=== PATIENT | male | born 1955 | race Caucasian/White ===

== ENCOUNTER 2019-07-15 08:14 | Emergency (ER) | payer BC ==
[~2019-07-15] VITALS: Ht 180.3 cm; Wt 106.6 kg
--- OUTSIDE RECORDS SUMMARY | ~2019-07-15 | XMS | Encounter Summary ---
Demographics + + + | Address | [address] | | | [place] [address] | + + + | Home Phone | | + + + | Preferred Language | Unknown | + + + | Marital Status | Unknown | + + + | Jain Affiliation | [id number] | + + + | Race | Unknown | + + + | Ethnic Group | Unknown | + + + Author + + + | Author | [facility] | | | [facility] [place] | + + + | Organization | [facility] | | | [facility] [place] | + + + | Address | Unknown | + + + | Phone | Unavailable | + + + Support + + +---------+ + | Name | Relationship | Address | Phone | + + +---------+ + | Selene Gao | ECON | Unknown | | + + +---------+ + Care Team Providers + +------+ + | Care Nursing Executive Name | Role | Phone | + +------+ + | Blue Lopez MD | PCP | | + +------+ + Encounter Details +--------+ + + + + | Date | Type | Department | Care Team | Description | +--------+ + + + + | 05/14/ | Orders Only | [facility] | Conversion | | | 2015 | | CONVERSION DEP [address] | Transaction, | | | | | [address] | Provider Unknown | | | | | [place] | [phone] | | | | | [phone] | (Fax) | | | | | [phone] | | | +--------+ + + + + Social History + +-------+ +--------+------+ | Tobacco Use | Types | Packs/Day | Years | Date | | | | | Used | | + +-------+ +--------+------+ | Never Assessed | | | | | + +-------+ +--------+------+ + + + | Sex Assigned at | Date Recorded | | | | + + + | Not on file | | + + + + + + + | Job Start Date | Occupation | Industry | + + + + | Not on file | Not on file | Not on file | + + + + + + + + | Travel History | Travel Start | Travel End | + + + + + + | No recent travel history available. | + + documented as of this encounter Plan of Treatment Not on filedocumented as of this encounter Visit Diagnoses Not on filedocumented in this encounter"
--- OUTSIDE RECORDS SUMMARY | ~2019-07-15 | XMS | Encounter Summary ---
Demographics + + + | Address | [address] | | | [place] [address] | + + + | Home Phone | | + + + | Preferred Language | Unknown | + + + | Marital Status | Unknown | + + + | [employer]aritan Affiliation | 1013 | + + + | Race | Unknown | + + + | Ethnic Group | Unknown | + + + Author + + + | Author | [facility] | | | and [place] | + + + | Organization | [facility] | | | and [place] | + + + | Address | Unknown | + + + | Phone | Unavailable | + + + Support + + +---------+ + | Name | Relationship | Address | Phone | + + +---------+ + | Selene Lorenzo | ECON | Unknown | | + + +---------+ + Care Team Providers + +------+ + | Care Brusher Operator Name | Role | Phone | + +------+ + PCP | Unavailable | + +------+ + Encounter Details +--------+ + + + + | Date | Type | Department | Care Team | Description | +--------+ + + + + | 04/09/ | Hospital | [facility] | Conversion | Acute chest pain; | | 2014 - | Encounter | [facility] | Transaction, | Unstable angina | | | | CARE FLOOR [address] | Provider Unknown | ([facility]); Cerebral | | 04/11/ | | [address] | [phone] | infarction due to | | 2014 | | [place] | | embolism of right | | | | [phone] | Prince Avina | middle cerebral | | | | [phone] | MD [address] | artery ([facility]); Type 2 | | | | | [address] | diabetes mellitus | | | | | [place] [address] | without complication | | | | | [phone] | (HCC) | | | | | | | +--------+ + + + [...] + + documented as of this encounter Discharge Summaries Prince Avina MD - 04/11/2015 7:41 AM PDTFormatting of this note might be differ ent from the original. Discharge Summaries by Prince Avina DO at 04/11/15740 Author: Prince Avina DO Service: Cardiology Author Type: Physician Filed: 02/27/16 1326 Date of Service: 04/11/15740 Status: Signed State Tested Nursing Assistant: Prince Avina DO (Physician) [facility] Service: Cardiology Discharge Summary Date of Admission: 04/09/2015 Date of Discharge: 04/11/2015 Discharge Physician: PRINCE T AVINA, DO Discharge Diagnoses: 1. 3-V CAD. 2. Hypertension 3. Hyperlipidmeia 4. DM2 Procedures During Hospitalization: Cardiac Cath Findings: 1. 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 Severe three-vessel coronary artery disease including RCA, LAD and left circumflex Recommend coronary artery bypass surgery BRIEF HISTORY OF PRESENTATION: Dusty Lorenzo is a 59 y.o. male, with relatively new onset chest pain, worsening over the last few weeks. It is aggravated with exertion, relieved with rest. He's had no symp toms at rest. It began initially with discomfort in the low mid back area, but then has a tendency to radiate down both arms, he gets a sensation that he describes as "heartburn", sh ortness of breath, nausea, and diaphoresis. He is normally quite active, but the last few weeks he symptoms have been decreasing his activity. There is no prior history of coronary artery disease, myocardial infarction, congestive heart failure, rheumatic heart disease, p alpitations or syncope. He has a long history of diabetes (10+ years), hypertension, hyper lipidemia, and extremely strong family history of heart disease (father had coronary disease and bypass surgery prior to age 50, 2 of his older brothers have already had the coronary d isease, stents and/or bypass surgery, his younger brothers oriented to stroke. He quit [employer] 20 years ago. Past Medical History Diagnosis Date RBBB (right bundle branch block) Hypertension Hyperlipidemia Diabetes mellitus, type 2 (HCC) Past Surgical History Procedure Laterality Date Tonsillectomy Abdominal surgery Lypoma removal from groin area-benign Colonoscopy Allergies Allergen Reactions Sulfa Antibiotics Hives and Rash HOSPITAL COURSE: Patient admitted because of unstable angina, undergoing coronary angiography. Found to hav e severe three-vessel coronary disease, bypass surgery was recommended. Seen by Dr. Martinez , see Dr. Martinez's consultation. As a complication of procedure, patient suffered a small CVA. Seen by neurology, see Dr. Cheng's consultation (CT scan is negative for hemorrhage. M RI consistent with CVA). Treated medically, the remainder of his hospital stay, patient was stable. Because surgery was delayed, patient will be discharged followed in outpatient set ting, and return in later date for elective surgery. Vital Signs: BP 131/78 mmHg | Pulse 78 | Temp(Src) 97.8 F (36.6 C) (Oral) | Resp 16 | Ht 1.803 m (5' 11") | Wt 107.5 kg (236 lb 15.9 oz) | BMI 33.07 kg/m2 | SpO2 98% GENERAL APPEARANCE: Alert, oriented, cooperative, no distress, appears stated age. HEENT: No xanthelasmas. Extraocular movements were intact. No jaundice. Pupiles round and reactive. NECK: No JVD, lymphadenopathy. Trachea is at midline. Thyroid is not palpable. Carotid ups trokes normal. No carotid bruit heard. CARDIAC: Regular rhythm and rate. There is normal S1 and S2. No galop. No murmur. Pedal pu lses intact. CHEST: Normal bilateral symmetrical chest excursion. Good bilateral air entry with no crack les or wheezing. No evidence of dullness. ABDOMEN: Soft and lax. No tenderness or guarding. No palpable organs. Active bowel sounds . No pulsatile mass felt. EXTREMITIES: No lower extremities edema. No varicose veins seen. NEURO: Alert and oriented times three with no focal deficit. Cranial nerves are grossly no rmal. SKIN: Warm and dry. No rash. Psych: Normal affect and mood. Medication List aspirin EC 81 MG EC tablet Take 81 mg by mouth daily with breakfast. glipiZIDE (GLUCOTROL) 5 MG tablet Take 5 mg by mouth 2 (two) times daily before ayana ls. lisinopril (ZESTRIL) 10 MG tablet Take 5 mg by mouth daily. lovastatin (MEVACOR) 40 MG tablet Take 40 mg by mouth nightly. metFORMIN (GLUCOPHAGE) 1000 MG tablet Take 1,000 mg by mouth 2 (two) times daily wi th meals. metoprolol (TOPROL-XL) 25 MG 24 hr tablet Take 25 mg by mouth daily. Disposition: Home Condition: Stable. Code Status: Full code Follow up: No follow-up provider specified. Discharge took 60 minutes, to include final examination, discussion of admission, and prepa ration of prescriptions, instructions for on-going care, follow-up and documentation of disc harge summary. *This report has been prepared using a voice recognition system. The report was reviewed fo r accuracy, however, sound-alike word errors, addition and/or deletions may occur. If there is any question about this report please contact me. PRINCE AVINA DO 04/11/2015 7:41 AM documente d in this encounter Medications at Time of Discharge + + + +---------+ + + | Medication | Sig | Dispensed | Refills | Start | End Date | | | | | | Date | | + + + +---------+ + + | metFORMIN | Take 1,000 mg by | | 0 | 04/09/20 | | | (GLUCOPHAGE) 1000 MG | mouth 2 (two) times | | | 15 | | | tablet | daily with meals. | | | | | + + + +---------+ + + documented as of this encounter Progress Notes Conversion Transaction, Provider Unknown - 04/11/2015 12:41 PM PDTFormatting of this note m ight be different from the original. Case Management by BE Bai at 04/11/15 1241 Author: BE Bai Service: (none) Author Type: Duster Tender Filed: 04/11/15 3426 Date of Service: 04/11/151240 Status: Signed State Tested Nursing Assistant: BE Bai (Duster Tender) 04/11/15 1200 Anticipated Disposition Facility Type Home Discharge Appointment Time 1241 Medicare Important Message (FLORES) Not applicable Per nursing rounds this morning, patient had no d/c needs. BE Bai onver fiordaliza Transaction, Provider Unknown - 04/11/2015 10:47 AM PDT Nurse Progress Note by Ashlyn Bonner RN at 04/11/151046 Author: Ashlyn Bonner RN Service: (none) Author Type: Registered Nurse Filed: 04/11/151046 Date of Service: 04/11/151046 Status: Signed State Tested Nursing Assistant: Ashlyn Bonner RN (Registered Nurse) All d/c instructions and prescriptions given. Pt to f/u with alicia Ramirez, and pcp and schedule for open heart surgery. Denies cp or SOB at d/c. Prince Hanna MD - 04/10/2015 2:23 PM PDTFormatting of this note might be different fro m the original. Progress Notes by Prince Avina DO at 04/10/15 1423 Author: Prince Avina DO Service: Cardiology Author Type: Physician Filed: 04/10/15 1429 Date of Service: 04/10/151422 Status: Signed State Tested Nursing Assistant: Prince Avina DO (Physician) [facility] Service: Cardiology Progress Note Hospital Day: LOS: 1 day Post-Op Day: 1, post cath SUBJECTIVE Patient Summary: 59-year-old white male, status post coronary angiography for crescen do angina. 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 After the procedure, zahira ent noticed left arm weakness, left facial numbness. This has persisted, he now has left arm weakness, left leg weakness and the left facial numbness. CT scan is negative for hemorrhag e. MRI consistent with CVA. Case is discussed with Dr. Martinez, surgery has been postponed. Events Overnight: Patient feeling better today, left hand and left leg back to normal , still has some numbness in the left cheek area. Scheduled Medications aspirin EC 325 mg Oral Daily with breakfast atorvastatin 80 mg Oral Nightly glipiZIDE 5 mg Oral BID AC lisinopril 5 mg Oral Daily metoprolol 25 mg Oral Daily pneumococcal 23-valent vaccine 0.5 mL Intramuscular Once Immunization Continuous Infusions PRN Medications acetaminophen OR acetaminophen, fentaNYL OR fentaNYL, heparin (porcine) 5000 unit/0 .5mL, heparin (porcine) 5000 unit/0.5mL, nitroGLYCERIN, ondansetron OR ondansetron, poly ethylene glycol, zolpidem OBJECTIVE Vital Signs: BP 165/84 mmHg | Pulse 72 | Temp(Src) 98.6 F (37 C) (Oral) | Resp 16 | Ht 1.803 m (5' 1 1") | Wt 110.36 kg (243 lb 4.8 oz) | BMI 33.95 kg/m2 | SpO2 99% Temp: [97.7 F (36.5 C)-98.8 F (37.1 C)] 98.6 F (37 C) (04/10 1216) BP: (117-167)/(71-101) 165/84 mmHg (04/10 1216) Heart Rate: [50-90] 72 (04/10 1216) Resp: [16-22] 16 (04/10 1216) SpO2: [95 %-100 %] 99 % (04/10 1216) Weight: [110.36 kg (243 lb 4.8 oz)] 110.36 kg (243 lb 4.8 oz) (04/10 0428) Intake/Output Summary (Last 24 hours) at 04/10/15 1423 Last data filed at 04/10/15 1351 Gross per 24 hour Intake 3186.28 ml Output 0 ml Net 3186.28 ml 110.36 kg (243 lb 4.8 oz) Exam Cardivascular: No JVD. Carotid upstrokes brisk and without bruits. No abdominal bruits. No femoral bruits. Peripheral pulses normal. PMI localized. Auscultated in the sitting and supine position reveals regular rate and rhythm, S1 and S2 normal, no murmur, rub or horne p Lungs: Clear to auscultation bilaterally, respirations unlabored Extremities: Extremities normal, atraumatic, no cyanosis or edema. Right radial area sta ble, unremarkable. DATA CBC: Lab Results Component Value Date WBC 4.59 04/09/2015 RBC 4.29 04/09/2015 HGB 12.7* 04/09/2015 HCT 36.3* 04/09/2015 MCV 84.6 04/09/2015 MCH 29.5 04/09/2015 MCHC 34.9 04/09/2015 RDW 40.3 04/09/2015 PLT 126* 04/09/2015 MPV 8.8 04/09/2015 DIFFTYPE AUTOMATED 04/09/2015 CMP: Lab Results Component Value Date NA 138 04/09/2015 K 4.5 04/09/2015 CL 102 04/09/2015 CO2 28 04/09/2015 ANIONGAP 12 04/09/2015 GLUF 180* 04/09/2015 BUN 18 04/09/2015 CREATININE 1.1 04/09/2015 BCR 16 04/09/2015 CA 8.6 04/09/2015 EGFR >60 04/09/2015 CPK: No results found for: CKTOTAL Troponin I: No results found for: TROPONINI TSH: No results found for: TSH, TSHNEO, TSHREFLEX No results found for: BNP Assessment ASSESSMENT & PLAN 1. Three-vessel CAD, including anomalous takeoff of the left main, LVEF NML. CABG recommend ed. 2. CVA, associated with diagnostic coronary angiography, symptoms improving, Neurology Cons ultation pending. 3. Hx HTN, HLD, DM2. Code Status: Full Code PRINCE AVINA DO 04/10/2015 Raymundo Hanna MD - 04/09/2015 9:19 PM PDTFormatting of this note might be different from celine izquierdo original. Progress Notes by Prince Avina DO at 04/09/152118 Author: Prince Avina DO Service: Cardiology Author Type: Physician Filed: 04/09/152125 Date of Service: 04/09/152118 Status: Signed State Tested Nursing Assistant: Prince Avina DO (Physician) 04/09/2015 59-year-old white male, status post coronary angiography for crescendo angina. 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 After the procedure, patient noticed left arm weakness, left facial numbness. This has persisted, he now has left arm weakness, left leg weakness and the left facial numbness. CT scan is negative for hemorrhage. MRI consistent with CVA. Case is discussed with Dr. Martinez, surgery has been postponed. Case discussed w kayli Cheng, she'll be seeing the patient tomorrow. At this point, we DC'd the IV heparin , patient is on aspirin and high-dose atorvastatin. His coronary disease we treated medical ly at this point, metoprolol. Carotid US 1. Findings suggest a 50-69% stenosis in the proximal left internal carotid artery, and dis maya right common carotid artery. -head 1. No acute intracranial pathology. /MRA-head 1. 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 This critical finding was relayed to t patient's nurse, Key on the date and time of dictation. 2. 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 Results discussed with patient and . [facility] onversio n Transaction, Provider Unknown - 04/09/2015 9:00 PM PDTFormatting of this note might be di fferent from the original. Nurse Progress Note by Chris Christensen RN at 04/09/152099 Author: Chris Christensen RN Service: (none) Author Type: Registered Nurse Filed: 04/10/15 0357 Date of Service: 04/09/152099 Status: Signed State Tested Nursing Assistant: Chris Christensen RN (Registered Nurse) Pt exhibiting signs of left sided weakness and left sided facial drooping. Left side fine m otor involvement in LUE. Dr. Avina at bedside. CT/MRI ordered. Ct negative, MRI positive for CVA. Juan Suazo notified. CABG on hold. Neuro consult with Dr Jack 04/10. Will cont inue to monitor PT closely and continue Neuro checks. Chris Christensen RN onver fiordaliza Transaction, Provider Unknown - 04/09/2015 7:01 PM PDT Nurse Progress Note by Cherrie Rojo RN at 04/09/151900 Author: Cherrie Rojo RN Service: (none) Author Type: Registered Nurse Filed: 04/09/151901 Date of Service: 04/09/151900 Status: Signed State Tested Nursing Assistant: Cherrie Rojo RN (Registered Nurse) 3cc air removed from TR band. ele Banerjee Jr., MD - 04/09/2015 6:50 PM PDTFormatting of this note might be different from t he original. Progress Notes by Lele Martinez MD at 04/09/151849 Author: Lele Martinez MD Service: (none) Author Type: Physician Filed: 04/09/151850 Date of Service: 04/09/151849 Status: Signed State Tested Nursing Assistant: Lele Martinez MD (Physician) Left sided neuro symptoms now present per nursing evaluation CT scan of the head has been ordered CABG on hold for now onversion Trans action, Provider Unknown - 04/09/2015 6:45 PM PDT Nurse Progress Note by Cherrie Rojo RN at 04/09/151844 Author: Cherrie Rojo RN Service: (none) Author Type: Registered Nurse Filed: 04/09/151845 Date of Service: 04/09/151844 Status: Signed State Tested Nursing Assistant: Cherrie Rojo RN (Registered Nurse) Dr Martinez notified of pt's continued L facial droop. numbness to L hand and CT head withou t contrast via telephone at this time. onver fiordaliza Transaction, Provider Unknown - 04/09/2015 5:54 PM PDT Nurse Progress Note by Cherrie Rojo RN at 04/09/151753 Author: Cherrie Rojo RN Service: (none) Author Type: Registered Nurse Filed: 04/09/151755 Date of Service: 04/09/151753 Status: Signed State Tested Nursing Assistant: Cherrie Rojo RN (Registered Nurse) L sided weakness present on pt's arrival from [employer], per RN report this was evaluated by Dr Malik at bedside in [employer]. This weakness has persisted. Dr Avina notified that pt con tinues to have numbness, lack of dexterity, and mild L facial droop. CT head without contras t ordered. onver fiordaliza Transaction, Provider Unknown - 04/09/2015 3:34 PM PDT Progress Notes by Kenia Santacruz RPH at 04/09/151533 Author: Kenia Santacruz RPH Service: (none) Author Type: Pharmacist Filed: 04/09/151533 Date of Service: 04/09/151533 Status: Signed State Tested Nursing Assistant: Kenia Santacruz RPH (Pharmacist) Clinical Pharmacy Note: Renal Monitoring Dusty Lorenzo 59 y.o. male Ht Readings from Last 1 Encounters: 04/09/15 1.803 m (5' 11") Wt Readings from Last 1 Encounters: 04/09/15 112.492 kg (248 lb) CREATININE: 1.1 (04/09/15 1110) Estimated creatinine clearance - 90 mL/min Pharmacy dosing for renal function per Dr. Malik. Currently, there are no medications needing to be adjusted. Pharmacy will continue to monit or for changes in medication orders and in renal function and adjust accordingly. Kenia Santacruz RPh 04/09/2015 3:34 PM onver fiordaliza Transaction, Provider Unknown - 04/09/2015 2:54 PM PDT Nurse Progress Note by Cornelio Silva RN at 04/09/15 2918 Author: Cornelio Silva RN Service: (none) Author Type: Registered Nurse Filed: 04/09/15 8671 Date of Service: 04/09/151453 Status: Signed State Tested Nursing Assistant: Cornelio Silva RN (Registered Nurse) After pt was sat up from the table after procedure, pt c/o feeling off and a little disorie nted and his mouth feels like he just came back from the dentist. Pt then started foaming/fr othing from left side of the mouth and sounded slightly heavy tongued. Dr. Malik was notifi ed and he performed a neuro exam. After the exam pt stated that his left arm was tingling an d numb, however that was getting better. Also that he felt that his mouth and speech was myra e what better. Pt did have some notable left sided facial droop. This was reported to niles lew RN, 4RP via phone. docume nted in this encounter Plan of Treatment Not on filedocumented as of this encounter Procedures + +--------+ + + + | Procedure Name | Priori | Date/Time | Associated Diagnosis | Comments | | | ty | | | | + +--------+ + + + | CT CHEST W CONTRAST | Routin | 04/11/2015 | | Results for this | | | e | 8:41 AM | | procedure are in the | | | | PDT | | results section. | + +--------+ + + + | PTT | Routin | 04/09/2015 | | Results for this | | | e | 9:07 PM | | procedure are in the | | | | PDT | | results section. | + +--------+ + + + | MRI BRAIN WO | Routin | 04/09/2015 | | Results for this | | CONTRAST ANGIOGRAM | e | 8:36 PM | | procedure are in the | | HEAD WO CONTRAST | | PDT | | results section. | + +--------+ + + + | VAS LOWER EXTREMITY | Routin | 04/09/2015 | | Results for this | | VEIN MAPPING | e | 6:55 PM | | procedure are in the | | BILATERAL | | PDT | | results section. | + +--------+ + + + | MRSA NAAT | STAT | 04/09/2015 | | Results for this | | | | 6:50 PM | | procedure are in the | | | | PDT | | results section. | + +--------+ + + + | VAS CAROTID DUPLEX | Routin | 04/09/2015 | | Results for this | | BILATERAL | e | 6:40 PM | | procedure are in the | | | | PDT | | results section. | + +--------+ + + + | CT HEAD WO CONTRAST | Routin | 04/09/2015 | | Results for this | | | e | 6:33 PM | | procedure are in the | | | | PDT | | results section. | + +--------+ + + + | ECG 12 LEAD | Routin | 04/09/2015 | | Results for this | | | e | 3:52 PM | | procedure are in the | | | | PDT | | results section. | + +--------+ + + + | XR CHEST 1 VIEW | Routin | 04/09/2015 | | Results for this | | | e | 3:52 PM | | procedure are in the | | | | PDT | | results section. | + +--------+ + + + | PTT | Routin | 04/09/2015 | | Results for this | | | e | 3:31 PM | | procedure are in the | | | | PDT | | results section. | + +--------+ + + + | PROTIME INR | Routin | 04/09/2015 | | Results for this | | | e | 3:31 PM | | procedure are in the | | | | PDT | | results section. | + +--------+ + + + | CBC NO DIFFERENTIAL | Routin | 04/09/2015 | | Results for this | | | e | 3:31 PM | | procedure are in the | | | | PDT | | results section. | + +--------+ + + + | ECHO COMPLETE | Routin | 04/09/2015 | | Results for this | | | e | 12:15 PM | | procedure are in the | | | | PDT | | results section. | + +--------+ + + + | EXTERNAL LAB: CBC | Routin | 04/09/2015 | | Results for this | | | e | 11:10 AM | | procedure are in the | | | | PDT | | results section. | + +--------+ + + + | BASIC METABOLIC | Routin | 04/09/2015 | | Results for this | | PANEL | e | 11:10 AM | | procedure are in the | | | | PDT | | results section. | + +--------+ + + + documented in this encounter Results CT Chest w Contrast (04/11/2015 8:41 AM PDT) + + | Specimen | + + | | + + + + + | Impressions | Performed At | + + + | 1. Maximum A-P diameter of the ascending thoracic aorta is 3.9 cm. | | | There is probable pulsation artifact over the ascending aorta without | | | definite dissection identified. No mediastinal hematoma. 2. Mild | | | coronary artery calcifications. 3. Incidental gallstone and cysts | | | noted in the liver. | | + + + + + + | Narrative | Performed At | + + + | [facility] CT CHEST W CONTRAST 04/11/2015 8:41 AM HISTORY: | | | Acute chest pain. Evaluate ascending thoracic aorta. TECHNIQUE: 5 | | | mm axial sections were obtained through the chest with IV contrast. | | | FINDINGS: No prior comparison. There is probable pulsation | | | artifact overlying the ascending thoracic aorta. The maximum A-P | | | diameter of the ascending thoracic aorta is 3.9 cm. No mediastinal | | | hematomas are present. Incidental note is made of a gallstone. | | | There is a small low-density lesion in the liver near the dome of the | | | diaphragm showing fluid density, consistent with a cyst. No focal | | | airspace infiltrates or evidence of edema. No evidence of a | | | pneumothorax or pleural effusion. Coronary artery calcifications are | | | noted. No enlarged lymph nodes are identified in the mediastinum. | | + + + + + | Procedure Note | + + | Ravi, Rad Conversion - 03/10/2019 10:17 AM [facility] | | CONTRAST04/11/2015 8:41 AM HISTORY:Acute chest pain. Evaluate ascending thoracic aorta. | | TECHNIQUE:5 mm axial sections were obtained through the chest with IV contrast. | | FINDINGS:No prior comparison. There is probable pulsation artifact overlying the | | ascending thoracic aorta. The maximum A-P diameter of the ascending thoracic aorta is | | 3.9 cm. No mediastinal hematomas are present. Incidental note is made of a gallstone. | | There is a small low-density lesion in the liver near the dome of the diaphragm showing | | fluid density, consistent with a cyst. No focal airspace infiltrates or evidence of | | edema. No evidence of a pneumothorax or pleural effusion. Coronary artery calcifications | | are noted. No enlarged lymph nodes are identified in the mediastinum. IMPRESSION: 1. | | Maximum A-P diameter of the ascending thoracic aorta is 3.9 cm. There is probable | | pulsation artifact over the ascending aorta without definite dissection identified. No | | mediastinal hematoma.2. Mild coronary artery calcifications.3. Incidental gallstone | | and cysts noted in the liver. Electronically signed by Alvino Isabel MD on | | 04/11/2015 8:59 AM | |Incidental note is made of a gallstone. There is a small low-density lesion in the liver ne ar the dome of the diaphragm showing fluid density, consistent with a cyst. | | | |No focal airspace infiltrates or evidence of edema. No evidence of a pneumothorax or pleura l effusion. Coronary artery calcifications are noted. No enlarged lymph nodes are identified in the mediastinum. | | | |IMPRESSION: | |1. Maximum A-P diameter of the ascending thoracic aorta is 3.9 cm. There is probable pulsa tion artifact over the ascending aorta without definite dissection identified. No mediastina l hematoma. | |2. Mild coronary artery calcifications. | |3. Incidental gallstone and cysts noted in the liver. | | | | | + + PTT (04/09/2015 9:07 PM PDT) + + + + + + | Component | Value | Ref Range | Performed | Pathologist | | | | | At | Signature | + + + + + + | aPTT, | 33 (H)Comment: Testing | 23 - 32 seconds | EXTERNAL | | | Patient | performed at [facility] | | LAB | | | | Marito Carcamo;[place], [place] | | | | | | [address] | | | | + + + + + + + + | Specimen | + + | Blood specimen | | (specimen) | + + + +---------+ + + | Performing | Address | City/State/Zipcode | Phone Number | | Organization | | | | + +---------+ + + | EXTERNAL LAB | | | | + +---------+ + + MRI Brain Wo MRA Head Wo (04/09/2015 8:36 PM PDT) + + | Specimen | + + | | + + + + + | Impressions | Performed At | + + + | 1. 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 This critical | | | finding was relayed to the patient's nurse, Key on the date and | | | time of dictation. 2. 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 | | + + + + + + | Narrative | Performed At | + + + | [facility] HEAD 04/09/2015 8:36 PM | | | HISTORY: 59 years. Male. Left facial droop. Numbness in the left | | | hand. TECHNIQUE: Using a 1.5 Iv[employer] MRI unit, standard multiplanar | | | noncontrast sequences through the brain were obtained. Additionally, | | | 3-D, flight MRA imaging through the intracranial arterial circulation | | | was performed with maximum intensity projection images rendered. | | | COMPARISON: Head CT 04/09/2015. FINDINGS: A small cortical | | | infarct involves the right posterior frontal lobe, with restricted | | | diffusion, best seen on images 33 through 37, series 2. No | | | intracranial hemorrhage, mass, or hydrocephalus is found. No | | | significant white matter disease is noted. The corpus callosum, | | | midbrain, carloz, medulla, and cerebellum are normal. No significant | | | orbital abnormalities are found. The significant paranasal sinus | | | disease or mastoid fluid is found. No worrisome bone lesions are | | | identified. A small amount of abnormal high T1 signal is present | | | within the distal right vertebral artery. MRA imaging demonstrates | | | dominance of a patent left vertebral artery. The right vertebral | | | artery is diminished in size, demonstrating no flow within its distal | | | segment, with absence of flow in this region measuring 1.4 cm, best | | | seen on image 12, series 101. The basilar artery and basilar | | | arterial branches including the bilateral posterior cerebral arteries | | | appear widely patent. A patent right posterior communicating artery is | | | found without aneurysm. 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 The bilateral internal carotid, middle | | | cerebral, and anterior cerebral arteries appear widely patent. No | | | anterior commuting artery aneurysm is found. | | + + + + + | Procedure Note | + + | Ravi, Rad Conversion - 03/10/2019 10:17 AM PDT [facility] | | HEAD04/09/2015 8:36 PM HISTORY:59 years. Male. Left facial droop. Numbness in the left | | hand. TECHNIQUE:Using a 1.5 [employer] MRI unit, standard multiplanar noncontrast sequences | | through the brain were obtained. Additionally, 3-D, flight MRA imaging through the | | intracranial arterial circulation was performed with maximum intensity projection images | | rendered. COMPARISON:Head CT 04/09/2015. FINDINGS:A small cortical infarct involves the | | right posterior frontal lobe, with restricted diffusion, best seen on images 33 through | | 37, series 2. No intracranial hemorrhage, mass, or hydrocephalus is found. No | | significant white matter disease is noted. The corpus callosum, midbrain, carloz, medulla, | | and cerebellum are normal. No significant orbital abnormalities are found. The | | significant paranasal sinus disease or mastoid fluid is found. No worrisome bone lesions | | are identified. A small amount of abnormal high T1 signal is present within the distal | | right vertebral artery. MRA imaging demonstrates dominance of a patent left vertebral | | artery. The right vertebral artery is diminished in size, demonstrating no flow within | | its distal segment, with absence of flow in this region measuring 1.4 cm, best seen on | | image 12, series 101. The basilar artery and basilar arterial branches including the | | bilateral posterior cerebral arteries appear widely patent. A patent right posterior | | communicating artery is found without aneurysm. The left posterior communicating artery | | is likely congenitally absent. The bilateral internal carotid, middle cerebral, and | | anterior cerebral arteries appear widely patent. No anterior commuting artery aneurysm | | is found. IMPRESSION: 1. 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 This | | critical finding was relayed to the patient's nurse, Key on the date and time of | | dictation. 2. 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 | | | |IMPRESSION: | |1. 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 This critical finding was relayed to the patient's nurse, Key on the date and time of dictation. | | | |2. 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 | | | | | + + VAS Lower Extremity Vein Mapping Bilat (04/09/2015 6:55 PM PDT) + + | Specimen | + + | | + + + + + | Impressions | Performed At | + + + | 1. Bilateral greater saphenous vein mapping as described above. | | | | | + + + + + + | Narrative | Performed At | + + + | DUSTY LORENZO GREATER SAPHENOUS VEIN MAPPING BILATERAL | | | 04/09/2015 6:55 PM HISTORY: 59 years. Male. Bilateral lower | | | extremity venous examination for saphenous vein harvest evaluation | | | prior to CABG. TECHNIQUE: Imaging was performed using a linear | | | array transducer. Myles scale, color flow, and power Doppler techniques | | | utilized. COMPARISON: None. FINDINGS: All vein segments are | | | completely compressible. RIGHT GREATER SAPHENOUS VEIN | | | Sapheno-femoral junction: Diameter (mm): 6.7 Depth (mm): 21 | | | Proximal thigh: Diameter (mm): 2.7 Depth (mm): 4.6 Mid thigh: | | | Diameter (mm): 3.4 Depth (mm): 2.8 Distal thigh: Diameter | | | (mm): 3.0 Depth (mm): 3.9 Knee: Diameter (mm): 2.7 | | | Depth (mm): 3.4 Proximal calf: Diameter (mm): 2.4 Depth | | | (mm): 2.2 Mid calf: Diameter (mm): 2.9 Depth (mm): 2.5 | | | Distal calf: Diameter (mm): 3.2 Depth (mm): 3.0 LEFT | | | GREATER SAPHENOUS VEIN Sapheno-femoral junction: Diameter (mm): | | | 6.0 Depth (mm): 31 Proximal thigh: Diameter (mm): 2.4 | | | Depth (mm): 3.3 Mid thigh: Diameter (mm): 2.8 Depth (mm): | | | 6.9 Distal thigh: Diameter (mm): 3.0 Depth (mm): 7.4 | | | Knee: Diameter (mm): 2.7 Depth (mm): 6.7 Proximal calf: | | | Diameter (mm): 3.5 Depth (mm): 5.3 Mid calf: Diameter (mm): | | | 1.5 Depth (mm): 2.5 Distal calf: Diameter (mm): 3.0 | | | Depth (mm): 2.8 | | + + + + + | Procedure Note | + + | Isaac Rodrigues - 03/10/2019 10:17 AM PDT [facility] ALBERT GREATER SAPHENOUS VEIN | | MAPPING BILATERAL04/09/2015 6:55 PM HISTORY:59 years. Male. Bilateral lower extremity | | venous examination for saphenous vein harvest evaluation prior to CABG. | | TECHNIQUE:Imaging was performed using a linear array transducer. Myles scale, color flow, | | and power Doppler techniques utilized. COMPARISON:None. FINDINGS:All vein segments are | | completely compressible. RIGHT GREATER SAPHENOUS VEIN Sapheno-femoral junction: | | Diameter (mm): 6.7 Depth (mm): 21Proximal thigh: Diameter (mm): 2.7 Depth (mm): | | 4.6Mid thigh: Diameter (mm): 3.4 Depth (mm): 2.8Distal thigh: Diameter (mm): 3.0 | | Depth (mm): 3.9Knee: Diameter (mm): 2.7 Depth (mm): 3.4Proximal calf: Diameter | | (mm): 2.4 Depth (mm): 2.2Mid calf: Diameter (mm): 2.9 Depth (mm): 2.5Distal | | calf: Diameter (mm): 3.2 Depth (mm): 3.0 LEFT GREATER SAPHENOUS VEIN | | Sapheno-femoral junction: Diameter (mm): 6.0 Depth (mm): 31Proximal thigh: | | Diameter (mm): 2.4 Depth (mm): 3.3Mid thigh: Diameter (mm): 2.8 Depth (mm): | | 6.9Distal thigh: Diameter (mm): 3.0 Depth (mm): 7.4Knee: Diameter (mm): 2.7 | | Depth (mm): 6.7Proximal calf: Diameter (mm): 3.5 Depth (mm): 5.3Mid calf: Diameter | | (mm): 1.5 Depth (mm): 2.5Distal calf: Diameter (mm): 3.0 Depth (mm): 2.8 | | IMPRESSION: 1. Bilateral greater saphenous vein mapping as described above. | | | |Sapheno-femoral junction: Diameter (mm): 6.7 Depth (mm): 21 | |Proximal thigh: Diameter (mm): 2.7 Depth (mm): 4.6 | |Mid thigh: Diameter (mm): 3.4 Depth (mm): 2.8 | |Distal thigh: Diameter (mm): 3.0 Depth (mm): 3.9 | |Knee: Diameter (mm): 2.7 Depth (mm): 3.4 | |Proximal calf: Diameter (mm): 2.4 Depth (mm): 2.2 | |Mid calf: Diameter (mm): 2.9 Depth (mm): 2.5 | |Distal calf: Diameter (mm): 3.2 Depth (mm): 3.0 | | | |LEFT GREATER SAPHENOUS VEIN | | | |Sapheno-femoral junction: Diameter (mm): 6.0 Depth (mm): 31 | |Proximal thigh: Diameter (mm): 2.4 Depth (mm): 3.3 | |Mid thigh: Diameter (mm): 2.8 Depth (mm): 6.9 | |Distal thigh: Diameter (mm): 3.0 Depth (mm): 7.4 | |Knee: Diameter (mm): 2.7 Depth (mm): 6.7 | |Proximal calf: Diameter (mm): 3.5 Depth (mm): 5.3 | |Mid calf: Diameter (mm): 1.5 Depth (mm): 2.5 | |Distal calf: Diameter (mm): 3.0 Depth (mm): 2.8 | | | |IMPRESSION: | |1. Bilateral greater saphenous vein mapping as described above. | | | | | + + MRSA NAAT (04/09/2015 6:50 PM PDT) + + | Specimen | + + | | + + + + + | Narrative | Performed At | + + + | [facility](NOSE) | EXTERNAL LAB | | Testing performed at [facility];[address] [place] [address];[place] [address] MRSA PCR | | | NEGATIVE Testing performed at | | | [facility];[address] [place] [address];[place] [address] | | + + + + +---------+ + + | Performing | Address | City/State/Zipcode | Phone Number | | Organization | | | | + +---------+ + + | EXTERNAL LAB | | | | + +---------+ + + VAS Carotid Duplex Bilateral (04/09/2015 6:40 PM PDT) + + | Specimen | + + | | + + + + + | Impressions | Performed At | + + + | 1. Findings suggest a 50-69% stenosis in the proximal left | | | internal carotid artery, and distal right common carotid artery. | | | | | + + + + + + | Narrative | Performed At | + + + | [facility] LORENZO US CAROTID DOPPLER, BILATERAL 04/09/2015 6:40 PM | | | HISTORY: Preoperative evaluation of the coronary arteries.. | | | Chest pain. Coronary artery disease. TECHNIQUE: Imaging was | | | performed with a linear array transducer. Grayscale, color flow and | | | pulsed wave spectral Doppler techniques were utilized. COMPARISON: | | | None. FINDINGS: Right side: Mild to moderate atherosclerotic | | | disease is present within the distal common carotid artery, extending | | | into the carotid arterial bulb and proximal external carotid artery. | | | CCA-PROX PSV: 78 (cm/s) EDV: 19 (cm/s) Grade: 1 CCA-DIST | | | PSV: 150 (cm/s) EDV: 12 (cm/s) Grade: 3 ICA-PROX PSV: | | | 97 (cm/s) EDV: 30 (cm/s) Grade: 2 ICA-DIST PSV: 75 (cm/s) | | | EDV: 22 (cm/s) Grade: 1 ECA-PROX PSV: 162 (cm/s) EDV: 16 | | | (cm/s) Grade: 1 VERTEBRAL PSV: 14 (cm/s) EDV: 6 (cm/s) | | | Grade: 1 VERTEBRAL FLOW: Antegrade RATIO ICA/CCA: PSV: 0.6 EDV: | | | 2.5 Left side: Moderate atherosclerotic plaque is found within | | | the proximal internal carotid artery, probably calcified with | | | shadowing noted. CCA-PROX PSV: 93 (cm/s) EDV: 21 (cm/s) | | | Grade: 1 CCA-DIST PSV: 102 (cm/s) EDV: 24 (cm/s) Grade: 1 | | | ICA-PROX PSV: 174 (cm/s) EDV: 38 (cm/s) Grade: 3 ICA-MID | | | PSV: 131 (cm/s) EDV: 30 (cm/s) Grade: 3 ICA-DIST PSV: | | | 62 (cm/s) EDV: 20 (cm/s) Grade: 1 ECA-PROX PSV: 137 (cm/s) | | | EDV: 9 (cm/s) Grade: 3 VERTEBRAL PSV: 56 (cm/s) EDV: 14 | | | (cm/s) Grade: 1 VERTEBRAL FLOW: Antegrade RATIO ICA/CCA: PSV: 1.7 | | | EDV: 1. Grades: 1 = 01-50% PSV <125 cm/s EDV | | | (cm/s)<40 cm/s (mild plaque) 2 = 01-50% PSV <125 cm/s EDV | | | (cm/s)<40 cm/s (moderate plaque) 3 = 50-69% PSV >125 cm/s | | | EDV (cm/s)>40 cm/s 4 = 70-95% PSV >230 cm/s EDV (cm/s)>100 | | | cm/s 5 = 90-95% 6 = Occluded | | + + + + + | Procedure Note | + + | Ravi, Rad Conversion - 03/10/2019 10:17 AM KELLIE ALBERT CAROTID DOPPLER, | | BILATERAL04/09/2015 6:40 PM HISTORY:Preoperative evaluation of the coronary arteries.. | | Chest pain. Coronary artery disease. TECHNIQUE:Imaging was performed with a linear | | array transducer. Grayscale, color flow and pulsed wave spectral Doppler techniques | | were utilized. COMPARISON:None. FINDINGS:Right side:Mild to moderate atherosclerotic | | disease is present within the distal common carotid artery, extending into the carotid | | arterial bulb and proximal external carotid artery. CCA-PROX PSV: 78 (cm/s) EDV: 19 | | (cm/s) Grade: 1CCA-DIST PSV: 150 (cm/s) EDV: 12 (cm/s) Grade: 3ICA-PROX PSV: | | 97 (cm/s) EDV: 30 (cm/s) Grade: 2ICA-DIST PSV: 75 (cm/s) EDV: 22 (cm/s) Grade: | | 1ECA-PROX PSV: 162 (cm/s) EDV: 16 (cm/s) Grade: 1VERTEBRAL PSV: 14 (cm/s) EDV: | | 6 (cm/s) Grade: 1VERTEBRAL FLOW: AntegradeRATIO ICA/CCA: PSV: 0.6 EDV: 2.5 Left | | side:Moderate atherosclerotic plaque is found within the proximal internal carotid | | artery, probably calcified with shadowing noted. CCA-PROX PSV: 93 (cm/s) EDV: 21 | | (cm/s) Grade: 1CCA-DIST PSV: 102 (cm/s) EDV: 24 (cm/s) Grade: 1ICA-PROX PSV: | | 174 (cm/s) EDV: 38 (cm/s) Grade: 3ICA-MID PSV: 131 (cm/s) EDV: 30 (cm/s) | | Grade: 3ICA-DIST PSV: 62 (cm/s) EDV: 20 (cm/s) Grade: 1ECA-PROX PSV: 137 | | (cm/s) EDV: 9 (cm/s) Grade: 3VERTEBRAL PSV: 56 (cm/s) EDV: 14 (cm/s) Grade: | | 1VERTEBRAL FLOW: AntegradeRATIO ICA/CCA: PSV: 1.7 EDV: 1. Grades:1 = 01-50% PSV <125 | | cm/s EDV (cm/s)<40 cm/s (mild plaque)2 = 01-50% PSV <125 cm/s EDV (cm/s)<40 | | cm/s (moderate plaque)3 = 50-69% PSV >125 cm/s EDV (cm/s)>40 cm/s4 = 70-95% PSV | | >230 cm/s EDV (cm/s)>100 cm/s5 = 90-95%6 = Occluded IMPRESSION: 1. Findings suggest | | a 50-69% stenosis in the proximal left internal carotid artery, and distal right common | | carotid artery. | |VERTEBRAL PSV: 14 (cm/s) EDV: 6 (cm/s) Grade: 1 | |VERTEBRAL FLOW: Antegrade | |RATIO ICA/CCA: PSV: 0.6 EDV: 2.5 | | | |Left side: | |Moderate atherosclerotic plaque is found within the proximal internal carotid artery, proba brennen calcified with shadowing noted. | | | |CCA-PROX PSV: 93 (cm/s) EDV: 21 (cm/s) Grade: 1 | |CCA-DIST PSV: 102 (cm/s) EDV: 24 (cm/s) Grade: 1 | |ICA-PROX PSV: 174 (cm/s) EDV: 38 (cm/s) Grade: 3 | |ICA-MID PSV: 131 (cm/s) EDV: 30 (cm/s) Grade: 3 | |ICA-DIST PSV: 62 (cm/s) EDV: 20 (cm/s) Grade: 1 | |ECA-PROX PSV: 137 (cm/s) EDV: 9 (cm/s) Grade: 3 | |VERTEBRAL PSV: 56 (cm/s) EDV: 14 (cm/s) Grade: 1 | |VERTEBRAL FLOW: Antegrade | |RATIO ICA/CCA: PSV: 1.7 EDV: 1. | | | |Grades: | |1 = 01-50% PSV <125 cm/s EDV (cm/s)<40 cm/s (mild plaque) | |2 = 01-50% PSV <125 cm/s EDV (cm/s)<40 cm/s (moderate plaque) | |3 = 50-69% PSV >125 cm/s EDV (cm/s)>40 cm/s | |4 = 70-95% PSV >230 cm/s EDV (cm/s)>100 cm/s | |5 = 90-95% | |6 = Occluded | | | |IMPRESSION: | |1. Findings suggest a 50-69% stenosis in the proximal left internal carotid artery, and di stal right common carotid artery. | | | | | + + CT Head wo Contrast (04/09/2015 6:33 PM PDT) + + | Specimen | + + | | + + + + + | Impressions | Performed At | + + + | 1. No acute intracranial pathology. | | + + + + + + | Narrative | Performed At | + + + | DUSTY Tia LORENZO [address] HEAD WO CONTRAST | | | 04/09/2015 6:33 PM INDICATION: Left-sided numbness. COMPARISON: | | | None TECHNIQUE: CT scan of the head without contrast. 5-mm | | | axial noncontrast images were acquired from the foramen magnum through | | | the cranial vertex. FINDINGS: No intracranial infarct, | | | hemorrhage, mass, or hydrocephalus is found. The orbital structures | | | appear normal. No significant paranasal sinus disease or mastoid fluid | | | is found. No worrisome bone lesions are identified. | | + + + + + | Procedure Note | + + | Ravi, Rad Conversion - 03/10/2019 10:17 AM PDT DUSTY [id number] years MaleCT | | HEAD WO CONTRAST04/09/2015 6:33 PM INDICATION: Left-sided numbness. COMPARISON: None | | TECHNIQUE: CT scan of the head without contrast. 5-mm axial noncontrast images were | | acquired from the foramen magnum through the cranial vertex. FINDINGS: No intracranial | | infarct, hemorrhage, mass, or hydrocephalus is found. The orbital structures appear | | normal. No significant paranasal sinus disease or mastoid fluid is found. No worrisome | | bone lesions are identified. IMPRESSION: 1. No acute intracranial pathology. | | | |COMPARISON: None | | | |TECHNIQUE: CT scan of the head without contrast. 5-mm axial noncontrast images were acquir ed from the foramen magnum through the cranial vertex. | | | |FINDINGS: No intracranial infarct, hemorrhage, mass, or hydrocephalus is found. The orbital structures appear normal. No significant paranasal sinus disease or mastoid fluid is found. No worrisome bone lesions are identified. | | | |IMPRESSION: | |1. No acute intracranial pathology. | | | | | + + ECG 12 lead (04/09/2015 3:52 PM PDT) + + + + + + | Component | Value | Ref Range | Performed | Pathologist | | | | | At | Signature | + + + + + + | DIAGNOSIS: | Normal sinus rhythmRight | | EXTERNAL | | | | bundle branch | | LAB | | | | blockAbnormal ECGNo | | | | | | previous ECGs | | | | | | availableConfirmed by | | | | | | Sarah Cullen ([id number]) | | | | | | on 04/09/2015 9:06:37 PM | | | | + + + + + + + + | Specimen | + + | | + + + + + | Narrative | Performed At | + + + | Historically converted procedure from [facility] | EXTERNAL LAB | + + + + +---------+ + + | Performing | Address | City/State/Zipcode | Phone Number | | Organization | | | | + +---------+ + + | EXTERNAL LAB | | | | + +---------+ + + XR Chest 1 Vw (04/09/2015 3:52 PM PDT) + + | Specimen | + + | | + + + + + | Impressions | Performed At | + + + | No acute cardiopulmonary abnormality | | + + + + + + | Narrative | Performed At | + + + | DUSTY LORENZO 1955 59 years XR CHEST 1 VIEW 04/09/2015 3:52 | | | PM INDICATION: Chest pain COMPARISON: None TECHNIQUE: | | | Chest 1 view, AP view of the chest FINDINGS: Lungs are clear. | | | No pleural effusion, no pneumothorax. Heart size is normal. | | | Mediastinal contours are normal. No acute osseous abnormality. | | + + + + + | Procedure Note | + + | Ravi, Rad Conversion - 03/10/2019 10:17 AM PDT DUSTY Tia LORENZO | | 1955 | | 59 years | | XR CHEST 1 VIEW | | 04/09/2015 3:52 PM | | | | INDICATION: Chest pain | | | | COMPARISON: None | | | | TECHNIQUE: Chest 1 view, AP view of the chest | | | | FINDINGS: | | Lungs are clear. | | | | No pleural effusion, no pneumothorax. | | | | Heart size is normal. Mediastinal contours are normal. | | | | No acute osseous abnormality. | | | | IMPRESSION: | | | | No acute cardiopulmonary abnormality | | | | | + + CBC no Differential (04/09/2015 3:31 PM PDT) + + + + + + | Component | Value | Ref Range | Performed | Pathologist | | | | | At | Signature | + + + + + + | WBC | 4.59Comment: Testing | 3.80 - 11.00 | EXTERNAL | | | | performed at [facility];[address] | K/uL | LAB | | | | [address];[place] | | | | | | [id number] | | | | + + + + + + | RED CELL | 4.29Comment: Testing | 4.20 - 5.70 | EXTERNAL | | | COUNT | performed at [facility];[address] | M/uL | LAB | | | | [address];[place] | | | | | | [address] | | | | + + + + + + | Hgb | 12.7 (L)Comment: Testing | 13.2 - 17.0 | EXTERNAL | | | | performed at [facility];[address] | g/dL | LAB | | | | [address];[place] | | | | | | [address] | | | | + + + + + + | Hematocrit, | 36.3 (L)Comment: Testing | 39.0 - 50.0 % | EXTERNAL | | | POC | performed at [facility];[address] | | LAB | | | | [address];[place] | | | | | | [address] | | | | + + + + + + | MCV | 84.6Comment: Testing | 80.0 - 100.0 fl | EXTERNAL | | | | performed at [facility];[address] | | LAB | | | | [address];[place] | | | | | | [address] | | | | + + + + + + | MCH | 29.5Comment: Testing | 27.0 - 34.0 pg | EXTERNAL | | | | performed at [facility];[address] | | LAB | | | | [address];[place] | | | | | | [address] | | | | + + + + + + | MCHC | 34.9Comment: Testing | 32.0 - 35.5 | EXTERNAL | | | | performed at [facility];[address] | g/dL | LAB | | | | [address];[place] | | | | | | [address] | | | | + + + + + + | RDW-CV | 40.3Comment: Testing | 37 - 53 fl | EXTERNAL | | | | performed at [facility];[address] | | LAB | | | | [address];[place] | | | | | | [address] | | | | + + + + + + | Platelet | 126 (L)Comment: Testing | 150 - 400 K/uL | EXTERNAL | | | Count | performed at [facility];[address] | | LAB | | | Plasma | [address];[place] | | | | | | [address] | | | | + + + + + + | MPV | 8.8Comment: Testing | fl | EXTERNAL | | | | performed at [facility];[address] | | LAB | | | | [address];[place] | | | | | | [address] | | | | + + + + + + + + | Specimen | + + | | + + + +---------+ + + | Performing | Address | City/State/Zipcode | Phone Number | | Organization | | | | + +---------+ + + | EXTERNAL LAB | | | | + +---------+ + + PTT (04/09/2015 3:31 PM PDT) + + + + + + | Component | Value | Ref Range | Performed | Pathologist | | | | | At | Signature | + + + + + + | aPTT, | 34 (H)Comment: Testing | 23 - 32 seconds | EXTERNAL | | | Patient | performed at [facility];[address] | | LAB | | | | [address];[place] | | | | | | [address] | | | | + + + + + + + + | Specimen | + + | Blood specimen | | (specimen) | + + + +---------+ + + | Performing | Address | City/State/Zipcode | Phone Number | | Organization | | | | + +---------+ + + | EXTERNAL LAB | | | | + +---------+ + + Protime INR (04/09/2015 3:31 PM PDT) + + + + + + | Component | Value | Ref Range | Performed | Pathologist | | | | | At | Signature | + + + + + + | INR | 1.1Comment: REFERENCE | | EXTERNAL | | | | RANGE:0.9 - 1.2 | | LAB | | | | NON-ANTICOAGULATED2.0 | | | | | | - 3.0 ALL OTHER | | | | | | THERAPEUTIC | | | | | | INDICATIONS2.5 - 3.5 | | | | | | MECHANICAL HEART VALVES, | | | | | | RECURRENT OR SYSTEMIC | | | | | | EMBOLISMTesting | | | | | | performed at [facility] | | | | | | [facility];[place], [place] | | | | | | [address] | | | | + + + + + + + + | Specimen | + + | Blood specimen | | (specimen) | + + + +---------+ + + | Performing | Address | City/State/Zipcode | Phone Number | | Organization | | | | + +---------+ + + | EXTERNAL LAB | | | | + +---------+ + + ECHO Complete (04/09/2015 12:15 PM PDT) + + | Specimen | + + | | + + + + + | Impressions | Performed At | + + + | 1. Borderline concentric LVH, systolic function NML, Grade 1 | | | diastolic abnormality, no segmental WMA, [place] visually estimates | | | LVEF 60-65%. Mild LAE. RA/RV grossly NML. 2. Aortic valve mildly | | | sclerotic, no /AI. Mitral and Tricuspid valves grossly NML, | | | Pulmonic valve not seen well. Trace MR, trace TR. 3. No Pericardial | | | effusion. 4. 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 | | + + + + + + | Narrative | Performed At | + + + | Patient Name: DUSTY LORENZO Date of : 1955 | | | Performing Physician: Prince Avina MD | | | | | | INDICATIONS acute chest pain CONCLUSIONS | | | 1. Borderline concentric LVH, systolic function NML, | | | Grade 1 diastolic abnormality, no segmental WMA, [place] visually | | | estimates LVEF 60-65%. Mild LAE. RA/RV grossly NML. 2. Aortic | | | valve mildly sclerotic, no /AI. Mitral and Tricuspid valves | | | grossly NML, Pulmonic valve not seen well. Trace MR, trace TR. 3. | | | No Pericardial effusion. 4. IVC appears NML, est systolic PAP | | | 20-25mmHg. FINDINGS -------- ECG rhythm: Sinus rhythm. Study: A | | | 2-dimensional transthoracic echocardiogram with m-mode, spectral and | | | color flow Doppler was perfomed. Study: This was a technically | | | adequate study. Left Ventricle: Overall left ventricular systolic | | | function is normal with, an EF between 60 - 65 %. Left Ventricle: | | | There is mild concentric left ventricular hypertrophy. Left | | | Ventricle: The diastolic filling pattern indicates impaired relaxation | | | consistent with mild dysfunction (Grade I). Right Ventricle: The | | | right ventricle is normal in size. Right Ventricle: The right | | | ventricular systolic function is normal. Right Ventricle: Moderator | | | band is visualized in the right ventricular apex. Left Atrium: The | | | left atrium is mildly dilated Left Atrium: , and the LA measures | | | 4.4cm. Right Atrium: The right atrial size is normal Right Atrium: , | | | and the RA measures 4.5cm. Aortic Valve: The aortic valve is | | | trileaflet and appears structurally normal. Aortic Valve: There is | | | mild aortic valve sclerosis without stenosis. Aortic Valve: There is | | | no evidence of aortic regurgitation. Mitral Valve: The mitral valve | | | is normal. Mitral Valve: There is trace mitral regurgitation. | | | Tricuspid Valve: The tricuspid valve appears structurally normal. | | | Tricuspid Valve: Trace tricuspid regurgitation present. Tricuspid | | | Valve: Right ventricular systolic pressure (pulmonary artery systolic | | | pressure) is normal at < 35 mmHg. Pulmonic Valve: The pulmonic valve | | | was not well visualized. Pericardium: There is no pericardial | | | effusion. IVC/Hepatic Veins: The IVC is small (<1.5cm) and collapses | | | with sniff, consistent with central venous pressures of 0-5mmHg. | | | Aorta: The aortic root, ascending aorta and aortic arch are normal. | | | Mass: No mass visualized Thrombus: No clot visualized Septum: No ASD | | | observed. MEASUREMENTS Ao asc: 3.65 cm IVC: | | | 1.82 cm LA Major: 5.35 cm EDV(Teich): 92.44 ml IVSd: | | | 1.44 cm LVIDd: 4.49 cm LVPWd: 1.48 cm LVOT Diam: 2.36 cm | | | %FS: 25.47 % EF(Teich): 50.35 % ESV(Teich): 45.89 ml IVSs: | | | 1.72 cm LVIDs: 3.35 cm LVPWs: 1.81 cm SV(Teich): 46.54 | | | ml RA Major: 4.48 cm RVIDd: 3.32 cm LVEF MOD A2C: 54.57 % | | | SV MOD A2C: 45.95 ml LVEF MOD A4C: 56.43 % SV MOD A4C: | | | 44.09 ml EF Biplane: 51.60 % LVEDV MOD BP: 85.62 ml LVESV MOD | | | BP: 41.43 ml LVEDV MOD A2C: 84.20 ml LVLd A2C: 8.73 cm | | | LVEDV MOD A4C: 78.13 ml LVLd A4C: 8.66 cm LVESV MOD A2C: | | | 38.24 ml LVLs A2C: 7.49 cm LVESV MOD A4C: 34.03 ml LVLs A4C: | | | 8.05 cm LAESV(A-L): 36.74 ml LAESV Index (A-L): 15.90 ml/m2 | | | LAAs A2C: 15.92 cm2 LAESV A-L A2C: 37.46 ml LALs A2C: | | | 5.74 cm LAAs A4C: 14.88 cm2 LAESV A-L A4C: 34.33 ml LALs A4C: | | | 5.47 cm %FS: 42.30 % EDV(Teich): 140.42 ml EF(Teich): | | | 72.85 % ESV(Teich): 38.12 ml IVSd: 1.07 cm IVSs: 1.69 cm | | | LVIDd: 5.38 cm LVIDs: 3.10 cm LVPWd: 1.17 cm LVPWs: | | | 1.72 cm SV(Teich): 102.30 ml Ao Diam: 3.94 cm Ao/LA: 0.89 | | | AV Cusp: 2.28 cm LA Diam: 4.38 cm LA/Ao: 1.11 MV D-E | | | [place]: 20.15 cm/s EPSS: 0.81 cm HR: 70.20 BPM AV maxPG: | | | 4.26 mmHg AV meanP.09 mmHg AV Vmax: 1.03 m/s AV Vmean: | | | 0.68 m/s AV VTI: 18.34 cm PATSY Vmax: 3.84 cm2 PATSY (VTI): | | | 3.52 cm2 LVCI Dopp: 2.17 l/minm2 LVCO Dopp: 5.02 l/min HR: | | | 77.75 BPM LVOT maxP.26 mmHg LVOT meanP.46 mmHg | | | LVSI Dopp: 27.97 ml/m2 LVSV Dopp: 64.61 ml LVOT Vmax: 0.90 | | | m/s LVOT Vmean: 0.56 m/s LVOT VTI: 14.70 cm MV A [place]: 0.82 | | | m/s MV DecT: 204.56 ms MV E [place]: 0.60 m/s MV E/A Ratio: | | | 0.74 MV A Dur: 103.80 ms RAP: 5 mmHg RVSP: 24.72 mmHg TR | | | maxP.72 mmHg TR Vmax: 2.21 m/s Pipe Washer: AB | | | Authenticated by: Prince Avina MD Report Date/Time: 04-10-2015 | | | 10:13:19 | | + + + + + | Procedure Note | + + | Ravi, Rad Conversion - 03/10/2019 10:17 AM PDT Patient Name: Kevin LORENZO of | | : 1955 Performing Physician: Prince Avina | | MD INDICATIONS a | | cute chest pain CONCLUSIONS 1. Borderline concentric LVH, systolic function | | NML, Grade 1 diastolic abnormality, no segmental WMA, [place] visually estimates LVEF | | 60-65%. Mild LAE. RA/RV grossly NML. 2. Aortic valve mildly sclerotic, no /AI. | | Mitral and Tricuspid valves grossly NML, Pulmonic valve not seen well. Trace MR, trace | | TR. 3. No Pericardial effusion. 4. 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 | | FINDINGS--------ECG rhythm: Sinus rhythm.Study: A 2-dimensional transthoracic | | echocardiogram with m-mode, spectral and color flow Doppler was perfomed.Study: This was | | a technically adequate study.Left Ventricle: Overall left ventricular systolic function | | is normal with, an EF between 60 - 65 %.Left Ventricle: There is mild concentric left | | ventricular hypertrophy.Left Ventricle: The diastolic filling pattern indicates impaired | | relaxation consistent with mild dysfunction (Grade I).Right Ventricle: The right | | ventricle is normal in size.Right Ventricle: The right ventricular systolic function is | | normal.Right Ventricle: Moderator band is visualized in the right ventricular apex.Left | | Atrium: The left atrium is mildly dilatedLeft Atrium: , and the LA measures 4.4cm.Right | | Atrium: The right atrial size is normalRight Atrium: , and the RA measures 4.5cm.Aortic | | Valve: The aortic valve is trileaflet and appears structurally normal.Aortic Valve: | | There is mild aortic valve sclerosis without stenosis.Aortic Valve: There is no evidence | | of aortic regurgitation.Mitral Valve: The mitral valve is normal.Mitral Valve: There is | | trace mitral regurgitation.Tricuspid Valve: The tricuspid valve appears structurally | | normal.Tricuspid Valve: Trace tricuspid regurgitation present.Tricuspid Valve: Right | | ventricular systolic pressure (pulmonary artery systolic pressure) is normal at < 35 | | mmHg.Pulmonic Valve: The pulmonic valve was not well visualized.Pericardium: There is no | | pericardial effusion.IVC/Hepatic Veins: The IVC is small (<1.5cm) and collapses with | | sniff, consistent with central venous pressures of 0-5mmHg.Aorta: The aortic root, | | ascending aorta and aortic arch are normal.Mass: No mass visualizedThrombus: No clot | | visualizedSeptum: No ASD observed. MEASUREMENTS Ao asc: 3.65 cmIVC: 1.82 | | cmLA Major: 5.35 cmEDV(Teich): 92.44 mlIVSd: 1.44 cmLVIDd: 4.49 cmLVPWd: 1.48 | | cmLVOT Diam: 2.36 cm%FS: 25.47 %EF(Teich): 50.35 %ESV(Teich): 45.89 mlIVSs: | | 1.72 cmLVIDs: 3.35 cmLVPWs: 1.81 cmSV(Teich): 46.54 mlRA Major: 4.48 cmRVIDd: | | 3.32 cmLVEF MOD A2C: 54.57 %SV MOD A2C: 45.95 mlLVEF MOD A4C: 56.43 %SV MOD A4C: | | 44.09 mlEF Biplane: 51.60 %LVEDV MOD BP: 85.62 mlLVESV MOD BP: 41.43 mlLVEDV MOD | | A2C: 84.20 mlLVLd A2C: 8.73 cmLVEDV MOD A4C: 78.13 mlLVLd A4C: 8.66 cmLVESV MOD | | A2C: 38.24 mlLVLs A2C: 7.49 cmLVESV MOD A4C: 34.03 mlLVLs A4C: 8.05 | | cmLAESV(A-L): 36.74 mlLAESV Index (A-L): 15.90 ml/m2LAAs A2C: 15.92 [id number] A-L | | A2C: 37.46 mlLALs A2C: 5.74 cmLAAs A4C: 14.88 [id number] A-L A4C: 34.33 mlLALs | | A4C: 5.47 cm%FS: 42.30 %EDV(Teich): 140.42 mlEF(Teich): 72.85 %ESV(Teich): | | 38.12 mlIVSd: 1.07 cmIVSs: 1.69 cmLVIDd: 5.38 cmLVIDs: 3.10 cmLVPWd: 1.17 | | cmLVPWs: 1.72 cmSV(Teich): 102.30 mlAo Diam: 3.94 cmAo/LA: 0.89AV Cusp: 2.28 | | cmLA Diam: 4.38 cmLA/Ao: 1.11MV D-E [place]: 20.15 cm/sEPSS: 0.81 cmHR: 70.20 | | BPMAV maxP.26 mmHgAV meanP.09 mmHgAV Vmax: 1.03 m/Cyn Vmean: 0.68 m/Cyn | | VTI: 18.34 cmAVA Vmax: 3.84 cm2AVA (VTI): 3.52 [id number] Dopp: 2.17 l/[id number] | | Dopp: 5.02 l/minHR: 77.75 BPMLVOT maxP.26 mmHgLVOT meanP.46 mmHgLVSI | | Dopp: 27.97 ml/m2LVSV Dopp: 64.61 mlLVOT Vmax: 0.90 m/sLVOT Vmean: 0.56 m/sLVOT | | VTI: 14.70 cmMV A [place]: 0.82 m/sMV DecT: 204.56 msMV E [place]: 0.60 m/sMV E/A Ratio: | | 0.74MV A Dur: 103.80 msRAP: 5 mmHgRVSP: 24.72 mmHgTR maxP.72 mmHgTR | | Vmax: 2.21 m/s Pipe Washer: ABAuthenticated by: Prince Day Date/Time: | | 04-10-2015 10:13:19 IMPRESSION: 1. Borderline concentric LVH, systolic function NML, | | Grade 1 diastolic abnormality, no segmental WMA, [place] visually estimates LVEF 60-65%. | | Mild LAE. RA/RV grossly NML. 2. Aortic valve mildly sclerotic, no /AI. Mitral and | | Tricuspid valves grossly NML, Pulmonic valve not seen well. Trace MR, trace TR. 3. No | | Pericardial effusion. 4. 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 | |EDV(Teich): 92.44 ml | |IVSd: 1.44 cm | |LVIDd: 4.49 cm | |LVPWd: 1.48 cm | |LVOT Diam: 2.36 cm | |%FS: 25.47 % | |EF(Teich): 50.35 % | |ESV(Teich): 45.89 ml | |IVSs: 1.72 cm | |LVIDs: 3.35 cm | |LVPWs: 1.81 cm | |SV(Teich): 46.54 ml | |RA Major: 4.48 cm | |RVIDd: 3.32 cm | |LVEF MOD A2C: 54.57 % | |SV MOD A2C: 45.95 ml | |LVEF MOD A4C: 56.43 % | |SV MOD A4C: 44.09 ml | |EF Biplane: 51.60 % | |LVEDV MOD BP: 85.62 ml | |LVESV MOD BP: 41.43 ml | |LVEDV MOD A2C: 84.20 ml | |LVLd A2C: 8.73 cm | |LVEDV MOD A4C: 78.13 ml | |LVLd A4C: 8.66 cm | |LVESV MOD A2C: 38.24 ml | |LVLs A2C: 7.49 cm | |LVESV MOD A4C: 34.03 ml | |LVLs A4C: 8.05 cm | |LAESV(A-L): 36.74 ml | |LAESV Index (A-L): 15.90 ml/m2 | |LAAs A2C: 15.92 cm2 | |LAESV A-L A2C: 37.46 ml | |LALs A2C: 5.74 cm | |LAAs A4C: 14.88 cm2 | |LAESV A-L A4C: 34.33 ml | |LALs A4C: 5.47 cm | |%FS: 42.30 % | |EDV(Teich): 140.42 ml | |EF(Teich): 72.85 % | |ESV(Teich): 38.12 ml | |IVSd: 1.07 cm | |IVSs: 1.69 cm | |LVIDd: 5.38 cm | |LVIDs: 3.10 cm | |LVPWd: 1.17 cm | |LVPWs: 1.72 cm | |SV(Teich): 102.30 ml | |Ao Diam: 3.94 cm | |Ao/LA: 0.89 | |AV Cusp: 2.28 cm | |LA Diam: 4.38 cm | |LA/Ao: 1.11 | |MV D-E [place]: 20.15 cm/s | |EPSS: 0.81 cm | |HR: 70.20 BPM | |AV maxP.26 mmHg | |AV meanP.09 mmHg | |AV Vmax: 1.03 m/s | |AV Vmean: 0.68 m/s | |AV VTI: 18.34 cm | |PATSY Vmax: 3.84 cm2 | |PATSY (VTI): 3.52 cm2 | |LVCI Dopp: 2.17 l/minm2 | |LVCO Dopp: 5.02 l/min | |HR: 77.75 BPM | |LVOT maxP.26 mmHg | |LVOT meanP.46 mmHg | |LVSI Dopp: 27.97 ml/m2 | |LVSV Dopp: 64.61 ml | |LVOT Vmax: 0.90 m/s | |LVOT Vmean: 0.56 m/s | |LVOT VTI: 14.70 cm | |MV A [place]: 0.82 m/s | |MV DecT: 204.56 ms | |MV E [place]: 0.60 m/s | |MV E/A Ratio: 0.74 | |MV A Dur: 103.80 ms | |RAP: 5 mmHg | |RVSP: 24.72 mmHg | |TR maxP.72 mmHg | |TR Vmax: 2.21 m/s | | | |Pipe Washer: AB | |Authenticated by: Prince Avina MD | |Report Date/Time: 04-10-2015 10:13:19 | | | |IMPRESSION: | |1. Borderline concentric LVH, systolic function NML, Grade 1 diastolic abnormality, no segm ental WMA, [place] visually estimates LVEF 60-65%. Mild LAE. RA/RV grossly NML. 2. Aortic v alve mildly sclerotic, no /AI. | |Mitral and Tricuspid valves grossly | |NML, Pulmonic valve not seen well. Trace MR, trace TR. 3. No Pericardial effusion. 4. 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 | + + External Lab: CBC (04/09/2015 11:10 AM PDT) + + + + + + | Component | Value | Ref Range | Performed | Pathologist | | | | | At | Signature | + + + + + + | WBC | 4.54Comment: Testing | 3.80 - 11.00 | EXTERNAL | | | | performed at [facility] | K/uL | LAB | | | | [address];[place] | | | | | | [address] | | | | + + + + + + | RED CELL | 4.71Comment: Testing | 4.20 - 5.70 | EXTERNAL | | | COUNT | performed at [facility] | M/uL | LAB | | | | [address];[place] | | | | | | [address] | | | | + + + + + + | Hgb | 13.6Comment: Testing | 13.2 - 17.0 | EXTERNAL | | | | performed at [facility] | g/dL | LAB | | | | [address];[place] | | | | | | [address] | | | | + + + + + + | Hematocrit, | 39.9Comment: Testing | 39.0 - 50.0 % | EXTERNAL | | | POC | performed at [facility];[address] | | LAB | | | | [address];[place] | | | | | | [address] | | | | + + + + + + | MCV | 84.8Comment: Testing | 80.0 - 100.0 fl | EXTERNAL | | | | performed at [facility];[address] | | LAB | | | | [address];[place] | | | | | | [address] | | | | + + + + + + | MCH | 28.9Comment: Testing | 27.0 - 34.0 pg | EXTERNAL | | | | performed at [facility];[address] | | LAB | | | | [address];[place] | | | | | | [address] | | | | + + + + + + | MCHC | 34.1Comment: Testing | 32.0 - 35.5 | EXTERNAL | | | | performed at [facility] | g/dL | LAB | | | | [address];[place] | | | | | | [address] | | | | + + + + + + | RDW-CV | 42.0Comment: Testing | 37 - 53 fl | EXTERNAL | | | | performed at [facility];[address] | | LAB | | | | [address];[place] | | | | | | [address] | | | | + + + + + + | Platelet | 129 (L)Comment: Testing | 150 - 400 K/uL | EXTERNAL | | | Count | performed at [facility];[address] | | LAB | | | Plasma | [address];[place] | | | | | | [address] | | | | + + + + + + | MPV | 9.2Comment: Testing | fl | EXTERNAL | | | | performed at [facility] | | LAB | | | | [address];[place] | | | | | | [address] | | | | + + + + + + | Differentia | AUTOMATEDComment: | | EXTERNAL | | | l Type | Testing performed at | | LAB | | | | [facility];[address];[place] [address] | | | | + + + + + + | % Segmented | 58.53Comment: Testing | % | EXTERNAL | | | | performed at [facility];[address] | | LAB | | | Neutrophils | [address];[place] | | | | | | [address] | | | | + + + + + + | % | 30.97Comment: Testing | % | EXTERNAL | | | Lymphocytes | performed at [facility];[address] | | LAB | | | | [address];[place] | | | | | | [address] | | | | + + + + + + | % Monocytes | 8.00Comment: Testing | % | EXTERNAL | | | | performed at [facility];[address] | | LAB | | | | [address];[place] | | | | | | [address] | | | | + + + + + + | % | 1.61Comment: Testing | % | EXTERNAL | | | Eosinophils | performed at [facility];[address] | | LAB | | | | [address];[place] | | | | | | [address] | | | | + + + + + + | % Basophils | 0.89Comment: Testing | % | EXTERNAL | | | | performed at [facility];[address] | | LAB | | | | [address];[place] | | | | | | [address] | | | | + + + + + + | Absolute | 2.66Comment: Testing | 1.90 - 7.40 | EXTERNAL | | | Segmented | performed at [facility];[address] | K/uL | LAB | | | Neutrophils | [address];[place] | | | | | | [address] | | | | + + + + + + | Absolute | 1.41Comment: Testing | 1.00 - 3.90 | EXTERNAL | | | Lymphocytes | performed at [facility];[address] | K/uL | LAB | | | | [address];[place] | | | | | | [address] | | | | + + + + + + | Absolute | 0.36Comment: Testing | 0.00 - 0.80 | EXTERNAL | | | Monocytes | performed at [facility];[address] | K/uL | LAB | | | | [address];[place] | | | | | | [address] | | | | + + + + + + | Absolute | 0.07Comment: Testing | 0.00 - 0.50 | EXTERNAL | | | Eosinophils | performed at [facility];[address] | K/uL | LAB | | | | [address];[place] | | | | | | [address] | | | | + + + + + + | Absolute | 0.04Comment: Testing | 0.00 - 0.10 | EXTERNAL | | | Basophils | performed at [facility];[address] | K/uL | LAB | | | | [address];[place] | | | | | | [address] | | | | + + + + + + + + | Specimen | + + | Blood specimen | | (specimen) | + + + +---------+ + + | Performing | Address | City/State/Zipcode | Phone Number | | Organization | | | | + +---------+ + + | EXTERNAL LAB | | | | + +---------+ + + Basic Metabolic Panel (04/09/2015 11:10 AM PDT) + + + + + + | Component | Value | Ref Range | Performed | Pathologist | | | | | At | Signature | + + + + + + | Na | 138Comment: Testing | 135 - 143 | EXTERNAL | | | | performed at [facility] | mmol/L | LAB | | | | [address];[place] | | | | | | [address] | | | | + + + + + + | K | 4.5Comment: Testing | 3.5 - 4.9 | EXTERNAL | | | | performed at [facility];[place] | mmol/L | LAB | | | | [address];[place] | | | | | | [address] | | | | + + + + + + | Cl | 102Comment: Testing | 99 - 109 mmol/L | EXTERNAL | | | | performed at [facility];[address] | | LAB | | | | [address];[place] | | | | | | [address] | | | | + + + + + + | CO2 | 28Comment: Testing | 23 - 32 mmol/L | EXTERNAL | | | | performed at [facility];[address] | | LAB | | | | [address];[place] | | | | | | [address] | | | | + + + + + + | Anion Gap | 12Comment: Testing | 5 - 20 mmol/L | EXTERNAL | | | | performed at [facility];[address] | | LAB | | | | [address];[place] | | | | | | [address] | | | | + + + + + + | Glucose, | 180 (H)Comment: Testing | 65 - 99 mg/dL | EXTERNAL | | | Fasting | performed at [facility];[address] | | LAB | | | | [address];[place] | | | | | | [address] | | | | + + + + + + | BUN | 18Comment: Testing | 8 - 25 mg/dL | EXTERNAL | | | | performed at [facility];[address] | | LAB | | | | [address];[place] | | | | | | [address] | | | | + + + + + + | Creatinine | 1.1Comment: Testing | 0.70 - 1.30 | EXTERNAL | | | | performed at [facility] | mg/dL | LAB | | | | [address];[place] | | | | | | [address] | | | | + + + + + + | BUN/Creatin | 16Comment: Testing | | EXTERNAL | | | ine Ratio | performed at [facility];[address] | | LAB | | | | [address];[place] | | | | | | [address] | | | | + + + + + + | Calcium | 8.6Comment: Testing | 8.5 - 10.5 | EXTERNAL | | | | performed at [facility] | mg/dL | LAB | | | | [address];[place] | | | | | | [address] | | | | + + + + + + | Estimated | >60Comment: GFR <60: | mL/min/1.73m2 | EXTERNAL | | | GFR | CHRONIC KIDNEY DISEASE, | | LAB | | | | IF FOUND OVER A 3 MONTH | | | | | | PERIOD.GFR <15: KIDNEY | | | | | | FAILURE.FOR | | | | | | AMERICANS, MULTIPLY THE | | | | | | CALCULATED GFR BY | | | | | | 1.210.Testing performed | | | | | | at 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
--- OUTSIDE RECORDS SUMMARY | ~2019-07-15 | XMS | Encounter Summary ---
Demographics + + + | Address | [address] | | | [place] [address] | + + + | Home Phone | | + + + | Preferred Language | Unknown | + + + | Marital Status | Unknown | + + + | Orthodoxy Affiliation | 1013 | + + + | Race | Unknown | + + + | Ethnic Group | Unknown | + + + Author + + + | Author | [facility] | | | and [place] | + + + | Organization | [facility] | | | and [place] [...] Team Providers + +------+ + | Care Supervisor Electronics Assembly Name | Role | Phone | + +------+ + | Blue Lopez MD | PCP | | + +------+ + Encounter Details +--------+ + + + + | Date | Type | Department | Care Team | Description | +--------+ + + + + | 10/10/ | Orders Only | [facility] | Neisha Tomas | | | 2018 | | CARDIOLOGY [place] | [address] | | | | | [address] | [place] | | | | | [address] | [place] [address] | | | | | [place] | [phone] | | | | | [address] | | | | | | [phone] | | | +--------+ + + + + Social History + +-------+ +--------+------+ | Tobacco Use | Types | Packs/Day | Years | Date | | | | | Used | | + +-------+ +--------+------+ | Former Smoker | | 0.5 | | | + +-------+ +--------+------+ + [...]
--- OUTSIDE RECORDS SUMMARY | ~2019-07-15 | XMS | Encounter Summary ---
Demographics + + + | Address | [address] | | | [place] [address] | + + + | Home Phone | | + + + | Preferred Language | Unknown | + + + | Marital Status | Unknown | + + + | Restoration Affiliation | 1013 | + + + | Race | Unknown | + + + | Ethnic Group | Unknown | + + + Author + + + | Author | [facility] | | | and [place] | + + + | Organization | [facility] | | | and [place] | [...] Team Providers + +------+ + | Care Label Printing Machinist Name | Role | Phone | + +------+ + | Blue Lopez MD | PCP | | + +------+ + Encounter Details +--------+ + + + + | Date | Type | Department | Care Team | Description | +--------+ + + + + | 07/30/ | Orders Only | [facility] | [place] | | | 2016 | | CARDIOLOGY [place] | [address] | | | | | [address] | [place] | | | | | [place] | [facility] [place] [address] | | | | | [address] | [phone] | | | | | [phone] | | | +--------+ + + + [...] | + +--------+ + + + | LIPID PANEL | Routin | 07/30/2015 | | Results for this | | | e | 7:28 AM | | procedure are in the | | | | PST | | results section. | + +--------+ + + + | CK TOTAL | Routin | 07/30/2015 | | Results for this | | | e | 7:28 AM | | procedure are in the | | | | PST | | results section. | + +--------+ + + + | BASIC METABOLIC | Routin | 07/30/2015 | | Results for this | | PANEL | e | 7:28 AM | | procedure are in the | | | | PST | | results section. | + +--------+ + + + documented in this encounter Results CK Total (07/30/2015 7:28 AM PST) + +-------+ + + + | Component | Value | Ref Range | Performed | Pathologist | | | | | At | Signature | + +-------+ + + + | CK, Total | 63 | 24 - 195 U/L | EXTERNAL | | | | | | LAB | | + +-------+ + + + + + | Specimen | + + | Blood specimen | | (specimen) | + + + +---------+ + + | Performing | Address | City/State/Zipcode | Phone Number | | Organization | | | | + +---------+ + + | EXTERNAL LAB | | | | + +---------+ + + Lipid Panel (07/30/2015 7:28 AM PST) + + + + + + | Component | Value | Ref Range | Performed | Pathologist | | | | | At | Signature | + + + + + + | Cholesterol | 197 | 200 mg/dL | EXTERNAL | | | | | | LAB | | + + + + + + | Triglycerid | 230 (A) | 30 - 150 mg/dL | EXTERNAL | | | es | | | LAB | | + + + + + + | HDL | 39.3 (A) | 40 mg/dl | EXTERNAL | | | | | | LAB | | + + + + + + | LDL | 112 (A) | 100 mg/dL | EXTERNAL | | | Cholesterol | | | LAB | | | , | | | | | | Calculated, | | | | | | External | | | | | + + + + + + | LDl/HDL | | | EXTERNAL | | | Ratio | | | LAB | | + + + + + + | Chol/HDL | 5.0 (A) | 4.97 | EXTERNAL | | | Ratio | | | LAB | | + + + + + + | VLDL | 46 (A) | 4 - 40 mg/dL | EXTERNAL | | | | | | LAB | | + + + + + + | Non HDL | 158 (A) | 130 | EXTERNAL | | | Chol. | | | LAB | | | (LDL+VLDL) | | | | | + + [...] + +---------+ + + Basic Metabolic Panel (07/30/2015 7:28 AM PST) + +---------+ + + + | Component | Value | Ref Range | Performed | Pathologist | | | | | At | Signature | + +---------+ + + + | Glucose, | 182 (A) | 70 - 100 mg/dL | EXTERNAL | | | Fasting | | | LAB | | + +---------+ + + + | BUN | 18 | 6 - 23 mg/dL | EXTERNAL | | | | | | LAB | | + +---------+ + + + | Creatinine | 1.02 | 0.70 - 1.25 | EXTERNAL | | | | | mg/dL | LAB | | + +---------+ + + + | BUN/Creatin | 17.6 | 6.0 - 28.6 | EXTERNAL | | | ine Ratio | | | LAB | | + +---------+ + + + | Calcium | 9.7 | 8.4 - 10.2 | EXTERNAL | | | | | mg/dL | LAB | | + +---------+ + + + | Na | 138 | 132 - 143 | EXTERNAL | | | | | mmol/L | LAB | | + +---------+ + + + | K | 4.5 | 3.6 - 5.1 | EXTERNAL | | | | | mmol/L | LAB | | + +---------+ + + + | Cl | 100 | 95 - 112 mmol/L | EXTERNAL | | | | | | LAB | | + +---------+ + + + | CO2 | 26 | 19 - 31 mmol/L | EXTERNAL | | | | | | LAB | | + +---------+ + + + | Anion Gap | 16.5 | 7 - 21 mmol/L | EXTERNAL | | | | | | LAB | | + +---------+ + + + | Estimated | 74 | 60 mg/dL | EXTERNAL | | | GFR | | | LAB | | + +---------+ + + + + + | Specimen | + + | Blood specimen | | (specimen) | + + + +---------+ + + | Performing | Address | City/State/Zipcode | Phone Number | | Organization | | | | + +---------+ + + | EXTERNAL LAB | | | | + +---------+ + + documented in this encounter Visit Diagnoses Not on filedocumented in this encounter"
--- OUTSIDE RECORDS SUMMARY | ~2019-07-15 | XMS | Encounter Summary ---
Demographics + + + | Address | [address] | | | [place] [address] | + + + | Home Phone | | + + + | Preferred Language | Unknown | + + + | Marital Status | Unknown | + + + | Restorationist Affiliation | 1013 | + + + | Race | Unknown | + + + | Ethnic Group | Unknown | + + + Author + + + | Author | [facility] | | | and [place] | + + + | Organization | [facility] | | | and [place] [...] Team Providers + +------+ + | Care Button Tufter Name | Role | Phone | + +------+ + | Blue Lopez MD | PCP | | + +------+ + Encounter Details +--------+ + + + + | Date | Type | Department | Care Team | Description | +--------+ + + + + | 09/25/ | Orders Only | [facility] | Neisha Tomas | | | 2016 | | CARDIOLOGY IRENE | [address] | | | | | [address] | [address] | | | | | [place] | [facility] [address] | | | | | [address] | [phone] | | | | | [phone] | | | +--------+ + + + [...] + documented as of this encounter Progress Neisha Hanson FNP - 09/30/2016 12:22 PM PSTFormatting of this note might be di fferent from the original. Progress Notes by STELLA Guadarrama at 09/30/16 1222 Author: STELLA Guadarrama Service: (none) Author Type: Advanced Registered Nurs e Practitioner Filed: 09/30/16 1222 Encounter Date: 09/30/2016 Status: Signed Investigator Utility Bill Complaints: STELLA Guadarrama (Advanced Registered Nurse Practitioner) Quick Note: Let them know that I reviewed the results and he definitely needs to be on Pravachol if tolerating it and CRP , which measures inflammatory response, was cem. Tell him I will review in person in the office when I see them back . Thanks MBC documente d in this encounter Plan of Treatment Not on filedocumented as of this encounter Procedures + +--------+ + + + | Procedure Name | Priori | Date/Time | Associated Diagnosis | Comments | | | ty | | | | + +--------+ + + + | EXTERNAL LAB: | Routin | 09/25/2016 | | Results for this | | TRIGLYCERIDES | e | 3:00 PM | | procedure are in the | | | | PST | | results section. | + +--------+ + + + | EXTERNAL LAB: | Routin | 09/25/2016 | | Results for this | | CHOLESTEROL, HDL | e | 3:00 PM | | procedure are in the | | | | PST | | results section. | + +--------+ + + + | EXTERNAL LAB: | Routin | 09/25/2016 | | Results for this | | CHOLESTEROL, TOTAL | e | 3:00 PM | | procedure are in the | | | | PST | | results section. | + +--------+ + + + | EXTERNAL LAB: | Routin | 09/25/2016 | | Results for this | | CHOLESTEROL, LDL | e | 3:00 PM | | procedure are in the | | | | PST | | results section. | + +--------+ + + + | LIPID PANEL | Routin | 09/25/2016 | | Results for this | | | e | 7:04 AM | | procedure are in the | | | | PST | | results section. | + +--------+ + + + | LIPID PANEL | Routin | 09/25/2016 | | Results for this | | | e | 7:04 AM | | procedure are in the | | | | PST | | results section. | + +--------+ + + + | LIPID PANEL | Routin | 09/25/2016 | | Results for this | | | e | 7:04 AM | | procedure are in the | | | | PST | | results section. | + +--------+ + + + | C-REACTIVE PROTEIN | Routin | 09/25/2016 | | Results for this | | | e | 7:04 AM | | procedure are in the | | | | PST | | results section. | + +--------+ + + + | MAGNESIUM | Routin | 09/25/2016 | | Results for this | | | e | 7:04 AM | | procedure are in the | | | | PST | | results section. | + +--------+ + + + | COMPREHENSIVE | Routin | 09/25/2016 | | Results for this | | METABOLIC PANEL | e | 7:04 AM | | procedure are in the | | | | PST | | results section. | + +--------+ + + + documented in this encounter Results External Lab: Triglycerides (09/25/2016 3:00 PM PST) + +-------+ + + + | Component | Value | Ref Range | Performed | Pathologist | | | | | At | Signature | + +-------+ + + + | Triglycerid | 213 | | EXTERNAL | | | es, | | | LAB | | | External | | | | | + +-------+ + + + + + | Specimen | + + | | + + + +---------+ + + | Performing | Address | City/State/Zipcode | Phone Number | | Organization | | | | + +---------+ + + | EXTERNAL LAB | | | | + +---------+ + + External Lab: Cholesterol, LDL (09/25/2016 3:00 PM PST) + +-------+ + + + | Component | Value | Ref Range | Performed | Pathologist | | | | | At | Signature | + +-------+ + + + | LDL | 115 | | EXTERNAL | | | Cholesterol | | | LAB | | | , Direct, | | | | | | External | | | | | + +-------+ + + + + + | Specimen | + + | | + + + +---------+ + + | Performing | Address | City/State/Zipcode | Phone Number | | Organization | | | | + +---------+ + + | EXTERNAL LAB | | | | + +---------+ + + External Lab: Cholesterol, HDL (09/25/2016 3:00 PM PST) + +-------+ + + + | Component | Value | Ref Range | Performed | Pathologist | | | | | At | Signature | + +-------+ + + + | HDL | 31.6 | | EXTERNAL | | | Cholesterol | | | LAB | | | , External | | | | | + +-------+ + + + + + | Specimen | + + | | + + + +---------+ + + | Performing | Address | City/State/Zipcode | Phone Number | | Organization | | | | + +---------+ + + | EXTERNAL LAB | | | | + +---------+ + + External Lab: Cholesterol, Total (09/25/2016 3:00 PM PST) + +-------+ + + + | Component | Value | Ref Range | Performed | Pathologist | | | | | At | Signature | + +-------+ + + + | Cholesterol | 189 | | EXTERNAL | | | , Total, | | | LAB | | | External | | | | | + +-------+ + + + + + | Specimen | + + | | + + + +---------+ + + | Performing | Address | City/State/Zipcode | Phone Number | | Organization | | | | + +---------+ + + | EXTERNAL LAB | | | | + +---------+ + + C-Reactive Protein (09/25/2016 7:04 AM PST) + +-------+ + + + | Component | Value | Ref Range | Performed | Pathologist | | | | | At | Signature | + +-------+ + + + | CRP | 1.92 | 0.0 - 3.0 mg/dL | EXTERNAL | | | | [...] | | | + +---------+ + + Magnesium (09/25/2016 7:04 AM PST) + +---------+ + + + | Component | Value | Ref Range | Performed | Pathologist | | | | | At | Signature | + +---------+ + + + | Magnesium | 1.6 (A) | 1.7 - 2.5 mg/dL | EXTERNAL | | | | [...] | + +---------+ + + Lipid Panel (09/25/2016 7:04 AM PST) + + + + + + | Component | Value | Ref Range | Performed | Pathologist | | | | | At | Signature | + + + + + + | Cholesterol | 189 | 200 mg/dL | EXTERNAL | | | | | | LAB | | + + + + + + | Triglycerid | 213 (A) | 30 - 150 mg/dL | EXTERNAL | | | es | | | LAB | | + + + + + + | HDL | 31.6 (A) | 40 mg/dl | EXTERNAL | | | | | | LAB | | + + + + + + | LDL | 115 (A) | 100 mg/dL | EXTERNAL | [...] + + + + | Chol/HDL | 6.0 (A) | 4.97 | EXTERNAL | | | Ratio | | | LAB | | + + + + + + | VLDL | 43 (A) | 4 - 40 mg/dL | EXTERNAL | | | | | | LAB | | + + + + + + | Non HDL | 157 (A) | 130 | EXTERNAL | | [...] | + +---------+ + + Lipid Panel (09/25/2016 7:04 AM PST) + + + + + + | Component | Value | Ref Range | Performed | Pathologist | | | | | At | Signature | + + + + + + | Cholesterol | 189 | 200 mg/dL | EXTERNAL | | | | | | LAB | | + + + + + + | Triglycerid | 213 (A) | 30 - 150 mg/dL | EXTERNAL | | | es | | | LAB | | + + + + + + | HDL | 31.6 (A) | 40 mg/dl | EXTERNAL | | | | | | LAB | | + + + + + + | LDL | 115 (A) | 100 mg/dL | EXTERNAL | [...] + + + + | Chol/HDL | 6.0 (A) | 4.97 | EXTERNAL | | | Ratio | | | LAB | | + + + + + + | VLDL | 43 (A) | 4 - 40 mg/dL | EXTERNAL | | | | | | LAB | | + + + + + + | Non HDL | 157 (A) | 130 | EXTERNAL | | [...] | + +---------+ + + Lipid Panel (09/25/2016 7:04 AM PST) + + + + + + | Component | Value | Ref Range | Performed | Pathologist | | | | | At | Signature | + + + + + + | Cholesterol | 189 | 200 mg/dL | EXTERNAL | | | | | | LAB | | + + + + + + | Triglycerid | 213 (A) | 30 - 150 mg/dL | EXTERNAL | | | es | | | LAB | | + + + + + + | HDL | 31.6 (A) | 40 mg/dl | EXTERNAL | | | | | | LAB | | + + + + + + | LDL | 115 (A) | 100 mg/dL | EXTERNAL | [...] + + + + | Chol/HDL | 6.0 (A) | 4.97 | EXTERNAL | | | Ratio | | | LAB | | + + + + + + | VLDL | 43 (A) | 4 - 40 mg/dL | EXTERNAL | | | | | | LAB | | + + + + + + | Non HDL | 157 (A) | 130 | EXTERNAL | | [...] | | | + +---------+ + + Comprehensive Metabolic Panel (09/25/2016 7:04 AM PST) + +---------+ + + + | Component | Value | Ref Range | Performed | Pathologist | | | | | At | Signature | + +---------+ + + + | Glucose, | 208 (A) | 70 - 100 mg/dL | EXTERNAL | | | Fasting | | | LAB | | + +---------+ + + + | BUN | 20 | 6 - 23 mg/dL | EXTERNAL | | | | | | LAB | | + +---------+ + + + | Creatinine | 1.12 | 0.70 - 1.25 | EXTERNAL | | | | | mg/dL | LAB | | + +---------+ + + + | BUN/Creatin | 17.9 | 6.0 - 28.6 | EXTERNAL | | | ine Ratio | | | LAB | | + +---------+ + + + | Calcium | 9.8 | 8.4 - 10.2 | EXTERNAL | | | | | mg/dL | LAB | | + +---------+ + + + | Protein, | 6.4 | 6.0 - 8.0 g/dL | EXTERNAL | | | Total | | | LAB | | + +---------+ + + + | Albumin | 4.0 | 3.5 - 5.0 | EXTERNAL | | | | | | LAB | | + +---------+ + + + | Globulin | 2.4 | 1.8 - 3.5 | EXTERNAL | | | | | | LAB | | + +---------+ + + + | A/G Ratio | 1.7 | 1.1 - 2.4 | EXTERNAL | | | | | | LAB | | + +---------+ + + + | Bilirubin | 0.7 | 0.0 - 1.2 mg/dL | EXTERNAL | | | Total | | | LAB | | + +---------+ + + + | ALP, | 48 | 31 - 120 | EXTERNAL | | | External | | | LAB | | + +---------+ + + + | ALT | 21 | 7 - 52 U/L | EXTERNAL | | | | | | LAB | | + +---------+ + + + | AST | 16 | 13 - 39 U/L | EXTERNAL | | | | | | LAB | | + +---------+ + + + | Na | 137 | 132 - 143 | EXTERNAL | | | | | mmol/L | LAB | | + +---------+ + + + | K | 4.7 | 3.6 - 5.1 | EXTERNAL | | | | | mmol/L | LAB | | + +---------+ + + + | Cl | 101 | 95 - 112 mmol/L | EXTERNAL | | | | | | LAB | | + +---------+ + + + | CO2 | 27 | 19 - 31 mmol/L | EXTERNAL | | | | | | LAB | | + +---------+ + + + | Anion Gap | 13.7 | 7 - 21 mmol/L | EXTERNAL | | | | | | LAB | | + +---------+ + + + | Estimated | 66 | 60 mg/dL | EXTERNAL | | [...]
--- OUTSIDE RECORDS SUMMARY | ~2019-07-15 | XMS | Encounter Summary ---
Demographics + + + | Address | [address] | | | [place] [address] | + + + | Home Phone | | + + + | Preferred Language | Unknown | + + + | Marital Status | Unknown | + + + | Protestant Affiliation | 1013 | + + + | Race | Unknown | + + + | Ethnic Group | Unknown | + + + Author + + + | Author | [facility] | | | and [place] | + + + | Organization | [facility] | | | and [place] | [...] Team Providers + +------+ + | Care Global Commodity Manager Name | Role | Phone | + +------+ + | Blue Lopez MD | PCP | | + +------+ + Encounter Details +--------+ + + + + | Date | Type | Department | Care Team | Description | +--------+ + + + + | 07/04/ | Orders Only | [facility] | Neisha Tomas | | | 2018 | | [address] | | | | | [address] | [address] | | | | | [place], [place] | [place] [address] | | | | | [address] | [phone] | | | | | [phone] | | | +--------+ + + + [...] + +--------+ + + + | ECHO INTERPRETATION | Routin | 07/04/2018 | | Results for this | | OF OUTSIDE FILMS | e | 2:48 PM | | procedure are in the | | | | PST | | results section. | + +--------+ + + + documented in this encounter Results ECHO Interpretation of Outside Films (07/04/2018 2:48 PM PST) + + | Specimen | + + | | + + + + + | Impressions | Performed At | + + + | 1. Overall left ventricular systolic function is normal with an EF | | | between 65 - 70%. 2. The right ventricle is normal in size and | | | function. 3. The ascending aorta is mildly dilated, measuring up to | | | 40 mm. 4. No significant valvular abnormalities are noted. 5. In | | | comparison to the previous echocardiographic study, done 06/26/14, | | | there are no significant changes. | | + + + + + + | Narrative | Performed At | + + + | Patient Name: DUSTY LORENZO Date of : 1955 | | | Performing Physician: ELIO ULLOA MD | | | | | | INDICATIONS FOLLOW-UP DILATED ASCENDING AORTA | | | CONCLUSIONS 1. Overall left ventricular systolic | | | function is normal with an EF between 65 - 70%. 2. The right | | | ventricle is normal in size and function. 3. The ascending aorta is | | | mildly dilated, measuring up to 40 mm. 4. No significant valvular | | | abnormalities are noted. 5. In comparison to the previous | | | echocardiographic study, done 06/26/14, there are no significant | | | changes. FINDINGS -------- ECG rhythm: Sinus rhythm. Study: A | | | 2-dimensional transthoracic echocardiogram with m-mode, spectral and | | | color flow Doppler was perfomed. Study: This was a technically | | | adequate study. Left Ventricle: Overall left ventricular systolic | | | function is normal with an EF between 65 - 70%. Left Ventricle: The | | | left ventricle cavity size is normal. Left Ventricle: There is mild | | | concentric left ventricular hypertrophy. Left Ventricle: Assessment | | | of diastolic function is indeterminate. Right Ventricle: The right | | | ventricle is normal in size and function. Left Atrium: The left | | | atrium is normal in size. Right Atrium: The right atrium is normal in | | | size. Aortic Valve: Aortic valve is trileaflet in structure, and | | | mildly thickened. Aortic Valve: There is mild aortic valve sclerosis | | | without stenosis. Aortic Valve: The aortic valve is mildly calcified. | | | Aortic Valve: There is no evidence of aortic regurgitation. Mitral | | | Valve: Mild mitral regurgitation is present. Mitral Valve: No | | | evidence of MVP. Mitral Valve: Mild mitral annular calcification | | | present. Mitral Valve: There is mild calcification of the anterior | | | mitral valve leaflet. Tricuspid Valve: The tricuspid valve appears | | | structurally normal. Tricuspid Valve: Trace tricuspid regurgitation | | | present. Tricuspid Valve: The right ventricular systolic pressure | | | (pulmonary artery systolic pressure), as measured by Doppler, is 27 | | | mmHg +CVP. Pulmonic Valve: Pulmonic valve appears structurally | | | normal. Pulmonic Valve: No pulmonic valve regurgitation observed. | | | Pericardium: There is no pericardial effusion. Aorta: The ascending | | | aorta is mildly dilated, measuring up to 40 mm. It measured 43 mm on | | | the prior study. Mass: No mass visualized Thrombus: No clot | | | visualized Thrombus: No vegetation visualized. Septum: No ASD | | | observed. Septum: No VSD observed. MEASUREMENTS | | | Ao asc: 4.00 cm Ao sinus: 3.[address] junct: 2.98 cm LA | | | Diam: 4.74 cm EDV(Teich): 137.18 ml IVSd: 1.10 cm LVIDd: | | | 5.33 cm LVPWd: 1.05 cm LVOT Area: 3.96 cm2 LVOT Diam: | | | 2.24 cm %FS: 30.38 % EF(Teich): 57.32 % ESV(Teich): 58.53 | | | ml LVIDs: 3.71 cm SV(Teich): 78.64 ml LVEF MOD A2C: 62.83 | | | % SV MOD A2C: 51.62 ml LVEF MOD A4C: 65.48 % SV MOD A4C: | | | 86.88 ml EF Biplane: 64.66 % LVEDV MOD BP: 112.74 ml LVESV | | | MOD BP: 39.84 ml LVEDV MOD A2C: 82.15 ml LVLd A2C: 7.15 cm | | | LVEDV MOD A4C: 132.68 ml LVLd A4C: 8.40 cm LVESV MOD A2C: | | | 30.53 ml LVLs A2C: 6.09 cm LVESV MOD A4C: 45.80 ml LVLs A4C: | | | 7.21 cm LAESV(A-L): 60.58 ml LAESV Index (A-L): 26.80 ml/m2 | | | LAAs A2C: 20.16 cm2 LAESV A-L A2C: 68.48 ml LALs A2C: | | | 5.04 cm LAAs A4C: 16.34 cm2 LAESV A-L A4C: 49.11 ml LALs A4C: | | | 4.61 cm RAAs: 12.48 cm2 RAESV A-L: 34.76 ml RAESV MOD: | | | 31.56 ml RALs: 3.80 cm TAPSE: 1.71 cm AV maxP.02 | | | mmHg AV meanP.29 mmHg AV Vmax: 1.80 m/s AV Vmean: 1.17 | | | m/s AV VTI: 31.93 cm PATSY Vmax: 2.30 cm2 PATSY (VTI): 3.09 | | | cm2 AVAI (Vmax): 0.00 cm2/m2 AVAI (VTI): 0.00 cm2/m2 LVOT | | | maxP.40 mmHg LVOT meanP.11 mmHg LVSI Dopp: 43.79 | | | ml/m2 LVSV Dopp: 98.97 ml LVOT Vmax: 1.04 m/s LVOT Vmean: | | | 0.67 m/s LVOT VTI: 24.95 cm MV A Tyr[place]: 1.11 m/s MV Dec [place]: | | | 5.08 m/s2 MV DecT: 180.08 ms MV E [place]: 0.91 m/s MV E/A | | | Ratio: 0.82 MV PHT: 52.22 ms MVA By PHT: 4.21 cm2 Septal | | | e': 0.05 m/s Septal E/e': 16.91 Lateral e': 0.05 m/s | | | Lateral E/e': 17.25 PV maxP.82 mmHg PV Vmax: 1.20 m/s | | | TR maxP.90 mmHg TR Vmax: 2.64 m/s Rubber Down: DBS | | | Authenticated by: ELIO ULLOA MD Report Date/Time: -- | | | [id number] | | + + + + + | Procedure Note | + + | Isaac Rodrigues Conversion - 03/16/2019 4:34 PM PDT Patient Name: Loreta LORENZO | | : 1955 Performing Physician: ELIO ULLOA, | | MD INDICATIONS F | | OLLOW-UP DILATED ASCENDING AORTA CONCLUSIONS 1. Overall left ventricular | | systolic function is normal with an EF between 65 - 70%.2. The right ventricle is normal | | in size and function.3. The ascending aorta is mildly dilated, measuring up to 40 mm. | | 4. No significant valvular abnormalities are noted. 5. In comparison to the previous | | echocardiographic study, done 06/26/14, there are no significant changes. | | FINDINGS--------ECG rhythm: Sinus rhythm.Study: A 2-dimensional transthoracic | | echocardiogram with m-mode, spectral and color flow Doppler was perfomed.Study: This was | | a technically adequate study.Left Ventricle: Overall left ventricular systolic function | | is normal with an EF between 65 - 70%.Left Ventricle: The left ventricle cavity size is | | normal.Left Ventricle: There is mild concentric left ventricular hypertrophy.Left | | Ventricle: Assessment of diastolic function is indeterminate.Right Ventricle: The right | | ventricle is normal in size and function.Left Atrium: The left atrium is normal in | | size.Right Atrium: The right atrium is normal in size.Aortic Valve: Aortic valve is | | trileaflet in structure, and mildly thickened.Aortic Valve: There is mild aortic valve | | sclerosis without stenosis.Aortic Valve: The aortic valve is mildly calcified.Aortic | | Valve: There is no evidence of aortic regurgitation.Mitral Valve: Mild mitral | | regurgitation is present.Mitral Valve: No evidence of MVP.Mitral Valve: Mild mitral | | annular calcification present.Mitral Valve: There is mild calcification of the anterior | | mitral valve leaflet.Tricuspid Valve: The tricuspid valve appears structurally | | normal.Tricuspid Valve: Trace tricuspid regurgitation present.Tricuspid Valve: The right | | ventricular systolic pressure (pulmonary artery systolic pressure), as measured by | | Doppler, is 27 mmHg +CVP.Pulmonic Valve: Pulmonic valve appears structurally | | normal.Pulmonic Valve: No pulmonic valve regurgitation observed.Pericardium: There is no | | pericardial effusion.Aorta: The ascending aorta is mildly dilated, measuring up to 40 | | mm. It measured 43 mm on the prior study.Mass: No mass visualizedThrombus: No clot | | visualizedThrombus: No vegetation visualized.Septum: No ASD observed.Septum: No VSD | | observed. MEASUREMENTS Ao asc: 4.00 cmAo sinus: 3.[address] junct: | | 2.98 cmLA Diam: 4.74 cmEDV(Teich): 137.18 mlIVSd: 1.10 cmLVIDd: 5.33 cmLVPWd: | | 1.05 cmLVOT Area: 3.96 en3VNAL Diam: 2.24 cm%FS: 30.38 %EF(Teich): 57.32 | | %ESV(Teich): 58.53 mlLVIDs: 3.71 cmSV(Teich): 78.64 mlLVEF MOD A2C: 62.83 %SV | | MOD A2C: 51.62 mlLVEF MOD A4C: 65.48 %SV MOD A4C: 86.88 mlEF Biplane: 64.66 | | %LVEDV MOD BP: 112.74 mlLVESV MOD BP: 39.84 mlLVEDV MOD A2C: 82.15 mlLVLd A2C: | | 7.15 cmLVEDV MOD A4C: 132.68 mlLVLd A4C: 8.40 cmLVESV MOD A2C: 30.53 mlLVLs A2C: | | 6.09 cmLVESV MOD A4C: 45.80 mlLVLs A4C: 7.21 cmLAESV(A-L): 60.58 mlLAESV Index | | (A-L): 26.80 ml/m2LAAs A2C: 20.16 [id number] A-L A2C: 68.48 mlLALs A2C: 5.04 | | cmLAAs A4C: 16.34 [id number] A-L A4C: 49.11 mlLALs A4C: 4.61 cmRAAs: 12.48 | | [id number] A-L: 34.76 mlRAESV MOD: 31.56 mlRALs: 3.80 cmTAPSE: 1.71 cmAV maxPG: | | 13.02 mmHgAV meanP.29 mmHgAV Vmax: 1.80 m/Cyn Vmean: 1.17 m/Cyn VTI: 31.93 | | cmAVA Vmax: 2.30 cm2AVA (VTI): 3.09 [id number] (Vmax): 0.00 cm2/m2AVAI (VTI): 0.00 | | cm2/m2LVOT maxP.40 mmHgLVOT meanP.11 mmHgLVSI Dopp: 43.79 ml/m2LVSV Dopp: | | 98.97 mlLVOT Vmax: 1.04 m/sLVOT Vmean: 0.67 m/sLVOT VTI: 24.95 cmMV A Tyrone: | | 1.11 m/sMV Dec [place]ipt[place]: 5.08 m/s2MV DecT: 180.08 msMV E [place]: 0.91 m/sMV E/A Ratio: | | 0.82MV PHT: 52.22 msMVA By PHT: 4.21 gc9Khjzrd e': 0.05 m/sSeptal E/e': | | 16.91Lateral e': 0.05 m/sLateral E/e': 17.25PV maxP.82 mmHgPV Vmax: 1.20 | | m/sTR maxP.90 mmHgTR Vmax: 2.64 m/s Rubber Down: Brittneyted by: ELIO | | Shay ULLOA Date/Time: [id number] IMPRESSION: 1. Overall left | | ventricular systolic function is normal with an EF between 65 - 70%.2. The right | | ventricle is normal in size and function.3. The ascending aorta is mildly dilated, | | measuring up to 40 mm. 4. No significant valvular abnormalities are noted. 5. In | | comparison to the previous echocardiographic study, done 06/26/14, there are no | | significant changes. | |Ao sinus: 3.35 cm | |Ao st junct: 2.98 cm | |LA Diam: 4.74 cm | |EDV(Teich): 137.18 ml | |IVSd: 1.10 cm | |LVIDd: 5.33 cm | |LVPWd: 1.05 cm | |LVOT Area: 3.96 cm2 | |LVOT Diam: 2.24 cm | |%FS: 30.38 % | |EF(Teich): 57.32 % | |ESV(Teich): 58.53 ml | |LVIDs: 3.71 cm | |SV(Teich): 78.64 ml | |LVEF MOD A2C: 62.83 % | |SV MOD A2C: 51.62 ml | |LVEF MOD A4C: 65.48 % | |SV MOD A4C: 86.88 ml | |EF Biplane: 64.66 % | |LVEDV MOD BP: 112.74 ml | |LVESV MOD BP: 39.84 ml | |LVEDV MOD A2C: 82.15 ml | |LVLd A2C: 7.15 cm | |LVEDV MOD A4C: 132.68 ml | |LVLd A4C: 8.40 cm | |LVESV MOD A2C: 30.53 ml | |LVLs A2C: 6.09 cm | |LVESV MOD A4C: 45.80 ml | |LVLs A4C: 7.21 cm | |LAESV(A-L): 60.58 ml | |LAESV Index (A-L): 26.80 ml/m2 | |LAAs A2C: 20.16 cm2 | |LAESV A-L A2C: 68.48 ml | |LALs A2C: 5.04 cm | |LAAs A4C: 16.34 cm2 | |LAESV A-L A4C: 49.11 ml | |LALs A4C: 4.61 cm | |RAAs: 12.48 cm2 | |RAESV A-L: 34.76 ml | |RAESV MOD: 31.56 ml | |RALs: 3.80 cm | |TAPSE: 1.71 cm | |AV maxP.02 mmHg | |AV meanP.29 mmHg | |AV Vmax: 1.80 m/s | |AV Vmean: 1.17 m/s | |AV VTI: 31.93 cm | |PATSY Vmax: 2.30 cm2 | |PATSY (VTI): 3.09 cm2 | |AVAI (Vmax): 0.00 cm2/m2 | |AVAI (VTI): 0.00 cm2/m2 | |LVOT maxP.40 mmHg | |LVOT meanP.11 mmHg | |LVSI Dopp: 43.79 ml/m2 | |LVSV Dopp: 98.97 ml | |LVOT Vmax: 1.04 m/s | |LVOT Vmean: 0.67 m/s | |LVOT VTI: 24.95 cm | |MV A [place]one: 1.11 m/s | |MV Dec [place]: 5.08 m/s2 | |MV DecT: 180.08 ms | |MV E [place]one: 0.91 m/s | |MV E/A Ratio: 0.82 | |MV PHT: 52.22 ms | |MVA By PHT: 4.21 cm2 | |Septal e': 0.05 m/s | |Septal E/e': 16.91 | |Lateral e': 0.05 m/s | |Lateral E/e': 17.25 | |PV maxP.82 mmHg | |PV Vmax: 1.20 m/s | |TR maxP.90 mmHg | |TR Vmax: 2.64 m/s | | | |Rubber Down: DBS | |Authenticated by: ELIO ULLOA MD | |Report Date/Time: -- [id number] | | | |IMPRESSION: | |1. Overall left ventricular systolic function is normal with an EF between 65 - 70%. | |2. The right ventricle is normal in size and function. | |3. The ascending aorta is mildly dilated, measuring up to 40 mm. 4. No significant valvular abnormalities are noted. 5. In comparison to the previous echocardiographic study, done 06/26/14, there are no significant changes. | + + documented in this encounter Visit Diagnoses Not on filedocumented in this encounter"
--- OUTSIDE RECORDS SUMMARY | ~2019-07-15 | XMS | Encounter Summary ---
Demographics + + + | Address | [address] | | | [place] [address] | + + + | Home Phone | | + + + | Preferred Language | Unknown | + + + | Marital Status | Unknown | + + + | Zoroastrianism Affiliation | 1013 | + + + | Race | Unknown | + + + | Ethnic Group | Unknown | + + + Author + + + | Author | [facility] | | | and [place] | + + + | Organization | [facility] | | | and [place] [...] Team Providers + +------+ + | Care Stone Rubber Name | Role | Phone | + +------+ + PCP | Unavailable | + +------+ + Encounter Details +--------+ + + + + | Date | Type | Department | Care Team | Description | +--------+ + + + + | 03/25/ | Hospital | [facility] | | | | 2006 | Encounter | [facility] | | | | | | [address] | | | | | | [place] | | | | | | [id number] | | | | | | [phone] | | | +--------+ + + + [...]
--- OUTSIDE RECORDS SUMMARY | ~2019-07-15 | XMS | Encounter Summary ---
Demographics + + + | Address | [address] | | | [place] [address] | + + + | Home Phone | | + + + | Preferred Language | Unknown | + + + | Marital Status | Unknown | + + + | Orthodox Affiliation | 1013 | + + + | Race | Unknown | + + + | Ethnic Group | Unknown | + + + Author + + + | Author | [facility] | | | and [place] | + + + | Organization | [facility] | | | and [place] [...] Team Providers + +------+ + | Care Assistant News Director Name | Role | Phone | + +------+ + | Blue Lopez MD | PCP | | + +------+ + Encounter Details +--------+ + + + + | Date | Type | Department | Care Team | Description | +--------+ + + + + | 09/08/ | Orders Only | [facility] | Neisha Tomas | | | 2017 | | [address] | | | | | [address] | [address] | | | | | [place], [place] | [place] [address] | | | | | [address] | [phone] | | | | | [phone] | | | +--------+ + + + [...] + | ECHO INTERPRETATION | Routin | 09/08/2016 | | Results for this | | OF OUTSIDE FILMS | e | 3:36 PM | | procedure are in the | | | | PST | | results section. | + +--------+ + + + documented in this encounter Results ECHO Interpretation of Outside Films (09/08/2016 3:36 PM PST) + + | Specimen | + + | | + + + + + | Impressions | Performed At | + + + | 1. Overall left ventricular systolic function is normal with, an EF | | | between 65 - 70 %. 2. The diastolic filling pattern indicates | | | impaired relaxation consistent with mild dysfunction (Grade I). 3. | | | The right ventricle is normal in size and function. 4. The ascending | | | aorta is mildly dilated, measuring up to 4.3cm. 5. No signficant | | | valvular abnormaliites are noted. | | + + + + + + | Narrative | Performed At | + + + | Patient Name: DUSTY LORENZO Date of : 1955 | | | Performing Physician: ELIO ULLOA MD | | | | | | INDICATIONS CAD, HTN CONCLUSIONS 1. | | | Overall left ventricular systolic function is normal with, an EF | | | between 65 - 70 %. 2. The diastolic filling pattern indicates | | | impaired relaxation consistent with mild dysfunction (Grade I). 3. | | | The right ventricle is normal in size and function. 4. The ascending | | | aorta is mildly dilated, measuring up to 4.3cm. 5. No signficant | | | valvular abnormaliites are noted. FINDINGS -------- ECG rhythm: | | | Sinus rhythm. Study: A 2-dimensional transthoracic echocardiogram | | | with m-mode, spectral and color flow Doppler with strain imaging was | | | perfomed. Study: This was a technically adequate study. Left | | | Ventricle: Overall left ventricular systolic function is normal with, | | | an EF between 65 - 70 %. Left Ventricle: The left ventricle cavity | | | size is normal. Left Ventricle: Left ventricular wall thickness is | | | normal. Left Ventricle: No regional wall motion abnormalities. Left | | | Ventricle: Sigmoid shaped septum with mild focal hypertrophy of the | | | basal septum. The remaining wall thickness is normal. Left Ventricle: | | | The diastolic filling pattern indicates impaired relaxation | | | consistent with mild dysfunction (Grade I). Right Ventricle: The | | | right ventricle is normal in size and function. Left Atrium: The left | | | atrium is normal in size. Right Atrium: The right atrium is normal | | | in size. Aortic Valve: Aortic valve is trileaflet and is mildly | | | thickened and Aortic Valve: calcified. Aortic Valve: There is no | | | evidence of aortic regurgitation. Aortic Valve: There is no evidence | | | of aortic stenosis. Mitral Valve: The mitral valve is normal. Mitral | | | Valve: No mitral regurgitation. Tricuspid Valve: The tricuspid valve | | | appears structurally normal. Tricuspid Valve: Trace tricuspid | | | regurgitation present. Tricuspid Valve: There is no evidence of | | | pulmonary hypertension. Tricuspid Valve: The right ventricular | | | systolic pressure (pulmonary artery systolic pressure), as measured by | | | Doppler, is 25.91mmHg. Pulmonic Valve: The pulmonic valve is normal. | | | Pulmonic Valve: Trace pulmonic regurgitation. Pericardium: There | | | is no pericardial effusion. Aorta: The ascending aorta is mildly | | | dilated, measuring up to 4.3cm. Mass: No mass visualized Thrombus: | | | No clot visualized Thrombus: No vegetation visualized. Septum: No | | | ASD observed. Septum: No VSD observed. MEASUREMENTS | | | Ao asc: 4.30 cm Ao Diam: 3.71 cm IVC: 1.38 | | | cm LA Diam: 3.47 cm LA Major: 5.37 cm EDV(Teich): 119.21 | | | ml IVSd: 1.17 cm LVIDd: 5.01 cm LVPWd: 0.95 cm LVOT Diam: | | | 2.44 cm %FS: 26.24 % EF(Teich): 51.22 % ESV(Teich): | | | 58.15 ml LVIDs: 3.70 cm SV(Teich): 61.06 ml RA Major: 4.34 | | | cm RV Major: 6.41 cm RVIDd: 3.23 cm LVEF MOD A2C: 51.15 % | | | SV MOD A2C: 34.95 ml LVEF MOD A4C: 61.27 % SV MOD A4C: | | | 64.92 ml EF Biplane: 57.62 % LVEDV MOD BP: 87.82 ml LVESV MOD | | | BP: 37.21 ml LVEDV MOD A2C: 68.32 ml LVLd A2C: 7.25 cm | | | LVEDV MOD A4C: 105.96 ml LVLd A4C: 7.79 cm LVESV MOD A2C: | | | 33.37 ml LVLs A2C: 6.23 cm LVESV MOD A4C: 41.03 ml LVLs A4C: | | | 6.37 cm LAESV(A-L): 54.00 ml LAESV Index (A-L): 23.48 ml/m2 | | | LAAs A2C: 18.71 cm2 LAESV A-L A2C: 57.61 ml LALs A2C: | | | 5.15 cm LAAs A4C: 17.53 cm2 LAESV A-L A4C: 48.44 ml LALs A4C: | | | 5.38 cm RAAs: 15.18 cm2 RAESV A-L: 44.77 ml RAESV MOD: | | | 41.69 ml RALs: 4.37 cm Ao Diam: 3.76 cm Ao/LA: 0.73 LA | | | Diam: 5.12 cm LA/Ao: 1.36 TAPSE: 1.56 cm AV maxP.29 | | | mmHg AV meanP.66 mmHg AV Vmax: 1.43 m/s AV Vmean: | | | 1.04 m/s AV VTI: 26.68 cm PATSY Vmax: 2.96 cm2 PATSY (VTI): | | | 3.16 cm2 AVAI Vmax: 0.00 cm2/m2 AVAI (VTI): 0.00 cm2/m2 LVOT | | | maxP.34 mmHg LVOT meanP.60 mmHg LVSI Dopp: 36.72 | | | ml/m2 LVSV Dopp: 84.46 ml LVOT Vmax: 0.91 m/s LVOT Vmean: | | | 0.57 m/s LVOT VTI: 18.05 cm MV A Tyrone: 0.80 m/s MV DecT: | | | 230.47 ms MV E Tyrone: 0.65 m/s MV E/A Ratio: 0.81 Septal e': | | | 0.05 m/s Septal E/e': 12.19 Lateral e': 0.08 m/s Lateral | | | E/e': 8.05 RAP: 5 mmHg RVSP: 25.90 mmHg TR maxP.90 | | | mmHg TR Vmax: 2.28 m/s Infrastructure Design Engineer: JENNIFER Authenticated by: | | | ELIO ULLOA MD Report Date/Time: 09-16-2016 16:32:11 | | + + + + + | Procedure Note | + + | Ravi, Rad Conversion - 03/16/2019 7:15 PM PDT Patient Name: Kevin LORENZO of | | : 1955 Performing Physician: ELIO ULLOA, | | INDICATIONS C | | AD, HTN CONCLUSIONS 1. Overall left ventricular systolic function is normal | | with, an EF between 65 - 70 %.2. The diastolic filling pattern indicates impaired | | relaxation consistent with mild dysfunction (Grade I).3. The right ventricle is normal | | in size and function.4. The ascending aorta is mildly dilated, measuring up to 4.3cm. 5. | | No signficant valvular abnormaliites are noted. FINDINGS--------ECG rhythm: Sinus | | rhythm.Study: A 2-dimensional transthoracic echocardiogram with m-mode, spectral and | | color flow Doppler with strain imaging was perfomed.Study: This was a technically | | adequate study.Left Ventricle: Overall left ventricular systolic function is normal | | with, an EF between 65 - 70 %.Left Ventricle: The left ventricle cavity size is | | normal.Left Ventricle: Left ventricular wall thickness is normal.Left Ventricle: No | | regional wall motion abnormalities.Left Ventricle: Sigmoid shaped septum with mild focal | | hypertrophy of the basal septum. The remaining wall thickness is normal.Left Ventricle: | | The diastolic filling pattern indicates impaired relaxation consistent with mild | | dysfunction (Grade I).Right Ventricle: The right ventricle is normal in size and | | function.Left Atrium: The left atrium is normal in size.Right Atrium: The right atrium | | is normal in size.Aortic Valve: Aortic valve is trileaflet and is mildly thickened | | andAortic Valve: calcified.Aortic Valve: There is no evidence of aortic | | regurgitation.Aortic Valve: There is no evidence of aortic stenosis.Mitral Valve: The | | mitral valve is normal.Mitral Valve: No mitral regurgitation.Tricuspid Valve: The | | tricuspid valve appears structurally normal.Tricuspid Valve: Trace tricuspid | | regurgitation present.Tricuspid Valve: There is no evidence of pulmonary | | hypertension.Tricuspid Valve: The right ventricular systolic pressure (pulmonary artery | | systolic pressure), as measured by Doppler, is 25.91mmHg.Pulmonic Valve: The pulmonic | | valve is normal.Pulmonic Valve: Trace pulmonic regurgitation.Pericardium: There is no | | pericardial effusion.Aorta: The ascending aorta is mildly dilated, measuring up to | | 4.3cm.Mass: No mass visualizedThrombus: No clot visualizedThrombus: No vegetation | | visualized.Septum: No ASD observed.Septum: No VSD observed. MEASUREMENTS Ao | | asc: 4.30 cmAo Diam: 3.71 cmIVC: 1.38 cmLA Diam: 3.47 cmLA Major: 5.37 | | cmEDV(Teich): 119.21 mlIVSd: 1.17 cmLVIDd: 5.01 cmLVPWd: 0.95 cmLVOT Diam: | | 2.44 cm%FS: 26.24 %EF(Teich): 51.22 %ESV(Teich): 58.15 mlLVIDs: 3.70 | | cmSV(Teich): 61.06 mlRA Major: 4.34 cmRV Major: 6.41 cmRVIDd: 3.23 cmLVEF MOD | | A2C: 51.15 %SV MOD A2C: 34.95 mlLVEF MOD A4C: 61.27 %SV MOD A4C: 64.92 mlEF | | Biplane: 57.62 %LVEDV MOD BP: 87.82 mlLVESV MOD BP: 37.21 mlLVEDV MOD A2C: 68.32 | | mlLVLd A2C: 7.25 cmLVEDV MOD A4C: 105.96 mlLVLd A4C: 7.79 cmLVESV MOD A2C: | | 33.37 mlLVLs A2C: 6.23 cmLVESV MOD A4C: 41.03 mlLVLs A4C: 6.37 cmLAESV(A-L): | | 54.00 mlLAESV Index (A-L): 23.48 ml/m2LAAs A2C: 18.71 [id number] A-L A2C: 57.61 | | mlLALs A2C: 5.15 cmLAAs A4C: 17.53 [id number] A-L A4C: 48.44 mlLALs A4C: 5.38 | | cmRAAs: 15.18 [id number] A-L: 44.77 mlRAESV MOD: 41.69 mlRALs: 4.37 cmAo Diam: | | 3.76 cmAo/LA: 0.73LA Diam: 5.12 cmLA/Ao: 1.36TAPSE: 1.56 cmAV maxP.29 | | mmHgAV meanP.66 mmHgAV Vmax: 1.43 m/Cyn Vmean: 1.04 m/Cyn VTI: 26.68 cmAVA | | Vmax: 2.96 cm2AVA (VTI): 3.16 [id number] Vmax: 0.00 cm2/m2AVAI (VTI): 0.00 | | cm2/m2LVOT maxP.34 mmHgLVOT meanP.60 mmHgLVSI Dopp: 36.72 ml/m2LVSV Dopp: | | 84.46 mlLVOT Vmax: 0.91 m/sLVOT Vmean: 0.57 m/sLVOT VTI: 18.05 cmMV A Tyrone: | | 0.80 m/sMV DecT: 230.47 msMV E [place]: 0.65 m/sMV E/A Ratio: 0.81Septal e': 0.05 | | m/sSeptal E/e': 12.19Lateral e': 0.08 m/sLateral E/e': 8.05RAP: 5 mmHgRVSP: | | 25.90 mmHgTR maxP.90 mmHgTR Vmax: 2.28 m/radha Infrastructure Design Engineer: DHAuthenticated by: | | UYEN DELACRUZepjocelyne Date/Time: 09-16-2016 16:32:11 IMPRESSION: 1. Overall left | | ventricular systolic function is normal with, an EF between 65 - 70 %.2. The diastolic | | filling pattern indicates impaired relaxation consistent with mild dysfunction (Grade | | I).3. The right ventricle is normal in size and function.4. The ascending aorta is | | mildly dilated, measuring up to 4.3cm. 5. No signficant valvular abnormaliites are | | noted. | |Ao asc: 4.30 cm | |Ao Diam: 3.71 cm | |IVC: 1.38 cm | |LA Diam: 3.47 cm | |LA Major: 5.37 cm | |EDV(Teich): 119.21 ml | |IVSd: 1.17 cm | |LVIDd: 5.01 cm | |LVPWd: 0.95 cm | |LVOT Diam: 2.44 cm | |%FS: 26.24 % | |EF(Teich): 51.22 % | |ESV(Teich): 58.15 ml | |LVIDs: 3.70 cm | |SV(Teich): 61.06 ml | |RA Major: 4.34 cm | |RV Major: 6.41 cm | |RVIDd: 3.23 cm | |LVEF MOD A2C: 51.15 % | |SV MOD A2C: 34.95 ml | |LVEF MOD A4C: 61.27 % | |SV MOD A4C: 64.92 ml | |EF Biplane: 57.62 % | |LVEDV MOD BP: 87.82 ml | |LVESV MOD BP: 37.21 ml | |LVEDV MOD A2C: 68.32 ml | |LVLd A2C: 7.25 cm | |LVEDV MOD A4C: 105.96 ml | |LVLd A4C: 7.79 cm | |LVESV MOD A2C: 33.37 ml | |LVLs A2C: 6.23 cm | |LVESV MOD A4C: 41.03 ml | |LVLs A4C: 6.37 cm | |LAESV(A-L): 54.00 ml | |LAESV Index (A-L): 23.48 ml/m2 | |LAAs A2C: 18.71 cm2 | |LAESV A-L A2C: 57.61 ml | |LALs A2C: 5.15 cm | |LAAs A4C: 17.53 cm2 | |LAESV A-L A4C: 48.44 ml | |LALs A4C: 5.38 cm | |RAAs: 15.18 cm2 | |RAESV A-L: 44.77 ml | |RAESV MOD: 41.69 ml | |RALs: 4.37 cm | |Ao Diam: 3.76 cm | |Ao/LA: 0.73 | |LA Diam: 5.12 cm | |LA/Ao: 1.36 | |TAPSE: 1.56 cm | |AV maxP.29 mmHg | |AV meanP.66 mmHg | |AV Vmax: 1.43 m/s | |AV Vmean: 1.04 m/s | |AV VTI: 26.68 cm | |PATSY Vmax: 2.96 cm2 | |PATSY (VTI): 3.16 cm2 | |AVAI Vmax: 0.00 cm2/m2 | |AVAI (VTI): 0.00 cm2/m2 | |LVOT maxP.34 mmHg | |LVOT meanP.60 mmHg | |LVSI Dopp: 36.72 ml/m2 | |LVSV Dopp: 84.46 ml | |LVOT Vmax: 0.91 m/s | |LVOT Vmean: 0.57 m/s | |LVOT VTI: 18.05 cm | |MV A Tyrone: 0.80 m/s | |MV DecT: 230.47 ms | |MV E Tyrone: 0.65 m/s | |MV E/A Ratio: 0.81 | |Septal e': 0.05 m/s | |Septal E/e': 12.19 | |Lateral e': 0.08 m/s | |Lateral E/e': 8.05 | |RAP: 5 mmHg | |RVSP: 25.90 mmHg | |TR maxP.90 mmHg | |TR Vmax: 2.28 m/s | | | |Infrastructure Design Engineer: | |Authenticated by: ELIO ULLOA MD | |Report Date/Time: 09-16-2016 16:32:11 | | | |IMPRESSION: | |1. Overall left ventricular systolic function is normal with, an EF between 65 - 70 %. | |2. The diastolic filling pattern indicates impaired relaxation consistent with mild dysfunc tion (Grade I). | |3. The right ventricle is normal in size and function. | |4. The ascending aorta is mildly dilated, measuring up to 4.3cm. 5. No signficant valvular abnormaliites are noted. | + + documented in this encounter Visit Diagnoses Not on filedocumented in this encounter"
--- OUTSIDE RECORDS SUMMARY | ~2019-07-15 | XMS | Encounter Summary ---
Demographics + + + | Address | [address] | | | [place] [address] | + + + | Home Phone | | + + + | Preferred Language | Unknown | + + + | Marital Status | Unknown | + + + | Advent Affiliation | 1013 | + + + | Race | Unknown | + + + | Ethnic Group | Unknown | + + + Author + + + | Author | [facility] | | | and [place] | + + + | Organization | [facility] | | | and [place] [...] Team Providers + +------+ + | Care Mortgage Originator Name | Role | Phone | + +------+ + | Blue Lopez MD | PCP | | + +------+ + Encounter Details +--------+ + + + + | Date | Type | Department | Care Team | Description | +--------+ + + + + | 01/05/ | Orders Only | [facility] | Neisha Tomas | | | 2017 | | CARDIOLOGY [place] | [address] | | | | | [address] | [address] | | | | | [address] | [place] [address] | | | | | [place] | [phone] | | | | | [address] | | | | | | [phone] | | | +--------+ + + + [...]
--- OUTSIDE RECORDS SUMMARY | ~2019-07-15 | XMS | Encounter Summary ---
Demographics + + + | Address | [address] | | | [place] [address] | + + + | Home Phone | | + + + | Preferred Language | Unknown | + + + | Marital Status | Unknown | + + + | Christian Affiliation | 1013 | + + + | Race | Unknown | + + + | Ethnic Group | Unknown | + + + Author + + + | Author | [facility] | | | and [place] | + + + | Organization | [facility] | | | and [place] | [...] Team Providers + +------+ + | Care Bander Hand Name | Role | Phone | + +------+ + | Blue Lopez MD | PCP | | + +------+ + Encounter Details +--------+ + + + + | Date | Type | Department | Care Team | Description | +--------+ + + + + | 10/10/ | Orders Only | [facility] | Neisha Tomas | | | 2018 | | CARDIOLOGY [place] | [address] | | | | | [address] | [address] | | | | | [address] | [place] [address] | | | | | [place] | [phone] | | | | | [address] | | | | | | [phone] | | | +--------+ + + + [...]
--- OUTSIDE RECORDS SUMMARY | ~2019-07-15 | XMS | Encounter Summary ---
Demographics + + + | Address | [address] | | | [place] [address] | + + + | Home Phone | | + + + | Preferred Language | Unknown | + + + | Marital Status | Unknown | + + + | Yazidi Affiliation | 1013 | + + + | Race | Unknown | + + + | Ethnic Group | Unknown | + + + Author + + + | Author | [facility] | | | and [place] | + + + | Organization | [facility] | | | and [place] | [...] Team Providers + +------+ + | Care Business Office Representative Name | Role | Phone | + +------+ + PCP | Unavailable | + +------+ + Encounter Details +--------+ + + + + | Date | Type | Department | Care Team | Description | +--------+ + + + + | 04/16/ | Hospital | [facility] | Conversion | | | 2014 | Encounter | [facility] | Transaction, | | | | | CLINIC [address] | Provider Unknown | | | | | [place] | | | | | | [address] | (Fax) | | | | | [phone] | | | +--------+ + + + [...] + + documented as of this encounter Medications at Time of Discharge + + + +---------+ + + | Medication | Sig | Dispensed | Refills | Start | End Date | | | | | | Date | | + + + +---------+ + + | metFORMIN | Take 1,000 mg by | | 0 | /15/20 | | | (GLUCOPHAGE) 1000 MG | [...] | + +--------+ + + + | TYPE AND SCREEN | Routin | 04/16/2015 | | Results for this | | | e | 1:28 PM | | procedure are in the | | | | PDT | | results section. | + +--------+ + + + | MRSA NAAT | Timed | 04/16/2015 | | Results for this | | | | 1:27 PM | | procedure are in the | | | | PDT | | results section. | + +--------+ + + + documented in this encounter Results Type and Screen (04/16/2015 1:28 PM PDT) + + + + + + | Component | Value | Ref Range | Performed | Pathologist | | | | | At | Signature | + + + + + + | ABO Rh | A POSITIVE | | EXTERNAL | | | | | | LAB | | + + + + + + | ABO Rh | Testing performed at | | EXTERNAL | | | | [facility];[address] [place] [address] | | LAB | | | | Blvd;[place] [address] | | | | + + + + + + | Antibody | NEGATIVE | | EXTERNAL | | | Screen | | | LAB | | + + + + + + | Antibody | Testing performed at | | EXTERNAL | | | Screen | [id number] | | LAB | | | | [address];[place] [address] | | | | + + + + + + + + | Specimen | + + | Blood specimen | | (specimen) | + + + +---------+ + + | Performing | Address | City/State/Zipcode | Phone Number | | Organization | | | | + +---------+ + + | EXTERNAL LAB | | | | + +---------+ + + MRSA NAAT (04/16/2015 1:27 PM PDT) + + | Specimen | + + | | + + + + + | Narrative | Performed At | + + + | [facility] | EXTERNAL LAB | | Testing performed at [address];[place] [address] MRSA PCR | | | NEGATIVE Testing performed at | | | [address];[place] [address] | | + + + + +---------+ + + | Performing | Address | City/State/Zipcode | Phone Number | | Organization | | | | + +---------+ + + | EXTERNAL LAB | | | | + +---------+ + + documented in this encounter Visit Diagnoses Not on filedocumented in this encounter"
--- OUTSIDE RECORDS SUMMARY | ~2019-07-15 | XMS | Clinical Summary ---
Demographics + + + | Address | [address] | | | [place] [address] | + + + | Home Phone | | + + + | Preferred Language | Unknown | + + + | Marital Status | Unknown | + + + | Hindu Affiliation | 1013 | + + + | Race | Unknown | + + + | Ethnic Group | Unknown | + + + Author + + + | Author | [facility] | | | and [place] | + + + | Organization | [facility] | | | and [place] [...] Team Providers + +------+ + | Care Creative Director Name | Role | Phone | + +------+ + | Blue Lopez MD | PCP | | + +------+ + Allergies + + + + + + | Active Allergy | Reactions | Severity | Noted | Comments | | | | | Date | | + + + + + + | Atorvastatin | Other (See Comments) | Medium | 08/31/19 | Muscular aches and | | | | | 17 | pains | + + + + + + | Doxazosin | Nausea Only | Low | 09/04/19 | Nausea, Complaint | | | | | 18 | of nausea and | | | | | | dizziness | + + + + + + | Pravastatin | Other (See Comments) | Medium | 08/31/19 | Muscular aches and | | | | | 17 | pains- tolerates 40 | | | | | | mg dose . | + + + + + + | Sulfa Antibiotics | Hives, Rash | High | 04/09/20 | | | | | | 15 | | + + + + + + Medications + + + +---------+------+------+-------+ | Medication | Sig | Dispensed | Refills | Star | End | Statu | | | | | | t | Date | s | | | | | | Date | | | + + + +---------+------+------+-------+ | metFORMIN | Take 1,000 mg by | | 0 | 09/ | | Activ | | (GLUCOPHAGE) 1000 MG | mouth 2 (two) times | | | 5/20 | | e | | tablet | daily with meals. | | | 15 | | | + + + +---------+------+------+-------+ | acetaminophen | Take 500 mg by mouth | | 0 | 10/2 | | Activ | | (TYLENOL) 500 mg | every 6 (six) hours | | | 0/20 | | e | | tablet | as needed for Pain. | | | 15 | | | + + + +---------+------+------+-------+ | aspirin 81 mg EC | Take 1 tablet by | 30 | 11 | 02/0 | 03/1 | Activ | | tablet | mouth daily with | tablet | | 6/20 | 820 | e | | | breakfast. | | | 17 | 20 | | + + + +---------+------+------+-------+ | rosuvastatin | Take 10 mg by mouth | | 0 | 06/0 | | Activ | | (CRESTOR) 10 mg | nightly. | | | 1/20 | | e | | tablet | | | | 17 | | | + + + +---------+------+------+-------+ | ondansetron | Take 4 mg by mouth | | 0 | 12/0 | | Activ | | (ZOFRAN) 4 mg tablet | as needed for | | | 4/20 | | e | | | Nausea. | | | 17 | | | + + + +---------+------+------+-------+ | glipiZIDE | Take 10 mg by mouth | | 0 | 02/0 | | Activ | | (GLUCOTROL) 10 MG | 2 (two) times daily | | | 8/20 | | e | | tablet | before meals. | | | 18 | | | + + + +---------+------+------+-------+ | lisinopril | Take 1 tablet by | 90 | 3 | 09/23 | | Activ | | (PRINIVIL, ZESTRIL) | mouth daily. | tablet | | 8/20 | | e | | 10 mg tablet | | | | 19 | | | + + + +---------+------+------+-------+ Active Problems + + + | Problem | Noted Date | + + + | History of stroke without residual deficits | 10/10/2018 | + + + | Hyperkalemia | 10/10/2018 | + + + | Mild dilation of ascending aorta | 10/10/2018 | + + + | Thrombocytopenia | 10/10/2018 | + + + | Coronary artery disease involving coronary bypass graft of [place] | 05/14/2015 | | heart with angina pectoris | | + + + | Essential hypertension | 04/09/2015 | + + + | HLD (hyperlipidemia) | 04/09/2015 | + + + | Controlled type 2 diabetes mellitus without complication, without | 04/09/2015 | | long-term current use of insulin | | + + + Immunizations + + + + | Name | Administration Dates | Next Due | + + + + | PNEUMOCOCCAL | 04/11/2015 | | | POLYSACCHARIDE | | | | 23-VALENT (PPSV23) | | | + + + + Family History + + +------+ + | Medical History | Relation | Name | Comments | + + +------+ + | Cancer | Brother | | prostate | + + +------+ + | Heart disease | Brother | | | + + +------+ + | Heart disease | Father | | | + + +------+ + | Kidney disease | Father | | | + + +------+ + | Heart disease | Mother | | | + + +------+ + | High cholesterol | Mother | | | + + +------+ + | Stroke | Mother | | | + + +------+ + + +------+ + + | Relation | Name | Status | Comments | + +------+ + + | Brother | | | | + +------+ + + | Brother | | | | + +------+ + + | Brother | | | | + +------+ + + | Father | | | acute nephritis, on dialysis | | | | (Age | | | | | 58) | | + +------+ + + | Father | | | | + +------+ + + | Mother | | Alive | 91 yrs., CVA's, vascular dementia, | | | | | hyperlipidemia | + +------+ + + | Mother | | | | + +------+ + + Social History + +-------+ +--------+------+ [...] recent travel history available. | + + Last Filed Vital Signs + + + + + | Vital Sign | Reading | Time Taken | Comments | + + + + + | Blood Pressure | 140/76 | 10/10/2018 3:51 PM | | | | | PDT | | + + + + + | Pulse | 65 | 10/10/2018 3:51 PM | | | | | PDT | | + + + + + | Temperature | - | - | | + + + + + | Respiratory Rate | 16 | 10/10/2018 3:51 PM | | | | | PDT | | + + + + + | Oxygen Saturation | - | - | | + + + + + | Inhaled Oxygen | - | - | | | Concentration | | | | + + + + + | Weight | 111.3 kg (245 lb 6.4 | 10/10/2018 3:51 PM | | | | oz) | PDT | | + + + + + | Height | 180.3 cm (5' 11") | 10/10/2018 3:51 PM | | | | | PDT | | + + + + + | Body Mass Index | 34.23 | 10/10/2018 3:51 PM | | | | | PDT | | + + + + + Plan of Treatment + + + + + | Health Maintenance | Due Date | Last Done | Comments | + + + + + | Hepatitis C | | | | | Screening | 3 | | | + + + + + | Vaccine: | | | | | Dtap/Tdap/Td (1 - | 4 | | | | Tdap) | | | | + + + + + | Diabetic Eye Exam | | | | | | 1 | | | + + + + + | Diabetic Foot Exam | | | | | | 1 | | | + + + + + | Colorectal Cancer | | | | | Screening | 3 | | | | (Colonoscopy) | | | | + + + + + | Vaccine: Zoster (1 | | | | | of 2) | 3 | | | + + + + + | Hemoglobin A1c | | 08/13/2015, 04/23/2015 | | | Screening | 6 | | | + + + + + | AAA Screening | | | | | | 8 | | | + + + + + | Vaccine: | | 04/11/2015 | | | Pneumococcal 65+ (1 | 8 | | | | of 2 - PCV13) | | | | + + + + + | Adult Annual | | | | | Wellness Visit | 9 | | | + + + + + | Vaccine: Influenza | | | | | (#1) | 9 | | | + + + + + Implants + +------+--------+ +--------+--------+--------+ | Implanted | Type | Area | Manufacture | Device | Shelf | Model | | | | | r | | Expira | / | | | | | | Identi | tion | Serial | | | | | | fier | Date | / Lot | + +------+--------+ +--------+--------+--------+ | Plate Strnl Acute [id number] | | N/A: | ACUTE | | | [id number] | | [id number]: Qty: 3 on | | Sternu | INNOVATIONS | | | 4 / | | 04/22/2015 by Lele Martinez, | | m | LLC - AINN | | | /[id number] | | MD | | | | | | 04 | + +------+--------+ +--------+--------+--------+ Results Not on filefrom Last 3 Months
--- OUTSIDE RECORDS SUMMARY | ~2019-07-15 | XMS | Encounter Summary ---
Demographics + + + | Address | [address] | | | [place] [address] | + + + | Home Phone | | + + + | Preferred Language | Unknown | + + + | Marital Status | Unknown | + + + | Restorationism Affiliation | 1013 | + + + | Race | Unknown | + + + | Ethnic Group | Unknown | + + + Author + + + | Author | [facility] | | | and [place] | + + + | Organization | [facility] | | | and [place] [...] Team Providers + +------+ + | Care Clerical Support Name | Role | Phone | + +------+ + | Blue Lopez MD | PCP | | + +------+ + Encounter Details +--------+ + + + + | Date | Type | Department | Care Team | Description | +--------+ + + + + | 08/31/ | Orders Only | [facility] | Neisha Tomas | | | 2016 | | CARDIOLOGY [place] | [address] | | | | | [address] | [place] | | | | | [place] [address] | [place] [address] | | | | | [place] | [phone] | | | | | [address] | | | | | | [phone] | | | +--------+ + + + [...]
--- OUTSIDE RECORDS SUMMARY | ~2019-07-15 | XMS | Encounter Summary ---
Demographics + + + | Address | [address] | | | [place] [address] | + + + | Home Phone | | + + + | Preferred Language | Unknown | + + + | Marital Status | Unknown | + + + | Yazidi Affiliation | 1013 | + + + | Race | Unknown | + + + | Ethnic Group | Unknown | + + + Author + + + | Author | [facility] | | | and [place] | + + + | Organization | [facility] | | | and [...] Team Providers + +------+ + | Care Marketing Researcher Name | Role | Phone | + +------+ + PCP | Unavailable | + +------+ + Encounter Details +--------+ + + + + | Date | Type | Department | Care Team | Description | +--------+ + + + + | 04/16/ | Hospital | [facility] | Conversion | | | 2014 | Encounter | [facility] | Transaction, | | | | | CLINIC [address] | Provider Unknown | | | | | [place] | | | | | | [address] | (Fax) | | | | | [phone] | | | +--------+ + + + [...] | | EXTERNAL | | | | [facility];[address] [place] [address] | | LAB | | | | Blvd;[place] [address] | | | | + + + + + + | Antibody | NEGATIVE | | EXTERNAL | | | Screen | | | LAB | | + + + + + + | Antibody | Testing performed at | | EXTERNAL | | | Screen | [facility] | | LAB | | | | Blvd;[place] [address] | | | | + + + [...] EXTERNAL LAB | | Testing performed at [address];[place] [address] MRSA PCR | | | NEGATIVE Testing performed at | | | [address];[place] [address] | | + + + + +---------+ + + | Performing | Address | City/State/Zipcode | Phone Number | | Organization | | | | + +---------+ + + | EXTERNAL LAB | | | | + +---------+ + + documented in this encounter Visit Diagnoses Not on filedocumented in this encounter"
--- OUTSIDE RECORDS SUMMARY | ~2019-07-15 | XMS | Encounter Summary ---
Demographics + + + | Address | [address] | | | [place] [address] | + + + | Home Phone | | + + + | Preferred Language | Unknown | + + + | Marital Status | Unknown | + + + | Advent Affiliation | 1013 | + + + | Race | Unknown | + + + | Ethnic Group | Unknown | + + + Author + + + | Author | [facility] | | | and [place] | + + + | Organization | [facility] | | | and [place] [...] Team Providers + +------+ + | Care Oil Well Services Supervisor Name | Role | Phone | + +------+ + | Blue Lopez MD | PCP | | + +------+ + Encounter Details +--------+ + + + + | Date | Type | Department | Care Team | Description | +--------+ + + + + | 06/28/ | Orders Only | [facility] | Conversion | | | 2017 | | CONVERSION [address]P [address] | Transaction, | | | | | [address] | Provider Unknown | | | | | [place] | [phone] | | | | | [phone] | (Fax) | | | | | [phone] | | | +--------+ + + + [...]
--- OUTSIDE RECORDS SUMMARY | ~2019-07-15 | XMS | Encounter Summary ---
Demographics + + + | Address | [address] | | | [place] [address] | + + + | Home Phone | | + + + | Preferred Language | Unknown | + + + | Marital Status | Unknown | + + + | Latter-Day Affiliation | 1013 | + + + | Race | Unknown | + + + | Ethnic Group | Unknown | + + + Author + + + | Author | [facility] | | | and [place] | + + + | Organization | [facility] | | | and [place] [...] Team Providers + +------+ + | Care Music Composition Teacher Name | Role | Phone | + +------+ + | Blue Lopez MD | PCP | | + +------+ + Encounter Details +--------+ + + + + | Date | Type | Department | Care Team | Description | +--------+ + + + + | 08/31/ | Orders Only | [facility] | Neisha Tomas | | | 2016 | | CARDIOLOGY [place] | [address] | | | | | [address] | [place] | | | | | [place] [address] | [place] [address] | | | | | [place] | [phone] | | | | | [address] | | | | | | [phone] | | | +--------+ + + + [...]
--- OUTSIDE RECORDS SUMMARY | ~2019-07-15 | XMS | Encounter Summary ---
Demographics + + + | Address | [address] | | | [place] [address] | + + + | Home Phone | | + + + | Preferred Language | Unknown | + + + | Marital Status | Unknown | + + + | Congregation Affiliation | 1013 | + + + | Race | Unknown | + + + | Ethnic Group | Unknown | + + + Author + + + | Author | [facility] | | | and [place] | + + + | Organization | [facility] | | | and [...] Team Providers + +------+ + | Care Cementer Machine Applicator Name | Role | Phone | + +------+ + | Blue Lopez MD | PCP | | + +------+ + Encounter Details +--------+ + + + + | Date | Type | Department | Care Team | Description | +--------+ + + + + | 04/09/ | Orders Only | [facility] | Prince Palmer | | | 2014 | | CARDIOLOGY [place] | MD [address] | | | | | [address] | [place] | | | | | [place] | [facility] [place] [address] | | | | | [address] | [phone] | | | | | [phone] | | | +--------+ + + + [...] | + +--------+ + + + | CV CARDIAC PROCEDURE | Routin | 04/09/2015 | | Results for this | | | e | 2:46 PM | | procedure are in the | | | | PDT | | results section. | + +--------+ + + + documented in this encounter Results CV CARDIAC PROCEDURE (04/09/2015 2:46 PM PDT) + + | Specimen | + + | | + + + + + | Narrative | Performed At | + + + | | | | | | | DATE OF SERVICE April 09, 2015 BRIEF HISTORY Mr. Gao is a | | | pleasant 59-year-old gentleman with a history of diabetes | | | mellitus and family history for coronary artery disease, who | | | presented with exertional back pain going down to both arms. He was | | | evaluated by Dr. Prince Palmer in the office today and was referred for | | | coronary angiography based on clinical presentation of relatively | | | unstable angina pectoris. For details regarding his presentation, | | | kindly refer to Dr. Prince Palmer's notes. PROCEDURES 1. Radial | | | artery approach. 2. Left heart catheterization without left | | | ventriculogram. 3. Selective coronary angiography. ESTIMATED | | | BLOOD LOSS Less than 50 mL. TECHNIQUE The patient was brought to | | | the catheterization lab in the fasting state. He was prepped and | | | draped in the usual sterile fashion for right radial artery approach. | | | Radial artery was instrumented using 6-[place] sheath. Under | | | fluoroscopic guidance, a 5-[place] JL3.5 catheter was advanced to the | | | ascending aorta but failed to engage with the left main. With that, | | | the catheter was exchanged to AL1 catheter, which was advanced to the | | | ascending aorta and again initial attempt to engage the left main | | | from the left coronary cusp failed. During that time attempted to | | | engage the right coronary artery. It was obvious that the left main | | | originated from the right coronary cusp. The catheter was then used | | | to engage the right coronary artery, and projection of the right | | | coronary artery was done with the use of contrast injections. | | | Catheter could not engage easily with the anomalous left main and, | | | therefore, it was exchanged over a long exchange wire to AL1 | | | catheter, which was engaged with the left main, and projection of the | | | left coronary system was done with the use of contrast injections. | | | The catheter entered the ventricle and hemodynamics were recorded. | | | The catheter, however, could not be exchanged to pigtail catheter all | | | the way down to the ventricle because of spasm in the arm arteries, | | | and the attempt was aborted. Of note, patient's ejection fraction was | | | deemed to be normal by echocardiogram. FINDINGS HEMODYNAMICS | | | Pressures: Aortic pressure 123/82 with a mean of 100. LV 131/15 with | | | end-diastolic 29. Gradient: There was no gradient between the LV and | | | aorta. CORONARY ANGIOGRAPHY The coronary system was right | | | dominant. However, again left main was anomalous and originated from | | | the right coronary cusp. Left main has what appears to be posterior | | | course behind the aorta. Proximally it has a 30% stenosis. It did | | | bifurcate into LAD and large circumflex. Left anterior descending | | | artery has severe stenosis proximally, estimated to be around 90%. | | | Furthermore, just before the bifurcating diagonal branch, the left | | | anterior descending artery has an 80% stenosis. The LAD was | | | relatively small in diameter and parallel to the diagonal branch. | | | Left circumflex coronary artery has severe stenosis right before the | | | origin of the last large marginal branch. There is a second marginal | | | branch which is free of disease. Right coronary artery has long, | | | complex lesion proximally with the stenosis estimated to be around | | | 95% to 98%. CONCLUSIONS AND RECOMMENDATIONS 1. 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 2. | | | Three-vessel coronary artery disease affecting proximal left anterior | | | descending, mid left circumflex, and proximal right coronary artery. | | | 3. Patient will need evaluation for coronary artery bypass surgery. | | | It might be prudent to obtain CT angiography of the coronary to look | | | at the course of the left main, although I appears to be coursing | | | behind the aorta. Read by VIKY LOVE MD 04/09/2015 04:03 P | | | | | + + + + + | Procedure Note | + + | Ravi, Rad Conversion - 03/17/2019 10:18 AM PDT | | | | DATE OF SERVICE | | April 09, 2015 | | | | BRIEF HISTORY | | Mr. Gao is a pleasant 59-year-old gentleman with a history of | | diabetes mellitus and family history for coronary artery disease, who | | presented with exertional back pain going down to both arms. He was | | evaluated by Dr. Prince Palmer in the office today and was referred for | | coronary angiography based on clinical presentation of relatively unstable | | angina pectoris. For details regarding his presentation, kindly refer to | | Dr. Prince Palmer's notes. | | | | PROCEDURES | | 1. Radial artery approach. | | 2. Left heart catheterization without left ventriculogram. | | 3. Selective coronary angiography. | | | | ESTIMATED BLOOD LOSS | | Less than 50 mL. | | | | TECHNIQUE | | The patient was brought to the catheterization lab in the fasting state. | | He was prepped and draped in the usual sterile fashion for right radial | | artery approach. Radial artery was instrumented using 6-[place] | | sheath. Under fluoroscopic guidance, a 5-[place] JL3.5 catheter was | | advanced to the ascending aorta but failed to engage with the left main. | | With that, the catheter was exchanged to AL1 catheter, which was advanced | | to the ascending aorta and again initial attempt to engage the left main | | from the left coronary cusp failed. During that time attempted to engage | | the right coronary artery. It was obvious that the left main originated | | from the right coronary cusp. The catheter was then used to engage the | | right coronary artery, and projection of the right coronary artery was | | done with the use of contrast injections. Catheter could not engage easily | | with the anomalous left main and, therefore, it was exchanged over a long | | exchange wire to AL1 catheter, which was engaged with the left main, and | | projection of the left coronary system was done with the use of contrast | | injections. The catheter entered the ventricle and hemodynamics were | | recorded. The catheter, however, could not be exchanged to pigtail | | catheter all the way down to the ventricle because of spasm in the arm | | arteries, and the attempt was aborted. Of note, patient's ejection | | fraction was deemed to be normal by echocardiogram. | | | | FINDINGS | | | | HEMODYNAMICS | | Pressures: Aortic pressure 123/82 with a mean of 100. LV 131/15 with | | end-diastolic 29. | | Gradient: There was no gradient between the LV and aorta. | | | | CORONARY ANGIOGRAPHY | | The coronary system was right dominant. However, again left main was | | anomalous and originated from the right coronary cusp. | | Left main has what appears to be posterior course behind the aorta. | | Proximally it has a 30% stenosis. It did bifurcate into LAD and large | | circumflex. | | Left anterior descending artery has severe stenosis proximally, estimated | | to be around 90%. Furthermore, just before the bifurcating diagonal | | branch, the left anterior descending artery has an 80% stenosis. The LAD | | was relatively small in diameter and parallel to the diagonal branch. | | Left circumflex coronary artery has severe stenosis right before the | | origin of the last large marginal branch. There is a second marginal | | branch which is free of disease. | | Right coronary artery has long, complex lesion proximally with the | | stenosis estimated to be around 95% to 98%. | | | | CONCLUSIONS AND RECOMMENDATIONS | | 1. 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 | | 2. Three-vessel coronary artery disease affecting proximal left anterior | | descending, mid left circumflex, and proximal right coronary artery. | | 3. Patient will need evaluation for coronary artery bypass surgery. It | | might be prudent to obtain CT angiography of the coronary to look at | | the course of the left main, although I appears to be coursing behind | | the aorta. | | | | Read by VIKY LOVE MD 04/09/2015 04:03 P | | | | | + + documented in this encounter Visit Diagnoses Not on filedocumented in this encounter"
--- OUTSIDE RECORDS SUMMARY | ~2019-07-15 | XMS | Encounter Summary ---
Demographics + + + | Address | [address] | | | [place] [address] | + + + | Home Phone | | + + + | Preferred Language | Unknown | + + + | Marital Status | Unknown | + + + | Amish Affiliation | 1013 | + + + | Race | Unknown | + + + | Ethnic Group | Unknown | + + + Author + + + | Author | [facility] | | | and [place] | + + + | Organization | [facility] | | | and [place] [...] Team Providers + +------+ + | Care Hospital [facility] Name | Role | Phone | + +------+ + PCP | Unavailable | + +------+ + Encounter Details +--------+ + + + + | Date | Type | Department | Care Team | Description | +--------+ + + + + | 04/09/ | Hospital | [facility] | Conversion | Acute chest pain; | | 2014 - | Encounter | [facility] | Transaction, | Unstable angina | | | | CARE FLOOR 4 888 | Provider Unknown | ([facility]); 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 He quit [employer] 20 years ago. Past Medical History Diagnosis [...] from the original. Case Management by BE Bia at 04/11/15 1241 Author: BE Bai Service: (none) Author Type: Business Support Professional Filed: 04/11/15 7795 Date of Service: 04/11/151240 Status: Signed Assistant Golf Professional: BE Bai (Business Support Professional) 04/11/15 1200 Anticipated Disposition Facility Type Home [...] 04/11/151046 Date of Service: 04/11/151046 Status: Signed Assistant Golf Professional: Ashlyn Bonner RN (Registered Nurse) All d/c [...] 1429 Date of Service: 04/10/151422 Status: Signed Assistant Golf Professional: Prince Avina DO (Physician) [facility] Service: Cardiology Progress Note Hospital Day: LOS: [...] Prince Avina DO at 04/09/152118 Author: Prince Aivna DO Service: Cardiology Author Type: Physician Filed: 04/09/152125 Date of Service: 04/09/152118 Status: Signed Assistant Golf Professional: Prince Avina DO (Physician) 04/09/2015 59-year-old white [...] 0357 Date of Service: 04/09/152099 Status: Signed Assistant Golf Professional: Chris Christensen RN (Registered Nurse) Pt exhibiting [...] 04/09/151901 Date of Service: 04/09/151900 Status: Signed Assistant Golf Professional: Cherrie Rojo RN (Registered Nurse) 3cc air removed from TR band. ele Banerjee Jr., MD - 04/09/2015 6:50 PM PDTFormatting of this note might be different from t he original. Progress Notes by Lele Martinez MD at 04/09/151849 Author: Lele Martinez MD Service: (none) Author Type: Physician Filed: 04/09/151850 Date of Service: 04/09/151849 Status: Signed Assistant Golf Professional: Lele Martinez MD (Physician) Left sided neuro symptoms now present per nursing evaluation CT scan of the head has been ordered CABG on hold for now onversion Trans action, Provider Unknown - 04/09/2015 6:45 PM PDT Nurse Progress Note by Cherrie Rojo RN at 04/09/151844 Author: Cherrie Rojo RN Service: (none) Author Type: Registered Nurse Filed: 04/09/151845 Date of Service: 04/09/151844 Status: Signed Assistant Golf Professional: Cherrie Rojo RN (Registered Nurse) Dr Martinez [...] 04/09/151755 Date of Service: 04/09/151753 Status: Signed Assistant Golf Professional: Cherrie Rojo RN (Registered Nurse) 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 This weakness has persisted. Dr Avina notified that pt con tinues to have numbness, lack of dexterity, and mild L facial droop. CT head without contras t ordered. onver fiordaliza Transaction, Provider Unknown - 04/09/2015 3:34 PM PDT Progress Notes by Kenia Santacruz RPH at 04/09/151533 Author: Kenia Santacruz RPH Service: (none) Author Type: Pharmacist Filed: 04/09/151533 Date of Service: 04/09/151533 Status: Signed Assistant Golf Professional: Kenia Santacruz RPH (Pharmacist) Clinical Pharmacy Note: [...] Note by Cornelio Silva RN at 04/09/15 4958 Author: Cornelio Silva RN Service: (none) Author Type: Registered Nurse Filed: 04/09/15 0340 Date of Service: 04/09/151453 Status: Signed Assistant Golf Professional: Cornelio Silva RN (Registered Nurse) After pt [...] | + + + | DUSTY Weber [facility] CT CHEST W CONTRAST 04/11/2015 8:41 [...] Conversion - 03/10/2019 10:17 AM KELLIE Weber [facility] W | | CONTRAST04/11/2015 8:41 AM [...] | | | Patient | performed at [facility];[address] | | LAB | | | | [address];[place], [place] | | | | | | [address] | | | | + + + [...] At | + + + | [facility] MRA HEAD [...] Conversion - 03/10/2019 10:17 AM PDT [facility] | [...] EXTERNAL LAB | | Testing performed at [facility];[address] [place] [address];[place] [address] MRSA PCR | | | NEGATIVE Testing performed at | | | [facility];[address] [place] [address];[place] [address] | | + + + + +---------+ [...] Conversion - 03/10/2019 10:17 AM PDT DUSTY LORENZO134350 years MaleCT | | HEAD WO CONTRAST04/09/2015 [...] + + | Historically converted procedure from [facility] | EXTERNAL LAB | + + + [...] EXTERNAL | | | | performed at [facility];[address] | K/uL | LAB | | | | [address];[place] | | | | | | [address] | | | | + + + + + + | RED CELL | 4.29Comment: Testing | 4.20 - 5.70 | EXTERNAL | | | COUNT | performed at [facility];[address] | M/uL | LAB | | | | [address];[place] | | | | | | [address] | | | | + + + + + + | Hgb | 12.7 (L)Comment: Testing | 13.2 - 17.0 | EXTERNAL | | | | performed at [facility];888 | g/dL | LAB | | | | [address];[place] | | | | | | [address] | | | | + + + + + + | Hematocrit, | 36.3 (L)Comment: Testing | 39.0 - 50.0 % | EXTERNAL | | | POC | performed at [facility];[address] | | LAB | | | | [address];[place] | | | | | | [address] | | | | + + + + + + | MCV | 84.6Comment: Testing | 80.0 - 100.0 fl | EXTERNAL | | | | performed at [facility];[address] | | LAB | | | | [address];[place] | | | | | | [address] | | | | + + + + + + | MCH | 29.5Comment: Testing | 27.0 - 34.0 pg | EXTERNAL | | | | performed at [facility];[address] | | LAB | | | | [address];[place] | | | | | | [address] | | | | + + + + + + | MCHC | 34.9Comment: Testing | 32.0 - 35.5 | EXTERNAL | | | | performed at [facility];888 | g/dL | LAB | | | | [address];[place] | | | | | | [address] | | | | + + + + + + | RDW-CV | 40.3Comment: Testing | 37 - 53 fl | EXTERNAL | | | | performed at [facility];[address] | | LAB | | | | [address];[place] | | | | | | [address] | | | | + + + + + + | Platelet | 126 (L)Comment: Testing | 150 - 400 K/uL | EXTERNAL | | | Count | performed at [facility];[address] | | LAB | | | Plasma | [address];[place] | | | | | | [address] | | | | + + + + + + | MPV | 8.8Comment: Testing | fl | EXTERNAL | | | | performed at [facility];[address] | | LAB | | | | [address];[place] | | | | | | [address] | | | | + + + [...] | | | Patient | performed at [facility];[address] | | LAB | | | | [address];[place] | | | | | | [address] | | | | + + + [...] | | | | | performed at [facility] | | | | | | [facility];[place], [place] | | | | | | [address] | | | | + + + [...] | | diastolic abnormality, no segmental WMA, [place] visually estimates | | | LVEF 60-65%. [...] Grade 1 diastolic abnormality, no segmental WMA, [place] visually | | | estimates LVEF 60-65%. [...] LA/Ao: 1.11 MV D-E | | | [place]: 20.15 cm/s EPSS: 0.81 cm HR: 70.20 [...] | maxP.72 mmHg TR Vmax: 2.21 m/s Plum Packer: AB | | | Authenticated by: Prince [...] Grade 1 diastolic abnormality, no segmental WMA, [place] visually estimates LVEF | | 60-65%. Mild [...] mlLAESV Index (A-L): 15.90 ml/m2LAAs A2C: 15.92 [id number] A-L | | A2C: 37.46 mlLALs A2C: 5.74 cmLAAs A4C: 14.88 mg8HXIVP A-L A4C: 34.33 mlLALs | | A4C: 5.47 cm%FS: 42.30 %EDV(Teich): 140.42 mlEF(Teich): 72.85 %ESV(Teich): | | 38.12 mlIVSd: 1.07 cmIVSs: 1.69 cmLVIDd: 5.38 cmLVIDs: 3.10 cmLVPWd: 1.17 | | cmLVPWs: 1.72 cmSV(Teich): 102.30 mlAo Diam: 3.94 cmAo/LA: 0.89AV Cusp: 2.28 | | cmLA Diam: 4.38 cmLA/Ao: 1.11MV D-E [place]: 20.15 cm/sEPSS: 0.81 cmHR: 70.20 | | BPMAV maxP.26 mmHgAV meanP.09 mmHgAV Vmax: 1.03 m/Cyn Vmean: 0.68 m/Cyn | | VTI: 18.34 cmAVA Vmax: 3.84 cm2AVA (VTI): 3.52 tz3KVUJ Dopp: 2.17 l/uhwq2EGXM | | Dopp: 5.02 l/minHR: 77.75 BPMLVOT maxP.26 mmHgLVOT meanP.46 mmHgLVSI | | Dopp: 27.97 ml/m2LVSV Dopp: 64.61 mlLVOT Vmax: 0.90 m/sLVOT Vmean: 0.56 m/sLVOT | | VTI: 14.70 cmMV A [place]: 0.82 m/sMV DecT: 204.56 msMV E [place]: 0.60 m/sMV E/A Ratio: | | 0.74MV A Dur: 103.80 msRAP: 5 mmHgRVSP: 24.72 mmHgTR maxP.72 mmHgTR | | Vmax: 2.21 m/s Plum Packer: ABAuthenticated by: Prince Day Date/Time: | | 04-10-2015 10:13:19 IMPRESSION: 1. Borderline concentric LVH, systolic function NML, | | Grade 1 diastolic abnormality, no segmental WMA, [place] visually estimates LVEF 60-65%. | | Mild [...] cm | |LA/Ao: 1.11 | |MV D-E [place]: 20.15 cm/s | |EPSS: 0.81 cm | [...] |TR Vmax: 2.21 m/s | | | |Plum Packer: AB | |Authenticated by: Prince Avina MD | |Report Date/Time: 04-10-2015 10:13:19 | | | |IMPRESSION: | |1. Borderline concentric LVH, systolic function NML, Grade 1 diastolic abnormality, no segm ental WMA, [place] visually estimates LVEF 60-65%. Mild LAE. RA/RV [...] EXTERNAL | | | | performed at [facility];[address] | K/uL | LAB | | | | [address];[place] | | | | | | [address] | | | | + + + + + + | RED CELL | 4.71Comment: Testing | 4.20 - 5.70 | EXTERNAL | | | COUNT | performed at [facility];[address] | M/uL | LAB | | | | [address];[place] | | | | | | [address] | | | | + + + + + + | Hgb | 13.6Comment: Testing | 13.2 - 17.0 | EXTERNAL | | | | performed at [facility];888 | g/dL | LAB | | | | [address];[place] | | | | | | [address] | | | | + + + + + + | Hematocrit, | 39.9Comment: Testing | 39.0 - 50.0 % | EXTERNAL | | | POC | performed at [facility];[address] | | LAB | | | | [address];[place] | | | | | | [address] | | | | + + + + + + | MCV | 84.8Comment: Testing | 80.0 - 100.0 fl | EXTERNAL | | | | performed at [facility];[address] | | LAB | | | | [address];[place] | | | | | | [address] | | | | + + + + + + | MCH | 28.9Comment: Testing | 27.0 - 34.0 pg | EXTERNAL | | | | performed at [facility];[address] | | LAB | | | | [address];[place] | | | | | | [address] | | | | + + + + + + | MCHC | 34.1Comment: Testing | 32.0 - 35.5 | EXTERNAL | | | | performed at [facility];888 | g/dL | LAB | | | | [address];[place] | | | | | | [address] | | | | + + + + + + | RDW-CV | 42.0Comment: Testing | 37 - 53 fl | EXTERNAL | | | | performed at [facility];[address] | | LAB | | | | [address];[place] | | | | | | [address] | | | | + + + + + + | Platelet | 129 (L)Comment: Testing | 150 - 400 K/uL | EXTERNAL | | | Count | performed at [facility];[address] | | LAB | | | Plasma | [address];[place] | | | | | | [address] | | | | + + + + + + | MPV | 9.2Comment: Testing | fl | EXTERNAL | | | | performed at [facility];[address] | | LAB | | | | [address];[place] | | | | | | [address] | | | | + + + + + + | Differentia | AUTOMATEDComment: | | EXTERNAL | | | l Type | Testing performed at | | LAB | | | | [facility];[address];[place] [address] | | | | + + + + + + | % Segmented | 58.53Comment: Testing | % | EXTERNAL | | | | performed at [facility];[address] | | LAB | | | Neutrophils | [address];[place] | | | | | | [address] | | | | + + + + + + | % | 30.97Comment: Testing | % | EXTERNAL | | | Lymphocytes | performed at [facility];[address] | | LAB | | | | [address];[place] | | | | | | [address] | | | | + + + + + + | % Monocytes | 8.00Comment: Testing | % | EXTERNAL | | | | performed at [facility];[address] | | LAB | | | | [address];[place] | | | | | | [address] | | | | + + + + + + | % | 1.61Comment: Testing | % | EXTERNAL | | | Eosinophils | performed at [facility];[address] | | LAB | | | | [address];[place] | | | | | | [address] | | | | + + + + + + | % Basophils | 0.89Comment: Testing | % | EXTERNAL | | | | performed at [facility];[address] | | LAB | | | | [address];[place] | | | | | | [address] | | | | + + + + + + | Absolute | 2.66Comment: Testing | 1.90 - 7.40 | EXTERNAL | | | Segmented | performed at [facility];[address] | K/uL | LAB | | | Neutrophils | [address];[place] | | | | | | [address] | | | | + + + + + + | Absolute | 1.41Comment: Testing | 1.00 - 3.90 | EXTERNAL | | | Lymphocytes | performed at [facility];[address] | K/uL | LAB | | | | [address];[place] | | | | | | [address] | | | | + + + + + + | Absolute | 0.36Comment: Testing | 0.00 - 0.80 | EXTERNAL | | | Monocytes | performed at [facility];[address] | K/uL | LAB | | | | [address];[place] | | | | | | [address] | | | | + + + + + + | Absolute | 0.07Comment: Testing | 0.00 - 0.50 | EXTERNAL | | | Eosinophils | performed at [facility];[address] | K/uL | LAB | | | | [address];[place] | | | | | | [address] | | | | + + + + + + | Absolute | 0.04Comment: Testing | 0.00 - 0.10 | EXTERNAL | | | Basophils | performed at [facility];[address] | K/uL | LAB | | | | [address];[place] | | | | | | [address] | | | | + + + [...] EXTERNAL | | | | performed at [facility];888 | mmol/L | LAB | | | | [address];[place] | | | | | | [address] | | | | + + + + + + | K | 4.5Comment: Testing | 3.5 - 4.9 | EXTERNAL | | | | performed at [facility];888 | mmol/L | LAB | | | | [address];[place] | | | | | | [address] | | | | + + + + + + | Cl | 102Comment: Testing | 99 - 109 mmol/L | EXTERNAL | | | | performed at [facility];[address] | | LAB | | | | [address];[place] | | | | | | [address] | | | | + + + + + + | CO2 | 28Comment: Testing | 23 - 32 mmol/L | EXTERNAL | | | | performed at [facility];[address] | | LAB | | | | [address];[place] | | | | | | [address] | | | | + + + + + + | Anion Gap | 12Comment: Testing | 5 - 20 mmol/L | EXTERNAL | | | | performed at [facility];[address] | | LAB | | | | [address];[place] | | | | | | [address] | | | | + + + + + + | Glucose, | 180 (H)Comment: Testing | 65 - 99 mg/dL | EXTERNAL | | | Fasting | performed at [facility];[address] | | LAB | | | | [address];[place] | | | | | | [address] | | | | + + + + + + | BUN | 18Comment: Testing | 8 - 25 mg/dL | EXTERNAL | | | | performed at [facility];[address] | | LAB | | | | [address];[place] | | | | | | [address] | | | | + + + + + + | Creatinine | 1.1Comment: Testing | 0.70 - 1.30 | EXTERNAL | | | | performed at [facility];888 | mg/dL | LAB | | | | [address];[place] | | | | | | [address] | | | | + + + + + + | BUN/Creatin | 16Comment: Testing | | EXTERNAL | | | ine Ratio | performed at [facility];[address] | | LAB | | | | [address];[place] | | | | | | [address] | | | | + + + + + + | Calcium | 8.6Comment: Testing | 8.5 - 10.5 | EXTERNAL | | | | performed at [facility];888 | mg/dL | LAB | | | | [address];[place] | | | | | | [address] | | | | + + + [...] | | | | | | at [facility];[address] [place] [address] | | | | | | [facility];[place] [address] | | | | + + + [...]
--- OUTSIDE RECORDS SUMMARY | ~2019-07-15 | XMS | Clinical Summary ---
Demographics + + + | Address | [address] | | | [place] [address] | + + + | Home Phone | | + + + | Preferred Language | Unknown | + + + | Marital Status | | + + + | Restorationist Affiliation | 1013 | + + + | Race | Unknown | + + + | Ethnic Group | Unknown | + + + Author + + + | Author | [facility] (Historical as of | | | 03-11-19) | + + + | Organization | [facility] (Historical as of | | | 03-11-19) | + + + | Address | Unknown | + + + | Phone | Unavailable | + + + Support + + +---------+ + | Name | Relationship | Address | Phone | + + +---------+ + | Selene Lorenzo | ECON | Unknown | | + + +---------+ + Care Team Providers + +------+ + | Care Filler In Name | Role | Phone | + +------+ + | Blue Lopez MD | PP | | + +------+ + Allergies + [...] Nausea Only | Low | 09/04/19 | Complaint of | | | | | 18 | nausea and dizziness | + + + + + [...] | + + + + + + Current Medications + + +--------+---------+------+------+-------+ | Prescription | Sig. | Disp. | Refills | Star | End | Statu | | | | | | t | Date | s | | | | | | Date | | | + + +--------+---------+------+------+-------+ | metFORMIN | Take 1,000 mg by | | | | | Activ | | (GLUCOPHAGE) 1000 MG | mouth 2 (two) times | | | | | e | | tablet | daily with meals. | | | | | | + + +--------+---------+------+------+-------+ | acetaminophen | Take 500 mg by mouth | | | | | Activ | | (TYLENOL) 500 MG | every 6 (six) hours | | | | | e | | tablet | as needed for Pain. | | | | | | + + +--------+---------+------+------+-------+ | aspirin EC 81 MG | Take 1 tablet by | 30 | 11 | 02/0 | / | Activ | | EC tablet | mouth daily with | tablet | | 01/12 | 03/14 | e | | | breakfast. | | | 17 | 20 | | + + +--------+---------+------+------+-------+ | rosuvastatin | Take 10 mg by mouth | | | | | Activ | | (CRESTOR) 10 MG | nightly. | | | | | e | | tablet | | | | | | | + + +--------+---------+------+------+-------+ | ondansetron | Take 4 mg by mouth | | | | | Activ | | (ZOFRAN) 4 MG tablet | as needed for | | | | | e | | | Nausea. | | | | | | + + +--------+---------+------+------+-------+ | glipiZIDE | Take 10 mg by mouth | | | | | Activ | | (GLUCOTROL) 10 MG | 2 (two) times daily | | | | | e | | tablet | before meals. | | | | | | + + +--------+---------+------+------+-------+ | metoprolol | Take 1 tablet by | 90 | 3 | 06/ | | Activ | | (TOPROL-XL) 100 MG | mouth daily. | tablet | | 10/12 | | e | | 24 hr tablet | | | | 18 | | | + + +--------+---------+------+------+-------+ | lisinopril | Take 1 tablet by | 90 | 3 | 09/23 | | Activ | | (ZESTRIL) 10 MG | mouth daily. 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 | | 60yo WM, S/P CABG, he has recovered nicely, he has return to | | work. Denying any chest discomfort, shortness of breath, | | palpitations, lightheadedness. However, he came down with | | shingles, including the left eye, and this has been quite | | debilitating for him, he is slowly recovering. He thought that | | the pravastatin was aggravating his symptoms, so we suspended the | | pravastatin, he will resume after he recovers from the shingles. 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 | + + + + + | Essential hypertension | 04/09/2015 | + + + + + | Last Assessment & Plan: Hypertension, controlled, continue | | current meds at current doses (lisinopril, metoprolol). | + + + + + | HLD (hyperlipidemia) | 04/09/2015 | + + + + + | Last Assessment & Plan: Hyperlipidemia, the pravastatin has | | been suspended well he recovers from his shingles. Labs | | reviewed.Lab, 08/13/2015: T Chol: 166, LDL-Chol: 100, HDL-Chol: | | 37, Tri Liver enzymes NML, K: 4.4, | | BUN/Cr: 19/0.9, glu: 187 HgbA1c: 7.0 | + + + + + | Controlled type 2 diabetes mellitus without complication, without | 04/09/2015 | | long-term current use of insulin (HCC) | | + + + + + | Last Assessment & Plan: DM2, managed by PCP. | + + Immunizations + + + + | Name | Dates Previously Given | Next Due | + + + + | Pneumococcal | 04/11/2015 | | | Polysaccharide | | | | 23-valent | | | + + + + [...] | hyperlipidemia | + +------+ + + Social History + + + +--------+ + | Tobacco Use | Types | Packs/Day | Years | Date | | | | | Used | | + + + +--------+ + | Former Smoker | Cigarettes | 0.5 | 28 | Quit: 07/26/2010 | + + + +--------+ + + +---+---+---+ | Smokeless Tobacco: | | | | | Former User | | | | + +---+---+---+ + + +---------+ + | Alcohol Use | Drinks/We | oz/Week | Comments | | | ek | | | + + +---------+ + | No | 0 | 0.0 | | | | Standard | | | | | drinks or | | | | | | | | | | equivalen | | | | | t | | | + + +---------+ + + + + | Sex Assigned at | Date Recorded | | | | + + + | Not on file | | + + + Last Filed Vital Signs + + + + | Vital Sign | Reading | Time Taken | + + + + | Blood Pressure | 140/76 | 10/10/2018 3:40 PM PDT | + + + + | Pulse | 65 | 10/10/2018 3:40 PM PDT | + + + + | Temperature | 36.2 C (97.2 F) | 05/14/2015 10:20 AM PDT | + + + + | Respiratory Rate | 16 | 10/10/2018 3:40 PM PDT | + + + + | Oxygen Saturation | 97% | 10/10/2018 3:40 PM PDT | + + + + | Inhaled Oxygen | - | - | | Concentration | | | + + + + | Weight | 111.3 kg (245 lb 6.4 | 10/10/2018 3:40 PM PDT | | | oz) | | + + + + | Height | 180.3 cm (5' 11") | 10/10/2018 3:40 PM PDT | + + + + | Body Mass Index | 34.23 | 10/10/2018 3:40 PM PDT | + + + + Plan of Treatment + + + + + | Health Maintenance | Due Date | Last Done | Comments | + + + + + | Diabetic Eye Exam | | | | | | 3 | | | + + + + + | Diabetic Foot Exam | | | | | | 3 | | | + + + + + | Microalbumin | | | | | Screening | 3 | | | + + + + + | Vaccine: | | | | | Dtap/Tdap/Td (1 - | 2 | | | | Tdap) | | | | + + + + + | Colon Cancer | | | | | Screening | 3 | | | | (Colonoscopy) | | | | + + + + + | Vaccine: Zoster (1 | | | | | of 2) | 3 | | | + + + + + | Hemoglobin A1c | | 08/13/2015, 04/23/2015 | | | | 6 | | | + + + + + | Vaccine: | | 04/11/2015 | | | Pneumococcal 65+ | 8 | | | | Low/Medium Risk (1 | | | | | of 2 - PCV13) | | | | + + + + + | Vaccine: Influenza | | | | | (#1) | 9 | | | + + + + + Implants + +------+--------+ +--------+--------+--------+ | Implanted | Type | Area | Manufacture | Device | Expira | Model | | | | | r | | tion | / | | | | | | Identi | Date | Serial | | | | | | fier | | / Lot | + +------+--------+ +--------+--------+--------+ | Plate Strnl Acute [id number] | | N/A: | ACUTE | | | [id number] | | [id number]: Qty: 3 on | | Sternu | INNOVATIONS | | | 4 / | | 04/22/2015 by Lele Martinez, | | m | LLC - AINN | | | /[id number] | | MD | | | | | | 04 | + +------+--------+ +--------+--------+--------+ Results Not on filefrom Last 3 Months Insurance +---------+--------+ +------+-------+ + | Payer | Benefi | Subscriber | Type | Phone | Address | | | t Plan | ID | | | | | | / | | | | | | | Group | | | | | +---------+--------+ +------+-------+ + | PREMER[employer] | PREMER | [id number] | | | [address] [address] | | | A BLUE | 7 | | | [place], [place] | | | CARD | | | | [phone] | +---------+--------+ +------+-------+ + + +--------+ +--------+ + + | Guarantor Name | Accoun | Relation to | Date | Phone | Billing Address | | | t Type | Patient | of | | | | | | | | | | + +--------+ +--------+ + + | DUSTY LORENZO | Person | Self [birth year] | Work: | [address] | | | al/Fam | | 3 | [phone] | [place] | | | [place]ylan | | | [phone]: | [address] | | | | | | | | | | | | | [phone] | | | | | | | [phone] | | + +--------+ +--------+ + +
--- OUTSIDE RECORDS SUMMARY | ~2019-07-15 | XMS | Encounter Summary ---
Demographics + + + | Address | [address] | | | [place] [address] | + + + | Home Phone | | + + + | Preferred Language | Unknown | + + + | Marital Status | Unknown | + + + | Yazidi Affiliation | 1013 | + + + | Race | Unknown | + + + | Ethnic Group | Unknown | + + + Author + + + | Author | [facility] | | | and [place] | + + + | Organization | [facility] | | | and [place] [...] Team Providers + +------+ + | Care Hydrochloric Acid Operator Name | Role | Phone | + +------+ + | Blue Lopez MD | PCP | | + +------+ + Encounter Details +--------+ + + + + | Date | Type | Department | Care Team | Description | +--------+ + + + + | 12/24/ | Orders Only | [facility] | Conversion | | | 2017 | | CONVERSION DEP 888 | Transaction, | | | | | NATALIE [address]GUY[address] | Provider Unknown | | | | | [place] | [phone] | | | | | [phone] | (Fax) | | | | | [phone] | | | +--------+ + + + [...]
--- OUTSIDE RECORDS SUMMARY | ~2019-07-15 | XMS | Encounter Summary ---
Demographics + + + | Address | [address] | | | [place] [address] | + + + | Home Phone | | + + + | Preferred Language | Unknown | + + + | Marital Status | Unknown | + + + | Yazidi Affiliation | 1013 | + + + | Race | Unknown | + + + | Ethnic Group | Unknown | + + + Author + + + | Author | [facility] | | | and [place] | + + + | Organization | [facility] | | | and [...] Team Providers + +------+ + | Care Stage Technician Name | Role | Phone | + [...] | Transaction, | | | | | NATALEI NGUYENVD | Provider Unknown | | | | | [place] | [phone] | | | | | [phone] | (Fax) | | | | | [phone] | | | +--------+ + + + [...]
--- OUTSIDE RECORDS SUMMARY | ~2019-07-15 | XMS | Clinical Summary ---
Demographics + + + | Address | [address] | | | [place] [address] | + + + | Home Phone | | + + + | Preferred Language | Unknown | + + + | Marital Status | | + + + | Religion Affiliation | 1013 | + + + | Race | Unknown | + + + | Ethnic Group | Unknown | + + + Author + + + | Author | [facility] (Historical as of | | | 03-11-19) | + + + | Organization | [facility] [employer] [facility] (Historical as of | | | 03-11-19) [...] Team Providers + +------+ + | Care Operator Engineer Name | Role | Phone | + [...] 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 [...] + +------+--------+ +--------+--------+--------+ | Plate Strnl Acute [id number] - | | N/A: | ACUTE | | | [id number] | | [id number]: Qty: 3 on | | Sternu | [...] +------+-------+ + | [employer] | PREMER | [id number] | | | [address] [address] | | | A BLUE | 7 | | | [place], [place] | | | CARD | | | | [phone] | +---------+--------+ +------+-------+ + + +--------+ +--------+ + + | Guarantor Name | Accoun | Relation to | Date | Phone | Billing Address | | | t Type | Patient | of | | | | | | | | | | + +--------+ +--------+ + + | DUSTY LORENZO | Person | Self | [birth year] | Work: | [address] | | | al/Fam | | 3 | [phone] | [place] | | | dylan | | | [phone]: | [address] | | | | | | | | | | | | | [phone] | | | | | | | [phone] | | + +--------+ +--------+ + +
--- OUTSIDE RECORDS SUMMARY | ~2019-07-15 | XMS | Encounter Summary ---
Demographics + + + | Address | [address] | | | [place] [address] | + + + | Home Phone | | + + + | Preferred Language | Unknown | + + + | Marital Status | Unknown | + + + | Shinto Affiliation | 1013 | + + + | Race | Unknown | + + + | Ethnic Group | Unknown | + + + Author + + + | Author | [facility] | | | and [place] | + + + | Organization | [facility] | | | and [place] | [...] Team Providers + +------+ + | Care Sand Analyst Name | Role | Phone | + +------+ + PCP | Unavailable | + +------+ + Encounter Details +--------+ + + + + | Date | Type | Department | Care Team | Description | +--------+ + + + + | 03/25/ | Hospital | [facility] | | | | 2006 | Encounter | [facility] | | | | | | [address] | | | | | | [place] | | | | | | [address] | | | | | | [phone] | | | +--------+ + + + [...]
--- OUTSIDE RECORDS SUMMARY | ~2019-07-15 | XMS | Encounter Summary ---
Demographics + + + | Address | [address] | | | [place] [address] | + + + | Home Phone | | + + + | Preferred Language | Unknown | + + + | Marital Status | Unknown | + + + | Oriental Orthodox Affiliation | 1013 | + + + | Race | Unknown | + + + | Ethnic Group | Unknown | + + + Author + + + | Author | [facility] | | | and [place] | + + + | Organization | [facility] | | | and [place] [...] Team Providers + +------+ + | Care Math Tutor Name | Role | Phone | + +------+ + PCP | Unavailable | + +------+ + Encounter Details +--------+ + + + + | Date | Type | Department | Care Team | Description | +--------+ + + + + | 04/22/ | Hospital | [facility] | Lele Martinez MD | Coronary artery | | 2015 - | Encounter | [facility] | [address] | disease involving | | | | [address] | [place], [place] | marshall coronary | | [address] | | [address] | [address] | artery of marshall | | 2015 | | [place], [place] | | heart with unstable | | | | [id number] | | angina pectoris | | | | [phone] | | (HCC) | +--------+ + + + + Social [...] documented as of this encounter Discharge Summaries Heron Whipple PA - 04/28/2015 8:51 AM PDT Discharge Summaries by Heron Whipple PA-C at 04/28/15850 Author: Heron Whipple PA-C Service: Cardiac, Thoracic, and Vascular Surgery Author Type: Physician Graduating Machine Operator - Certified Filed: 05/17/15 0853 Date of Service: 04/28/15850 Status: Signed Customer Consulting Manager: Heron Whipple PA-C (Physician Graduating Machine Operator - Certified) Cosigner: Lele hall MD at 05/19/15 1824 [facility] Service: Cardiothoracic Surgery Discharge Summary Date of Admission: 04/22/2015 Date of Discharge: 04/28/2015 Discharge Provider: Dario Whipple PA-C Treatment Team: Admitting Provider: Lele Martinez MD Discharge Diagnoses: Active Problems: * No active hospital problems. * Resolved Problems: * No resolved hospital problems. * Procedures: Procedure(s) with comments: CABG - OTILIA - sternotomy, EVH, MAGANA BRIEF HISTORY OF PRESENTATION: Dusty Lorenzo is a 59 y.o. male with a history of hypertension, diabetes mellitus, an d strong family history of coronary artery disease who recently presented with exertional an michele. He was evaluated by mercerizer machine operator Dr. Palmer amd underwent cardiac angiography on er 2014. 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 Post cardiac catheterization the patient develop ed left-sided weakness. MRI showed a small right frontal posterior infarct. The patient was evaluated by neurology. It was decided to postpone surgical revascularization for a few week s on the recommendation of neurology. The patient had a complete resolution of his neurologi elisabeth symptoms and was again re-evaluated in office. He was neurologically intact. Surgical r evascularization was recommneded. Risks and benefits of the procedure including bleeding; in fection; damage to the heart, lungs, and kidneys; stroke; and were discussed with the patient and his family and decision was made to proceed with surgery. HOSPITAL COURSE: The patient was taken to the operating room and underwent a Coronary artery bypass grafting x4: Left internal mammary to left anterior descending; saphenous vein graft to diagonal; sa phenous vein graft to obtuse marginal; saphenous vein graft to right posterior descending ar curtis with endoscopic vein harvest on 04/22/2015. Operation was uneventful (please refer to op erative note for details of the same). The patient tolerated the procedure well and was bird sferred to the ICU intubated and in stable condition. The patient was extubated per ICU prot ocol. Vasoactive infusions were weaned. Patient was neurologically intact. The patient spent 2 nights in the ICU and was transferred to the cardiac unit, hemodynamically stable. The pa katie had 2 episodes of post-operative atrial fibrillation. This was treated with IV infusio n of Amiodarone and electrolyte replacement per protocol. Rhythm remained in normal sinus rh ythm afterward. Chest tubes and pacing wires were removed without complication. The patient continued to make good recovery, ambulating, tolerating cardiac diet and passing bowel movem ents. The patient was fit for discharge to home on 04/28/2015. Past Medical History Diagnosis Date RBBB (right bundle branch block) Hypertension Hyperlipidemia Diabetes mellitus, type 2 (HCC) Stroke (HCC) 03/2015 Past Surgical History Procedure Laterality Date Tonsillectomy Abdominal surgery Lypoma removal from groin area-benign Cardiac catheterization Coronary artery bypass graft N/A 04/22/2015 Procedure: CABG - OTILIA; Surgeon: Lele Martinez MD; Location: [facility]; Service: Car diac; Laterality: N/A; sternotomy, EVH, MAGANA Allergies Allergen Reactions Sulfa Antibiotics Hives and Rash Prescriptions prior to admission Medication Sig Dispense Refill Last Dose aspirin 325 MG tablet Take 325 mg by mouth daily with breakfast. 04/22/2015 at Unknown time atorvastatin (LIPITOR) 80 MG tablet Take 1 tablet by mouth nightly. 30 tablet 5 04/21/20 15 at Unknown time glipiZIDE (GLUCOTROL) 5 MG tablet Take 5 mg by mouth 2 (two) times daily before meals. 04/21/2015 at Unknown time metFORMIN (GLUCOPHAGE) 1000 MG tablet Take 1,000 mg by mouth 2 (two) times daily with m eals. 04/21/2015 at Unknown time DISCHARGE EXAM Vital Signs: BP 133/71 mmHg | Pulse 86 | Temp(Src) 98.7 F (37.1 C) (Oral) | Resp 18 | Ht 1.791 m (5' 10.5") | Wt 107.7 kg (237 lb 7 oz) | BMI 33.58 kg/m2 | SpO2 98% Physical Exam: GENERAL: A&Ox 3, in no acute distress. NEURO: No facial asymmetry, speech normal and non pressured. Normal range of motion in all extremities HEENT: PERRLA, EOMI; Sclerae clear, nonicteric; Oral Mucosa moist and pink with n2o ulcerat ions/lesions. NECK: No JVD noted, HEART: RRR with normal S1 and S2 heart sounds. No murmur, rub, heave, or gallop noted. LUNGS: Lungs are clear to auscultation without wheezes, rhonchi, rales. ABDOMEN: Hypoactive. Soft, nondistended, nontender to palpation with no notable masses. EXTREMITIES: no edema; warm Incision: clean, dry, and intact. No erythema, discharge, or warmth noted around the incisi on site. DATA Platelets: Lab Results Component Value Date PLT 195 04/28/2015 Hemoglobin/Hematocrit: Lab Results Component Value Date HGB 7.7* 04/28/2015 HGB 9.9* 04/25/2015 HCT 22.3* 04/28/2015 HCT 29* 04/25/2015 Potassium: Lab Results Component Value Date K 4.4 04/28/2015 BUN/Creatinine: Lab Results Component Value Date BUN 16 04/28/2015 CREATININE 0.98 04/28/2015 Magnesium: Lab Results Component Value Date MG 2.3 04/25/2015 PT/INR: Lab Results Component Value Date INR 1.3 04/22/2015 PTT: Lab Results Component Value Date APTT 26 04/22/2015 [APTT HgBA1c: Lab Results Component Value Date HGBA1C 7.4* 04/23/2015 LABGLYC 166 04/23/2015 PLAN 1. Patient is discharged to home. 2. Education: CABG: The patient is being discharged with instructions on cardiac diet, sternal precautio ns x 12 weeks and surgical incision are according to the Society of Thoracic Surgeon guideli annamaria. The patient is given instructions to start cardiac rehabilitation in accordance with ca rdiologist recommendations. Pt advised not to drive for 6 weeks post discharge. Disposition: Home Condition: Stable Code Status: Full Code No discharge procedures on file. Follow up: Lele Martinez MD [address] [facility] [address] In 2 weeks Prince Palmer DO [address] [facility] [address] [facility] [address] Schedule an appointment as soon as possible for a visit in 2 weeks Shonda Mcnamara MD [address] [place] [address] Medication List START taking these medications amiodarone 200 MG tablet QTY: 28 tablet Refills: 0 Commonly known as: PACERONE Take 1 tablet by mouth 2 (two) times daily. furosemide 20 MG tablet QTY: 3 tablet Refills: 0 Commonly known as: LASIX Take 1 tablet by mouth daily. metoprolol 50 MG tablet QTY: 60 tablet Refills: 2 Commonly known as: LOPRESSOR Take 1 tablet by mouth 2 (two) times daily. potassium chloride 10 MEQ tablet QTY: 3 tablet Refills: 0 Commonly known as: K-DUR Take 1 tablet by mouth daily. tamsulosin 0.4 MG capsule QTY: 14 capsule Refills: 0 Commonly known as: FLOMAX Take 1 capsule by mouth After dinner. CONTINUE taking these medications aspirin 325 MG tablet Refills: 0 atorvastatin 80 MG tablet QTY: 30 tablet Refills: 5 Commonly known as: LIPITOR Take 1 tablet by mouth nightly. glipiZIDE 5 MG tablet Refills: 0 Commonly known as: GLUCOTROL metFORMIN 1000 MG tablet Refills: 0 Commonly known as: GLUCOPHAGE STOP taking these medications lisinopril 10 MG tablet Commonly known as: ZESTRIL metoprolol 50 MG 24 hr tablet Commonly known as: TOPROL-XL nitroGLYCERIN 0.4 MG SL tablet Commonly known as: NITROSTAT Where to Get Your Medications These are the prescriptions that you need to apple picking supervisor. You may get the following medications from any pharmacy - amiodarone 200 MG tablet - furosemide 20 MG tablet - metoprolol 50 MG tablet - potassium chloride 10 MEQ tablet - tamsulosin 0.4 MG capsule Discharge took 30 minutes, to include final examination, discussion of admission, and prepa ration of prescriptions, instructions for on-going care, follow-up and documentation of disc harge summary. Dario Whipple PA-C 04/28/2015 Shama flowers in this encounter Medications at Time of [...] documented as of this encounter Progress Notes Shawanda Lara PT - 04/28/2015 10:10 AM PDT Therapy Progress Note by Shawanda Carrera PT at 04/28/15 1010 Author: Shawanda Carrera PT Service: (none) Author Type: Physical Therapist Filed: 04/28/15 1107 Date of Service: 04/28/15 1010 Status: Signed Customer Consulting Manager: Shawanda Carrera PT (Physical Therapist) 04/28/15 1010 PT Last Visit PT Received On 04/28/15 Reason for Treatment Cardiac Requires PT Follow Up Refused Follow up PT Only? No Assistance Required 1 person Precautions Cardiac Precautions Sternal Other Comments Comments pt sitting in chair and taking care of a nose bleed. Pts bleed has been happening for over 1.5 hours. Pt not wanting to mobilize at this time until the bleeding has stopped. Pt is up ambulating with family already and has no concerns, he should be discharging home t marj. will check back per census. Recommendation Recommendations Home Assist;Prior Setting PT Ready for Discharge Yes Heron Tejeda PA - 04/28/2015 7:29 AM PDT . Progress Notes by Heron Whipple PA-C at 04/28/15728 Author: Heron Whipple PA-C Service: Cardiac, Thoracic, and Vascular Surgery Author Type: Physician Graduating Machine Operator - Certified Filed: 04/28/15 0844 Date of Service: 04/28/15728 Status: Attested Customer Consulting Manager: Heron Whipple PA-C (Physician Graduating Machine Operator - Certified) Cosigner: Lele hall MD at 04/28/15 1001 Attestation signed by Lele Martinez MD at 04/28/15 1001 Patient was seen, examined, labs, x-rays and treatment plan were reviewed. [facility]: Cardiothoracic Surgery Progress Note ROOM: [address] [place] [address] Hospital Day: LOS: 6 days Post-Op Day: 6 Day Post-Op Surgery/Procedure: Procedure(s) (LRB): CABG - OTILIA (N/A) SUBJECTIVE Events Overnight: No further atrial fibrillation for >24 hours. Feels good, BM yester day. Bloody nose this AM. Scheduled Medications amiodarone 200 mg Oral BID aspirin 325 mg Oral Daily with breakfast atorvastatin 80 mg Oral Nightly docusate sodium 100 mg Oral BID famotidine 20 mg Oral BID influenza vaccine quadrivalent 0.5 mL Intramuscular Once Immunization insulin aspart 0-19 Units Subcutaneous TID AC insulin aspart 0-19 Units Subcutaneous Nightly insulin aspart 10 Units Subcutaneous TID AC insulin detemir 33 Units Subcutaneous Nightly metoprolol 50 mg Oral BID sodium phosphate 1 enema Rectal Once tamsulosin 0.4 mg Oral after dinner Continuous Infusions amiodarone infusion 1 mg/min (04/28/15 0645) OBJECTIVE Vital Signs: BP 121/70 mmHg | Pulse 78 | Temp(Src) 98.7 F (37.1 C) (Oral) | Resp 16 | Ht 1.791 m (5' 10.5") | Wt 107.7 kg (237 lb 7 oz) | BMI 33.58 kg/m2 | SpO2 97% Physical Exam: Physical Exam: GENERAL: A&Ox 3, in no acute distress. NEURO: No facial asymmetry, speech normal and non pressured. Normal range of motion in all extremities HEENT: PERRLA, EOMI; Sclerae clear, nonicteric; Oral Mucosa moist and pink with n2o ulcerat ions/lesions. NECK: No JVD noted, HEART: RRR with normal S1 and S2 heart sounds. No murmur, rub, heave, or gallop noted. LUNGS: Lungs are clear to auscultation without wheezes, rhonchi, rales. ABDOMEN: Hypoactive. Soft, nondistended, nontender to palpation with no notable masses. EXTREMITIES: no edema; warm Incision: clean, dry, and intact. No erythema, discharge, or warmth noted around the incisi on site. Data Recent Labs Lab 04/28/1543704/27/15537 WBC 4.85 4.56 RBC 2.62* 2.71* HGB 7.7* 7.9* HCT 22.3* 23.3* MCV 85.4 86.1 MCH 29.5 29.2 MCHC 34.5 33.9 RDW 38.1 40.7 PLT 195 190 MPV 7.9 8.0 DIFFTYPE AUTOMATED AUTOMATED Recent Labs Lab 04/28/1543704/27/15537 NA 136 136 K 4.4 4.2 CL 103 104 CO2 27 26 ANIONGAP 10 10 GLUF 113* 96 BUN 16 19 CREATININE 0.98 0.94 BCR 16 20 CA 8.7 8.7 EGFR >60 >60 PROBLEM LIST Active Problems: * No active hospital problems. * ASSESSMENT & PLAN Atrial fibrillation:NSR >24 hrs. Infusion off this AM. On PO amiodarone Acute urinary retention: On Flomax, voiding Bowel care prn Stable for DC Home Code Status: Full Code The patient has been seen and the plan discussed with the attending provider, Dr. Juan Whipple PA-C 04/28/2015 onversio n Transaction, Provider Unknown - 04/27/2015 9:36 AM PDTFormatting of this note might be di fferent from the original. Therapy Progress Note by DAILY Bain at 04/27/15935 Author: DAILY Bain Service: (none) Author Type: Occupational Therapist Filed: 04/27/15951 Date of Service: 04/27/15935 Status: Signed Customer Consulting Manager: DAILY Bain (Guest Experience Captain) 04/27/15935 OT Last Visit OT Received On 04/27/15 Reason for Treatment Cardiac Requires OT Follow Up Yes Assistance Required 1 person Crime Scene Evidence Technician Needed No Family/Caregiver Present Yes Precautions Cardiac Precautions Sternal Other Precautions fall risk Other Comments Comments pt seated in recliner chair upon CAR PORTER arrival. per pt report went into A-Fib yester day afternoon and is back on amiodirone drip. Per pt report has no questions or concerns per taining to ADL tasks and spouse aware of tech as she will be present to assist with task prn . Per spouse report has long handled shoe horn and babbitt spinner that family friend provided with for pt to complete tasks. Pt may benefit from follow up visit only Activity Tolerance Activity Tolerance Patient tolerated treatment well Safety Devices Safety Devices in Place Yes Type of Devices Call lite in place Plan Treatment Interventions (per OT POC) Progress Progressing toward goals Requires OT Follow Up Yes Recommendation Recommendation Return to prior living conditions;Home with daytime assist;Home with nightti me assist Equipment Recommended Shower chair with back;Sponge long handled OT Ready for Discharge Yes Education Completed: Education Topic: self care-sternal precautions Completed with: Patient, Spouse Completed by: Verbal Education, Demonstration Response to Education: Stated Understanding, Reinforcement Necessary for Education Under standing Occupational Therapy Plan: Continue OT treatment per POC Heron Tejeda PA - 04/27/2015 8:00 AM PDTFormatting of this note might be different from kathryn ballard original. Progress Notes by Heron Whipple PA-C at 04/27/15799 Author: Heron Whipple PA-C Service: Cardiac, Thoracic, and Vascular Surgery Author Type: Physician Graduating Machine Operator - Certified Filed: 04/27/15800 Date of Service: 04/27/15799 Status: Attested Customer Consulting Manager: Heron Whipple PA-C (Physician Graduating Machine Operator - Certified) Cosigner: Lele hall MD at 04/27/15832 Attestation signed by Lele Martinez MD at 04/27/15832 Patient was seen, examined, labs, x-rays and treatment plan were reviewed. [facility]: Cardiothoracic Surgery Progress Note ROOM: 44[address]/[facility] Hospital Day: LOS: 5 days Post-Op Day: 5 Day Post-Op Surgery/Procedure: Procedure(s) (LRB): CABG - OTILIA (N/A) SUBJECTIVE Events Overnight: Recurrent atrial fibrillation yesterday. Feels good, no BM in last 3 days Scheduled Medications amiodarone bolus 150 mg Intravenous Once amiodarone 200 mg Oral BID aspirin 325 mg Oral Daily with breakfast atorvastatin 80 mg Oral Nightly docusate sodium 100 mg Oral BID famotidine 20 mg Oral BID influenza vaccine quadrivalent 0.5 mL Intramuscular Once Immunization insulin aspart 0-19 Units Subcutaneous TID AC insulin aspart 0-19 Units Subcutaneous Nightly insulin aspart 10 Units Subcutaneous TID AC insulin detemir 33 Units Subcutaneous Nightly metoprolol 50 mg Oral BID sodium phosphate 1 enema Rectal Once tamsulosin 0.4 mg Oral after dinner Continuous Infusions amiodarone infusion OBJECTIVE Vital Signs: BP 117/67 mmHg | Pulse 80 | Temp(Src) 98.2 F (36.8 C) (Oral) | Resp 18 | Ht 1.791 m (5' 10.5") | Wt 112.4 kg (247 lb 12.8 oz) | BMI 35.04 kg/m2 | SpO2 94% Physical Exam: Physical Exam: GENERAL: A&Ox 3, in no acute distress. NEURO: No facial asymmetry, speech normal and non pressured. Normal range of motion in all extremities HEENT: PERRLA, EOMI; Sclerae clear, nonicteric; Oral Mucosa moist and pink with n2o ulcerat ions/lesions. NECK: No JVD noted, HEART: RRR with normal S1 and S2 heart sounds. No murmur, rub, heave, or gallop noted. LUNGS: Lungs are clear to auscultation without wheezes, rhonchi, rales. ABDOMEN: Hypoactive. Soft, nondistended, nontender to palpation with no notable masses. EXTREMITIES: no edema; warm Incision: clean, dry, and intact. No erythema, discharge, or warmth noted around the incisi on site. Data Recent Labs Lab 04/27/15 0538 04/26/15 0508 WBC 4.56 5.95 RBC 2.71* 2.52* HGB 7.9* 7.4* HCT 23.3* 21.6* MCV 86.1 85.7 MCH 29.2 29.6 MCHC 33.9 34.5 RDW 40.7 40.7 PLT 190 161 MPV 8.0 8.4 DIFFTYPE AUTOMATED AUTOMATED Recent Labs Lab 04/27/15 0538 04/26/15 0508 NA 136 134* K 4.2 4.2 CL 104 104 CO2 26 28 ANIONGAP 10 6 GLUF 96 88 BUN 19 24 CREATININE 0.94 0.95 BCR 20 25 CA 8.7 8.4* EGFR >60 >60 PROBLEM LIST Active Problems: * No active hospital problems. * ASSESSMENT & PLAN Atrial fibrillation: Amiodarone protocol Acute urinary retention: On Flomax, voiding Bowel care prn DC planning, home once NSR 24 hours Code Status: Full Code The patient has been seen and the plan discussed with the attending provider, Dr. Juan Whipple PA-C 04/27/2015 onversio n Transaction, Provider Unknown - 04/27/2015 7:55 AM PDTFormatting of this note might be di fferent from the original. Therapy Progress Note by Lui Strong PTA at 04/27/15754 Author: Lui Strong PTA Service: (none) Author Type: Leather Tanner Filed: 04/27/15756 Date of Service: 04/27/15754 Status: Signed Customer Consulting Manager: Lui Strong PTA (Leather Tanner) 04/27/15754 PT Last Visit PT Received On 04/27/15 Reason for Treatment Cardiac Requires PT Follow Up Other (comment) Other Comments Comments pt sitting in chair stated he has ambulated two laps around the floor twice this A M and had just returned from his second trip on[place] fi[place] Transaction, Provider Unknown - 04/26/2015 3:17 PM PDT Case Management by BE Costa at 04/26/15 9673 Author: BE Costa Service: (none) Author Type: Snaker Driving Horses Filed: 04/26/15 1537 Date of Service: 04/26/151516 Status: Signed Customer Consulting Manager: BE Costa (Snaker Driving Horses) 04/26/15 1500 Discharge Planning Evaluation Admitting Diagnosis POD 1 CABG x4 Anticipated Disposition Facility Type Home EXCELSIOR MACHINE FEEDER met with Pt and Pt spouse for discharge planning, will return home when medically ready for discharge. Pt has no discharge needs or concerns at this time. DCP: Home JAY MCINTYRE Opto Mechanical Technician [phone] cell onver fiordaliza Transaction, Provider Unknown - 04/26/2015 11:16 AM PDT Therapy Progress Note by Marlin Hale MS CCC-HAND BULLDOZER at 04/26/15 1116 Author: Marlin Hale MS CCC-HAND BULLDOZER Service: (none) Author Type: Speech and Language Patho logist Filed: 04/26/15 1116 Date of Service: 04/26/15 1116 Status: Signed Customer Consulting Manager: Marlin Hale MS CCC-HAND BULLDOZER (Speech and Language Pathologist) 04/26/15 1100 Swallowing Assessment Eval Swallowing Treatment Yes Thin Presentation Straw Oral Phase Thin WFL Pharyngeal Phase No overt signs or symptoms of aspiration Regular Presentation Self Fed Oral Phase WFL Pharyngeal Phase No overt signs or symptoms of aspiration Recommendations Liquids Consistency Recommendations Thin Diet Consistency Recommendation Regular Compensatory Swallowing Strategies Upright as possible for all oral intake;Remain upright f or 30 minutes after meals Recommended Form of Meds Meds with recommended liquid Summary Pt and state there are no further concerns regarding swallowing. No s/s of asp iration during this therapy session. Pt and were provided with education regarding safe swallow strategies and r/o aspiration Staff Notified RN Plan of Care Treatment Plan No futher therapy recommended AVS Documentation Yes Diet Regular: no restrictions Liquids Thin liquids: regular consistency HAND BULLDOZER Ready for Discharge Yes Dysphagia Goals Senior Care Goals Safe/efficient oral intake Pt will have safe/efficient oral intake Goal met Short Term Goals Follow swallow precautions Pt will follow swallow precautions Goal met onver fiordaliza Transaction, Provider Unknown - 04/26/2015 10:44 AM PDT Therapy Progress Note by Nany Peace PTA at 04/26/15 1044 Author: Nany Peace PTA Service: (none) Author Type: Leather Tanner Filed: 04/26/15 1330 Date of Service: 04/26/15 1044 Status: Signed Customer Consulting Manager: Nany Peace PTA (Leather Tanner) 04/26/15 1044 PT Last Visit PT Received On 04/26/15 Reason for Treatment Cardiac Requires PT Follow Up Yes Follow up PT Only? No Assistance Required 1 person Precautions Cardiac Precautions Sternal Other Precautions fall risk Other Comments Comments Pt sitting in chair upon arrival, with family in room. Pt agreeable to PT. Pt ambu lates in reddy 375 ft HR 88-91 bpm with ambulation. Pt sitting in chair at end of session. Pt reports that is is getting easier to perform transfers and ambulation, but still has a lot of pain to perform deep breathing. Cognition Overall Cognitive Status WFL Orientation Level Oriented Transfers Sit to/from Stand Minimal assist (steadying/contact guard) Mobility Ambulation Assistance Minimal assist;Standby assist Maximal Ambulation Distance (feet) 375 Total Ambulation Distance (feet) 375 Distance limited by? Patient's ability Pattern Alternating;Decreased marielos Assistive Device Walker 4 wheeled Activity Tolerance Activity Tolerance Patient tolerated treatment without report of fatigue Nurse Made Aware yes Plan Treatment/Interventions Continue per Primary PT POC Progress Progressing toward goals Recommendation Recommendations Home Assist onver fiordaliza Transaction, Provider Unknown - 04/26/2015 9:10 AM PDT Therapy Progress Note by DAILY Bain at 04/26/15909 Author: DAILY Bain Service: (none) Author Type: Occupational Therapist Filed: 04/26/15 9744 Date of Service: 04/26/15909 Status: Signed Customer Consulting Manager: DAILY Bain (Guest Experience Captain) 04/26/15909 OT Last Visit OT Received On 04/26/15 Reason for Treatment Cardiac Requires OT Follow Up Yes Assistance Required 1 person Crime Scene Evidence Technician Needed No Family/Caregiver Present Yes Precautions Cardiac Precautions Sternal Other Precautions fall risk Other Comments Comments pt seated in recliner chair upon DYANA arrival. pt agreeable to participate in OT at this time. Spouse present for observation. pt Vitals 144/73 HR 80 spO2 98%. Grooming Grooming Comments pt required 1 for proper tech to complete grooming task of bringing horacio th arms up to shoulder height UE Bathing UE Bathing Comments Educ pt and spouse on completing UE/LE bathing task with use of AE/comp ensatory strategies. pt and spouse state understanding UE Dressing UE Dressing Comments Educ pt and spouse on donning/doffing button up/pullover shirt within precautions. pt and spouse state understanding LE Dressing LE Dressing Yes LE Dressing Adaptive Equipment Mold Stripper;Sock aide Pants Level of Assistance Close supervision Sock Level of Assistance Close supervision LE Dressing Where Assessed Other (Comment) (recliner chair) LE Dressing Comments close supervision for LE dressing task with use of AE for reinforcemen t of precautions. pt and spouse state understanding and have no further questioins at this t karissa. Toileting Toileting Comments Discussed use of AE if needed for personal hygiene. pt state understandi ng Therapeutic Exercise - ROM ROM Yes Other Exercise UE HEP- wrist flex/ext, sup/pron, elbow flex/ext, grasp/release. pt and spou se state understanding. With emphasis on maitnaing UE strengthening for daily tasks. Additional Activities Additional Activities Comments pt provided with ECT handout to inc ease/ind during daily ta sks ( prioritize, body awareness, sit vs. stand, etc) pt and spouse state understanding Activity Tolerance Activity Tolerance Patient tolerated treatment well Safety Devices Safety Devices in Place Yes Type of Devices Call lite in place (spouse present) Plan Treatment Interventions (per OT POC) Progress Progressing toward goals Requires OT Follow Up Yes Recommendation Recommendation Return to prior living conditions;Home with daytime assist;Home with nightti me assist Equipment Recommended Shower chair with back;Mold Stripper;Sock aid;Sponge long handled OT Ready for Discharge Yes (with spouse assist) Education Completed: Education Topic: self care-sternal precautions, AE, transfer, ECT Completed with: Patient, Spouse Completed by: Written Material, Verbal Education, Demonstration Response to Education: Stated Understanding, Returned Demonstration, Reinforcement Yury mayer for Education Understanding Occupational Therapy Plan: Continue OT treatment per POC Heron Tejeda PA - 04/26/2015 7:02 AM PDTFormatting of this note might be different from kathryn ballard original. Progress Notes by Heron Whipple PA-C at 04/26/15701 Author: Heron Whipple PA-C Service: Cardiac, Thoracic, and Vascular Surgery Author Type: Physician Graduating Machine Operator - Certified Filed: 04/26/15703 Date of Service: 04/26/15701 Status: Attested Customer Consulting Manager: Heron Whipple PA-C (Physician Graduating Machine Operator - Certified) Cosigner: Lele hall MD at 04/26/15 1412 Attestation signed by Lele Martinez MD at 04/26/15 1412 Patient was seen, examined, labs, x-rays and treatment plan were reviewed. [facility]: Cardiothoracic Surgery Progress Note ROOM: [address] [place] [address] Hospital Day: LOS: 4 days Post-Op Day: 4 Day Post-Op Surgery/Procedure: Procedure(s) (LRB): CABG - OTILIA (N/A) SUBJECTIVE Events Overnight: Stable overnight. Breif episode of atrial fibrillation yesterday wh ich resolved with Amiodarone infusion. States he is doing better since chest tubes removed. Ambulating. UOP 1100mL overnight Scheduled Medications aspirin 325 mg Oral Daily with breakfast atorvastatin 80 mg Oral Nightly docusate sodium 100 mg Oral BID famotidine 20 mg Oral BID influenza vaccine quadrivalent 0.5 mL Intramuscular Once Immunization insulin aspart 0-19 Units Subcutaneous TID AC insulin aspart 0-19 Units Subcutaneous Nightly insulin aspart 10 Units Subcutaneous TID AC insulin detemir 33 Units Subcutaneous Nightly metoprolol 50 mg Oral BID sodium phosphate 1 enema Rectal Once tamsulosin 0.4 mg Oral after dinner Continuous Infusions amiodarone infusion 0.5 mg/min (04/25/152150) OBJECTIVE Vital Signs: BP 144/70 mmHg | Pulse 80 | Temp(Src) 98.3 F (36.8 C) (Oral) | Resp 18 | Ht 1.791 m (5' 10.5") | Wt 114.4 kg (252 lb 3.3 oz) | BMI 35.66 kg/m2 | SpO2 98% Physical Exam: Physical Exam: GENERAL: A&Ox 3, in no acute distress. NEURO: No facial asymmetry, speech normal and non pressured. Normal range of motion in all extremities HEENT: PERRLA, EOMI; Sclerae clear, nonicteric; Oral Mucosa moist and pink with n2o ulcerat ions/lesions. NECK: No JVD noted, HEART: RRR with normal S1 and S2 heart sounds. No murmur, rub, heave, or gallop noted. LUNGS: Lungs are clear to auscultation without wheezes, rhonchi, rales. ABDOMEN: Hypoactive. Soft, nondistended, nontender to palpation with no notable masses. EXTREMITIES: no edema; warm Incision: clean, dry, and intact. No erythema, discharge, or warmth noted around the incisi on site. Data Recent Labs Lab 04/26/15 0508 04/25/15 1644 04/25/15 0439 WBC 5.95 -- -- 6.21 RBC 2.52* -- -- 2.62* HGB 7.4* 9.9* < > 7.6* HCT 21.6* 29* < > 22.6* MCV 85.7 -- -- 86.4 MCH 29.6 -- -- 28.9 MCHC 34.5 -- -- 33.4 RDW 40.7 -- -- 40.7 PLT 161 -- -- 126* MPV 8.4 -- -- 9.2 DIFFTYPE AUTOMATED -- -- AUTOMATED < > = values in this interval not displayed. Recent Labs Lab 04/26/15 0508 04/25/15 1511 04/25/15 0439 NA 134* -- 136 K 4.2 4.3 4.3 CL 104 -- 106 CO2 28 -- 26 ANIONGAP 6 -- 8 GLUF 88 -- 78 BUN 24 -- 31* CREATININE 0.95 -- 0.99 BCR 25 -- 31 CA 8.4* -- 8.7 EGFR >60 -- >60 PROBLEM LIST Active Problems: * No active hospital problems. * ASSESSMENT & PLAN Atrial fibrillation: Start PO Amiodarone Acute urinary retention: On Flomax, voiding Encourage diet/ambulation DC planning, home 24-48 hours Code Status: Full Code The patient has been seen and the plan discussed with the attending provider, Dr. Juan Whipple PA-C 04/26/2015 onversio n Transaction, Provider Unknown - 04/25/2015 2:51 PM PDTFormatting of this note might be di fferent from the original. Progress Notes by Kavitha Raymundo RD at 04/25/151450 Author: Kavitha Raymundo RD Service: (none) Author Type: Registered Dietitian Filed: 04/25/15 566 Date of Service: 04/25/151450 Status: Signed Customer Consulting Manager: Kavitha Raymundo RD (Registered Dietitian) 04/25/15 1426 Subjective Timepoint Admit Pt c/o In to see pt POD #3- CABG x4. In to provide cardiac diet education, pt asleep at raymundo e of visit, provided diet education to . reports she prepares food for pt at home. Reported by Family Diet Experience Self-selected diet(s) followed Pt typically has great appetite, tends to be a protein eater and eats 3 meals per day. Breakfast: egg, togolese alas, sausage, norwegian muffin sandwich. Lunch eats from cafeteria at work. Dinner: meat, sweet potato, attempts to eat from each fo od group. Fluid / Beverage Intake Oral Fluids Amount Pt drinking fluids ad myrtle. Liquid Meal Replacement or Supplement Has order for Ensure TID, pt drinking them 100% Food Intake Amount of Food Breakfast: 50% of toast with jelly. Lunch: 50% of lunch special. Type of Food / Meals Cardiac - Diabetic Maintenance diet Meal / Snack Pattern states appetite doing better but still not at baseline. Food and Nutrition Knowledge Area(s) and Level of Knowledge Provided oral and written cardiac diet education via NC to . Discussed the need for kcal/protein for proper wound healing, high fiber, heart health y fats, low sodium, well balanced meals, and portion control. expressed understanding. Social Network Social Support at bedside. Nutrition-Focused Physical Findings Overall Appearance Pt appears well nourished Body Language Pt sleeping at time of visit. Anthropometrics Weight change Pt's wt up 7.2 kg since admit, likely r/t fluids. Per I/O's pt fluid positive 6.3 L. BMI of 45.8 indicates class 1 obesity. Ernst continue to monitor wt trend. Biochemical data, medical tests, and procedures reviewed Biochemical data, medical tests, and procedures reviewed BUN (H) 31 Willc ontinue to monito r labs. Estimated Energy Needs Total Energy Estimated Needs 5975-2620 kcal Method for Estimating Needs 25-30 kcal/kg based on ABW of 83 kg Estimated Protein Needs Total Protein Estimated Needs 100-125 g Method for Estimating Needs 1.2-1.5 g/kg based on ABW of 83 kg. Recommendations Recommended energy needs Continue cardiac/diabetic maintenance diet as ordered. Recommend t o liberalize diet to DM diet if po intake fails to improve. Ensure TID. Encourage po intake, higher protein for wound healing. Will continue to monitor po intake adequacy. Nutritional Risk Nutritional risk Moderate Follow up date 04/30/[address] onver fiordaliza Transaction, Provider Unknown - 04/25/2015 2:25 PM PDT Therapy Progress Note by Nany Peace PTA at 04/25/15 6498 Author: Nany Peace PTA Service: (none) Author Type: Leather Tanner Filed: 04/25/15 3620 Date of Service: 04/25/151424 Status: Signed Customer Consulting Manager: Nany Peace PTA (Leather Tanner) 04/25/15 1336 PT Last Visit PT Received On 04/25/15 Reason for Treatment Cardiac Requires PT Follow Up Yes Follow up PT Only? No Assistance Required 1 person Precautions Cardiac Precautions Sternal Other Precautions fall risk Other Comments Comments Pt sitting in chair upon arrival, agreeable to PT. Pt ambulates in reddy with 4WW 3 75 ft with break to stretch out his back due to stiffness and pain. Pt transfered to toilet in room at end of session with RN notified that he is performing toileting. Cognition Overall Cognitive Status WFL Orientation Level Oriented Transfers Sit to/from Stand Minimal assist (steadying/contact guard) Mobility Ambulation Assistance Minimal assist Maximal Ambulation Distance (feet) 375 Total Ambulation Distance (feet) 375 Distance limited by? Patient's ability Pattern Alternating;Decreased marielos Assistive Device Walker 4 wheeled Activity Tolerance Activity Tolerance Other (Comment) (back stiffness and some pain) Nurse Made Aware yes Plan Treatment/Interventions Continue per Primary PT POC Progress Progressing toward goals Recommendation Recommendations Home Assist onver fiordaliza Transaction, Provider Unknown - 04/25/2015 12:28 PM PDT Therapy Progress Note by Pam Fletcher MA CCC-HAND BULLDOZER at 04/25/15 0719 Author: Pam Fletcher MA CCC-HAND BULLDOZER Service: (none) Author Type: Speech and Language Patholo gist Filed: 04/25/15 7548 Date of Service: 04/25/15 1858 Status: Signed Customer Consulting Manager: Pam Fletcher MA CCC-HAND BULLDOZER (Speech and Language Pathologist) 04/25/15 1210 Swallowing Assessment Eval Swallowing Treatment Yes Initial Swallow Assessment Respiratory Status Room air History of Intubation No Behavior/Cognition Alert;Cooperative Dentition Adequate Vision Functional for self-feeding Patient Positioning Upright in bed Baseline Vocal Quality Normal Volitional Cough Strong Consistencies Consistencies Assessed Yes Thin Presentation Cup;Straw;Self Fed Oral Phase Thin WFL Pharyngeal Phase No overt signs or symptoms of aspiration Regular Presentation Self Fed Oral Phase WFL Pharyngeal Phase No overt signs or symptoms of aspiration Recommendations Liquids Consistency Recommendations Thin Diet Consistency Recommendation Regular Recommendations Speech/ Language Eval & Treat Risk for Aspiration Mild Compensatory Swallowing Strategies Upright as possible for all oral intake;Remain upright f or 30 minutes after meals;Slow rate presentation;Small bites/sips;Eat/feed slowly Recommended Form of Meds Meds with recommended liquid Summary Pt tolerated all trials of thi liquids and regular diet textures without any overt s/sx of aspiration. Pt reports he is sleepy today, "but much more with it thinking recinos than yesterday". Pt was oriented x4 and passed informal cog screening. Informal cog screening co mpleted as pt wanted to visit with family in room. Cognitive screen including correctly answ ering yes/no questions, naming, reading words, writing, memory, and problem solving. Pt aske d for ST to come back one more time to ask more "thinking questions" because yesterday he wa s very concerned with his cognitive skills yesterday. ST to check back to more to f/u with f ormal cog screening. Staff Notified RN Plan of Care Treatment Plan ST to follow;Cognitive evaluation/treatment;1 to 2 times a week Follow up treatments Patient/Family education AVS Documentation Yes Diet Regular: no restrictions Liquids Thin liquids: regular consistency HAND BULLDOZER Ready for Discharge Yes Dysphagia Goals Senior Care Goals Safe/efficient oral intake Pt will have safe/efficient oral intake Thin liquids;Regular diet;Goal met Short Term Goals Follow swallow precautions Pt will follow swallow precautions With min supervision;Goal met Kanika Monaco MA, CCC-HAND BULLDOZER - 04/25/2015 10:34 AM PDTFormatting of this note might be differ ent from the original. Therapy Progress Note by Kanika Christopher MA CCC-HAND BULLDOZER at 04/25/15 1034 Author: Kanika Christopher MA CCC-HAND BULLDOZER Service: (none) Author Type: Speech and Language Pathologist Filed: 04/25/15 1034 Date of Service: 04/25/15 103 Status: Signed Customer Consulting Manager: Kanika Christopher MA CCC-HAND BULLDOZER (Speech and Language Pathologist) 04/25/15 1033 HAND BULLDOZER Last Visit HAND BULLDOZER Received On 04/25/15 Requires HAND BULLDOZER Follow Up Unavailable (RN from cardiac service in room. ST to f/u PM if census allows.) onver fiordaliza Transaction, Provider Unknown - 04/25/2015 9:39 AM PDT Therapy Progress Note by Fuad Sanchez, PT at 04/25/15 0939 Author: Fuad Sanchez, PT Service: (none) Author Type: Physical Therapist Filed: 04/25/15 1432 Date of Service: 04/25/1539 Status: Signed Customer Consulting Manager: Fuad Sanchez PT (Physical Therapist) 04/25/1539 PT Last Visit PT Received On 04/25/15 Reason for Treatment Cardiac Requires PT Follow Up Yes Follow up PT Only? No Assistance Required 1 person;2 person Precautions Cardiac Precautions Sternal Other Precautions Fall Risk Other Comments Comments Patient sitting in the recliner upon PT arrival; agreeable to participation. Patie nt reports that he feels significantly better today, and that the confusion that he was havi ng yesterday is now cleared. Patient's overall mobility has greatly improved as well, no not ed postural throughout and demonstrating good upright posture. Minimal instruction on sterna l precautions, but patient quite cooperative. LE coordination now WFL and patient largely CG A for safety during gait now. Chest tubes have been removed, patient reporting reduced disco mfort (worked with patient on pursed lip breathing to reduce dyspnea now that he is on RA as well). patient in bed after activity, spouse pleased to see his progress. Vitals at rest in sitting: HR 87, BP 135/68. Vitals after activity in supine: HR 88, BP 122/56, SpO2 96% RA. Cognition Overall Cognitive Status WFL Orientation Level Oriented Comments Improved cognition this AM Bed Mobility Sit to Sidelying Minimal assist (1 LE into bed);Verbal instruction Transfers Sit to/from Stand Minimal assist (steadying/contact guard) Mobility Ambulation Assistance Minimal assist;Standby assist Maximal Ambulation Distance (feet) 350 Total Ambulation Distance (feet) 350 Distance limited by? Therapist/staff discretion Pattern Decreased marielos Assistive Device Walker 4 wheeled Balance Balance (Upright posture and steady throughout with the 4WW) Modalities Other Therapy Ongoing teachings on sternal precautions and progression of mobility. Activity Tolerance Activity Tolerance Patient tolerated treatment without report of fatigue Nurse Made Aware [employer] Safety Devices Safety Devices in Place (supine in bed w/ family present and RN aware) Restraints Initially in Place No Plan Treatment/Interventions Continue per Primary PT POC Progress Progressing toward goals Recommendation Recommendations Home Assist Equipment Recommended (TBD) Recommendation Comments Deficits noted in previous days regarding unsteadiness and poor continuous improvement coordinator rdination appear to be greatly improved. Patient now mobilizing fairly well for POD3, expect that as he continues to progress he will be appropriate to return home with family assist a s needed. Heron Tejeda PA - 04/25/2015 7:49 AM PDTFormatting of this note might be different from kathryn ballard original. Progress Notes by Heron Whipple PA-C at 04/25/15748 Author: Heron Whipple PA-C Service: Cardiac, Thoracic, and Vascular Surgery Author Type: Physician Graduating Machine Operator - Certified Filed: 04/25/15 0752 Date of Service: 04/25/15748 Status: Attested Customer Consulting Manager: Heron Whipple PA-C (Physician Graduating Machine Operator - Certified) Cosigner: Lele hall MD at 04/25/1554 Attestation signed by Lele Martinez MD at 04/25/1554 Patient was seen, examined, labs, x-rays and treatment plan were reviewed. [facility]: Cardiothoracic Surgery Progress Note ROOM: 44/[facility]-1 Hospital Day: LOS: 3 days Post-Op Day: 3 Day Post-Op Surgery/Procedure: Procedure(s) (LRB): CABG - OTILIA (N/A) SUBJECTIVE Events Overnight: Stable overnight. Some sinus tach with pain this AM. Urinary retent ion overnight, straight cathed x1 for 600mL. States he is doing "OK". Ambulating, poor diet. {assing bowel movements CT: 50mL UOP 600mL Scheduled Medications aspirin 325 mg Oral Daily with breakfast atorvastatin 80 mg Oral Nightly docusate sodium 100 mg Oral BID famotidine 20 mg Oral BID influenza vaccine quadrivalent 0.5 mL Intramuscular Once Immunization insulin aspart 0-19 Units Subcutaneous TID AC insulin aspart 0-19 Units Subcutaneous Nightly insulin aspart 10 Units Subcutaneous TID AC insulin detemir 33 Units Subcutaneous Nightly metoprolol 25 mg Oral BID sodium phosphate 1 enema Rectal Once Continuous Infusions amiodarone infusion OBJECTIVE Vital Signs: BP 134/63 mmHg | Pulse 86 | Temp(Src) 98.1 F (36.7 C) (Oral) | Resp 18 | Ht 1.791 m (5' 10.5") | Wt 114.2 kg (251 lb 12.3 oz) | BMI 35.60 kg/m2 | SpO2 96% Physical Exam: Physical Exam: GENERAL: A&Ox 3, in no acute distress. NEURO: No facial asymmetry, speech normal and non pressured. Normal range of motion in all extremities HEENT: PERRLA, EOMI; Sclerae clear, nonicteric; Oral Mucosa moist and pink with n2o ulcerat ions/lesions. NECK: No JVD noted, HEART: RRR with normal S1 and S2 heart sounds. No murmur, rub, heave, or gallop noted. LUNGS: Lungs are clear to auscultation without wheezes, rhonchi, rales. ABDOMEN: Hypoactive. Soft, nondistended, nontender to palpation with no notable masses. EXTREMITIES: no edema; warm Incision: clean, dry, and intact. No erythema, discharge, or warmth noted around the incisi on site. Data Recent Labs Lab 04/25/1543804/24/15 032 WBC 6.21 6.35 RBC 2.62* 2.52* HGB 7.6* 7.2* HCT 22.6* 21.9* MCV 86.4 86.9 MCH 28.9 28.7 MCHC 33.4 33.0 RDW 40.7 41.6 PLT 126* 100* MPV 9.2 9.4 DIFFTYPE AUTOMATED AUTOMATED Recent Labs Lab 04/25/1543804/24/15 1844 04/24/15 0326 NA 136 -- 143 K 4.3 4.9 5.0* CL 106 -- 112* CO2 26 -- 24 ANIONGAP 8 -- 12 GLUF 78 -- 161* BUN 31* -- 27* CREATININE 0.99 -- 1.4* BCR 31 -- 19 CA 8.7 -- 7.2* EGFR >60 -- 55* PROBLEM LIST Active Problems: * No active hospital problems. * ASSESSMENT & PLAN DC chest tubes and wires Acute urinary retention: Start Flomax, if not voiding repeat bladder scan and insert anna catheter for >600mL Encourage diet DC planning 24-48 hours Code Status: Full Code The patient has been seen and the plan discussed with the attending provider, Dr. Juan Whipple PA-C 04/25/2015 onversio n Transaction, Provider Unknown - 04/24/2015 6:36 PM PDTFormatting of this note might be di fferent from the original. Nurse Progress Note by Surjit Lai RN at 04/24/151835 Author: Surjit Lai RN Service: (none) Author Type: Registered Nurse Filed: 04/24/151836 Date of Service: 04/24/151835 Status: Signed Customer Consulting Manager: Surjit Lai RN (Registered Nurse) Patient's HR went from 85-90 to 120-123, patient has no c/o pain, BP 136/81, Temp 99.3F. Dr Cris Martinez notified, ordered to give tonight's dose of metoprolol as soon as patient is awake . Will continue to monitor. Susana Chamberlain MS CCC-HAND BULLDOZER - 04/24/2015 5:56 PM PDT Therapy Progress Note by Alisha Corcoran MS CCC-HAND BULLDOZER at 04/24/151755 Author: Alisha Corcoran MS CCC-HAND BULLDOZER Service: (none) Author Type: Speech and Language Pathol ogist Filed: 04/24/151755 Date of Service: 04/24/151755 Status: Signed Customer Consulting Manager: Alisha Corcoran MS CCC-HAND BULLDOZER (Speech and Language Pathologist) 04/24/15 1705 Swallowing Assessment Eval Swallowing Evaluation Yes Initial Swallow Assessment Respiratory Status Room air History of Intubation No Behavior/Cognition Alert;Cooperative;Neuro impairment Dentition Adequate Vision Functional for self-feeding Patient Positioning Upright in chair Baseline Vocal Quality Normal Volitional Cough Strong Volitional Swallow WFL Oral Motor Exam Labial ROM WFL Labial Symmetry WFL Labial Strength WFL Lingual ROM WFL Lingual Symmetry WFL Lingual Strength WFL Facial Symmetry WFL Vocal Quality WFL Velum WFL Mandible WFL Consistencies Consistencies Assessed Yes Thin Presentation Cup;Self Fed Oral Phase Thin WFL Pharyngeal Phase No overt signs or symptoms of aspiration Puree Presentation Self Fed Oral Phase WFL Pharyngeal No overt signs or symptoms of aspiration Dysphagia Mechanically Altered Presentation Self Fed Oral Phase WFL Pharyngeal Phase No overt signs or symptoms of aspiration Regular Presentation Self Fed Oral Phase Prolonged mastication Pharyngeal Phase No overt signs or symptoms of aspiration Recommendations Liquids Consistency Recommendations Thin Diet Consistency Recommendation Regular Recommendations Speech/ Language Eval & Treat (cognitive eval and treat if needed) Risk for Aspiration Mild Compensatory Swallowing Strategies Upright as possible for all oral intake;Small bites/sips ;Eat/feed slowly;Swallow 2 times per bite/sip Recommended Form of Meds Meds with recommended liquid Summary Pt able to tolerate all consistencies safely. Family reports pt still "foggy, but b kat then he has been all day". Pt observed to have difficulty answering questions in more then 3 words at a time. Pt's family did most of the talking for pt. HAND BULLDOZER to f/u1x to ensure d iet tolerance and then to complete cognitive/language eval as pt had new R frontal lobe infa rct. Staff Notified RN Plan of Care Treatment Plan ST to follow;Dysphagia treatment;Speech language evaluation/treatment;Cognit ravi evaluation/treatment;Daily 4 to 6 times a week;Follow up x1 to ensure tolerance (dysphagia: f/ux1, language/co-6x/wk if needed after eval) Dysphagia Goals Senior Care Goals Safe/efficient oral intake Pt will have safe/efficient oral intake Thin liquids;Regular diet;With min cues;Goal met Short Term Goals Follow swallow precautions Pt will follow swallow precautions With min supervision;Goal met ALISHA CORCORAN MS CCC-HAND BULLDOZER 04/24/2015 onversion Bird saction, Provider Unknown - 04/24/2015 3:31 PM PDTFormatting of this note might be differen t from the original. Therapy Progress Note by Catalina Martins PT at 04/24/15 1531 Author: Catalina Martins PT Service: (none) Author Type: Physical Therapist Filed: 04/24/15 4437 Date of Service: 04/24/15 1531 Status: Signed Customer Consulting Manager: Catalina Martins PT (Physical Therapist) 04/24/15 1531 PT Last Visit PT Received On 04/24/15 Reason for Treatment Cardiac Requires PT Follow Up Yes Follow up PT Only? No Assistance Required 1 person;2 person (2nd person followed w/ w/c) Precautions Cardiac Precautions Sternal Other Precautions fall risk Other Comments Comments Pt sitting in recliner upon arrival and appears quite lethargic. Attempted sensory testing with pt but he had limited participation due to lethargy and frequently mixed up hi s left from right. Pt requires moderate cues to maintain sternal precautions during transfer s. Pt's alertness did improve some with ambulation. Gait remains unsteady with intermittent trunk sway and LE incoordination, although it does not appear to be predominantly one side. Pt exhibited pathway deviations to the left and require frequent verbal cues to fix gaze upw daniela as he would look down at the floor and nearly ran into a man with the walker. Pt took se ated rest break between 2 bouts of ambulation; SpO2 93% on RA with activity. Pt denies dizzi ness throughout but had onset of 6/10 chest tube pain with activity. Pt left sitting in recl iner at end of session. Post activity: BP 185/89, HR 98 bpm, SpO2 95%. RN notified of HTN. Cognition Overall Cognitive Status TONY Orientation Level Oriented (delayed responses) Transfers Sit to/from Stand Moderate assist (to arise OR lower);Minimal assist (steadying/contact loretta stevens);x 1 person Mobility Ambulation Assistance Moderate assist;Minimal assist;X1 (2nd person following with w/c) Maximal Ambulation Distance (feet) 150x2 Total Ambulation Distance (feet) 300 Distance limited by? Patient's ability Pattern Decreased marielos;Narrow base (occasional partial bilat knee flex; incoordination) Assistive Device Walker 4 wheeled Modalities Other Therapy Ongoing teachings on sternal precautions and progression of mobility. Activity Tolerance Activity Tolerance Patient limited by fatigue Nurse Made Aware YUNI Eddy Safety Devices Safety Devices in Place (call light in reach) Plan Treatment/Interventions Continue per Primary PT POC Progress Progressing toward goals Recommendation Recommendations Defer Equipment Recommended (TBD- currently requiring 4WW) Barriers to Discharge Physical Deficits Impacting Functional Harding;Self-care Deficit s Impacting Functional Harding Recommendation Comments Will see how pt progresses over next 1-2 days. Pt continues to hav e gait deficits making him a risk for falling. Recent dx CVA on 04/09 but there were no defic its noted (per family) until after CABG. May benefit from formal cognitive assessment by OT or ST. If gait deficits do not improve, may be candidate for IRF, TBD. pt has excellent home support from family. onver fiordaliza Pérez, Provider Unknown - 04/24/2015 1:18 PM PDT Therapy Progress Note by JEAN Diamond at 04/24/15 1318 Author: JEAN Diamond Service: (none) Author Type: Occupational Therapist Filed: 04/24/15 8250 Date of Service: 04/24/15 1318 Status: Signed Customer Consulting Manager: JEAN Diamond (Occupational Therapist) 04/24/15 1318 OT Last Visit OT Received On 04/24/15 Reason for Treatment Cardiac Requires OT Follow Up Yes Assistance Required 1 person Crime Scene Evidence Technician Needed No Family/Caregiver Present Yes Precautions Cardiac Precautions Sternal Other Precautions fall risk Feeding Feeding Level of Assistance Independent Feeding Where Assessed (seated in recliner) Feeding Comments pt.'s lunch arrived at end of OT session. Pt. reported limited interest in eating, but was able to complete task independently (few bites while in room). Grooming Grooming Level of Assistance Minimum assistance Grooming Where Assessed Standing sinkside Grooming Comments Pt. was able to complete grooming tasks with steadying assist. Toileting Toileting Level of Assistance Maximum assistance Where Assessed Toilet Toileting Comments Pt. required assist to complete personal hygiene. VCs to reinforce preca utions Functional Standing Tolerance Comments moderate assist sit to stand from recliner; VCs to not use UEs during transfer Toilet Transfers Toilet Transfer Type To and from Toilet Transfer to Standard toilet Toilet Transfer Technique Ambulating Toilet Transfers Moderate assistance Toilet Transfers Comments VCs for technique, and to not use UEs during transfer. Pt. would benefit from further education and practice to reinforce precautions Additional Activities Additional Activities Comments Spouse present during OT session and requesting to review st ernal precautions. Pt. very lethargic, and would also benefit from further education/practic e prior to discharge. Encouraged spouse to bring in loose, fitted clothing to practice. Educ . pt/spouse on lifting restrictions, no pushing/pulling, bringing both hands above head (no higher than shoulder height). Educ. pt/spouse in donning/doffing shirt vs button up, pants/s ocks/shoes, personal hygiene during toileting, bathing and AE needs. Activity Tolerance Activity Tolerance Patient limited by fatigue Safety Devices Safety Devices in Place Yes Type of Devices Call lite in place;RN notified (returned to recliner) Plan Treatment Interventions (Per OT POC) Progress Progressing toward goals Requires OT Follow Up Yes Recommendation Recommendation Home with daytime assist;Home with nighttime assist Equipment Recommended Shower chair with back;Mold Stripper;Sponge long handled Education Completed: Education Topic: reinforce precautions, ADLs, transfers Completed with: Patient, Spouse Completed by: Written Material, Verbal Education, Demonstration Response to Education: Stated Understanding, Returned Demonstration, Reinforcement Yury mayer for Education Understanding Occupational Therapy Plan: Continue OT treatment per POC Further education/practice with ADLs to reinforce precautions (pt. Lethargic) The following recommendations are made for d/c planning at this time: Return to home w/ family support Barriers to d/c at this time include: lethargic Equipment needs shower chair, babbitt spinner, shower brush Physical deficits impacting functional independence Self-care deficits impacting functional independence onver fiordaliza Transaction, Provider Unknown - 04/24/2015 11:30 AM PDT Nurse Progress Note by Surjit Lai RN at 04/24/15 1711 Author: Surjit Lai RN Service: (none) Author Type: Registered Nurse Filed: 04/24/15 1130 Date of Service: 04/24/151129 Status: Signed Customer Consulting Manager: Peter J Ming, RN (Registered Nurse) Called Andressa to get report, she was busy in another room, Andressa will call me back. onver fiordaliza Transaction, Provider Unknown - 04/24/2015 9:39 AM PDT Case Management by BE Jama at 04/24/15938 Author: BE Jama Service: (none) Author Type: Snaker Driving Horses Filed: 04/24/1540 Date of Service: 04/24/15938 Status: Signed Customer Consulting Manager: BE Jama (Snaker Driving Horses) Reviewed PT notes. Pt lethargic. PT is deferring recommendation at this time. is plann ing on pt going home. CM to follow. onver fiordaliza Transaction, Provider Unknown - 04/24/2015 9:17 AM PDT Therapy Progress Note by Catalina Martins PT at 04/24/15916 Author: Catalina Martins PT Service: (none) Author Type: Physical Therapist Filed: 04/24/15 1003 Date of Service: 04/24/15916 Status: Signed Customer Consulting Manager: Catalina Martins PT (Physical Therapist) 04/24/15916 PT Last Visit PT Received On 04/24/15 Reason for Treatment Cardiac Requires PT Follow Up Yes Follow up PT Only? No Assistance Required 1 person;2 person Precautions Cardiac Precautions Sternal Other Precautions falls Other Comments Comments Pt sitting in chair upon arrival. Appears more alert today. Denies pain. Swelling noted in BLEs so pt encouraged to elevated BLEs when sitting in chair. Pt down to 1 L O2 wit h SpO2 94%. Pt's gait speed in increasing but mild/moderate trunk sway noted at times during ambulation. Pt tolerated quite well and was situated in supine at end of session. See below for vitals. Cognition Overall Cognitive Status WFL Orientation Level Oriented (mildly delayed responses) Bed Mobility Sit to Sidelying Max assist (BLEs into bed & trunk to lower);x 2 person Transfers Sit to/from Stand Moderate assist (to arise OR lower);Minimal assist (steadying/contact gua rd);x 1 person Mobility Ambulation Assistance Moderate assist;Minimal assist;X1;X2 Maximal Ambulation Distance (feet) 140 Total Ambulation Distance (feet) 140 Distance limited by? Patient's ability Pattern Decreased marielos (min-moderate trunk sway) Assistive Device Other (Comment) (PROGRAM ATTENDANT on w/c) Modalities Modalities Other therapy Other Therapy Ongoing ed on sternal precautions and safe mobility techniques. Activity Tolerance Activity Tolerance Patient limited by fatigue (BLE fatigue) Nurse Made Aware YUNI Crisostomo Safety Devices Safety Devices in Place (call light in reach; present) Plan Treatment/Interventions Continue per Primary PT POC Progress Progressing toward goals Recommendation Recommendations Defer Equipment Recommended (TBD- may require walker) Barriers to Discharge Physical Deficits Impacting Functional Harding;Self-care Deficit s Impacting Functional Harding Recommendation Comments Pt exhibiting good progress from yesterday. He appears more alert a nd activity tolerance is improving. Pt still exhibiting some gait deficits (notably trunk sw ay) and may require an AD pending progress. Given ongoing progress with therapy, expect that pt may be able to return home with 15/02 assist/spv. Pre/peak/post Position BP Pulse rate O2 sats L/min pre sitting 155/79 92 96 1 post supine 165/71 95 93 1 Heron Tejeda PA - 04/24/2015 7:11 AM PDTFormatting of this note might be different from kathryn thomas. Progress Notes by Heron Whipple PA-C at 04/24/15 0711 Author: Heron Whipple PA-C Service: Cardiac, Thoracic, and Vascular Surgery Author Type: Physician Graduating Machine Operator - Certified Filed: 04/24/15 0713 Date of Service: 04/24/15710 Status: Attested Customer Consulting Manager: Heron Whipple PA-C (Physician Graduating Machine Operator - Certified) Cosigner: Lele hall MD at 04/24/15 1249 Attestation signed by Lele Martinez MD at 04/24/15 124 Patient was seen, examined, labs, x-rays and treatment plan were reviewed. [facility]: Cardiothoracic Surgery Progress Note ROOM: - Hospital Day: LOS: 2 days Post-Op Day: 2 Day Post-Op Surgery/Procedure: Procedure(s) (LRB): CABG - OTILIA (N/A) SUBJECTIVE Events Overnight: HD stable, Off SILVIA. States he is doing "OK", still with left sided chest tube pain. Ambulating, poor diet. Burping, minimal flatus CT: 110mL UOP 470mL Scheduled Medications albuterol 6 puff Ventilator Q4H aspirin 324 mg Per NG tube Nightly Or aspirin 325 mg Oral Nightly Or aspirin 300 mg Rectal Nightly docusate sodium 100 mg Oral BID famotidine 20 mg Oral BID Or famotidine 20 mg Intravenous BID insulin aspart 0-19 Units Subcutaneous TID AC insulin aspart 0-19 Units Subcutaneous Nightly insulin aspart 10 Units Subcutaneous TID AC insulin detemir 33 Units Subcutaneous Nightly magnesium hydroxide 30 mL Oral Daily metoprolol 12.5 mg Oral BID sodium phosphate 1 enema Rectal Once Continuous Infusions amiodarone infusion dexmedetomidine in NS dextrose 5 % and 0.45 % NaCl 62 mL/hr at 04/23/15 0441 nitroGLYCERIN in D5W phenylephrine in NS 320 mcg/mL Stopped (04/23/15 1105) sodium chloride (IV) 30 mL/hr at 04/22/15 2136 OBJECTIVE Vital Signs: BP 126/68 mmHg | Pulse 96 | Temp(Src) 98.8 F (37.1 C) (Oral) | Resp 18 | Ht 1.791 m (5' 10.5") | Wt 116.8 kg (257 lb 8 oz) | BMI 36.41 kg/m2 | SpO2 96% Physical Exam: Physical Exam: GENERAL: A&Ox 3, in no acute distress. NEURO: No facial asymmetry, speech normal and non pressured. Normal range of motion in all extremities HEENT: PERRLA, EOMI; Sclerae clear, nonicteric; Oral Mucosa moist and pink with n2o ulcerat ions/lesions. NECK: No JVD noted, HEART: RRR with normal S1 and S2 heart sounds. No murmur, rub, heave, or gallop noted. LUNGS: Lungs are clear to auscultation without wheezes, rhonchi, rales. ABDOMEN: Hypoactive. Soft, nondistended, nontender to palpation with no notable masses. EXTREMITIES: no edema; warm Incision: clean, dry, and intact. No erythema, discharge, or warmth noted around the incisi on site. Data Recent Labs Lab 04/24/15 0326 04/23/15 0250 WBC 6.35 13.15* RBC 2.52* 3.10* HGB 7.2* 8.9* HCT 21.9* 27.2* MCV 86.9 87.5 MCH 28.7 28.7 MCHC 33.0 32.8 RDW 41.6 41.1 PLT 100* 216 MPV 9.4 9.2 DIFFTYPE AUTOMATED AUTOMATED Recent Labs Lab 04/24/15 0326 04/23/15 0815 04/23/15 0250 NA 143 -- 137 K 5.0* 4.2 4.8 CL 112* -- 111* CO2 24 -- 23 ANIONGAP 12 -- 8 GLUF 161* -- 108* BUN 27* -- 18 CREATININE 1.4* -- 1.12 BCR 19 -- 16 CA 7.2* -- 8.2* EGFR 55* -- >60 PROBLEM LIST Active Problems: * No active hospital problems. * ASSESSMENT & PLAN Increase activity Encourage diet Watch chest tubes Bowel care prn Transfer to cardiac unit Code Status: Full Code The patient has been seen and the plan discussed with the attending provider, Dr. Juan Whipple PA-C 04/24/2015 onversio n Transaction, Provider Unknown - 04/23/2015 2:32 PM PDTFormatting of this note might be di fferent from the original. Therapy Progress Note by Greg Her, PT at 04/23/15 1432 Author: Greg Her PT Service: Physical Medicine and Rehab Author Type: Physical Therapist Filed: 04/23/151910 Date of Service: 04/23/15 143 Status: Signed Customer Consulting Manager: Greg Her PT (Physical Therapist) 04/23/15 1432 PT Last Visit PT Received On 04/23/15 Reason for Treatment Cardiac Requires PT Follow Up Yes Follow up PT Only? No Assistance Required 1 person;2 person Precautions Cardiac Precautions Sternal Other Comments Comments Pt. remains lethargic however seems able to sustain alertness slightly better. BP pre activity:120/64, post activity: 108/59. Pt. reported 5-6/10 pain (back pain). Pt. amb ulated approx. 90 ft. w/ slow gait cycle. He requires frequent cues to maintain eyes open a s well as to avoid forward trunk lean. Pt. was left up in chair after activity. Call light in reach. Cognition Overall Cognitive Status WFL Orientation Level Oriented Bed Mobility Scooting Minimal assist Transfers Sit to/from Stand Moderate assist (to arise OR lower) Bed to/from Chair Moderate assist (to arise OR lower) Mobility Ambulation Assistance Minimal assist;Moderate assist;X1;X2;Safety concerns Maximal Ambulation Distance (feet) 90 Total Ambulation Distance (feet) 90 Distance limited by? Patient's ability;Therapist/staff discretion Pattern Decreased marielos;Right swing foot doesn't pass stance foot;Left swing foot doesn't pass stance foot;Forward flexed Assistive Device (PROGRAM ATTENDANT on w/c) Modalities Modalities (Educated on sternal precautions, transfer technique) Activity Tolerance Activity Tolerance Patient limited by fatigue Nurse Made Aware yes Plan Treatment/Interventions Continue per Primary PT POC Progress Slow progress, decreased activity tolerance Recommendation Recommendations Defer Naye Wong OTR/L - 04/23/2015 1:45 PM PDT Therapy Progress Note by JEAN Bryant at 04/23/15 1816 Author: JEAN Bryant Service: (none) Author Type: Occupational Therapist Filed: 04/23/15 7080 Date of Service: 04/23/151344 Status: Signed Customer Consulting Manager: JEAN Bryant (Occupational Therapist) 04/23/15 1348 Precautions Cardiac Precautions Sternal (pt unable to recall, educated to precautions) Home Environment Home Exterior Layout Rail none Home Interior Layout W/C accessible Bathroom Shower/Tub Tub/shower unit Bathroom Toilet Standard Home Equipment None Additional Comments Pt reported to be okay with returning to home Prior Function Level of Harding Independent with functional mobility;Independent with ADLs;Independe nt with IADLs Lives With Spouse ADL Assistance Independent Home ADL's Independent Employment Employed (plans to return to work when cleared) Comments concerned with return to f ADL Grooming Assistance Maximal assist;Moderate assist (provided wash cloth for face / hand washing w/ precautions) Vision-Basic Assessment Current Vision No visual deficits Tracking Able to track stimulus in all quads without difficulty Acuity Able to read clock/calendar on wall without difficulty Cognition Overall Cognitive Status WFL (noted to be lethargic throughout assessment) Orientation Level Oriented Comments /, eyes open / closed throughout RUE Assessment RUE Assessment WFL LUE Assessment LUE Assessment WFL Hand Function Gross Grasp Functional Functional Gross Grasp Able to grasp objects without difficulty;Maintains hold with dominan t hand;Maintain hold with non-dominant hand;Able to hold objects in dominant hand;Able to ho ld objects in non-dominant hand Coordination Functional Assessment Assessment Decreased ADL status ADL Goals Pt Will Perform Grooming Mod independently (review w/ sternal precautions) Pt Will Perform UE Dressing Mod independently;With min assist (review w / sternal precautions) Pt Will Perform Toileting With max assist;With mod assist;Mod independently (review w/ sternal precautions) Plan Treatment Interventions ADL retraining Progress (initiate OT POC) OT Frequency QD;BID;5x/wk (1 week duration) Requires OT Follow Up Yes Education Completed: Education Topic:OT role in care, POC, goals, sternal precautions Completed with: Patient Completed by: Verbal Education Response to Education: Stated Understanding - please reinforce sternal precautions secon khris to lethargy Occupational Therapy Plan: Initiate OT treatment per POC The following recommendations are made for d/c planning at this time: Return to home w/ family support Barriers to d/c at this time include: Self-care deficits impacting functional independence onversion Bird saction, Provider Unknown - 04/23/2015 12:49 PM PDTFormatting of this note might be differen t from the original. Case Management by BE Jama at 04/23/15 1249 Author: EB Jama Service: (none) Author Type: Snaker Driving Horses Filed: 04/23/15 1531 Date of Service: 04/23/15 1249 Status: Addendum Customer Consulting Manager: BE Jama (Snaker Driving Horses) Related Notes: Original Note by BE Jama (Snaker Driving Horses) filed at 04/23/15 1251 04/23/15 1248 Discharge Planning Evaluation Admitting Diagnosis POD 1 CABG x4 Readmission No Living Arrangements Spouse/significant other Support Systems Spouse/significant other Type of Residence Private residence Independent with ADL's Yes Independent with Mobility Yes Home Care Services No Caregiver after Discharge Yes Caregiver Name Selene Relationship to Patient Mental Status Oriented Prior functional status Independent prior to admit. Drives, etc. Anticipated Discharge Plan Plan communicated to patient/family Yes Resources Financial concerns No Transportation issues No Patient/Family concerns No Prescription Plan Yes Anticipated Disposition Facility Type Home Spoke with pt's Selene ([phone]) by phone and discussed discharge planning, Pt is a 59 y.o., male s/p CABG x4. states that she plans to be caregiver 15/02 the first 2 weeks home. Discussion on phone was brief as was just leaving the hospital. She will return this afternoon and have nurse contact me when sh e arrives. Patient's PCP is: SHONDA MCNAMARA Patient's insurance:[employer] Coverage concerns: Medication coverage/concerns: [employer] Bedside Delivery: Community resources utilized / needed: Assistance in transportation: can transport home Identification of any specific education / training: Barriers to Discharge / Alternative housing needed: Anticipated DCP: Home with to assist ELDON QUIROGASCH Addendum: 3:30 - Met with who informed that she does not work and will plan to be with pt 15/02 at home. 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 Pt's pharmacy is [facility] in [place]. He does not use home O2, no blood thinners and no D ME. onver fiordaliza Transaction, Provider Unknown - 04/23/2015 11:00 AM PDT Therapy Progress Note by Greg Her PT at 04/23/15 1100 Author: Greg Her PT Service: Physical Medicine and Rehab Author Type: Physical Therapist Filed: 04/23/15 1902 Date of Service: 04/23/15 1100 Status: Signed Customer Consulting Manager: Greg Her PT (Physical Therapist) 04/23/15 1100 PT Last Visit PT Received On 04/23/15 Reason for Treatment Cardiac Requires PT Follow Up Yes PT Eval/Reassessment Date 04/23/15 Precautions Cardiac Precautions Sternal Other Comments Comments Pt. is s/p CABGx4. Pt. presently is in chair. Pt. reports 3/10 pain at rest. BP is 123/67 at rest. Pt. is AOx4 however appears very lethargic at this time. Pt. was dirk domínguez in role of PT, sternal precautions, and mobility considerations post op. Pt. appears to understand ed. given. Pt. required modA to arise from chair using momentum technique. Upo n initial standing, pt. appears to wax and wane from an alertness standpoint however denied pre-syncope/dizziness throughout. During initial gait training, pt. appears to become more pale and lethargic, but BP appears to maintain 120's/60s when checked. Due to pt.'s appeara nce and poor alertness, gait distance was limited to approx. 20 ft. total (including marchin g in place in front of chair). Pt. was assisted back into chair. Call light left in reach. LEs reclined up. Pt. c/o increasing t-spine pain (510). YUNI Davies aware. BP 136/71 post activity. Cognition Overall Cognitive Status WFL Orientation Level Oriented Comments lethargic Bed Mobility Supine to Sit (maxAx2 per YUNI Davies) Scooting Minimal assist;Moderate assist Transfers Sit to/from Stand Moderate assist (to arise OR lower) Bed to/from Chair Moderate assist (to arise OR lower) Mobility Ambulation Assistance Moderate assist;X1;X2;Safety concerns Maximal Ambulation Distance (feet) 10 Total Ambulation Distance (feet) 20 Distance limited by? Patient's ability Pattern (PROGRAM ATTENDANT on w/c) Balance Balance (forward trunk lean during gait assessment) Activity Tolerance Activity Tolerance Patient limited by fatigue;Patient limited by pain Nurse Made Aware yes Safety Devices Safety Devices in Place (call light in reach) Plan Treatment/Interventions Cardiac protocol PT Frequency Twice a day;Once per day Care Duration (# of days) 7 # of days Recommendation Recommendations Defer Equipment Recommended (TBD) Barriers to Discharge Physical Deficits Impacting Functional Harding;Self-care Deficit s Impacting Functional Harding Recommendation Comments Anticipate return to previous setting w/ assist/support from spouse /family. 04/23/15 1015 PT Last Visit PT Received On 04/23/15 Reason for Treatment Other (comment) Requires PT Follow Up No PT Eval/Reassessment Date 04/23/15 Assistance Required Independent (supervision) Other Comments Comments Pt. admitted w/ dizziness. Pt. denies falling. She reports her s/s has mostly kelly bsided other than some mild dizziness with certain movements. There was no nystagmus observ ed with occulomotor assessment. Pt. denied pain. Pt. was able to score 26/28 using Tinetti CHRISTY assessment which indicated low fall risk. Pt. was able to perform dynamic turning/dario ding movements without provacation of dizziness. She ambulated >400 ft. w/ mod. indep./supe rvision from PT. Pt. appears safe to d/c to home setting with spouse. VS stable pre and po st activity. Cognition Overall Cognitive Status WFL Orientation Level Oriented Bed Mobility Supine to Sit Modified independent Sit to Supine Modified independent Transfers Bed to/from Chair Modified independent Stand Pivot Transfers Modified independent Mobility Ambulation Assistance Modified independent;Supervision Maximal Ambulation Distance (feet) 450 Total Ambulation Distance (feet) 450 Distance limited by? Patient's ability Pattern Decreased marielos;WFL Assistive Device None Balance Balance ( Tinetti CHRISTY) Safety Devices Safety Devices in Place (call light in reach, family present) Plan Treatment/Interventions Discharge skilled PT services PT Frequency Evaluation only Recommendation Recommendations Prior Setting;Home Assist Equipment Recommended None (advised to have FWW at bedside at night time) PT Ready for Discharge Yes Recommendation Comments Pt. advised to notify PCP if dizziness s/s persist. May benefit at that time from OP PT for further balance/vestibular assessment. Heron Tejeda PA - 04/23/2015 7:42 AM PDTFormatting of this note might be different from kathryn ballard original. Progress Notes by Heron Whipple PA-C at 04/23/15 1072 Author: Heron Whipple PA-C Service: Cardiac, Thoracic, and Vascular Surgery Author Type: Physician Graduating Machine Operator - Certified Filed: 04/23/15 45 Date of Service: 04/23/15741 Status: Attested Customer Consulting Manager: Heron Whipple PA-C (Physician Graduating Machine Operator - Certified) Cosigner: Lele hall MD at 04/23/15 0850 Attestation signed by Lele Martinez MD at 04/23/15 0850 Patient was seen, examined, labs, x-rays and treatment plan were reviewed. [facility]: Cardiothoracic Surgery Progress Note ROOM: Hospital Day: LOS: 1 day Post-Op Day: 1 Day Post-Op Surgery/Procedure: Procedure(s) (LRB): CABG - OTILIA (N/A) SUBJECTIVE Events Overnight: HD stable, on 100 SILVIA. Extubated, up to chair, neuro intact. Compla ining of chest tube pain CT: 250mL UOP 500mL Scheduled Medications albuterol 6 puff Ventilator Q4H aspirin 324 mg Per NG tube Nightly Or aspirin 325 mg Oral Nightly Or aspirin 300 mg Rectal Nightly [START ON 04/24/2015] bisacodyl 20 mg Rectal Once ceFAZolin 2 g Intravenous Q8H docusate sodium 100 mg Oral BID famotidine 20 mg Oral BID Or famotidine 20 mg Intravenous BID magnesium hydroxide 30 mL Oral Daily metoprolol 12.5 mg Oral BID [START ON 04/24/2015] sodium phosphate 1 enema Rectal Once Continuous Infusions amiodarone infusion dexmedetomidine in NS dextrose 5 % and 0.45 % NaCl 62 mL/hr at 04/23/15 0441 insulin regular 1 unit/mL nitroGLYCERIN in D5W phenylephrine in NS 320 mcg/mL 90 mcg/min (04/23/15 0642) sodium chloride (IV) 30 mL/hr at 04/22/15 2136 OBJECTIVE Vital Signs: BP 108/57 mmHg | Pulse 83 | Temp(Src) 99.1 F (37.3 C) (Blood) | Resp 14 | Ht 1.791 m (5 ' 10.5") | Wt 107 kg (235 lb 14.3 oz) | BMI 33.36 kg/m2 | SpO2 93% Physical Exam: Physical Exam: GENERAL: A&Ox 3, in no acute distress. NEURO: No facial asymmetry, speech normal and non pressured. Normal range of motion in all extremities HEENT: PERRLA, EOMI; Sclerae clear, nonicteric; Oral Mucosa moist and pink with n2o ulcerat ions/lesions. NECK: No JVD noted, HEART: RRR with normal S1 and S2 heart sounds. No murmur, rub, heave, or gallop noted. LUNGS: Lungs are clear to auscultation without wheezes, rhonchi, rales. ABDOMEN: Hypoactive. Soft, nondistended, nontender to palpation with no notable masses. EXTREMITIES: no edema; warm Incision: clean, dry, and intact. No erythema, discharge, or warmth noted around the incisi on site. Data Recent Labs Lab 04/23/15 0250 04/22/15 1314 WBC 13.15* 9.76 RBC 3.10* 3.49* HGB 8.9* 10.0* HCT 27.2* 29.3* MCV 87.5 83.9 MCH 28.7 28.5 MCHC 32.8 33.9 RDW 41.1 39.8 PLT 216 163 MPV 9.2 8.2 DIFFTYPE AUTOMATED AUTOMATED Recent Labs Lab 04/23/15 0250 04/23/15 0115 04/22/15 1314 NA 137 -- -- 145* K 4.8 5.0* < > 4.3 CL 111* -- -- 112* CO2 23 -- -- 23 ANIONGAP 8 -- -- 13 GLUF 108* -- -- 140* BUN 18 -- -- 19 CREATININE 1.12 -- -- 1.1 BCR 16 -- -- 17 CA 8.2* -- -- 8.5 EGFR >60 -- -- >60 < > = values in this interval not displayed. PROBLEM LIST Active Problems: * No active hospital problems. * ASSESSMENT & PLAN HD stable, DC SGC, Wean SILVIA as tolerated Increase ambulation Continue ICU care Code Status: Full Code The patient has been seen and the plan discussed with the attending provider, Dr. Juan Whipple PA-C 04/23/2015 onversio n Transaction, Provider Unknown - 04/23/2015 6:43 AM PDTFormatting of this note might be di fferent from the original. Nurse Progress Note by Rima Eugene RN at 04/23/15642 Author: Rima Eugene RN Service: (none) Author Type: Registered Nurse Filed: 04/23/1545 Date of Service: 04/23/15642 Status: Signed Customer Consulting Manager: Rima Jabier, RN (Registered Nurse) Moaning, even when asleep. Required increased narcotics during the evening and night. How ever, now lethargic after 1mg dilaudid. observed, and requests dec. Dilaudid to be given to 0.5mg prn. RIMA EUGENE RN onver fiordaliza Transaction, Provider Unknown - 04/22/2015 1:42 PM PDT Progress Notes by Sean Gould at 04/22/15 1342 Author: Sean Gould Service: (none) Author Type: Rock Drill Operator Filed: 04/22/15 1344 Date of Service: 04/22/151341 Status: Signed Customer Consulting Manager: Sean Gould (Rock Drill Operator) Per [facility] support protocols, I delivered off-pump report to pt's [place] and other famil y, when received from [facility], then oriented family to visitation guidelines. Family is now bailey ented to [employer] support. [facility]plains will henceforth respond per needs/requests. Sean gómez onver fiordaliza Transaction, Provider Unknown - 04/22/2015 1:16 PM PDT Progress Notes by Stephanie Hilton RPH at 04/22/15 1316 Author: Stephanie Hilton RPH Service: Pharmacy Author Type: Pharmacist Filed: 04/22/15 1316 Date of Service: 04/22/15 1316 Status: Signed Customer Consulting Manager: Stephanie Hilton RPH (Pharmacist) Renal Dosing Monitoring: Dusty Lorenzo 59 y.o. male Pharmacy dosing for renal function per [employer] Sarabjit PA-C Scr 1.1 on 04/09/15, awaiting more currrent scr Pharmacy will continue monitoring patient for appropriate dosing per renal function. 04/22/2015 1:14 PM Pharmacist: STEPHANIE HILTON onver fiordaliza Transaction, Provider Unknown - 04/22/2015 7:17 AM PDT Progress Notes by Raymundo Lerma at 04/22/15716 Author: Raymundo Lerma Service: (none) Author Type: Filed: 04/22/15718 Date of Service: 04/22/15716 Status: Signed Customer Consulting Manager: Raymundo Lerma () Per [facility] support program, intro self & services to pt & family ( Selene, sons George, Kali & ____). Flow sheet given. Questions answered. Per OK of pt, pre-op prayer offered for rela xation & peace. [place] fam to ICU WR. oLele brown Jr., MD - 04/22/2015 6:48 AM PDTFormatting of this note might be different from t he original. 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 | + +--------+ + + + | EXTERNAL LAB: CBC | Routin | 04/28/2015 | | Results for this | | | e | 4:38 AM | | procedure are in the | | | | PDT | | results section. | + +--------+ + + + | BASIC METABOLIC | Routin | 04/28/2015 | | Results for this | | PANEL | e | 4:38 AM | | procedure are in the | | | | PDT | | results section. | + +--------+ + + + | POC GLUCOSE | Routin | 04/27/2015 | | Results for this | | | e | 9:05 PM | | procedure are in the | | | | PDT | | results section. | + +--------+ + + + | POC GLUCOSE | Routin | 04/27/2015 | | Results for this | | | e | 4:08 PM | | procedure are in the | | | | PDT | | results section. | + +--------+ + + + | POC GLUCOSE | Routin | 04/27/2015 | | Results for this | | | e | 11:25 AM | | procedure are in the | | | | PDT | | results section. | + +--------+ + + + | POC GLUCOSE | Routin | 04/27/2015 | | Results for this | | | e | 5:42 AM | | procedure are in the | | | | PDT | | results section. | + +--------+ + + + | EXTERNAL LAB: CBC | Routin | 04/27/2015 | | Results for this | | | e | 5:38 AM | | procedure are in the | | | | PDT | | results section. | + +--------+ + + + | BASIC METABOLIC | Routin | 04/27/2015 | | Results for this | | PANEL | e | 5:38 AM | | procedure are in the | | | | PDT | | results section. | + +--------+ + + + | POC GLUCOSE | Routin | 04/26/2015 | | Results for this | | | e | 9:08 PM | | procedure are in the | | | | PDT | | results section. | + +--------+ + + + | POC GLUCOSE | Routin | 04/26/2015 | | Results for this | | | e | 4:10 PM | | procedure are in the | | | | PDT | | results section. | + +--------+ + + + | POC GLUCOSE | Routin | 04/26/2015 | | Results for this | | | e | 11:11 AM | | procedure are in the | | | | PDT | | results section. | + +--------+ + + + | POC GLUCOSE | Routin | 04/26/2015 | | Results for this | | | e | 5:35 AM | | procedure are in the | | | | PDT | | results section. | + +--------+ + + + | EXTERNAL LAB: CBC | Routin | 04/26/2015 | | Results for this | | | e | 5:08 AM | | procedure are in the | | | | PDT | | results section. | + +--------+ + + + | BASIC METABOLIC | Routin | 04/26/2015 | | Results for this | | PANEL | e | 5:08 AM | | procedure are in the | | | | PDT | | results section. | + +--------+ + + + | POC GLUCOSE | Routin | 04/25/2015 | | Results for this | | | e | 9:22 PM | | procedure are in the | | | | PDT | | results section. | + +--------+ + + + | AISHA TERRAZAS, | Routin | 04/25/2015 | | Results for this | | ARTERIAL | e | 4:44 PM | | procedure are in the | | | | PDT | | results section. | + +--------+ + + + | POC AISHA COE, | Routin | 04/25/2015 | | Results for this | | ARTERIAL | e | 4:11 PM | | procedure are in the | | | | PDT | | results section. | + +--------+ + + + | POC GLUCOSE | Routin | 04/25/2015 | | Results for this | | | e | 3:51 PM | | procedure are in the | | | | PDT | | results section. | + +--------+ + + + | DAVID AISHA COE, | Routin | 04/25/2015 | | Results for this | | ARTERIAL | e | 3:40 PM | | procedure are in the | | | | PDT | | results section. | + +--------+ + + + | DAVID VIRGINIANAYAISHA Villasenor, | Routin | 04/25/2015 | | Results for this | | ARTERIAL | e | 3:12 PM | | procedure are in the | | | | PDT | | results section. | + +--------+ + + + | POTASSIUM | Routin | 04/25/2015 | | Results for this | | | e | 3:11 PM | | procedure are in the | | | | PDT | | results section. | + +--------+ + + + | AISHA TERRAZAS, | Routin | 04/25/2015 | | Results for this | | ARTERIAL | e | 2:41 PM | | procedure are in the | | | | PDT | | results section. | + +--------+ + + + | AISHA TERRAZAS, | Routin | 04/25/2015 | | Results for this | | ARTERIAL | e | 2:10 PM | | procedure are in the | | | | PDT | | results section. | + +--------+ + + + | AISHA TERRAZAS, | Routin | 04/25/2015 | | Results for this | | ARTERIAL | e | 1:39 PM | | procedure are in the | | | | PDT | | results section. | + +--------+ + + + | AISHA TERRAZAS, | Routin | 04/25/2015 | | Results for this | | ARTERIAL | e | 1:10 PM | | procedure are in the | | | | PDT | | results section. | + +--------+ + + + | POC GINO COE8, | Routin | 04/25/2015 | | Results for this | | ARTERIAL | e | 12:42 PM | | procedure are in the | | | | PDT | | results section. | + +--------+ + + + | POC GINO COE8, | Routin | 04/25/2015 | | Results for this | | ARTERIAL | e | 12:23 PM | | procedure are in the | | | | PDT | | results section. | + +--------+ + + + | POC GLUCOSE | Routin | 04/25/2015 | | Results for this | | | e | 10:49 AM | | procedure are in the | | | | PDT | | results section. | + +--------+ + + + | POC VIRGINIAMIKA, CG8, | Routin | 04/25/2015 | | Results for this | | ARTERIAL | e | 9:05 AM | | procedure are in the | | | | PDT | | results section. | + +--------+ + + + | XR CHEST 2 VIEWS | Routin | 04/25/2015 | | Results for this | | | e | 7:10 AM | | procedure are in the | | | | PDT | | results section. | + +--------+ + + + | POC GLUCOSE | Routin | 04/25/2015 | | Results for this | | | e | 5:45 AM | | procedure are in the | | | | PDT | | results section. | + +--------+ + + + | EXTERNAL LAB: GEOFF | Routin | 04/25/2015 | | Results for this | | | e | 4:39 AM | | procedure are in the | | | | PDT | | results section. | + +--------+ + + + | MAGNESIUM | Routin | 04/25/2015 | | Results for this | | | e | 4:39 AM | | procedure are in the | | | | PDT | | results section. | + +--------+ + + + | BASIC METABOLIC | Routin | 04/25/2015 | | Results for this | | PANEL | e | 4:39 AM | | procedure are in the | | | | PDT | | results section. | + +--------+ + + + | POC GLUCOSE | Routin | 04/24/2015 | | Results for this | | | e | 9:44 PM | | procedure are in the | | | | PDT | | results section. | + +--------+ + + + | ECG 12 LEAD | Routin | 04/24/2015 | | Results for this | | | e | 6:58 PM | | procedure are in the | | | | PDT | | results section. | + +--------+ + + + | POTASSIUM | Routin | 04/24/2015 | | Results for this | | | e | 6:44 PM | | procedure are in the | | | | PDT | | results section. | + +--------+ + + + | POC GLUCOSE | Routin | 04/24/2015 | | Results for this | | | e | 4:30 PM | | procedure are in the | | | | PDT | | results section. | + +--------+ + + + | POC GLUCOSE | Routin | 04/24/2015 | | Results for this | | | e | 2:07 PM | | procedure are in the | | | | PDT | | results section. | + +--------+ + + + | POC GLUCOSE | Routin | 04/24/2015 | | Results for this | | | e | 1:47 PM | | procedure are in the | | | | PDT | | results section. | + +--------+ + + + | XR CHEST 1 VIEW | Routin | 04/24/2015 | | Results for this | | | e | 6:24 AM | | procedure are in the | | | | PDT | | results section. | + +--------+ + + + | POC GLUCOSE | Routin | 04/24/2015 | | Results for this | | | e | 6:24 AM | | procedure are in the | | | | PDT | | results section. | + +--------+ + + + | EXTERNAL LAB: CBC | Routin | 04/24/2015 | | Results for this | | | e | 3:26 AM | | procedure are in the | | | | PDT | | results section. | + +--------+ + + + | PHOSPHORUS | Routin | 04/24/2015 | | Results for this | | | e | 3:26 AM | | procedure are in the | | | | PDT | | results section. | + +--------+ + + + | MAGNESIUM | Routin | 04/24/2015 | | Results for this | | | e | 3:26 AM | | procedure are in the | | | | PDT | | results section. | + +--------+ + + + | BASIC METABOLIC | Routin | 04/24/2015 | | Results for this | | PANEL | e | 3:26 AM | | procedure are in the | | | | PDT | | results section. | + +--------+ + + + | POC GLUCOSE | Routin | 04/23/2015 | | Results for this | | | e | 9:15 PM | | procedure are in the | | | | PDT | | results section. | + +--------+ + + + | POC GLUCOSE | Routin | 04/23/2015 | | Results for this | | | e | 5:56 PM | | procedure are in the | | | | PDT | | results section. | + +--------+ + + + | POC GLUCOSE | Routin | 04/23/2015 | | Results for this | | | e | 1:59 PM | | procedure are in the | | | | PDT | | results section. | + +--------+ + + + | POC GLUCOSE | Routin | 04/23/2015 | | Results for this | | | e | 10:17 AM | | procedure are in the | | | | PDT | | results section. | + +--------+ + + + | POTASSIUM | Routin | 04/23/2015 | | Results for this | | | e | 8:15 AM | | procedure are in the | | | | PDT | | results section. | + +--------+ + + + | POC GLUCOSE | Routin | 04/23/2015 | | Results for this | | | e | 8:09 AM | | procedure are in the | | | | PDT | | results section. | + +--------+ + + + | POC GLUCOSE | Routin | 04/23/2015 | | Results for this | | | e | 8:06 AM | | procedure are in the | | | | PDT | | results section. | + +--------+ + + + | POC GLUCOSE | Routin | 04/23/2015 | | Results for this | | | e | 6:49 AM | | procedure are in the | | | | PDT | | results section. | + +--------+ + + + | XR CHEST 1 VIEW | Routin | 04/23/2015 | | Results for this | | | e | 6:08 AM | | procedure are in the | | | | PDT | | results section. | + +--------+ + + + | POC GLUCOSE | Routin | 04/23/2015 | | Results for this | | | e | 6:01 AM | | procedure are in the | | | | PDT | | results section. | + +--------+ + + + | POC GLUCOSE | Routin | 04/23/2015 | | Results for this | | | e | 4:36 AM | | procedure are in the | | | | PDT | | results section. | + +--------+ + + + | EXTERNAL LAB: CBC | Routin | 04/23/2015 | | Results for this | | | e | 2:50 AM | | procedure are in the | | | | PDT | | results section. | + +--------+ + + + | MAGNESIUM | Routin | 04/23/2015 | | Results for this | | | e | 2:50 AM | | procedure are in the | | | | PDT | | results section. | + +--------+ + + + | HEMOGLOBIN A1C | Routin | 04/23/2015 | | Results for this | | | e | 2:50 AM | | procedure are in the | | | | PDT | | results section. | + +--------+ + + + | BASIC METABOLIC | Routin | 04/23/2015 | | Results for this | | PANEL | e | 2:50 AM | | procedure are in the | | | | PDT | | results section. | + +--------+ + + + | POC GLUCOSE | Routin | 04/23/2015 | | Results for this | | | e | 2:28 AM | | procedure are in the | | | | PDT | | results section. | + +--------+ + + + | POTASSIUM | Routin | 04/23/2015 | | Results for this | | | e | 1:15 AM | | procedure are in the | | | | PDT | | results section. | + +--------+ + + + | POC GLUCOSE | Routin | 04/23/2015 | | Results for this | | | e | 12:26 AM | | procedure are in the | | | | PDT | | results section. | + +--------+ + + + | POC GLUCOSE | Routin | 04/22/2015 | | Results for this | | | e | 10:20 PM | | procedure are in the | | | | PDT | | results section. | + +--------+ + + + | POTASSIUM | Routin | 04/22/2015 | | Results for this | | | e | 8:29 PM | | procedure are in the | | | | PDT | | results section. | + +--------+ + + + | POC GLUCOSE | Routin | 04/22/2015 | | Results for this | | | e | 8:09 PM | | procedure are in the | | | | PDT | | results section. | + +--------+ + + + | POTASSIUM | Routin | 04/22/2015 | | Results for this | | | e | 5:43 PM | | procedure are in the | | | | PDT | | results section. | + +--------+ + + + | POC GLUCOSE | Routin | 04/22/2015 | | Results for this | | | e | 5:25 PM | | procedure are in the | | | | PDT | | results section. | + +--------+ + + + | POC GLUCOSE | Routin | 04/22/2015 | | Results for this | | | e | 3:56 PM | | procedure are in the | | | | PDT | | results section. | + +--------+ + + + | POC GLUCOSE | Routin | 04/22/2015 | | Results for this | | | e | 2:49 PM | | procedure are in the | | | | PDT | | results section. | + +--------+ + + + | POC GLUCOSE | Routin | 04/22/2015 | | Results for this | | | e | 1:46 PM | | procedure are in the | | | | PDT | | results section. | + +--------+ + + + | XR CHEST 1 VIEW | Routin | 04/22/2015 | | Results for this | | | e | 1:35 PM | | procedure are in the | | | | PDT | | results section. | + +--------+ + + + | POC GLUCOSE | Routin | 04/22/2015 | | Results for this | | | e | 1:15 PM | | procedure are in the | | | | PDT | | results section. | + +--------+ + + + | CALCIUM, IONIZED | Routin | 04/22/2015 | | Results for this | | | e | 1:15 PM | | procedure are in the | | | | PDT | | results section. | + +--------+ + + + | ECG 12 LEAD | Routin | 04/22/2015 | | Results for this | | | e | 1:14 PM | | procedure are in the | | | | PDT | | results section. | + +--------+ + + + | EXTERNAL LAB: CBC | Routin | 04/22/2015 | | Results for this | | | e | 1:14 PM | | procedure are in the | | | | PDT | | results section. | + +--------+ + + + | PTT | Routin | 04/22/2015 | | Results for this | | | e | 1:14 PM | | procedure are in the | | | | PDT | | results section. | + +--------+ + + + | PROTIME INR | Routin | 04/22/2015 | | Results for this | | | e | 1:14 PM | | procedure are in the | | | | PDT | | results section. | + +--------+ + + + | FIBRINOGEN | Routin | 04/22/2015 | | Results for this | | | e | 1:14 PM | | procedure are in the | | | | PDT | | results section. | + +--------+ + + + | MAGNESIUM | Routin | 04/22/2015 | | Results for this | | | e | 1:14 PM | | procedure are in the | | | | PDT | | results section. | + +--------+ + + + | BASIC METABOLIC | Routin | 04/22/2015 | | Results for this | | PANEL | e | 1:14 PM | | procedure are in the | | | | PDT | | results section. | + +--------+ + + + | ECHO | Routin | 04/22/2015 | | Results for this | | TRANSESOPHAGEAL(OTILIA) | e | 11:57 AM | | procedure are in the | | - PERIOPERATIVE | | PDT | | results section. | + +--------+ + + + | AISHA TERRAZAS, | Routin | 04/22/2015 | | Results for this | | ARTERIAL | e | 11:52 AM | | procedure are in the | | | | PDT | | results section. | + +--------+ + + + | AISHA TERRAZAS, | Routin | 04/22/2015 | | Results for this | | ARTERIAL | e | 11:28 AM | | procedure are in the | | | | PDT | | results section. | + +--------+ + + + | AISHA TERRAZAS, | Routin | 04/22/2015 | | Results for this | | ARTERIAL | e | 10:58 AM | | procedure are in the | | | | PDT | | results section. | + +--------+ + + + | AISHA TERRAZAS, | Routin | 04/22/2015 | | Results for this | | ARTERIAL | e | 10:26 AM | | procedure are in the | | | | PDT | | results section. | + +--------+ + + + | DAVID VIRGINIAMIKA AISHA, | Routin | 04/22/2015 | | Results for this | | ARTERIAL | e | 9:58 AM | | procedure are in the | | | | PDT | | results section. | + +--------+ + + + | AISHA TERRAZAS, | Routin | 04/22/2015 | | Results for this | | ARTERIAL | e | 8:59 AM | | procedure are in the | | | | PDT | | results section. | + +--------+ + + + | AISHA TERRAZAS, | Routin | 04/22/2015 | | Results for this | | ARTERIAL | e | 7:52 AM | | procedure are in the | | | | PDT | | results section. | + +--------+ + + + | POC GLUCOSE | Routin | 04/22/2015 | | Results for this | | | e | 6:32 AM | | procedure are in the | | | | PDT | | results section. | + +--------+ + + + documented in this encounter Results POC Glucose (04/28/2015 5:44 AM PDT) + + + + + + | Component | Value | Ref Range | Performed | Pathologist | | | | | At | Signature | + + + + + + | Glucose, | 108 (H)Comment: Testing | 65 - 99 mg/dL | EXTERNAL | | | Fingerstick | performed at [facility] | | LAB | | | | [address];[place], [place] | | | | | | [address] | | | | + + + + + + + + | Specimen | + + | | + + + +---------+ + + | Performing | Address | City/State/Zipcode | Phone Number | | Organization | | | | + +---------+ + + | EXTERNAL LAB | | | | + +---------+ + + External Lab: CBC (04/28/2015 4:38 AM PDT) + + + + + + | Component | Value | Ref Range | Performed | Pathologist | | | | | At | Signature | + + + + + + | WBC | 4.85Comment: Testing | 3.80 - 11.00 | EXTERNAL | | | | performed at [facility], [address] | K/uL | LAB | | | | [address], | | | | | | [place] [address] | | | | + + + + + + | RED CELL | 2.62 (L)Comment: Testing | 4.20 - 5.70 | EXTERNAL | | | COUNT | performed at [facility], [address] | [address] | LAB | | | | [address], | | | | | | [place] [address] | | | | + + + + + + | Hgb | 7.7 (L)Comment: Testing | 13.2 - 17.0 | EXTERNAL | | | | performed at [facility], [address] | g/dL | LAB | | | | [address], | | | | | | [place] [address] | | | | + + + + + + | Hematocrit, | 22.3 (L)Comment: Testing | 39.0 - 50.0 % | EXTERNAL | | | POC | performed at [facility], [address] | | LAB | | | | [address], | | | | | | [place] [address] | | | | + + + + + + | MCV | 85.4Comment: Testing | 80.0 - 100.0 fl | EXTERNAL | | | | performed at [facility], [address] | | LAB | | | | [address], | | | | | | [place] [address] | | | | + + + + + + | MCH | 29.5Comment: Testing | 27.0 - 34.0 pg | EXTERNAL | | | | performed at [facility], [address] | | LAB | | | | [address], | | | | | | [place] [address] | | | | + + + + + + | MCHC | 34.5Comment: Testing | 32.0 - 35.5 | EXTERNAL | | | | performed at [facility], [address] | g/dL | LAB | | | | [address], | | | | | | [place] [address] | | | | + + + + + + | RDW-CV | 38.1Comment: Testing | 37 - 53 fl | EXTERNAL | | | | performed at [facility], [address] | | LAB | | | | [address], | | | | | | [place] [address] | | | | + + + + + + | Platelet | 195Comment: Testing | 150 - 400 K/uL | EXTERNAL | | | Count | performed at [facility], [address] | | LAB | | | Plasma | [address], | | | | | | [place] [address] | | | | + + + + + + | MPV | 7.9Comment: Testing | fl | EXTERNAL | | | | performed at [facility], [address] | | LAB | | | | [address], | | | | | | [place] [address] | | | | + + + + + + | Differentia | AUTOMATEDComment: | | EXTERNAL | | | l Type | Testing performed at | | LAB | | | | [facility], [address] | | | | | | [place] | | | | | | [address] | | | | + + + + + + | % Segmented | 64.97Comment: Testing | % | EXTERNAL | | | | performed at [facility], [address] | | LAB | | | Neutrophils | [address], | | | | | | [place] [address] | | | | + + + + + + | % | 17.92Comment: Testing | % | EXTERNAL | | | Lymphocytes | performed at [facility], [address] | | LAB | | | | [address], | | | | | | [place] [address] | | | | + + + + + + | % Monocytes | 12.14Comment: Testing | % | EXTERNAL | | | | performed at [facility], [address] | | LAB | | | | [address], | | | | | | [place] [address] | | | | + + + + + + | % | 3.68Comment: Testing | % | EXTERNAL | | | Eosinophils | performed at [facility], [address] | | LAB | | | | [address], | | | | | | [place] [address] | | | | + + + + + + | % Basophils | 1.29Comment: Testing | % | EXTERNAL | | | | performed at [facility], [address] | | LAB | | | | [address], | | | | | | [place] [address] | | | | + + + + + + | Absolute | 3.15Comment: Testing | 1.90 - 7.40 | EXTERNAL | | | Segmented | performed at [facility], [address] | [address] | LAB | | | Neutrophils | [address], | | | | | | [place] [address] | | | | + + + + + + | Absolute | 0.87 (L)Comment: Testing | 1.00 - 3.90 | EXTERNAL | | | Lymphocytes | performed at [facility], [address] | [address] | LAB | | | | [address], | | | | | | [place] [address] | | | | + + + + + + | Absolute | 0.59Comment: Testing | 0.00 - 0.80 | EXTERNAL | | | Monocytes | performed at [facility], [address] | [address] | LAB | | | | [address], | | | | | | [place] [address] | | | | + + + + + + | Absolute | 0.18Comment: Testing | 0.00 - 0.50 | EXTERNAL | | | Eosinophils | performed at [facility], [address] | [address] | LAB | | | | [address], | | | | | | [place] [address] | | | | + + + + + + | Absolute | 0.06Comment: Testing | 0.00 - 0.10 | EXTERNAL | | | Basophils | performed at [facility], [address] | [address] | LAB | | | | [address], | | | | | | [place] [address] | | | | + + + [...] + +---------+ + + Basic Metabolic Panel (04/28/2015 4:38 AM PDT) + + + + + + | Component | Value | Ref Range | Performed | Pathologist | | | | | At | Signature | + + + + + + | Na | 136Comment: Testing | 135 - 143 | EXTERNAL | | | | performed at [facility], [address] | mmol/L | LAB | | | | [address], | | | | | | [place] [address] | | | | + + + + + + | K | 4.4Comment: Testing | 3.5 - 4.9 | EXTERNAL | | | | performed at [facility], [address] | mmol/L | LAB | | | | [address], | | | | | | [place] [address] | | | | + + + + + + | Cl | 103Comment: Testing | 99 - 109 mmol/L | EXTERNAL | | | | performed at [facility], [address] | | LAB | | | | [address], | | | | | | [place] [address] | | | | + + + + + + | CO2 | 27Comment: Testing | 23 - 32 mmol/L | EXTERNAL | | | | performed at [facility], [address] | | LAB | | | | [address], | | | | | | [place] [address] | | | | + + + + + + | Anion Gap | 10Comment: Testing | 5 - 20 mmol/L | EXTERNAL | | | | performed at [facility], [address] | | LAB | | | | [address], | | | | | | [place] [address] | | | | + + + + + + | Glucose, | 113 (H)Comment: Testing | 65 - 99 mg/dL | EXTERNAL | | | Fasting | performed at [facility], [address] | | LAB | | | | [address], | | | | | | [place] [address] | | | | + + + + + + | BUN | 16Comment: Testing | 8 - 25 mg/dL | EXTERNAL | | | | performed at [facility], [address] | | LAB | | | | [address], | | | | | | [place] [address] | | | | + + + + + + | Creatinine | 0.98Comment: Testing | 0.70 - 1.30 | EXTERNAL | | | | performed at [facility], [address] | mg/dL | LAB | | | | [address], | | | | | | [place] [address] | | | | + + + + + + | BUN/Creatin | 16Comment: Testing | | EXTERNAL | | | ine Ratio | performed at [facility], [address] | | LAB | | | | [address], | | | | | | [place] [address] | | | | + + + + + + | Calcium | 8.7Comment: Testing | 8.5 - 10.5 | EXTERNAL | | | | performed at [facility], [address] | mg/dL | LAB | | | | [address] [facility], | | | | | | [place] [address] | | | | + + + [...] | | | | | | at [facility], [address] | | | | | | [address] [facility], | | | | | | [place] [address] | | | | + + + + + + + + | Specimen | + + | Blood specimen | | (specimen) | + + + +---------+ + + | Performing | Address | City/State/Zipcode | Phone Number | | Organization | | | | + +---------+ + + | EXTERNAL LAB | | | | + +---------+ + + POC Glucose (04/27/2015 9:05 PM PDT) + + + + + + | Component | Value | Ref Range | Performed | Pathologist | | | | | At | Signature | + + + + + + | Glucose, | 156 (H)Comment: Testing | 65 - 99 mg/dL | EXTERNAL | | | Fingerstick | performed at [facility];[address] | | LAB | | | | [address];[place], [place] | | | | | | [address] | | | | + + + + + + + + | Specimen | + + | | + + + +---------+ + + | Performing | Address | City/State/Zipcode | Phone Number | | Organization | | | | + +---------+ + + | EXTERNAL LAB | | | | + +---------+ + + POC Glucose (04/27/2015 4:08 PM PDT) + + + + + + | Component | Value | Ref Range | Performed | Pathologist | | | | | At | Signature | + + + + + + | Glucose, | 172 (H)Comment: Testing | 65 - 99 mg/dL | EXTERNAL | | | Fingerstick | performed at [facility];[address] | | LAB | | | | [address];[place], [place] | | | | | | [address] | | | | + + + + + + + + | Specimen | + + | | + + + +---------+ + + | Performing | Address | City/State/Zipcode | Phone Number | | Organization | | | | + +---------+ + + | EXTERNAL LAB | | | | + +---------+ + + POC Glucose (04/27/2015 11:25 AM PDT) + + + + + + | Component | Value | Ref Range | Performed | Pathologist | | | | | At | Signature | + + + + + + | Glucose, | 174 (H)Comment: Testing | 65 - 99 mg/dL | EXTERNAL | | | Fingerstick | performed at [facility];[address] | | LAB | | | | [address];[place] | | | | | | [address] | | | | + + + + + + + + | Specimen | + + | | + + + +---------+ + + | Performing | Address | City/State/Zipcode | Phone Number | | Organization | | | | + +---------+ + + | EXTERNAL LAB | | | | + +---------+ + + POC Glucose (04/27/2015 5:42 AM PDT) + + + + + + | Component | Value | Ref Range | Performed | Pathologist | | | | | At | Signature | + + + + + + | Glucose, | 99Comment: Testing | 65 - 99 mg/dL | EXTERNAL | | | Fingerstick | performed at [facility];[address] | | LAB | | | | [address];[place], [place] | | | | | | [address] | | | | + + + + + + + + | Specimen | + + | | + + + +---------+ + + | Performing | Address | City/State/Zipcode | Phone Number | | Organization | | | | + +---------+ + + | EXTERNAL LAB | | | | + +---------+ + + External Lab: CBC (04/27/2015 5:38 AM PDT) + + + + + + | Component | Value | Ref Range | Performed | Pathologist | | | | | At | Signature | + + + + + + | WBC | 4.56Comment: Testing | 3.80 - 11.00 | EXTERNAL | | | | performed at [facility], [address] | K/uL | LAB | | | | [address], | | | | | | [place] [address] | | | | + + + + + + | RED CELL | 2.71 (L)Comment: Testing | 4.20 - 5.70 | EXTERNAL | | | COUNT | performed at [facility], [address] | M/uL | LAB | | | | [address], | | | | | | [place] [address] | | | | + + + + + + | Hgb | 7.9 (L)Comment: Testing | 13.2 - 17.0 | EXTERNAL | | | | performed at [facility], [address] | g/dL | LAB | | | | [address], | | | | | | [place] [address] | | | | + + + + + + | Hematocrit, | 23.3 (L)Comment: Testing | 39.0 - 50.0 % | EXTERNAL | | | POC | performed at [facility], [address] | | LAB | | | | [address], | | | | | | [place] [address] | | | | + + + + + + | MCV | 86.1Comment: Testing | 80.0 - 100.0 fl | EXTERNAL | | | | performed at [facility], [address] | | LAB | | | | [address], | | | | | | [place] [address] | | | | + + + + + + | MCH | 29.2Comment: Testing | 27.0 - 34.0 pg | EXTERNAL | | | | performed at [facility], [address] | | LAB | | | | [address], | | | | | | [place] [address] | | | | + + + + + + | MCHC | 33.9Comment: Testing | 32.0 - 35.5 | EXTERNAL | | | | performed at [facility], [address] | g/dL | LAB | | | | [address], | | | | | | [place] [address] | | | | + + + + + + | RDW-CV | 40.7Comment: Testing | 37 - 53 fl | EXTERNAL | | | | performed at [facility], [address] | | LAB | | | | [address], | | | | | | [place] [address] | | | | + + + + + + | Platelet | 190Comment: Testing | 150 - 400 K/uL | EXTERNAL | | | Count | performed at [facility], [address] | | LAB | | | Plasma | [address], | | | | | | [place] [address] | | | | + + + + + + | MPV | 8.0Comment: Testing | fl | EXTERNAL | | | | performed at [facility], [address] | | LAB | | | | [address], | | | | | | [place] [address] | | | | + + + + + + | Differentia | AUTOMATEDComment: | | EXTERNAL | | | l Type | Testing performed at | | LAB | | | | [facility], [address] | | | | | | [place] | | | | | | [address] | | | | + + + + + + | % Segmented | 63.87Comment: Testing | % | EXTERNAL | | | | performed at [facility], [address] | | LAB | | | Neutrophils | [address], | | | | | | [place] [address] | | | | + + + + + + | % | 20.26Comment: Testing | % | EXTERNAL | | | Lymphocytes | performed at [facility], [address] | | LAB | | | | [address], | | | | | | [place] [address] | | | | + + + + + + | % Monocytes | 9.97Comment: Testing | % | EXTERNAL | | | | performed at [facility], [address] | | LAB | | | | [address], | | | | | | [place] [address] | | | | + + + + + + | % | 4.15Comment: Testing | % | EXTERNAL | | | Eosinophils | performed at [facility], [address] | | LAB | | | | [address], | | | | | | [place] [address] | | | | + + + + + + | % Basophils | 1.75Comment: Testing | % | EXTERNAL | | | | performed at [facility], [address] | | LAB | | | | [address], | | | | | | [place] [address] | | | | + + + + + + | Absolute | 2.91Comment: Testing | 1.90 - 7.40 | EXTERNAL | | | Segmented | performed at [facility], [address] | K/uL | LAB | | | Neutrophils | [address], | | | | | | [place] [address] | | | | + + + + + + | Absolute | 0.92 (L)Comment: Testing | 1.00 - 3.90 | EXTERNAL | | | Lymphocytes | performed at [facility], [address] | K/uL | LAB | | | | [address], | | | | | | [place] [address] | | | | + + + + + + | Absolute | 0.46Comment: Testing | 0.00 - 0.80 | EXTERNAL | | | Monocytes | performed at [facility], [address] | [address] | LAB | | | | [address], | | | | | | [place] [address] | | | | + + + + + + | Absolute | 0.19Comment: Testing | 0.00 - 0.50 | EXTERNAL | | | Eosinophils | performed at [facility], [address] | [address] | LAB | | | | [address], | | | | | | [place] [address] | | | | + + + + + + | Absolute | 0.08Comment: Testing | 0.00 - 0.10 | EXTERNAL | | | Basophils | performed at [facility], [address] | K/u[address] | LAB | | | | [address], | | | | | | [place] [address] | | | | + + + [...] + +---------+ + + Basic Metabolic Panel (04/27/2015 5:38 AM PDT) + + + + + + | Component | Value | Ref Range | Performed | Pathologist | | | | | At | Signature | + + + + + + | Na | 136Comment: Testing | 135 - 143 | EXTERNAL | | | | performed at [facility], [address] | mmol/L | LAB | | | | [address], | | | | | | [place] [address] | | | | + + + + + + | K | 4.2Comment: Testing | 3.5 - 4.9 | EXTERNAL | | | | performed at [facility], [address] | mmol/L | LAB | | | | [address], | | | | | | [place] [address] | | | | + + + + + + | Cl | 104Comment: Testing | 99 - 109 mmol/L | EXTERNAL | | | | performed at [facility], [address] | | LAB | | | | [address], | | | | | | [place] [address] | | | | + + + + + + | CO2 | 26Comment: Testing | 23 - 32 mmol/L | EXTERNAL | | | | performed at [facility], [address] | | LAB | | | | [address], | | | | | | [place] [address] | | | | + + + + + + | Anion Gap | 10Comment: Testing | 5 - 20 mmol/L | EXTERNAL | | | | performed at [facility], [address] | | LAB | | | | [address], | | | | | | [place] [address] | | | | + + + + + + | Glucose, | 96Comment: Testing | 65 - 99 mg/dL | EXTERNAL | | | Fasting | performed at [facility], [address] | | LAB | | | | [address], | | | | | | [place] [address] | | | | + + + + + + | BUN | 19Comment: Testing | 8 - 25 mg/dL | EXTERNAL | | | | performed at [facility], [address] | | LAB | | | | [address], | | | | | | [place] [address] | | | | + + + + + + | Creatinine | 0.94Comment: Testing | 0.70 - 1.30 | EXTERNAL | | | | performed at [facility], [address] | mg/dL | LAB | | | | [address], | | | | | | [place] [address] | | | | + + + + + + | BUN/Creatin | 20Comment: Testing | | EXTERNAL | | | ine Ratio | performed at [facility], [address] | | LAB | | | | [address], | | | | | | [place] [address] | | | | + + + + + + | Calcium | 8.7Comment: Testing | 8.5 - 10.5 | EXTERNAL | | | | performed at [facility], [address] | mg/dL | LAB | | | | [address], | | | | | | [place] [address] | | | | + + + [...] | | | | | | at [facility], [address] | | | | | | [address], | | | | | | [place] [address] | | | | + + + + + + + + | Specimen | + + | Blood specimen | | (specimen) | + + + +---------+ + + | Performing | Address | City/State/Zipcode | Phone Number | | Organization | | | | + +---------+ + + | EXTERNAL LAB | | | | + +---------+ + + POC Glucose (04/26/2015 9:08 PM PDT) + + + + + + | Component | Value | Ref Range | Performed | Pathologist | | | | | At | Signature | + + + + + + | Glucose, | 124 (H)Comment: Testing | 65 - 99 mg/dL | EXTERNAL | | | Fingerstick | performed at [facility];[address] | | LAB | | | | [address];[place] | | | | | | [address] | | | | + + + + + + + + | Specimen | + + | | + + + +---------+ + + | Performing | Address | City/State/Zipcode | Phone Number | | Organization | | | | + +---------+ + + | EXTERNAL LAB | | | | + +---------+ + + POC Glucose (04/26/2015 4:10 PM PDT) + + + + + + | Component | Value | Ref Range | Performed | Pathologist | | | | | At | Signature | + + + + + + | Glucose, | 141 (H)Comment: Testing | 65 - 99 mg/dL | EXTERNAL | | | Fingerstick | performed at [facility];[address] | | LAB | | | | [address];[place] | | | | | | [address] | | | | + + + + + + + + | Specimen | + + | | + + + +---------+ + + | Performing | Address | City/State/Zipcode | Phone Number | | Organization | | | | + +---------+ + + | EXTERNAL LAB | | | | + +---------+ + + POC Glucose (04/26/2015 11:11 AM PDT) + + + + + + | Component | Value | Ref Range | Performed | Pathologist | | | | | At | Signature | + + + + + + | Glucose, | 201 (H)Comment: Testing | 65 - 99 mg/dL | EXTERNAL | | | Fingerstick | performed at [facility];[address] | | LAB | | | | [address];[place] | | | | | | [address] | | | | + + + + + + + + | Specimen | + + | | + + + +---------+ + + | Performing | Address | City/State/Zipcode | Phone Number | | Organization | | | | + +---------+ + + | EXTERNAL LAB | | | | + +---------+ + + POC Glucose (04/26/2015 5:35 AM PDT) + + + + + + | Component | Value | Ref Range | Performed | Pathologist | | | | | At | Signature | + + + + + + | Glucose, | 91Comment: Testing | 65 - 99 mg/dL | EXTERNAL | | | Fingerstick | performed at [facility];[address] | | LAB | | | | [address];[place], [place] | | | | | | [address] | | | | + + + + + + + + | Specimen | + + | | + + + +---------+ + + | Performing | Address | City/State/Zipcode | Phone Number | | Organization | | | | + +---------+ + + | EXTERNAL LAB | | | | + +---------+ + + External Lab: CBC (04/26/2015 5:08 AM PDT) + + + + + + | Component | Value | Ref Range | Performed | Pathologist | | | | | At | Signature | + + + + + + | WBC | 5.95Comment: Testing | 3.80 - 11.00 | EXTERNAL | | | | performed at [facility], [address] | K/uL | LAB | | | | [address], | | | | | | [place] [address] | | | | + + + + + + | RED CELL | 2.52 (L)Comment: Testing | 4.20 - 5.70 | EXTERNAL | | | COUNT | performed at [facility], [address] | M/uL | LAB | | | | [address], | | | | | | [place] [address] | | | | + + + + + + | Hgb | 7.4 (L)Comment: Testing | 13.2 - 17.0 | EXTERNAL | | | | performed at [facility], [address] | g/dL | LAB | | | | [address], | | | | | | [place] [address] | | | | + + + + + + | Hematocrit, | 21.6 (L)Comment: Testing | 39.0 - 50.0 % | EXTERNAL | | | POC | performed at [facility], [address] | | LAB | | | | [address], | | | | | | [place] [address] | | | | + + + + + + | MCV | 85.7Comment: Testing | 80.0 - 100.0 fl | EXTERNAL | | | | performed at [facility], [address] | | LAB | | | | [address], | | | | | | [place] [address] | | | | + + + + + + | MCH | 29.6Comment: Testing | 27.0 - 34.0 pg | EXTERNAL | | | | performed at [facility], [address] | | LAB | | | | [address], | | | | | | [place] [address] | | | | + + + + + + | MCHC | 34.5Comment: Testing | 32.0 - 35.5 | EXTERNAL | | | | performed at [facility], [address] | g/dL | LAB | | | | [address], | | | | | | [place] [address] | | | | + + + + + + | RDW-CV | 40.7Comment: Testing | 37 - 53 fl | EXTERNAL | | | | performed at [facility], [address] | | LAB | | | | [address], | | | | | | [place] [address] | | | | + + + + + + | Platelet | 161Comment: Testing | 150 - 400 K/uL | EXTERNAL | | | Count | performed at [facility], [address] | | LAB | | | Plasma | [address], | | | | | | [place] [address] | | | | + + + + + + | MPV | 8.4Comment: Testing | fl | EXTERNAL | | | | performed at [facility], [address] | | LAB | | | | [address], | | | | | | [place] [address] | | | | + + + + + + | Differentia | AUTOMATEDComment: | | EXTERNAL | | | l Type | Testing performed at | | LAB | | | | [facility], [address] | | | | | | [place] | | | | | | [address] | | | | + + + + + + | % Segmented | 67.61Comment: Testing | % | EXTERNAL | | | | performed at [facility], [address] | | LAB | | | Neutrophils | [address], | | | | | | [place] [address] | | | | + + + + + + | % | 18.27Comment: Testing | % | EXTERNAL | | | Lymphocytes | performed at [facility], [address] | | LAB | | | | [address], | | | | | | [place] [address] | | | | + + + + + + | % Monocytes | 9.50Comment: Testing | % | EXTERNAL | | | | performed at [facility], [address] | | LAB | | | | [address], | | | | | | [place] [address] | | | | + + + + + + | % | 3.49Comment: Testing | % | EXTERNAL | | | Eosinophils | performed at [facility], [address] | | LAB | | | | [address], | | | | | | [place] [address] | | | | + + + + + + | % Basophils | 1.13Comment: Testing | % | EXTERNAL | | | | performed at [facility], [address] | | LAB | | | | [address], | | | | | | [place] [address] | | | | + + + + + + | Absolute | 4.02Comment: Testing | 1.90 - 7.40 | EXTERNAL | | | Segmented | performed at [facility], [address] | K/uL | LAB | | | Neutrophils | [address], | | | | | | [place] [address] | | | | + + + + + + | Absolute | 1.09Comment: Testing | 1.00 - 3.90 | EXTERNAL | | | Lymphocytes | performed at [facility], [address] | K/uL | LAB | | | | [address], | | | | | | [place] [address] | | | | + + + + + + | Absolute | 0.57Comment: Testing | 0.00 - 0.80 | EXTERNAL | | | Monocytes | performed at [facility], [address] | K[address]L | LAB | | | | [address], | | | | | | [place] [address] | | | | + + + + + + | Absolute | 0.21Comment: Testing | 0.00 - 0.50 | EXTERNAL | | | Eosinophils | performed at [facility], [address] | K/uL | LAB | | | | [address], | | | | | | [place] [address] | | | | + + + + + + | Absolute | 0.07Comment: Testing | 0.00 - 0.10 | EXTERNAL | | | Basophils | performed at [facility], [address] | K/uL | LAB | | | | [address], | | | | | | [place] [address] | | | | + + + [...] + +---------+ + + Basic Metabolic Panel (04/26/2015 5:08 AM PDT) + + + + + + | Component | Value | Ref Range | Performed | Pathologist | | | | | At | Signature | + + + + + + | Na | 134 (L)Comment: Testing | 135 - 143 | EXTERNAL | | | | performed at [facility], [address] | mmol/L | LAB | | | | [address], | | | | | | [place] [address] | | | | + + + + + + | K | 4.2Comment: Testing | 3.5 - 4.9 | EXTERNAL | | | | performed at [facility], [address] | mmol/L | LAB | | | | [address], | | | | | | [place] [address] | | | | + + + + + + | Cl | 104Comment: Testing | 99 - 109 mmol/L | EXTERNAL | | | | performed at [facility], [address] | | LAB | | | | [address], | | | | | | [place] [address] | | | | + + + + + + | CO2 | 28Comment: Testing | 23 - 32 mmol/L | EXTERNAL | | | | performed at [facility], [address] | | LAB | | | | [address], | | | | | | [place] [address] | | | | + + + + + + | Anion Gap | 6Comment: Testing | 5 - 20 mmol/L | EXTERNAL | | | | performed at [facility], [address] | | LAB | | | | [address], | | | | | | [place] [address] | | | | + + + + + + | Glucose, | 88Comment: Testing | 65 - 99 mg/dL | EXTERNAL | | | Fasting | performed at [facility], [address] | | LAB | | | | [address], | | | | | | [place] [address] | | | | + + + + + + | BUN | 24Comment: Testing | 8 - 25 mg/dL | EXTERNAL | | | | performed at [facility], [address] | | LAB | | | | [address], | | | | | | [place] [address] | | | | + + + + + + | Creatinine | 0.95Comment: Testing | 0.70 - 1.30 | EXTERNAL | | | | performed at [facility], [address] | mg/dL | LAB | | | | [address], | | | | | | [place] [address] | | | | + + + + + + | BUN/Creatin | 25Comment: Testing | | EXTERNAL | | | ine Ratio | performed at [facility], [address] | | LAB | | | | [address], | | | | | | [place] [address] | | | | + + + + + + | Calcium | 8.4 (L)Comment: Testing | 8.5 - 10.5 | EXTERNAL | | | | performed at [facility], [address] | mg/dL | LAB | | | | [address], | | | | | | [place] [address] | | | | + + + [...] | | | | | | at [facility], [address] | | | | | | [facility], | | | | | | [place] [address] | | | | + + + + + + + + | Specimen | + + | Blood specimen | | (specimen) | + + + +---------+ + + | Performing | Address | City/State/Zipcode | Phone Number | | Organization | | | | + +---------+ + + | EXTERNAL LAB | | | | + +---------+ + + POC Glucose (04/25/2015 9:22 PM PDT) + + + + + + | Component | Value | Ref Range | Performed | Pathologist | | | | | At | Signature | + + + + + + | Glucose, | 124 (H)Comment: Testing | 65 - 99 mg/dL | EXTERNAL | | | Fingerstick | performed at [facility];[address] | | LAB | | | | [address];[place] | | | | | | [address] | | | | + + + + + + + + | Specimen | + + | | + + + +---------+ + + | Performing | Address | City/State/Zipcode | Phone Number | | Organization | | | | + +---------+ + + | EXTERNAL LAB | | | | + +---------+ + + POC ISTAT, CG8, Arterial (04/25/2015 4:44 PM PDT) + + + + + + | Component | Value | Ref Range | Performed | Pathologist | | | | | At | Signature | + + + + + + | PH ART | REPORTED IN ERROR, | 7.350 - 7.450 | EXTERNAL | | | | PLEASE DISREGARD | | LAB | | | | RESULTS.Comment: TEST | | | | | | WAS CREDITED | | | | | | MISIDENTIFICATION PER | | | | | | S CJ [id number] | | | | | | JJSTesting performed at | | | | | | [facility] [place] [facility] | | | | | | [facility];[place], [place] | | | | | | [id number] ON 04/28 | | | | | | AT 2236: PREVIOUSLY | | | | | | REPORTED 7.217 | | | | + + + + + + | PCO2 ART | REPORTED IN ERROR, | 35 - 45 mmHg | EXTERNAL | | | | PLEASE DISREGARD | | LAB | | | | RESULTS.Comment: TEST | | | | | | WAS CREDITED | | | | | | MISIDENTIFICATION PER | | | | | | S [place] [id number] | | | | | | JJSTesting performed at | | | | | | [facility] [place];[place] | | | | | | [id number] ON 04/28 | | | | | | AT 2236: PREVIOUSLY | | | | | | REPORTED 42 | | | | + + + + + + | PO2 ART | REPORTED IN ERROR, | 80 - 105 mmHg | EXTERNAL | | | | PLEASE DISREGARD | | LAB | | | | RESULTS.Comment: TEST | | | | | | WAS CREDITED | | | | | | MISIDENTIFICATION PER | | | | | | S CJ [id number] | | | | | | JJSTesting performed at | | | | | | [place];[address];[place] | | | | | | [id number] ON 04/28 | | | | | | AT 2236: PREVIOUSLY | | | | | | REPORTED 152 | | | | + + + + + + | HCO3 ART | REPORTED IN ERROR, | 22 - 26 mmol/L | EXTERNAL | | | | PLEASE DISREGARD | | LAB | | | | RESULTS.Comment: TEST | | | | | | WAS CREDITED | | | | | | MISIDENTIFICATION PER | | | | | | S CJ [id number] | | | | | | JJSTesting performed at | | | | | | [facility] [place];[place] | | | | | | [id number] ON 04/28 | | | | | | AT 2236: PREVIOUSLY | | | | | | REPORTED 17 | | | | + + + + + + | POC | REPORTED IN ERROR, | 23 - 27 mEq/L | EXTERNAL | | | APPEARANCE | PLEASE DISREGARD | | LAB | | | UA | RESULTS.Comment: TEST | | | | | | WAS CREDITED | | | | | | MISIDENTIFICATION PER | | | | | | S CJ [id number] | | | | | | JJSTesting performed at | | | | | | [place];[address];[place] | | | | | | [id number] ON 04/28 | | | | | | AT 2236: PREVIOUSLY | | | | | | REPORTED 18 | | | | + + + + + + | Base | REPORTED IN ERROR, | 0.0 - 2.0 | EXTERNAL | | | deficit | PLEASE DISREGARD | mmol/L | LAB | | | | RESULTS.Comment: TEST | | | | | | WAS CREDITED | | | | | | MISIDENTIFICATION PER | | | | | | S C[place] [id number] | | | | | | JJSTesting performed at | | | | | | [facility] [place];[address];[place] | | | | | | [id number] ON 04/28 | | | | | | AT 2236: PREVIOUSLY | | | | | | REPORTED 11 | | | | + + + + + + | O2 SAT ART | REPORTED IN ERROR, | 95 - 98 % | EXTERNAL | | | | PLEASE DISREGARD | | LAB | | | | RESULTS.Comment: TEST | | | | | | WAS CREDITED | | | | | | MISIDENTIFICATION PER | | | | | | S CJ [id number] | | | | | | JJSTesting performed at | | | | | | [facility];[address];[place] | | | | | | [id number] ON 04/28 | | | | | | AT 2236: PREVIOUSLY | | | | | | REPORTED 99 | | | | + + + + + + | Sodium, POC | REPORTED IN ERROR, | 135 - 145 mEq/L | EXTERNAL | | | | PLEASE DISREGARD | | LAB | | | | RESULTS.Comment: TEST | | | | | | WAS CREDITED | | | | | | MISIDENTIFICATION PER | | | | | | S CJ [id number] | | | | | | JJSTesting performed at | | | | | | [facility];[address];[place] | | | | | | [id number] ON 04/28 | | | | | | AT 2236: PREVIOUSLY | | | | | | REPORTED 140 | | | | + + + + + + | Potassium, | REPORTED IN ERROR, | 3.5 - 5.0 mEq/L | EXTERNAL | | | POC | PLEASE DISREGARD | | LAB | | | | RESULTS.Comment: TEST | | | | | | WAS CREDITED | | | | | | MISIDENTIFICATION PER | | | | | | S CJ [id number] | | | | | | JJSTesting performed at | | | | | | [facility];[address] | | | | | | [facility];[place] | | | | | | [id number] ON 04/28 | | | | | | AT 2236: PREVIOUSLY | | | | | | REPORTED 4.3 | | | | + + + + + + | Ionized | REPORTED IN ERROR, | 1.12 - 1.32 | EXTERNAL | | | Calcium, | PLEASE DISREGARD | mmol/L | LAB | | | POC | RESULTS.Comment: TEST | | | | | | WAS CREDITED | | | | | | MISIDENTIFICATION PER | | | | | | S CJ [id number] | | | | | | JJSTesting performed at | | | | | | [facility];[address];[place], [place] | | | | | | [id number] ON 04/28 | | | | | | AT 2236: PREVIOUSLY | | | | | | REPORTED 1.04 | | | | + + + + + + | Glucose, | REPORTED IN ERROR, | 65 - 99 mg/dL | EXTERNAL | | | POC | PLEASE DISREGARD | | LAB | | | | RESULTS.Comment: TEST | | | | | | WAS CREDITED | | | | | | MISIDENTIFICATION PER | | | | | | S CJ [id number] | | | | | | JJSTesting performed at | | | | | | [facility];[address];[place], [place] | | | | | | [id number] ON 04/28 | | | | | | AT 2236: PREVIOUSLY | | | | | | REPORTED 222 | | | | + + + + + + | Hematocrit, | REPORTED IN ERROR, | 40.0 - 50.0 % | EXTERNAL | | | POC | PLEASE DISREGARD | | LAB | | | | RESULTS.Comment: TEST | | | | | | WAS CREDITED | | | | | | MISIDENTIFICATION PER | | | | | | S CJ [id number] | | | | | | JJSTesting performed at | | | | | | [facility];[address];[place] | | | | | | [id number] ON 04/28 | | | | | | AT 2236: PREVIOUSLY | | | | | | REPORTED 29 | | | | + + + + + + | Hemoglobin, | REPORTED IN ERROR, | 13.7 - 16.7 | EXTERNAL | | | POC | PLEASE DISREGARD | g/dL | LAB | | | | RESULTS.Comment: TEST | | | | | | WAS CREDITED | | | | | | MISIDENTIFICATION PER | | | | | | S CJ [id number] | | | | | | JJSTesting performed at | | | | | | [facility];[address];[place] | | | | | | [id number] ON 04/28 | | | | | | AT 2236: PREVIOUSLY | | | | | | REPORTED 9.9 | | | | + + + + + + + + | Specimen | + + | | + + + +---------+ + + | Performing | Address | City/State/Zipcode | Phone Number | | Organization | | | | + +---------+ + + | EXTERNAL LAB | | | | + +---------+ + + POC ISTAT, CG8, Arterial (04/25/2015 4:11 PM PDT) + + + + + + | Component | Value | Ref Range | Performed | Pathologist | | | | | At | Signature | + + + + + + | PH ART | REPORTED IN ERROR, | 7.350 - 7.450 | EXTERNAL | | | | PLEASE DISREGARD | | LAB | | | | RESULTS.Comment: TEST | | | | | | WAS CREDITED | | | | | | MISIDENTIFICATION PER | | | | | | S CJ [id number] Testing | | | | | | performed at [facility] | | | | | | [facility];[place], [place] | | | | | | [id number] ON 04/25 | | | | | | AT 1999: PREVIOUSLY | | | | | | REPORTED 7.332 | | | | + + + + + + | PCO2 ART | REPORTED IN ERROR, | 35 - 45 mmHg | EXTERNAL | | | | PLEASE DISREGARD | | LAB | | | | RESULTS.Comment: TEST | | | | | | WAS CREDITED | | | | | | MISIDENTIFICATION PER | | | | | | S CJ [id number] Testing | | | | | | performed at [facility];[address] | | | | | | [address];[place] | | | | | | [id number] ON 04/25 | | | | | | AT 1999: PREVIOUSLY | | | | | | REPORTED 37 | | | | + + + + + + | PO2 ART | REPORTED IN ERROR, | 80 - 105 mmHg | EXTERNAL | | | | PLEASE DISREGARD | | LAB | | | | RESULTS.Comment: TEST | | | | | | WAS CREDITED | | | | | | MISIDENTIFICATION PER | | | | | | S CJ [id number] Testing | | | | | | performed at [facility];[address] | | | | | | [address];[place] | | | | | | [id number] ON 04/25 | | | | | | AT 1999: PREVIOUSLY | | | | | | REPORTED 110 | | | | + + + + + + | HCO3 ART | REPORTED IN ERROR, | 22 - 26 mmol/L | EXTERNAL | | | | PLEASE DISREGARD | | LAB | | | | RESULTS.Comment: TEST | | | | | | WAS CREDITED | | | | | | MISIDENTIFICATION PER | | | | | | S CJ [id number] Testing | | | | | | performed at [facility];[address] | | | | | | [address];[place] | | | | | | [id number] ON 04/25 | | | | | | AT 1999: PREVIOUSLY | | | | | | REPORTED 20 | | | | + + + + + + | POC | REPORTED IN ERROR, | 23 - 27 mEq/L | EXTERNAL | | | APPEARANCE | PLEASE DISREGARD | | LAB | | | UA | RESULTS.Comment: TEST | | | | | | WAS CREDITED | | | | | | MISIDENTIFICATION PER | | | | | | S CJ [id number] Testing | | | | | | performed at [facility];[address] | | | | | | [address];[place] | | | | | | [id number] ON 04/25 | | | | | | AT 1999: PREVIOUSLY | | | | | | REPORTED 21 | | | | + + + + + + | Base | REPORTED IN ERROR, | 0.0 - 2.0 | EXTERNAL | | | deficit | PLEASE DISREGARD | mmol/L | LAB | | | | RESULTS.Comment: TEST | | | | | | WAS CREDITED | | | | | | MISIDENTIFICATION PER | | | | | | S [place] [id number] Testing | | | | | | performed at [facility];[address] | | | | | | [facility];[place], [place] | | | | | | [id number] ON 04/25 | | | | | | AT 1999: PREVIOUSLY | | | | | | REPORTED 6 | | | | + + + + + + | O2 SAT ART | REPORTED IN ERROR, | 95 - 98 % | EXTERNAL | | | | PLEASE DISREGARD | | LAB | | | | RESULTS.Comment: TEST | | | | | | WAS CREDITED | | | | | | MISIDENTIFICATION PER | | | | | | S [place] [id number] Testing | | | | | | performed at [facility];[address] | | | | | | [facility];[place], [place] | | | | | | [id number] ON 04/25 | | | | | | AT 1999: PREVIOUSLY | | | | | | REPORTED 98 | | | | + + + + + + | Sodium, POC | REPORTED IN ERROR, | 135 - 145 mEq/L | EXTERNAL | | | | PLEASE DISREGARD | | LAB | | | | RESULTS.Comment: TEST | | | | | | WAS CREDITED | | | | | | MISIDENTIFICATION PER | | | | | | S JC [id number] Testing | | | | | | performed at [facility];[address] | | | | | | [address];[place] | | | | | | [id number] ON 04/25 | | | | | | AT 1999: PREVIOUSLY | | | | | | REPORTED 138 | | | | + + + + + + | Potassium, | REPORTED IN ERROR, | 3.5 - 5.0 mEq/L | EXTERNAL | | | POC | PLEASE DISREGARD | | LAB | | | | RESULTS.Comment: TEST | | | | | | WAS CREDITED | | | | | | MISIDENTIFICATION PER | | | | | | S CJ [id number] Testing | | | | | | performed at [facility];[address] | | | | | | [address];[place] | | | | | | [id number] ON 04/25 | | | | | | AT 1999: PREVIOUSLY | | | | | | REPORTED 5.9 | | | | + + + + + + | Ionized | REPORTED IN ERROR, | 1.12 - 1.32 | EXTERNAL | | | Calcium, | PLEASE DISREGARD | mmol/L | LAB | | | POC | RESULTS.Comment: TEST | | | | | | WAS CREDITED | | | | | | MISIDENTIFICATION PER | | | | | | S CJ [id number] Testing | | | | | | performed at [facility];[address] | | | [address];[place] | | | | | | [id number] ON 04/25 | | | | | | AT 1999: PREVIOUSLY | | | | | | REPORTED 1.03 | | | | + + + + + + | Glucose, | REPORTED IN ERROR, | 65 - 99 mg/dL | EXTERNAL | | | POC | PLEASE DISREGARD | | LAB | | | | RESULTS.Comment: TEST | | | | | | WAS CREDITED | | | | | | MISIDENTIFICATION PER | | | | | | S CJ [id number] Testing | | | | | | performed at [facility];[address] | | | | | | [address];[place] | | | | | | [id number] ON 04/25 | | | | | | AT 1999: PREVIOUSLY | | | | | | REPORTED 185 | | | | + + + + + + | Hematocrit, | REPORTED IN ERROR, | 40.0 - 50.0 % | EXTERNAL | | | POC | PLEASE DISREGARD | | LAB | | | | RESULTS.Comment: TEST | | | | | | WAS CREDITED | | | | | | MISIDENTIFICATION PER | | | | | | S CJ [id number] Testing | | | | | | performed at [facility];[address] | | | | | | [address];[place] | | | | | | [id number] ON 04/25 | | | | | | AT 1999: PREVIOUSLY | | | | | | REPORTED 30 | | | | + + + + + + | Hemoglobin, | REPORTED IN ERROR, | 13.7 - 16.7 | EXTERNAL | | | POC | PLEASE DISREGARD | g/dL | LAB | | | | RESULTS.Comment: TEST | | | | | | WAS CREDITED | | | | | | MISIDENTIFICATION PER | | | | | | S CJ [id number] Testing | | | | | | performed at [facility] | | | | | | [facility];[place], [place] | | | | | | [id number] ON 04/25 | | | | | | AT 2000: PREVIOUSLY | | | | | | REPORTED 10.2 | | | | + + + + + + + + | Specimen | + + | | + + + +---------+ + + | Performing | Address | City/State/Zipcode | Phone Number | | Organization | | | | + +---------+ + + | EXTERNAL LAB | | | | + +---------+ + + POC Glucose (04/25/2015 3:51 PM PDT) + + + + + + | Component | Value | Ref Range | Performed | Pathologist | | | | | At | Signature | + + + + + + | Glucose, | 254 (H)Comment: Testing | 65 - 99 mg/dL | EXTERNAL | | | Fingerstick | performed at [facility];[address] | | LAB | | | | [address];[place], [place] | | | | | | [id number] | | | | + + + + + + + + | Specimen | + + | | + + + +---------+ + + | Performing | Address | City/State/Zipcode | Phone Number | | Organization | | | | + +---------+ + + | EXTERNAL LAB | | | | + +---------+ + + POC ISTAT, CG8, Arterial (04/25/2015 3:40 PM PDT) + + + + + + | Component | Value | Ref Range | Performed | Pathologist | | | | | At | Signature | + + + + + + | PH ART | REPORTED IN ERROR, | 7.350 - 7.450 | EXTERNAL | | | | PLEASE DISREGARD | | LAB | | | | RESULTS.Comment: TEST | | | | | | WAS CREDITED | | | | | | MISIDENTIFICATION PER | | | | | | S CJ [id number] | | | | | | JJSTesting performed at | | | | | | [facility];[address] [place] [address] | | | | | | [address];[place] | | | | | | [id number] ON 04/28 | | | | | | AT 2235: PREVIOUSLY | | | | | | REPORTED 7.378 | | | | + + + + + + | PCO2 ART | REPORTED IN ERROR, | 35 - 45 mmHg | EXTERNAL | | | | PLEASE DISREGARD | | LAB | | | | RESULTS.Comment: TEST | | | | | | WAS CREDITED | | | | | | MISIDENTIFICATION PER | | | | | | S CJ [id number] | | | | | | JJSTesting performed at | | | | | | [facility];[address];[place] | | | | | | [id number] ON 04/28 | | | | | | AT 2235: PREVIOUSLY | | | | | | REPORTED 37 | | | | + + + + + + | PO2 ART | REPORTED IN ERROR, | 80 - 105 mmHg | EXTERNAL | | | | PLEASE DISREGARD | | LAB | | | | RESULTS.Comment: TEST | | | | | | WAS CREDITED | | | | | | MISIDENTIFICATION PER | | | | | | S CJ [id number] | | | | | | JJSTesting performed at | | | | | | [facility];[address] | | | | | | [place] [address];[place] | | | | | | [id number] ON 04/28 | | | | | | AT 2235: PREVIOUSLY | | | | | | REPORTED 181 | | | | + + + + + + | HCO3 ART | REPORTED IN ERROR, | 22 - 26 mmol/L | EXTERNAL | | | | PLEASE DISREGARD | | LAB | | | | RESULTS.Comment: TEST | | | | | | WAS CREDITED | | | | | | MISIDENTIFICATION PER | | | | | | S CJ [id number] | | | | | | JJSTesting performed at | | | | | | [facility];[address] | | | | | | [address];[place] | | | | | | [id number] ON 04/28 | | | | | | AT 2235: PREVIOUSLY | | | | | | REPORTED 22 | | | | + + + + + + | POC | REPORTED IN ERROR, | 23 - 27 mEq/L | EXTERNAL | | | APPEARANCE | PLEASE DISREGARD | | LAB | | | UA | RESULTS.Comment: TEST | | | | | | WAS CREDITED | | | | | | MISIDENTIFICATION PER | | | | | | S CJ [id number] | | | | | | JJSTesting performed at | | | | | | [facility];[address];[place] | | | | | | [id number] ON 04/28 | | | | | | AT 2235: PREVIOUSLY | | | | | | REPORTED 23 | | | | + + + + + + | Base | REPORTED IN ERROR, | 0.0 - 2.0 | EXTERNAL | | | deficit | PLEASE DISREGARD | mmol/L | LAB | | | | RESULTS.Comment: TEST | | | | | | WAS CREDITED | | | | | | MISIDENTIFICATION PER | | | | | | S CJ [id number] | | | | | | JJSTesting performed at | | | | | | [facility];[address];[place] | | | | | | [id number] ON 04/28 | | | | | | AT 2235: PREVIOUSLY | | | | | | REPORTED 3 | | | | + + + + + + | O2 SAT ART | REPORTED IN ERROR, | 95 - 98 % | EXTERNAL | | | | PLEASE DISREGARD | | LAB | | | | RESULTS.Comment: TEST | | | | | | WAS CREDITED | | | | | | MISIDENTIFICATION PER | | | | | | S CJ [id number] | | | | | | JJSTesting performed at | | | | | | [facility];[address];[place] | | | | | | [id number] ON 04/28 | | | | | | AT 2235: PREVIOUSLY | | | | | | REPORTED 100 | | | | + + + + + + | Sodium, POC | REPORTED IN ERROR, | 135 - 145 mEq/L | EXTERNAL | | | | PLEASE DISREGARD | | LAB | | | | RESULTS.Comment: TEST | | | | | | WAS CREDITED | | | | | | MISIDENTIFICATION PER | | | | | | S CJ [id number] | | | | | | JJSTesting performed at | | | | | | [facility];[address];[place] | | | | | | [id number] ON 04/28 | | | | | | AT 2235: PREVIOUSLY | | | | | | REPORTED 138 | | | | + + + + + + | Potassium, | REPORTED IN ERROR, | 3.5 - 5.0 mEq/L | EXTERNAL | | | POC | PLEASE DISREGARD | | LAB | | | | RESULTS.Comment: TEST | | | | | | WAS CREDITED | | | | | | MISIDENTIFICATION PER | | | | | | S CJ [id number] | | | | | | JJSTesting performed at | | | | | | [facility];[address];[place] | | | | | | [id number] ON 04/28 | | | | | | AT 2235: PREVIOUSLY | | | | | | REPORTED 6.2 | | | | + + + + + + | Ionized | REPORTED IN ERROR, | 1.12 - 1.32 | EXTERNAL | | | Calcium, | PLEASE DISREGARD | mmol/L | LAB | | | POC | RESULTS.Comment: TEST | | | | | | WAS CREDITED | | | | | | MISIDENTIFICATION PER | | | | | | S CJ [id number] | | | | | | JJSTesting performed at | | | | | | [facility];[address];[place] | | | | | | [id number] ON 04/28 | | | | | | AT 2235: PREVIOUSLY | | | | | | REPORTED 1.03 | | | | + + + + + + | Glucose, | REPORTED IN ERROR, | 65 - 99 mg/dL | EXTERNAL | | | POC | PLEASE DISREGARD | | LAB | | | | RESULTS.Comment: TEST | | | | | | WAS CREDITED | | | | | | MISIDENTIFICATION PER | | | | | | S CJ [id number] | | | | | | JJSTesting performed at | | | | | | [facility];[address];[place] | | | | | | [id number] ON 04/28 | | | | | | AT 2235: PREVIOUSLY | | | | | | REPORTED 191 | | | | + + + + + + | Hematocrit, | REPORTED IN ERROR, | 40.0 - 50.0 % | EXTERNAL | | | POC | PLEASE DISREGARD | | LAB | | | | RESULTS.Comment: TEST | | | | | | WAS CREDITED | | | | | | MISIDENTIFICATION PER | | | | | | S CJ [id number] | | | | | | JJSTesting performed at | | | | | | [facility];[address];[place], [place] | | | | | | [id number] ON 04/28 | | | | | | AT 2235: PREVIOUSLY | | | | | | REPORTED 32 | | | | + + + + + + | Hemoglobin, | REPORTED IN ERROR, | 13.7 - 16.7 | EXTERNAL | | | POC | PLEASE DISREGARD | g/dL | LAB | | | | RESULTS.Comment: TEST | | | | | | WAS CREDITED | | | | | | MISIDENTIFICATION PER | | | | | | S CJ [id number] | | | | | | JJSTesting performed at | | | | | | [facility];[address];[place], [place] | | | | | | [id number] ON 04/28 | | | | | | AT 2235: PREVIOUSLY | | | | | | REPORTED 10.9 | | | | + + + + + + + + | Specimen | + + | | + + + +---------+ + + | Performing | Address | City/State/Zipcode | Phone Number | | Organization | | | | + +---------+ + + | EXTERNAL LAB | | | | + +---------+ + + POC ISTAT, CG8, Arterial (04/25/2015 3:12 PM PDT) + + + + + + | Component | Value | Ref Range | Performed | Pathologist | | | | | At | Signature | + + + + + + | PH ART | REPORTED IN ERROR, | 7.350 - 7.450 | EXTERNAL | | | | PLEASE DISREGARD | | LAB | | | | RESULTS.Comment: TEST | | | | | | WAS CREDITED | | | | | | MISIDENTIFICATION PER | | | | | | S CJ [id number] | | | | | | JJSTesting performed at | | | | | | [facility];[address];[place] | | | | | | [id number] ON 04/28 | | | | | | AT 2234: PREVIOUSLY | | | | | | REPORTED 7.395 | | | | + + + + + + | PCO2 ART | REPORTED IN ERROR, | 35 - 45 mmHg | EXTERNAL | | | | PLEASE DISREGARD | | LAB | | | | RESULTS.Comment: TEST | | | | | | WAS CREDITED | | | | | | MISIDENTIFICATION PER | | | | | | S CJ [id number] | | | | | | JJSTesting performed at | | | | | | [facility];[address];[place] | | | | | | [id number] ON 04/28 | | | | | | AT 2234: PREVIOUSLY | | | | | | REPORTED 37 | | | | + + + + + + | PO2 ART | REPORTED IN ERROR, | 80 - 105 mmHg | EXTERNAL | | | | PLEASE DISREGARD | | LAB | | | | RESULTS.Comment: TEST | | | | | | WAS CREDITED | | | | | | MISIDENTIFICATION PER | | | | | | S CJ [id number] | | | | | | JJSTesting performed at | | | | | | [facility];[address];[place] | | | | | | [id number] ON 04/28 | | | | | | AT 2234: PREVIOUSLY | | | | | | REPORTED 237 | | | | + + + + + + | HCO3 ART | REPORTED IN ERROR, | 22 - 26 mmol/L | EXTERNAL | | | | PLEASE DISREGARD | | LAB | | | | RESULTS.Comment: TEST | | | | | | WAS CREDITED | | | | | | MISIDENTIFICATION PER | | | | | | S CJ [id number] | | | | | | JJSTesting performed at | | | | | | [facility];[address] | | | | | | [place] | | | | | | [id number] ON 04/28 | | | | | | AT 2234: PREVIOUSLY | | | | | | REPORTED 23 | | | | + + + + + + | POC | REPORTED IN ERROR, | 23 - 27 mEq/L | EXTERNAL | | | APPEARANCE | PLEASE DISREGARD | | LAB | | | UA | RESULTS.Comment: TEST | | | | | | WAS CREDITED | | | | | | MISIDENTIFICATION PER | | | | | | S CJ [id number] | | | | | | JJSTesting performed at | | | | | | [facility];[address] | | | | | | [place] | | | | | | [id number] ON 04/28 | | | | | | AT 2234: PREVIOUSLY | | | | | | REPORTED 24 | | | | + + + + + + | Base | REPORTED IN ERROR, | 0.0 - 2.0 | EXTERNAL | | | deficit | PLEASE DISREGARD | mmol/L | LAB | | | | RESULTS.Comment: TEST | | | | | | WAS CREDITED | | | | | | MISIDENTIFICATION PER | | | | | | S CJ [id number] | | | | | | JJSTesting performed at | | | | | | [facility];[address] | | | | | | [address];[place] | | | | | | [id number] ON 04/28 | | | | | | AT 2234: PREVIOUSLY | | | | | | REPORTED 2 | | | | + + + + + + | O2 SAT ART | REPORTED IN ERROR, | 95 - 98 % | EXTERNAL | | | | PLEASE DISREGARD | | LAB | | | | RESULTS.Comment: TEST | | | | | | WAS CREDITED | | | | | | MISIDENTIFICATION PER | | | | | | S CJ [id number] | | | | | | JJSTesting performed at | | | | | | [facility];[address];[place] | | | | | | [id number] ON 04/28 | | | | | | AT 2234: PREVIOUSLY | | | | | | REPORTED 100 | | | | + + + + + + | Sodium, POC | REPORTED IN ERROR, | 135 - 145 mEq/L | EXTERNAL | | | | PLEASE DISREGARD | | LAB | | | | RESULTS.Comment: TEST | | | | | | WAS CREDITED | | | | | | MISIDENTIFICATION PER | | | | | | S CJ [id number] | | | | | | JJSTesting performed at | | | | | | [facility];[address] | | | | | | [address];[place] | | | | | | [id number] ON 04/28 | | | | | | AT 2234: PREVIOUSLY | | | | | | REPORTED 138 | | | | + + + + + + | Potassium, | REPORTED IN ERROR, | 3.5 - 5.0 mEq/L | EXTERNAL | | | POC | PLEASE DISREGARD | | LAB | | | | RESULTS.Comment: TEST | | | | | | WAS CREDITED | | | | | | MISIDENTIFICATION PER | | | | | | S CJ [id number] | | | | | | JJSTesting performed at | | | | | | [facility];[address];[place] | | | | | | [id number] ON 04/28 | | | | | | AT 2234: PREVIOUSLY | | | | | | REPORTED 5.2 | | | | + + + + + + | Ionized | REPORTED IN ERROR, | 1.12 - 1.32 | EXTERNAL | | | Calcium, | PLEASE DISREGARD | mmol/L | LAB | | | POC | RESULTS.Comment: TEST | | | | | | WAS CREDITED | | | | | | MISIDENTIFICATION PER | | | | | | S CJ [id number] | | | | | | JJSTesting performed at | | | | | | [facility] [place];[place], [place] | | | | | | [id number] ON 04/28 | | | | | | AT 2234: PREVIOUSLY | | | | | | REPORTED 1.04 | | | | + + + + + + | Glucose, | REPORTED IN ERROR, | 65 - 99 mg/dL | EXTERNAL | | | POC | PLEASE DISREGARD | | LAB | | | | RESULTS.Comment: TEST | | | | | | WAS CREDITED | | | | | | MISIDENTIFICATION PER | | | | | | S C[place] [id number] | | | | | | JJSTesting performed at | | | | | | [facility] [place];[address];[place], [place] | | | | | | [id number] ON 04/28 | | | | | | AT 2234: PREVIOUSLY | | | | | | REPORTED 195 | | | | + + + + + + | Hematocrit, | REPORTED IN ERROR, | 40.0 - 50.0 % | EXTERNAL | | | POC | PLEASE DISREGARD | | LAB | | | | RESULTS.Comment: TEST | | | | | | WAS CREDITED | | | | | | MISIDENTIFICATION PER | | | | | | S CJ [id number] | | | | | | JJSTesting performed at | | | | | | [facility] [place] | | | | | | [place] | | | | | | [id number] ON 04/28 | | | | | | AT 2234: PREVIOUSLY | | | | | | REPORTED 31 | | | | + + + + + + | Hemoglobin, | REPORTED IN ERROR, | 13.7 - 16.7 | EXTERNAL | | | POC | PLEASE DISREGARD | g/dL | LAB | | | | RESULTS.Comment: TEST | | | | | | WAS CREDITED | | | | | | MISIDENTIFICATION PER | | | | | | S [place] [id number] | | | | | | JJSTesting performed at | | | | | | [facility] [place];[address] | | | | | | [place] | | | | | | [id number] ON 04/28 | | | | | | AT 2234: PREVIOUSLY | | | | | | REPORTED 10.5 | | | | + + + + + + + + | Specimen | + + | | + + + +---------+ + + | Performing | Address | City/State/Zipcode | Phone Number | | Organization | | | | + +---------+ + + | EXTERNAL LAB | | | | + +---------+ + + Potassium (04/25/2015 3:11 PM PDT) + + + + + + | Component | Value | Ref Range | Performed | Pathologist | | | | | At | Signature | + + + + + + | K | 4.3Comment: Testing | 3.5 - 4.9 | EXTERNAL | | | | performed at [facility] [place];[address] | mmol/L | LAB | | | | [address];[place] | | | | | | [id number] | | | | + + + + + + + + | Specimen | + + | Blood specimen | | (specimen) | + + + +---------+ + + | Performing | Address | City/State/Zipcode | Phone Number | | Organization | | | | + +---------+ + + | EXTERNAL LAB | | | | + +---------+ + + POC AISHA COE Arterial (04/25/2015 2:41 PM PDT) + + + + + + | Component | Value | Ref Range | Performed | Pathologist | | | | | At | Signature | + + + + + + | PH ART | REPORTED IN ERROR, | 7.350 - 7.450 | EXTERNAL | | | | PLEASE DISREGARD | | LAB | | | | RESULTS.Comment: TEST | | | | | | WAS CREDITED | | | | | | MISIDENTIFICATION PER | | | | | | S CJ [id number] | | | | | | JJSTesting performed at | | | | | | [facility] [place];[address] | | | | | | [place] | | | | | | [id number] ON 04/28 | | | | | | AT 2233: PREVIOUSLY | | | | | | REPORTED 7.414 | | | | + + + + + + | PCO2 ART | REPORTED IN ERROR, | 35 - 45 mmHg | EXTERNAL | | | | PLEASE DISREGARD | | LAB | | | | RESULTS.Comment: TEST | | | | | | WAS CREDITED | | | | | | MISIDENTIFICATION PER | | | | | | S C[place] [id number] | | | | | | JJSTesting performed at | | | | | | [place];[address];[place] | | | | | | [id number] ON 04/28 | | | | | | AT 2233: PREVIOUSLY | | | | | | REPORTED 37 | | | | + + + + + + | PO2 ART | REPORTED IN ERROR, | 80 - 105 mmHg | EXTERNAL | | | | PLEASE DISREGARD | | LAB | | | | RESULTS.Comment: TEST | | | | | | WAS CREDITED | | | | | | MISIDENTIFICATION PER | | | | | | S CJ [id number] | | | | | | JJSTesting performed at | | | | | | [facility];[address] | | | [address];[place] | | | | | | [id number] ON 04/28 | | | | | | AT 2233: PREVIOUSLY | | | | | | REPORTED 238 | | | | + + + + + + | HCO3 ART | REPORTED IN ERROR, | 22 - 26 mmol/L | EXTERNAL | | | | PLEASE DISREGARD | | LAB | | | | RESULTS.Comment: TEST | | | | | | WAS CREDITED | | | | | | MISIDENTIFICATION PER | | | | | | S CJ [id number] | | | | | | JJSTesting performed at | | | | | | [facility];[address];[place] | | | | | | [id number] ON 04/28 | | | | | | AT 2233: PREVIOUSLY | | | | | | REPORTED 24 | | | | + + + + + + | POC | REPORTED IN ERROR, | 23 - 27 mEq/L | EXTERNAL | | | APPEARANCE | PLEASE DISREGARD | | LAB | | | UA | RESULTS.Comment: TEST | | | | | | WAS CREDITED | | | | | | MISIDENTIFICATION PER | | | | | | S CJ [id number] | | | | | | JJSTesting performed at | | | | | | [facility];[address];[place] | | | | | | [id number] ON 04/28 | | | | | | AT 2233: PREVIOUSLY | | | | | | REPORTED 25 | | | | + + + + + + | Base | REPORTED IN ERROR, | 0.0 - 2.0 | EXTERNAL | | | deficit | PLEASE DISREGARD | mmol/L | LAB | | | | RESULTS.Comment: TEST | | | | | | WAS CREDITED | | | | | | MISIDENTIFICATION PER | | | | | | S CJ [id number] | | | | | | JJSTesting performed at | | | | | | [facility];[address];[place] | | | | | | [id number] ON 04/28 | | | | | | AT 2233: PREVIOUSLY | | | | | | REPORTED 1 | | | | + + + + + + | O2 SAT ART | REPORTED IN ERROR, | 95 - 98 % | EXTERNAL | | | | PLEASE DISREGARD | | LAB | | | | RESULTS.Comment: TEST | | | | | | WAS CREDITED | | | | | | MISIDENTIFICATION PER | | | | | | S CJ [id number] | | | | | | JJSTesting performed at | | | | | | [facility];[address] | [address];[place], [place] | | | | | | [id number] ON 04/28 | | | | | | AT 2233: PREVIOUSLY | | | | | | REPORTED 100 | | | | + + + + + + | Sodium, POC | REPORTED IN ERROR, | 135 - 145 mEq/L | EXTERNAL | | | | PLEASE DISREGARD | | LAB | | | | RESULTS.Comment: TEST | | | | | | WAS CREDITED | | | | | | MISIDENTIFICATION PER | | | | | | S CJ [id number] | | | | | | JJSTesting performed at | | | | | | [facility];[address] | | | | | | [facility];[place] | | | | | | [id number] ON 04/28 | | | | | | AT 2233: PREVIOUSLY | | | | | | REPORTED 138 | | | | + + + + + + | Potassium, | REPORTED IN ERROR, | 3.5 - 5.0 mEq/L | EXTERNAL | | | POC | PLEASE DISREGARD | | LAB | | | | RESULTS.Comment: TEST | | | | | | WAS CREDITED | | | | | | MISIDENTIFICATION PER | | | | | | S CJ [id number] | | | | | | JJSTesting performed at | | | | | | [facility];[address];[place] | | | | | | [id number] ON 04/28 | | | | | | AT 2233: PREVIOUSLY | | | | | | REPORTED 4.9 | | | | + + + + + + | Ionized | REPORTED IN ERROR, | 1.12 - 1.32 | EXTERNAL | | | Calcium, | PLEASE DISREGARD | mmol/L | LAB | | | POC | RESULTS.Comment: TEST | | | | | | WAS CREDITED | | | | | | MISIDENTIFICATION PER | | | | | | S CJ [id number] | | | | | | JJSTesting performed at | | | | | | [facility];[address] | | | | | | [place] [address];[place] | | | | | | [id number] ON 04/28 | | | | | | AT 2233: PREVIOUSLY | | | | | | REPORTED 1.03 | | | | + + + + + + | Glucose, | REPORTED IN ERROR, | 65 - 99 mg/dL | EXTERNAL | | | POC | PLEASE DISREGARD | | LAB | | | | RESULTS.Comment: TEST | | | | | | WAS CREDITED | | | | | | MISIDENTIFICATION PER | | | | | | S CJ [id number] | | | | | | JJSTesting performed at | | | | | | [facility];[address];[place] | | | | | | [id number] ON 04/28 | | | | | | AT 2233: PREVIOUSLY | | | | | | REPORTED 199 | | | | + + + + + + | Hematocrit, | REPORTED IN ERROR, | 40.0 - 50.0 % | EXTERNAL | | | POC | PLEASE DISREGARD | | LAB | | | | RESULTS.Comment: TEST | | | | | | WAS CREDITED | | | | | | MISIDENTIFICATION PER | | | | | | S CJ [id number] | | | | | | JJSTesting performed at | | | | | | [facility];[address];[place] | | | | | | [id number] ON 04/28 | | | | | | AT 2233: PREVIOUSLY | | | | | | REPORTED 33 | | | | + + + + + + | Hemoglobin, | REPORTED IN ERROR, | 13.7 - 16.7 | EXTERNAL | | | POC | PLEASE DISREGARD | g/dL | LAB | | | | RESULTS.Comment: TEST | | | | | | WAS CREDITED | | | | | | MISIDENTIFICATION PER | | | | | | S CJ [id number] | | | | | | JJSTesting performed at | | | | | | [facility];[address];[place] | | | | | | [id number] ON 04/28 | | | | | | AT 2233: PREVIOUSLY | | | | | | REPORTED 11.2 | | | | + + + + + + + + | Specimen | + + | | + + + +---------+ + + | Performing | Address | City/State/Zipcode | Phone Number | | Organization | | | | + +---------+ + + | EXTERNAL LAB | | | | + +---------+ + + POC ISTAT, CG8, Arterial (04/25/2015 2:10 PM PDT) + + + + + + | Component | Value | Ref Range | Performed | Pathologist | | | | | At | Signature | + + + + + + | PH ART | REPORTED IN ERROR, | 7.350 - 7.450 | EXTERNAL | | | | PLEASE DISREGARD | | LAB | | | | RESULTS.Comment: TEST | | | | | | WAS CREDITED | | | | | | MISIDENTIFICATION PER | | | | | | S CJ [id number] | | | | | | JJSTesting performed at | | | | | | [facility];[address] | | | | | | [address];[place] | | | | | | [id number] ON 04/28 | | | | | | AT 2232: PREVIOUSLY | | | | | | REPORTED 7.425 | | | | + + + + + + | PCO2 ART | REPORTED IN ERROR, | 35 - 45 mmHg | EXTERNAL | | | | PLEASE DISREGARD | | LAB | | | | RESULTS.Comment: TEST | | | | | | WAS CREDITED | | | | | | MISIDENTIFICATION PER | | | | | | S CJ [id number] | | | | | | JJSTesting performed at | | | | | | [facility];[address];[place] | | | | | | [id number] ON 04/28 | | | | | | AT 2232: PREVIOUSLY | | | | | | REPORTED 37 | | | | + + + + + + | PO2 ART | REPORTED IN ERROR, | 80 - 105 mmHg | EXTERNAL | | | | PLEASE DISREGARD | | LAB | | | | RESULTS.Comment: TEST | | | | | | WAS CREDITED | | | | | | MISIDENTIFICATION PER | | | | | | S CJ [id number] | | | | | | JJSTesting performed at | | | | | | [facility];[address];[place] | | | | | | [id number] ON 04/28 | | | | | | AT 2232: PREVIOUSLY | | | | | | REPORTED 207 | | | | + + + + + + | HCO3 ART | REPORTED IN ERROR, | 22 - 26 mmol/L | EXTERNAL | | | | PLEASE DISREGARD | | LAB | | | | RESULTS.Comment: TEST | | | | | | WAS CREDITED | | | | | | MISIDENTIFICATION PER | | | | | | S CJ [id number] | | | | | | JJSTesting performed at | | | | | | [facility];[address];[place] | | | | | | [id number] ON 04/28 | | | | | | AT 2232: PREVIOUSLY | | | | | | REPORTED 24 | | | | + + + + + + | POC | REPORTED IN ERROR, | 23 - 27 mEq/L | EXTERNAL | | | APPEARANCE | PLEASE DISREGARD | | LAB | | | UA | RESULTS.Comment: TEST | | | | | | WAS CREDITED | | | | | | MISIDENTIFICATION PER | | | | | | S CJ [id number] | | | | | | JJSTesting performed at | | | | | | [facility];[address];[place] | | | | | | [id number] ON 04/28 | | | | | | AT 2232: PREVIOUSLY | | | | | | REPORTED 26 | | | | + + + + + + | Base | REPORTED IN ERROR, | 0 - 3 mEq/L | EXTERNAL | | | Excess, | PLEASE DISREGARD | | LAB | | | Arterial | RESULTS.Comment: TEST | | | | | | WAS CREDITED | | | | | | MISIDENTIFICATION PER | | | | | | S CJ [id number] | | | | | | JJSTesting performed at | | | | | | [facility];[address];[place] | | | | | | [id number] ON 04/28 | | | | | | AT 2232: PREVIOUSLY | | | | | | REPORTED 0 | | | | + + + + + + | O2 SAT ART | REPORTED IN ERROR, | 95 - 98 % | EXTERNAL | | | | PLEASE DISREGARD | | LAB | | | | RESULTS.Comment: TEST | | | | | | WAS CREDITED | | | | | | MISIDENTIFICATION PER | | | | | | S CJ [id number] | | | | | | JJSTesting performed at | | | | | | [facility];[address] | | | | | | [place] | | | | | | [id number] ON 04/28 | | | | | | AT 2232: PREVIOUSLY | | | | | | REPORTED 100 | | | | + + + + + + | Sodium, POC | REPORTED IN ERROR, | 135 - 145 mEq/L | EXTERNAL | | | | PLEASE DISREGARD | | LAB | | | | RESULTS.Comment: TEST | | | | | | WAS CREDITED | | | | | | MISIDENTIFICATION PER | | | | | | S CJ [id number] | | | | | | JJSTesting performed at | | | | | | [facility];[address] | | | | | | [place] | | | | | | [id number] ON 04/28 | | | | | | AT 2232: PREVIOUSLY | | | | | | REPORTED 138 | | | | + + + + + + | Potassium, | REPORTED IN ERROR, | 3.5 - 5.0 mEq/L | EXTERNAL | | | POC | PLEASE DISREGARD | | LAB | | | | RESULTS.Comment: TEST | | | | | | WAS CREDITED | | | | | | MISIDENTIFICATION PER | | | | | | S CJ [id number] | | | | | | JJSTesting performed at | | | | | | [facility];[address] | | | | | | [facility];[place], [place] | | | | | | [id number] ON 04/28 | | | | | | AT 2232: PREVIOUSLY | | | | | | REPORTED 4.7 | | | | + + + + + + | Ionized | REPORTED IN ERROR, | 1.12 - 1.32 | EXTERNAL | | | Calcium, | PLEASE DISREGARD | mmol/L | LAB | | | POC | RESULTS.Comment: TEST | | | | | | WAS CREDITED | | | | | | MISIDENTIFICATION PER | | | | | | S CJ [id number] | | | | | | JJSTesting performed at | | | | | | [facility];[address] | | | | | | [facility];[place], [place] | | | | | | [id number] ON 04/28 | | | | | | AT 2232: PREVIOUSLY | | | | | | REPORTED 1.02 | | | | + + + + + + | Glucose, | REPORTED IN ERROR, | 65 - 99 mg/dL | EXTERNAL | | | POC | PLEASE DISREGARD | | LAB | | | | RESULTS.Comment: TEST | | | | | | WAS CREDITED | | | | | | MISIDENTIFICATION PER | | | | | | S CJ [id number] | | | | | | JJSTesting performed at | | | | | | [facility];[address];[place] | | | | | | [id number] ON 04/28 | | | | | | AT 2232: PREVIOUSLY | | | | | | REPORTED 199 | | | | + + + + + + | Hematocrit, | REPORTED IN ERROR, | 40.0 - 50.0 % | EXTERNAL | | | POC | PLEASE DISREGARD | | LAB | | | | RESULTS.Comment: TEST | | | | | | WAS CREDITED | | | | | | MISIDENTIFICATION PER | | | | | | S CJ [id number] | | | | | | JJSTesting performed at | | | | | | [facility];[address];[place] | | | | | | [id number] ON 04/28 | | | | | | AT 2232: PREVIOUSLY | | | | | | REPORTED 35 | | | | + + + + + + | Hemoglobin, | REPORTED IN ERROR, | 13.7 - 16.7 | EXTERNAL | | | POC | PLEASE DISREGARD | g/dL | LAB | | | | RESULTS.Comment: TEST | | | | | | WAS CREDITED | | | | | | MISIDENTIFICATION PER | | | | | | S CJ [id number] | | | | | | JJSTesting performed at | | | | | | [facility];[address];[place], [place] | | | | | | [id number] ON 04/28 | | | | | | AT 2232: PREVIOUSLY | | | | | | REPORTED 11.9 | | | | + + + + + + + + | Specimen | + + | | + + + +---------+ + + | Performing | Address | City/State/Zipcode | Phone Number | | Organization | | | | + +---------+ + + | EXTERNAL LAB | | | | + +---------+ + + AISHA TERRAZAS Arterial (04/25/2015 1:39 PM PDT) + + + + + + | Component | Value | Ref Range | Performed | Pathologist | | | | | At | Signature | + + + + + + | PH ART | REPORTED IN ERROR, | 7.350 - 7.450 | EXTERNAL | | | | PLEASE DISREGARD | | LAB | | | | RESULTS.Comment: TEST | | | | | | WAS CREDITED | | | | | | MISIDENTIFICATION PER | | | | | | S CJ [id number] Testing | | | | | | performed at [facility];[address] | | | | | | [address];[place] | | | | | | [id number] ON 04/25 | | | | | | AT 2002: PREVIOUSLY | | | | | | REPORTED 7.406 | | | | + + + + + + | PCO2 ART | REPORTED IN ERROR, | 35 - 45 mmHg | EXTERNAL | | | | PLEASE DISREGARD | | LAB | | | | RESULTS.Comment: TEST | | | | | | WAS CREDITED | | | | | | MISIDENTIFICATION PER | | | | | | S CJ [id number] Testing | | | | | | performed at [facility];[address] | | | | | | [address];[place] | | | | | | [id number] ON 04/25 | | | | | | AT 2002: PREVIOUSLY | | | | | | REPORTED 42 | | | | + + + + + + | PO2 ART | REPORTED IN ERROR, | 80 - 105 mmHg | EXTERNAL | | | | PLEASE DISREGARD | | LAB | | | | RESULTS.Comment: TEST | | | | | | WAS CREDITED | | | | | | MISIDENTIFICATION PER | | | | | | S CJ [id number] Testing | | | | | | performed at [facility];[address] | | | | | | [address];[place] | | | | | | [id number] ON 04/25 | | | | | | AT 2002: PREVIOUSLY | | | | | | REPORTED 262 | | | | + + + + + + | HCO3 ART | REPORTED IN ERROR, | 22 - 26 mmol/L | EXTERNAL | | | | PLEASE DISREGARD | | LAB | | | | RESULTS.Comment: TEST | | | | | | WAS CREDITED | | | | | | MISIDENTIFICATION PER | | | | | | S CJ [id number] Testing | | | | | | performed at [facility];[address] | | | | | | [address];[place] | | | | | | [id number] ON 04/25 | | | | | | AT 2002: PREVIOUSLY | | | | | | REPORTED 27 | | | | + + + + + + | POC | REPORTED IN ERROR, | 23 - 27 mEq/L | EXTERNAL | | | APPEARANCE | PLEASE DISREGARD | | LAB | | | UA | RESULTS.Comment: TEST | | | | | | WAS CREDITED | | | | | | MISIDENTIFICATION PER | | | | | | S CJ [id number] Testing | | | | | | performed at [facility];[address] | | | | | | [facility];[place] | | | | | | [id number] ON 04/25 | | | | | | AT 2002: PREVIOUSLY | | | | | | REPORTED 28 | | | | + + + + + + | Base | REPORTED IN ERROR, | 0 - 3 mEq/L | EXTERNAL | | | Excess, | PLEASE DISREGARD | | LAB | | | Arterial | RESULTS.Comment: TEST | | | | | | WAS CREDITED | | | | | | MISIDENTIFICATION PER | | | | | | S CJ [id number] Testing | | | | | | performed at [facility];[address] | | | | | | [address];[place] | | | | | | [id number] ON 04/25 | | | | | | AT 2002: PREVIOUSLY | | | | | | REPORTED 2 | | | | + + + + + + | O2 SAT ART | REPORTED IN ERROR, | 95 - 98 % | EXTERNAL | | | | PLEASE DISREGARD | | LAB | | | | RESULTS.Comment: TEST | | | | | | WAS CREDITED | | | | | | MISIDENTIFICATION PER | | | | | | S CJ [id number] Testing | | | | | | performed at [facility];[address] | | | | | | [address];[place] | | | | | | [id number] ON 04/25 | | | | | | AT 2002: PREVIOUSLY | | | | | | REPORTED 100 | | | | + + + + + + | Sodium, POC | REPORTED IN ERROR, | 135 - 145 mEq/L | EXTERNAL | | | | PLEASE DISREGARD | | LAB | | | | RESULTS.Comment: TEST | | | | | | WAS CREDITED | | | | | | MISIDENTIFICATION PER | | | | | | S CJ [id number] Testing | | | | | | performed at [facility];[address] | | | | | | [address];[place] | | | | | | [id number] ON 04/25 | | | | | | AT 2002: PREVIOUSLY | | | | | | REPORTED 137 | | | | + + + + + + | Potassium, | REPORTED IN ERROR, | 3.5 - 5.0 mEq/L | EXTERNAL | | | POC | PLEASE DISREGARD | | LAB | | | | RESULTS.Comment: TEST | | | | | | WAS CREDITED | | | | | | MISIDENTIFICATION PER | | | | | | S CJ [id number] Testing | | | | | | performed at [facility];[address] | | | | | | [address];[place] | | | | | | [id number] ON 04/25 | | | | | | AT 2002: PREVIOUSLY | | | | | | REPORTED 4.6 | | | | + + + + + + | Ionized | REPORTED IN ERROR, | 1.12 - 1.32 | EXTERNAL | | | Calcium, | PLEASE DISREGARD | mmol/L | LAB | | | POC | RESULTS.Comment: TEST | | | | | | WAS CREDITED | | | | | | MISIDENTIFICATION PER | | | | | | S CJ [id number] Testing | | | | | | performed at [facility];[address] | | | | | | [address];[place] | | | | | | [id number] ON 04/25 | | | | | | AT 2002: PREVIOUSLY | | | | | | REPORTED 1.03 | | | | + + + + + + | Glucose, | REPORTED IN ERROR, | 65 - 99 mg/dL | EXTERNAL | | | POC | PLEASE DISREGARD | | LAB | | | | RESULTS.Comment: TEST | | | | | | WAS CREDITED | | | | | | MISIDENTIFICATION PER | | | | | | S CJ [id number] Testing | | | | | | performed at [facility];[address] | | | | | | [address];[place] | | | | | | [id number] ON 04/25 | | | | | | AT 2002: PREVIOUSLY | | | | | | REPORTED 191 | | | | + + + + + + | Hematocrit, | REPORTED IN ERROR, | 40.0 - 50.0 % | EXTERNAL | | | POC | PLEASE DISREGARD | | LAB | | | | RESULTS.Comment: TEST | | | | | | WAS CREDITED | | | | | | MISIDENTIFICATION PER | | | | | | S CJ [id number] Testing | | | | | | performed at [facility];[address] | | | | | | [address];[place] | | | | | | [id number] ON 04/25 | | | | | | AT 2002: PREVIOUSLY | | | | | | REPORTED 35 | | | | + + + + + + | Hemoglobin, | REPORTED IN ERROR, | 13.7 - 16.7 | EXTERNAL | | | POC | PLEASE DISREGARD | g/dL | LAB | | | | RESULTS.Comment: TEST | | | | | | WAS CREDITED | | | | | | MISIDENTIFICATION PER | | | | | | S CJ [id number] Testing | | | | | | performed at [facility];[address] | | | | | | [address];[place] | | | | | | [id number] ON 04/25 | | | | | | AT 2002: PREVIOUSLY | | | | | | REPORTED 11.9 | | | | + + + + + + + + | Specimen | + + | | + + + +---------+ + + | Performing | Address | City/State/Zipcode | Phone Number | | Organization | | | | + +---------+ + + | EXTERNAL LAB | | | | + +---------+ + + DAVID COE CG8, Arterial (04/25/2015 1:10 PM PDT) + + + + + + | Component | Value | Ref Range | Performed | Pathologist | | | | | At | Signature | + + + + + + | PH ART | REPORTED IN ERROR, | 7.350 - 7.450 | EXTERNAL | | | | PLEASE DISREGARD | | LAB | | | | RESULTS.Comment: TEST | | | | | | WAS CREDITED | | | | | | MISIDENTIFICATION PER | | | | | | S CJ [id number] | | | | | | JJSTesting performed at | | | | | | [facility];[address];[place] | | | | | | [id number] ON 04/28 | | | | | | AT 2232: PREVIOUSLY | | | | | | REPORTED 7.390 | | | | + + + + + + | PCO2 ART | REPORTED IN ERROR, | 35 - 45 mmHg | EXTERNAL | | | | PLEASE DISREGARD | | LAB | | | | RESULTS.Comment: TEST | | | | | | WAS CREDITED | | | | | | MISIDENTIFICATION PER | | | | | | S CJ [id number] | | | | | | JJSTesting performed at | | | | | | [facility];[address];[place] | | | | | | [id number] ON 04/28 | | | | | | AT 2232: PREVIOUSLY | | | | | | REPORTED 43 | | | | + + + + + + | PO2 ART | REPORTED IN ERROR, | 80 - 105 mmHg | EXTERNAL | | | | PLEASE DISREGARD | | LAB | | | | RESULTS.Comment: TEST | | | | | | WAS CREDITED | | | | | | MISIDENTIFICATION PER | | | | | | S CJ [id number] | | | | | | JJSTesting performed at | | | | | | [facility];[address] | | | [address];[place], [place] | | | | | | [id number] ON 04/28 | | | | | | AT 2232: PREVIOUSLY | | | | | | REPORTED 255 | | | | + + + + + + | HCO3 ART | REPORTED IN ERROR, | 22 - 26 mmol/L | EXTERNAL | | | | PLEASE DISREGARD | | LAB | | | | RESULTS.Comment: TEST | | | | | | WAS CREDITED | | | | | | MISIDENTIFICATION PER | | | | | | S CJ [id number] | | | | | | JJSTesting performed at | | | | | | [facility];[address] | | | | | | [facility];[place], [place] | | | | | | [id number] ON 04/28 | | | | | | AT 2232: PREVIOUSLY | | | | | | REPORTED 26 | | | | + + + + + + | POC | REPORTED IN ERROR, | 23 - 27 mEq/L | EXTERNAL | | | APPEARANCE | PLEASE DISREGARD | | LAB | | | UA | RESULTS.Comment: TEST | | | | | | WAS CREDITED | | | | | | MISIDENTIFICATION PER | | | | | | S CJ [id number] | | | | | | JJSTesting performed at | | | | | | [facility];[address];[place] | | | | | | [id number] ON 04/28 | | | | | | AT 2232: PREVIOUSLY | | | | | | REPORTED 27 | | | | + + + + + + | Base | REPORTED IN ERROR, | 0 - 3 mEq/L | EXTERNAL | | | Excess, | PLEASE DISREGARD | | LAB | | | Arterial | RESULTS.Comment: TEST | | | | | | WAS CREDITED | | | | | | MISIDENTIFICATION PER | | | | | | S CJ [id number] | | | | | | JJSTesting performed at | | | | | | [facility];[address];[place] | | | | | | [id number] ON 04/28 | | | | | | AT 2232: PREVIOUSLY | | | | | | REPORTED 1 | | | | + + + + + + | O2 SAT ART | REPORTED IN ERROR, | 95 - 98 % | EXTERNAL | | | | PLEASE DISREGARD | | LAB | | | | RESULTS.Comment: TEST | | | | | | WAS CREDITED | | | | | | MISIDENTIFICATION PER | | | | | | S CJ [id number] | | | | | | JJSTesting performed at | | | | | | [facility];[address] | | | | | | [address];[place] | | | | | | [id number] ON 04/28 | | | | | | AT 2232: PREVIOUSLY | | | | | | REPORTED 100 | | | | + + + + + + | Sodium, POC | REPORTED IN ERROR, | 135 - 145 mEq/L | EXTERNAL | | | | PLEASE DISREGARD | | LAB | | | | RESULTS.Comment: TEST | | | | | | WAS CREDITED | | | | | | MISIDENTIFICATION PER | | | | | | S [place] [id number] | | | | | | JJSTesting performed at | | | | | | [facility] [place] | | | | | | [place] | | | | | | [id number] ON 04/28 | | | | | | AT 2232: PREVIOUSLY | | | | | | REPORTED 137 | | | | + + + + + + | Potassium, | REPORTED IN ERROR, | 3.5 - 5.0 mEq/L | EXTERNAL | | | POC | PLEASE DISREGARD | | LAB | | | | RESULTS.Comment: TEST | | | | | | WAS CREDITED | | | | | | MISIDENTIFICATION PER | | | | | | S [place] [id number] | | | | | | JJSTesting performed at | | | | | | [facility] [place];[place] | | | | | | [id number] ON 04/28 | | | | | | AT 2232: PREVIOUSLY | | | | | | REPORTED 4.0 | | | | + + + + + + | Ionized | REPORTED IN ERROR, | 1.12 - 1.32 | EXTERNAL | | | Calcium, | PLEASE DISREGARD | mmol/L | LAB | | | POC | RESULTS.Comment: TEST | | | | | | WAS CREDITED | | | | | | MISIDENTIFICATION PER | | | | | | S C[place] [id number] | | | | | | JJSTesting performed at | | | | | | [facility] [place];[address] | | | | | | [place] | | | | | | [id number] ON 04/28 | | | | | | AT 2232: PREVIOUSLY | | | | | | REPORTED 1.03 | | | | + + + + + + | Glucose, | REPORTED IN ERROR, | 65 - 99 mg/dL | EXTERNAL | | | POC | PLEASE DISREGARD | | LAB | | | | RESULTS.Comment: TEST | | | | | | WAS CREDITED | | | | | | MISIDENTIFICATION PER | | | | | | S [place] [id number] | | | | | | JJSTesting performed at | | | | | | [facility] [place];[address] | | | | | | [place] | | | | | | [id number] ON 04/28 | | | | | | AT 2232: PREVIOUSLY | | | | | | REPORTED 180 | | | | + + + + + + | Hematocrit, | REPORTED IN ERROR, | 40.0 - 50.0 % | EXTERNAL | | | POC | PLEASE DISREGARD | | LAB | | | | RESULTS.Comment: TEST | | | | | | WAS CREDITED | | | | | | MISIDENTIFICATION PER | | | | | | S C[place] [id number] | | | | | | JJSTesting performed at | | | | | | [facility] [place];[address];[place] | | | | | | [id number] ON 04/28 | | | | | | AT 2232: PREVIOUSLY | | | | | | REPORTED 35 | | | | + + + + + + | Hemoglobin, | REPORTED IN ERROR, | 13.7 - 16.7 | EXTERNAL | | | POC | PLEASE DISREGARD | g/dL | LAB | | | | RESULTS.Comment: TEST | | | | | | WAS CREDITED | | | | | | MISIDENTIFICATION PER | | | | | | S [place] [id number] | | | | | | JJSTesting performed at | | | | | | [facility];[address];[place] | | | | | | [id number] ON 04/28 | | | | | | AT 2232: PREVIOUSLY | | | | | | REPORTED 11.9 | | | | + + + + + + + + | Specimen | + + | | + + + +---------+ + + | Performing | Address | City/State/Zipcode | Phone Number | | Organization | | | | + +---------+ + + | EXTERNAL LAB | | | | + +---------+ + + POC SARAVANAN CG8, Arterial (04/25/2015 12:42 PM PDT) + + + + + + | Component | Value | Ref Range | Performed | Pathologist | | | | | At | Signature | + + + + + + | PH ART | REPORTED IN ERROR, | 7.350 - 7.450 | EXTERNAL | | | | PLEASE DISREGARD | | LAB | | | | RESULTS.Comment: TEST | | | | | | WAS CREDITED | | | | | | MISIDENTIFICATION PER | | | | | | S [place] [id number] | | | | | | JJSTesting performed at | | | | | | [facility] [place];[address];[place] | | | | | | [id number] ON 04/28 | | | | | | AT 2230: PREVIOUSLY | | | | | | REPORTED 7.350 | | | | + + + + + + | PCO2 ART | REPORTED IN ERROR, | 35 - 45 mmHg | EXTERNAL | | | | PLEASE DISREGARD | | LAB | | | | RESULTS.Comment: TEST | | | | | | WAS CREDITED | | | | | | MISIDENTIFICATION PER | | | | | | S [place] [id number] | | | | | | JJSTesting performed at | | | | | | [facility] [place];[address];[place] | | | | | | [id number] ON 04/28 | | | | | | AT 2230: PREVIOUSLY | | | | | | REPORTED 48 | | | | + + + + + + | PO2 ART | REPORTED IN ERROR, | 80 - 105 mmHg | EXTERNAL | | | | PLEASE DISREGARD | | LAB | | | | RESULTS.Comment: TEST | | | | | | WAS CREDITED | | | | | | MISIDENTIFICATION PER | | | | | | S CJ [id number] | | | | | | JJSTesting performed at | | | | | | [facility];[address];[place] | | | | | | [id number] ON 04/28 | | | | | | AT 2230: PREVIOUSLY | | | | | | REPORTED 294 | | | | + + + + + + | HCO3 ART | REPORTED IN ERROR, | 22 - 26 mmol/L | EXTERNAL | | | | PLEASE DISREGARD | | LAB | | | | RESULTS.Comment: TEST | | | | | | WAS CREDITED | | | | | | MISIDENTIFICATION PER | | | | | | S CJ [id number] | | | | | | JJSTesting performed at | | | | | | [facility];[address];[place] | | | | | | [id number] ON 04/28 | | | | | | AT 2230: PREVIOUSLY | | | | | | REPORTED 27 | | | | + + + + + + | POC | REPORTED IN ERROR, | 23 - 27 mEq/L | EXTERNAL | | | APPEARANCE | PLEASE DISREGARD | | LAB | | | UA | RESULTS.Comment: TEST | | | | | | WAS CREDITED | | | | | | MISIDENTIFICATION PER | | | | | | S CJ [id number] | | | | | | JJSTesting performed at | | | | | | [facility];[address];[place], [place] | | | | | | [id number] ON 04/28 | | | | | | AT 2230: PREVIOUSLY | | | | | | REPORTED 28 | | | | + + + + + + | Base | REPORTED IN ERROR, | 0 - 3 mEq/L | EXTERNAL | | | Excess, | PLEASE DISREGARD | | LAB | | | Arterial | RESULTS.Comment: TEST | | | | | | WAS CREDITED | | | | | | MISIDENTIFICATION PER | | | | | | S CJ [id number] | | | | | | JJSTesting performed at | | | | | | [facility];[address];[place], [place] | | | | | | [id number] ON 04/28 | | | | | | AT 2230: PREVIOUSLY | | | | | | REPORTED 1 | | | | + + + + + + | O2 SAT ART | REPORTED IN ERROR, | 95 - 98 % | EXTERNAL | | | | PLEASE DISREGARD | | LAB | | | | RESULTS.Comment: TEST | | | | | | WAS CREDITED | | | | | | MISIDENTIFICATION PER | | | | | | S CJ [id number] | | | | | | JJSTesting performed at | | | | | | [facility];[address];[place] | | | | | | [id number] ON 04/28 | | | | | | AT 2230: PREVIOUSLY | | | | | | REPORTED 100 | | | | + + + + + + | Sodium, POC | REPORTED IN ERROR, | 135 - 145 mEq/L | EXTERNAL | | | | PLEASE DISREGARD | | LAB | | | | RESULTS.Comment: TEST | | | | | | WAS CREDITED | | | | | | MISIDENTIFICATION PER | | | | | | S CJ [id number] | | | | | | JJSTesting performed at | | | | | | [facility];[address] | | | | | | [address];[place] | | | | | | [id number] ON 04/28 | | | | | | AT 2230: PREVIOUSLY | | | | | | REPORTED 137 | | | | + + + + + + | Potassium, | REPORTED IN ERROR, | 3.5 - 5.0 mEq/L | EXTERNAL | | | POC | PLEASE DISREGARD | | LAB | | | | RESULTS.Comment: TEST | | | | | | WAS CREDITED | | | | | | MISIDENTIFICATION PER | | | | | | S CJ [id number] | | | | | | JJSTesting performed at | | | | | | [facility];[address];[place] | | | | | | [id number] ON 04/28 | | | | | | AT 2230: PREVIOUSLY | | | | | | REPORTED 4.0 | | | | + + + + + + | Ionized | REPORTED IN ERROR, | 1.12 - 1.32 | EXTERNAL | | | Calcium, | PLEASE DISREGARD | mmol/L | LAB | | | POC | RESULTS.Comment: TEST | | | | | | WAS CREDITED | | | | | | MISIDENTIFICATION PER | | | | | | S CJ [id number] | | | | | | JJSTesting performed at | | | | | | [facility];[address];[place] | | | | | | [id number] ON 04/28 | | | | | | AT 2230: PREVIOUSLY | | | | | | REPORTED 0.94 | | | | + + + + + + | Glucose, | REPORTED IN ERROR, | 65 - 99 mg/dL | EXTERNAL | | | POC | PLEASE DISREGARD | | LAB | | | | RESULTS.Comment: TEST | | | | | | WAS CREDITED | | | | | | MISIDENTIFICATION PER | | | | | | S CJ [id number] | | | | | | JJSTesting performed at | | | | | | [facility];[address];[place] | | | | | | [id number] ON 04/28 | | | | | | AT 2230: PREVIOUSLY | | | | | | REPORTED 177 | | | | + + + + + + | Hematocrit, | REPORTED IN ERROR, | 40.0 - 50.0 % | EXTERNAL | | | POC | PLEASE DISREGARD | | LAB | | | | RESULTS.Comment: TEST | | | | | | WAS CREDITED | | | | | | MISIDENTIFICATION PER | | | | | | S CJ [id number] | | | | | | JJSTesting performed at | | | | | | [facility];[address] | | | | | | [address];[place] | | | | | | [id number] ON 04/28 | | | | | | AT 2230: PREVIOUSLY | | | | | | REPORTED 33 | | | | + + + + + + | Hemoglobin, | REPORTED IN ERROR, | 13.7 - 16.7 | EXTERNAL | | | POC | PLEASE DISREGARD | g/dL | LAB | | | | RESULTS.Comment: TEST | | | | | | WAS CREDITED | | | | | | MISIDENTIFICATION PER | | | | | | S CJ [id number] | | | | | | JJSTesting performed at | | | | | | [facility];[address] | | | | | | [place] [address];[place] | | | | | | [id number] ON 04/28 | | | | | | AT 2230: PREVIOUSLY | | | | | | REPORTED 11.2 | | | | + + + + + + + + | Specimen | + + | | + + + +---------+ + + | Performing | Address | City/State/Zipcode | Phone Number | | Organization | | | | + +---------+ + + | EXTERNAL LAB | | | | + +---------+ + + AISHA TERRAZAS Arterial (04/25/2015 12:23 PM PDT) + + + + + + | Component | Value | Ref Range | Performed | Pathologist | | | | | At | Signature | + + + + + + | PH ART | REPORTED IN ERROR, | 7.350 - 7.450 | EXTERNAL | | | | PLEASE DISREGARD | | LAB | | | | RESULTS.Comment: TEST | | | | | | WAS CREDITED | | | | | | MISIDENTIFICATION PER | | | | | | S CJ [id number] | | | | | | JJSTesting performed at | | | | | | [facility];[address];[place] | | | | | | [id number] ON 04/28 | | | | | | AT 1352: PREVIOUSLY | | | | | | REPORTED 7.332 | | | | + + + + + + | PCO2 ART | REPORTED IN ERROR, | 35 - 45 mmHg | EXTERNAL | | | | PLEASE DISREGARD | | LAB | | | | RESULTS.Comment: TEST | | | | | | WAS CREDITED | | | | | | MISIDENTIFICATION PER | | | | | | S CJ [id number] | | | | | | JJSTesting performed at | | | | | | [facility];[address];[place] | | | | | | [id number] ON 04/28 | | | | | | AT 1352: PREVIOUSLY | | | | | | REPORTED 49 | | | | + + + + + + | PO2 ART | REPORTED IN ERROR, | 80 - 105 mmHg | EXTERNAL | | | | PLEASE DISREGARD | | LAB | | | | RESULTS.Comment: TEST | | | | | | WAS CREDITED | | | | | | MISIDENTIFICATION PER | | | | | | S CJ [id number] | | | | | | JJSTesting performed at | | | | | | [facility];[address];[place] | | | | | | [id number] ON 04/28 | | | | | | AT 1352: PREVIOUSLY | | | | | | REPORTED 323 | | | | + + + + + + | HCO3 ART | REPORTED IN ERROR, | 22 - 26 mmol/L | EXTERNAL | | | | PLEASE DISREGARD | | LAB | | | | RESULTS.Comment: TEST | | | | | | WAS CREDITED | | | | | | MISIDENTIFICATION PER | | | | | | S CJ [id number] | | | | | | JJSTesting performed at | | | | | | [facility];[address];[place] | | | | | | [id number] ON 04/28 | | | | | | AT 1352: PREVIOUSLY | | | | | | REPORTED 26 | | | | + + + + + + | POC | REPORTED IN ERROR, | 23 - 27 mEq/L | EXTERNAL | | | APPEARANCE | PLEASE DISREGARD | | LAB | | | UA | RESULTS.Comment: TEST | | | | | | WAS CREDITED | | | | | | MISIDENTIFICATION PER | | | | | | S CJ [id number] | | | | | | JJSTesting performed at | | | | | | [facility];[address];[place] | | | | | | [id number] ON 04/28 | | | | | | AT 1352: PREVIOUSLY | | | | | | REPORTED 28 | | | | + + + + + + | Base | REPORTED IN ERROR, | 0 - 3 mEq/L | EXTERNAL | | | Excess, | PLEASE DISREGARD | | LAB | | | Arterial | RESULTS.Comment: TEST | | | | | | WAS CREDITED | | | | | | MISIDENTIFICATION PER | | | | | | S CJ [id number] | | | | | | JJSTesting performed at | | | | | | [facility];[address];[place] | | | | | | [id number] ON 04/28 | | | | | | AT 1352: PREVIOUSLY | | | | | | REPORTED 0 | | | | + + + + + + | O2 SAT ART | REPORTED IN ERROR, | 95 - 98 % | EXTERNAL | | | | PLEASE DISREGARD | | LAB | | | | RESULTS.Comment: TEST | | | | | | WAS CREDITED | | | | | | MISIDENTIFICATION PER | | | | | | S CJ [id number] | | | | | | JJSTesting performed at | | | | | | [facility];[address];[place] | | | | | | [id number] ON 04/28 | | | | | | AT 1352: PREVIOUSLY | | | | | | REPORTED 100 | | | | + + + + + + | Sodium, POC | REPORTED IN ERROR, | 135 - 145 mEq/L | EXTERNAL | | | | PLEASE DISREGARD | | LAB | | | | RESULTS.Comment: TEST | | | | | | WAS CREDITED | | | | | | MISIDENTIFICATION PER | | | | | | S CJ [id number] | | | | | | JJSTesting performed at | | | | | | [facility];[address];[place] | | | | | | [id number] ON 04/28 | | | | | | AT 1352: PREVIOUSLY | | | | | | REPORTED 137 | | | | + + + + + + | Potassium, | REPORTED IN ERROR, | 3.5 - 5.0 mEq/L | EXTERNAL | | | POC | PLEASE DISREGARD | | LAB | | | | RESULTS.Comment: TEST | | | | | | WAS CREDITED | | | | | | MISIDENTIFICATION PER | | | | | | S CJ [id number] | | | | | | JJSTesting performed at | | | | | | [facility];[address];[place] | | | | | | [id number] ON 04/28 | | | | | | AT 1352: PREVIOUSLY | | | | | | REPORTED 4.3 | | | | + + + + + + | Ionized | REPORTED IN ERROR, | 1.12 - 1.32 | EXTERNAL | | | Calcium, | PLEASE DISREGARD | mmol/L | LAB | | | POC | RESULTS.Comment: TEST | | | | | | WAS CREDITED | | | | | | MISIDENTIFICATION PER | | | | | | S CJ [id number] | | | | | | JJSTesting performed at | | | | | | [facility];[address];[place] | | | | | | [id number] ON 04/28 | | | | | | AT 1352: PREVIOUSLY | | | | | | REPORTED 1.02 | | | | + + + + + + | Glucose, | REPORTED IN ERROR, | 65 - 99 mg/dL | EXTERNAL | | | POC | PLEASE DISREGARD | | LAB | | | | RESULTS.Comment: TEST | | | | | | WAS CREDITED | | | | | | MISIDENTIFICATION PER | | | | | | S CJ [id number] | | | | | | JJSTesting performed at | | | | | | [facility];[address];[place] | | | | | | [id number] ON 04/28 | | | | | | AT 1352: PREVIOUSLY | | | | | | REPORTED 192 | | | | + + + + + + | Hematocrit, | REPORTED IN ERROR, | 40.0 - 50.0 % | EXTERNAL | | | POC | PLEASE DISREGARD | | LAB | | | | RESULTS.Comment: TEST | | | | | | WAS CREDITED | | | | | | MISIDENTIFICATION PER | | | | | | S CJ [id number] | | | | | | JJSTesting performed at | | | | | | [facility];[address];[place] | | | | | | [id number] ON 04/28 | | | | | | AT 1352: PREVIOUSLY | | | | | | REPORTED 40 | | | | + + + + + + | Hemoglobin, | REPORTED IN ERROR, | 13.7 - 16.7 | EXTERNAL | | | POC | PLEASE DISREGARD | g/dL | LAB | | | | RESULTS.Comment: TEST | | | | | | WAS CREDITED | | | | | | MISIDENTIFICATION PER | | | | | | S CJ [id number] | | | | | | JJSTesting performed at | | | | | | [facility];[address] | | | | | | [place] | | | | | | [id number] ON 04/28 | | | | | | AT 1352: PREVIOUSLY | | | | | | REPORTED 13.6 | | | | + + + + + + + + | Specimen | + + | | + + + +---------+ + + | Performing | Address | City/State/Zipcode | Phone Number | | Organization | | | | + +---------+ + + | EXTERNAL LAB | | | | + +---------+ + + POC Glucose (04/25/2015 10:49 AM PDT) + + + + + + | Component | Value | Ref Range | Performed | Pathologist | | | | | At | Signature | + + + + + + | Glucose, | 175 (H)Comment: Testing | 65 - 99 mg/dL | EXTERNAL | | | Fingerstick | performed at [facility];[address] | [address] | | | [address];[place], [place] | | | | | | [id number] | | | | + + + + + + + + | Specimen | + + | | + + + +---------+ + + | Performing | Address | City/State/Zipcode | Phone Number | | Organization | | | | + +---------+ + + | EXTERNAL LAB | | | | + +---------+ + + AISHA TERRAZAS Arterial (04/25/2015 9:05 AM PDT) + + + + + + | Component | Value | Ref Range | Performed | Pathologist | | | | | At | Signature | + + + + + + | PH ART | REPORTED IN ERROR, | 7.350 - 7.450 | EXTERNAL | | | | PLEASE DISREGARD | | LAB | | | | RESULTS.Comment: TEST | | | | | | WAS CREDITED | | | | | | MISIDENTIFICATION PER | | | | | | S CJ [id number] Testing | | | | | | performed at [facility];[address] | | | | | | [facility];[place], [place] | | | | | | [id number] ON 04/25 | | | | | | AT 1959: PREVIOUSLY | | | | | | REPORTED 7.338 | | | | + + + + + + | PCO2 ART | REPORTED IN ERROR, | 35 - 45 mmHg | EXTERNAL | | | | PLEASE DISREGARD | | LAB | | | | RESULTS.Comment: TEST | | | | | | WAS CREDITED | | | | | | MISIDENTIFICATION PER | | | | | | S CJ [id number] Testing | | | | | | performed at [facility];[address] | | | | | | [address];[place] | | | | | | [id number] ON 04/25 | | | | | | AT 1958: PREVIOUSLY | | | | | | REPORTED 44 | | | | + + + + + + | PO2 ART | REPORTED IN ERROR, | 80 - 105 mmHg | EXTERNAL | | | | PLEASE DISREGARD | | LAB | | | | RESULTS.Comment: TEST | | | | | | WAS CREDITED | | | | | | MISIDENTIFICATION PER | | | | | | S CJ [id number] Testing | | | | | | performed at [facility];[address] | | | | | | [address];[place] | | | | | | [id number] ON 04/25 | | | | | | AT 1958: PREVIOUSLY | | | | | | REPORTED 114 | | | | + + + + + + | HCO3 ART | REPORTED IN ERROR, | 22 - 26 mmol/L | EXTERNAL | | | | PLEASE DISREGARD | | LAB | | | | RESULTS.Comment: TEST | | | | | | WAS CREDITED | | | | | | MISIDENTIFICATION PER | | | | | | S CJ [id number] Testing | | | | | | performed at [facility];[address] | | | | | | [address];[place] | | | | | | [id number] ON 04/25 | | | | | | AT 1958: PREVIOUSLY | | | | | | REPORTED 23 | | | | + + + + + + | POC | REPORTED IN ERROR, | 23 - 27 mEq/L | EXTERNAL | | | APPEARANCE | PLEASE DISREGARD | | LAB | | | UA | RESULTS.Comment: TEST | | | | | | WAS CREDITED | | | | | | MISIDENTIFICATION PER | | | | | | S CJ [id number] Testing | | | | | | performed at [facility];[address] | | | | | | [address];[place] | | | | | | [id number] ON 04/25 | | | | | | AT 1958: PREVIOUSLY | | | | | | REPORTED 25 | | | | + + + + + + | Base | REPORTED IN ERROR, | 0.0 - 2.0 | EXTERNAL | | | deficit | PLEASE DISREGARD | mmol/L | LAB | | | | RESULTS.Comment: TEST | | | | | | WAS CREDITED | | | | | | MISIDENTIFICATION PER | | | | | | S CJ [id number] Testing | | | | | | performed at [facility];[address] | | | | | | [address];[place] | | | | | | [id number] ON 04/25 | | | | | | AT 1958: PREVIOUSLY | | | | | | REPORTED 2 | | | | + + + + + + | O2 SAT ART | REPORTED IN ERROR, | 95 - 98 % | EXTERNAL | | | | PLEASE DISREGARD | | LAB | | | | RESULTS.Comment: TEST | | | | | | WAS CREDITED | | | | | | MISIDENTIFICATION PER | | | | | | S CJ [id number] Testing | | | | | | performed at [facility];[address] | | | | | | [address];[place] | | | | | | [id number] ON 04/25 | | | | | | AT 1958: PREVIOUSLY | | | | | | REPORTED 98 | | | | + + + + + + | Sodium, POC | REPORTED IN ERROR, | 135 - 145 mEq/L | EXTERNAL | | | | PLEASE DISREGARD | | LAB | | | | RESULTS.Comment: TEST | | | | | | WAS CREDITED | | | | | | MISIDENTIFICATION PER | | | | | | S CJ [id number] Testing | | | | | | performed at [facility];[address] | | | | | | [address];[place] | | | | | | [id number] ON 04/25 | | | | | | AT 1958: PREVIOUSLY | | | | | | REPORTED 137 | | | | + + + + + + | Potassium, | REPORTED IN ERROR, | 3.5 - 5.0 mEq/L | EXTERNAL | | | POC | PLEASE DISREGARD | | LAB | | | | RESULTS.Comment: TEST | | | | | | WAS CREDITED | | | | | | MISIDENTIFICATION PER | | | | | | S CJ [id number] Testing | | | | | | performed at [facility];[address] | | | | | | [facility];[place], [place] | | | | | | [id number] ON 04/25 | | | | | | AT 1958: PREVIOUSLY | | | | | | REPORTED 3.9 | | | | + + + + + + | Ionized | REPORTED IN ERROR, | 1.12 - 1.32 | EXTERNAL | | | Calcium, | PLEASE DISREGARD | mmol/L | LAB | | | POC | RESULTS.Comment: TEST | | | | | | WAS CREDITED | | | | | | MISIDENTIFICATION PER | | | | | | S CJ [id number] Testing | | | | | | performed at [facility];[address] | | | | | | [facility];[place], [place] | | | | | | [id number] ON 04/25 | | | | | | AT 1958: PREVIOUSLY | | | | | | REPORTED 1.07 | | | | + + + + + + | Glucose, | REPORTED IN ERROR, | 65 - 99 mg/dL | EXTERNAL | | | POC | PLEASE DISREGARD | | LAB | | | | RESULTS.Comment: TEST | | | | | | WAS CREDITED | | | | | | MISIDENTIFICATION PER | | | | | | S CJ [id number] Testing | | | | | | performed at [facility];[address] | | | | | | [address];[place] | | | | | | [id number] ON 04/25 | | | | | | AT 1958: PREVIOUSLY | | | | | | REPORTED 139 | | | | + + + + + + | Hematocrit, | REPORTED IN ERROR, | 40.0 - 50.0 % | EXTERNAL | | | POC | PLEASE DISREGARD | | LAB | | | | RESULTS.Comment: TEST | | | | | | WAS CREDITED | | | | | | MISIDENTIFICATION PER | | | | | | S CJ [id number] Testing | | | | | | performed at [facility];[address] | | | | | | [address];[place] | | | | | | [id number] ON 04/25 | | | | | | AT 1958: PREVIOUSLY | | | | | | REPORTED 40 | | | | + + + + + + | Hemoglobin, | REPORTED IN ERROR, | 13.7 - 16.7 | EXTERNAL | | | POC | PLEASE DISREGARD | g/dL | LAB | | | | RESULTS.Comment: TEST | | | | | | WAS CREDITED | | | | | | MISIDENTIFICATION PER | | | | | | S CJ [id number] Testing | | | | | | performed at [facility];[address] | | | | | | [address];[place], [place] | | | | | | [id number] ON 04/25 | | | | | | AT 1959: PREVIOUSLY | | | | | | REPORTED 13.6 | | | | + + + + + + + + | Specimen | + + | | + + + +---------+ + + | Performing | Address | City/State/Zipcode | Phone Number | | Organization | | | | + +---------+ + + | EXTERNAL LAB | | | | + +---------+ + + XR Chest 2 Vws (04/25/2015 7:10 AM PDT) + + | Specimen | + + | | + + + + + | Impressions | Performed At | + + + | 1. 4 mm left apical pneumothorax. This is new. This was called to | | | the floor and discussed with the patient's nurse at 8AM date of study. | | | 2. Removal right IJ sheath with otherwise unchanged tubes and | | | lines. 3. Persistent low lung volumes with persistent bilateral | | | atelectasis. Electronically signed by Zander Nelson MD on | | | 04/26/2015 7:02 AM | | + + + + + + | Narrative | Performed At | + + + | HISTORY: Evaluate tubes and lines. COMPARISON: 04/24/15. | | | TECHNIQUE: PA and lateral films of the chest. FINDINGS: Removal | | | of the right IJ sheath. Midline mediastinal drain and left lateral | | | basilar chest tubes remain in place. There is a subtle pneumothorax in | | | the left apex measuring 4 mm. Persistent mild bilateral perihilar and | | | bibasilar atelectasis. Lung volumes are low. Subtle effusions in | | | the posterior cost phrenic sulci on the lateral film. | | + + + + + | Procedure Note | + + | Ravi, Rad Conversion - 03/10/2019 10:17 AM PDT HISTORY:Evaluate tubes and lines. | | COMPARISON:04/24/15. TECHNIQUE:PA and lateral films of the chest. FINDINGS:Removal of | | the right IJ sheath. Midline mediastinal drain and left lateral basilar chest tubes | | remain in place. There is a subtle pneumothorax in the left apex measuring 4 mm. | | Persistent mild bilateral perihilar and bibasilar atelectasis. Lung volumes are low. | | Subtle effusions in the posterior cost phrenic sulci on the lateral film. IMPRESSION: 1. | | 4 mm left apical pneumothorax. This is new. This was called to the floor and discussed | | with the patient's nurse at 8AM date of study.2. Removal right IJ sheath with | | otherwise unchanged tubes and lines.3. Persistent low lung volumes with persistent | | bilateral atelectasis. | |Removal of the right IJ sheath. Midline mediastinal drain and left lateral basilar chest tu bes remain in place. There is a subtle pneumothorax in the left apex measuring 4 mm. Persist ent mild bilateral perihilar and bibasilar atelectasis. Lung volumes | |are low. Subtle effusions in the posterior cost phrenic sulci on the lateral film. | | | |IMPRESSION: | |1. 4 mm left apical pneumothorax. This is new. This was called to the floor and discussed with the patient's nurse at 8AM date of study. | |2. Removal right IJ sheath with otherwise unchanged tubes and lines. | |3. Persistent low lung volumes with persistent bilateral atelectasis. | | | | | + + POC Glucose (04/25/2015 5:45 AM PDT) + + + + + + | Component | Value | Ref Range | Performed | Pathologist | | | | | At | Signature | + + + + + + | Glucose, | 109 (H)Comment: Testing | 65 - 99 mg/dL | EXTERNAL | | | Fingerstick | performed at [facility];[address] | | LAB | | | | [address];[place], [place] | | | | | | [address] | | | | + + + + + + + + | Specimen | + + | | + + + +---------+ + + | Performing | Address | City/State/Zipcode | Phone Number | | Organization | | | | + +---------+ + + | EXTERNAL LAB | | | | + +---------+ + + External Lab: GEOFF (04/25/2015 4:39 AM PDT) + + + + + + | Component | Value | Ref Range | Performed | Pathologist | | | | | At | Signature | + + + + + + | WBC | 6.21Comment: Testing | 3.80 - 11.00 | EXTERNAL | | | | performed at [facility], [address] | K/uL | LAB | | | | [address], | | | | | | [place] [address] | | | | + + + + + + | RED CELL | 2.62 (L)Comment: Testing | 4.20 - 5.70 | EXTERNAL | | | COUNT | performed at [facility], [address] | M/uL | LAB | | | | [address], | | | | | | [place] [address] | | | | + + + + + + | Hgb | 7.6 (L)Comment: Testing | 13.2 - 17.0 | EXTERNAL | | | | performed at [facility], [address] | g/dL | LAB | | | | [address], | | | | | | [place] [address] | | | | + + + + + + | Hematocrit, | 22.6 (L)Comment: Testing | 39.0 - 50.0 % | EXTERNAL | | | POC | performed at [facility], [address] | | LAB | | | | [address], | | | | | | [place] [address] | | | | + + + + + + | MCV | 86.4Comment: Testing | 80.0 - 100.0 fl | EXTERNAL | | | | performed at [facility], [address] | | LAB | | | | [address], | | | | | | [place] [address] | | | | + + + + + + | MCH | 28.9Comment: Testing | 27.0 - 34.0 pg | EXTERNAL | | | | performed at [facility], [address] | | LAB | | | | [address], | | | | | | [place] [address] | | | | + + + + + + | MCHC | 33.4Comment: Testing | 32.0 - 35.5 | EXTERNAL | | | | performed at [facility], [address] | g/dL | LAB | | | | [address], | | | | | | [place] [address] | | | | + + + + + + | RDW-CV | 40.7Comment: Testing | 37 - 53 fl | EXTERNAL | | | | performed at [facility], [address] | | LAB | | | | [address], | | | | | | [place] [address] | | | | + + + + + + | Platelet | 126 (L)Comment: Testing | 150 - 400 K/uL | EXTERNAL | | | Count | performed at [facility], [address] | | LAB | | | Plasma | [address], | | | | | | [place] [address] | | | | + + + + + + | MPV | 9.2Comment: Testing | fl | EXTERNAL | | | | performed at [facility], [address] | | LAB | | | | [address], | | | | | | [place] [address] | | | | + + + + + + | Differentia | AUTOMATEDComment: | | EXTERNAL | | | l Type | Testing performed at | | LAB | | | | [facility], [address] | | | | | | [place] | | | | | | [address] | | | | + + + + + + | % Segmented | 75.99Comment: Testing | % | EXTERNAL | | | | performed at [facility], [address] | | LAB | | | Neutrophils | [address], | | | | | | [place] [address] | | | | + + + + + + | % | 14.65Comment: Testing | % | EXTERNAL | | | Lymphocytes | performed at [facility], [address] | | LAB | | | | [address], | | | | | | [place] [address] | | | | + + + + + + | % Monocytes | 7.51Comment: Testing | % | EXTERNAL | | | | performed at [facility], [address] | | LAB | | | | [address], | | | | | | [place] [address] | | | | + + + + + + | % | 1.14Comment: Testing | % | EXTERNAL | | | Eosinophils | performed at [facility], [address] | | LAB | | | | [address], | | | | | | [place] [address] | | | | + + + + + + | % Basophils | 0.71Comment: Testing | % | EXTERNAL | | | | performed at [facility], [address] | | LAB | | | | [address], | | | | | | [place] [address] | | | | + + + + + + | Absolute | 4.72Comment: Testing | 1.90 - 7.40 | EXTERNAL | | | Segmented | performed at [facility], [address] | K/uL | LAB | | | Neutrophils | [address], | | | | | | [place] [place] [address] | | | | + + + + + + | Absolute | 0.91 (L)Comment: Testing | 1.00 - 3.90 | EXTERNAL | | | Lymphocytes | performed at [facility], [address] | [address] | LAB | | | | [address], | | | | | | [place] [address] | | | | + + + + + + | Absolute | 0.47Comment: Testing | 0.00 - 0.80 | EXTERNAL | | | Monocytes | performed at [facility], [address] | [address] | LAB | | | | [address], | | | | | | [place] [address] | | | | + + + + + + | Absolute | 0.07Comment: Testing | 0.00 - 0.50 | EXTERNAL | | | Eosinophils | performed at [facility], [address] | K/[address]L | LAB | | | | [address], | | | | | | [place] [address] | | | | + + + + + + | Absolute | 0.04Comment: Testing | 0.00 - 0.10 | EXTERNAL | | | Basophils | performed at [facility], [address] | K/[address]L | LAB | | | | [address], | | | | | | [place] [address] | | | | + + + + + + + + | Specimen | + + | Blood specimen | | (specimen) | + + + +---------+ + + | Performing | Address | City/State/Zipcode | Phone Number | | Organization | | | | + +---------+ + + | EXTERNAL LAB | | | | + +---------+ + + Magnesium (04/25/2015 4:39 AM PDT) + + + + + + | Component | Value | Ref Range | Performed | Pathologist | | | | | At | Signature | + + + + + + | Magnesium | 2.3Comment: Testing | 1.7 - 2.4 mg/dL | EXTERNAL | | | | performed at [facility], [address] | | LAB | | | | [address], | | | | | | [place] [address] | | | | + + + [...] + +---------+ + + Basic Metabolic Panel (04/25/2015 4:39 AM PDT) + + + + + + | Component | Value | Ref Range | Performed | Pathologist | | | | | At | Signature | + + + + + + | Na | 136Comment: Testing | 135 - 143 | EXTERNAL | | | | performed at [facility], [address] | mmol/L | LAB | | | | [address], | | | | | | [place] [address] | | | | + + + + + + | K | 4.3Comment: Testing | 3.5 - 4.9 | EXTERNAL | | | | performed at [facility], [address] | mmol/L | LAB | | | | [address], | | | | | | [place] [address] | | | | + + + + + + | Cl | 106Comment: Testing | 99 - 109 mmol/L | EXTERNAL | | | | performed at [facility], [address] | | LAB | | | | [address], | | | | | | [place] [address] | | | | + + + + + + | CO2 | 26Comment: Testing | 23 - 32 mmol/L | EXTERNAL | | | | performed at [facility], [address] | | LAB | | | | [address], | | | | | | [place] [address] | | | | + + + + + + | Anion Gap | 8Comment: Testing | 5 - 20 mmol/L | EXTERNAL | | | | performed at [facility], [address] | | LAB | | | | [address], | | | | | | [place] [address] | | | | + + + + + + | Glucose, | 78Comment: Testing | 65 - 99 mg/dL | EXTERNAL | | | Fasting | performed at [facility], [address] | | LAB | | | | [address], | | | | | | [place] [address] | | | | + + + + + + | BUN | 31 (H)Comment: Testing | 8 - 25 mg/dL | EXTERNAL | | | | performed at [facility], [address] | | LAB | | | | [address], | | | | | | [place] [address] | | | | + + + + + + | Creatinine | 0.99Comment: Testing | 0.70 - 1.30 | EXTERNAL | | | | performed at [facility], [address] | mg/dL | LAB | | | | [address], | | | | | | [place] [address] | | | | + + + + + + | BUN/Creatin | 31Comment: Testing | | EXTERNAL | | | ine Ratio | performed at [facility], [address] | | LAB | | | | [address], | | | | | | [place] [address] | | | | + + + + + + | Calcium | 8.7Comment: Testing | 8.5 - 10.5 | EXTERNAL | | | | performed at [facility], [address] | mg/dL | LAB | | | | [address], | | | | | | [place] [address] | | | | + + + [...] | | | | | | at [facility], [address] | | | | | | [address], | | | | | | [place] [address] | | | | + + + + + + + + | Specimen | + + | Blood specimen | | (specimen) | + + + +---------+ + + | Performing | Address | City/State/Zipcode | Phone Number | | Organization | | | | + +---------+ + + | EXTERNAL LAB | | | | + +---------+ + + POC Glucose (04/24/2015 9:44 PM PDT) + + + + + + | Component | Value | Ref Range | Performed | Pathologist | | | | | At | Signature | + + + + + + | Glucose, | 136 (H)Comment: Testing | 65 - 99 mg/dL | EXTERNAL | | | Fingerstick | performed at [facility];[address] | | LAB | | | | [address];[place] | | | | | | [address] | | | | + + + + + + + + | Specimen | + + | | + + + +---------+ + + | Performing | Address | City/State/Zipcode | Phone Number | | Organization | | | | + +---------+ + + | EXTERNAL LAB | | | | + +---------+ + + ECG 12 lead (04/24/2015 6:58 PM PDT) + + + + + + | Component | Value | Ref Range | Performed | Pathologist | | | | | At | Signature | + + + + + + | DIAGNOSIS: | Sinus tachycardiaLeft | | EXTERNAL | | | | axis deviation (= or > | | LAB | | | | 30 degrees)Nonspecific | | | | | | ST and/or T wave | | | | | | abnormalitiesRight | | | | | | bundle branch | | | | | | blockAbnormal ECGWhen | | | | | | compared with ECG of | | | | | | 22-APR-2015 13:14,ST no | | | | | | longer depressed in | | | | | | Anterior | | | | | | leadsNonspecific T wave | | | | | | abnormality now evident | | | | | | in Inferior leadsT wave | | | | | | amplitude has decreased | | | | | | in Anterolateral | | | | | | leadsConfirmed by | | | | | | LUCY CALABRESE ([id number]) on | | | | | | 04/25/2015 7:47:20 AM | | | | + + + + + + + + | Specimen | + + | | + + + + + | Narrative | Performed At | + + + | Historically converted procedure from [facility] environment | EXTERNAL LAB | + + + + +---------+ + + | Performing | Address | City/State/Zipcode | Phone Number | | Organization | | | | + +---------+ + + | EXTERNAL LAB | | | | + +---------+ + + Potassium (04/24/2015 6:44 PM PDT) + + + + + + | Component | Value | Ref Range | Performed | Pathologist | | | | | At | Signature | + + + + + + | K | 4.9Comment: Testing | 3.5 - 4.9 | EXTERNAL | | | | performed at [facility];[address] | mmol/L | LAB | | | | [address];[place], [place] | | | | | | [address] | | | | + + + + + + + + | Specimen | + + | Blood specimen | | (specimen) | + + + +---------+ + + | Performing | Address | City/State/Zipcode | Phone Number | | Organization | | | | + +---------+ + + | EXTERNAL LAB | | | | + +---------+ + + POC Glucose (04/24/2015 4:30 PM PDT) + + + + + + | Component | Value | Ref Range | Performed | Pathologist | | | | | At | Signature | + + + + + + | Glucose, | 265 (H)Comment: Testing | 65 - 99 mg/dL | EXTERNAL | | | Fingerstick | performed at [facility];[address] | | LAB | | | | [address];[place] | | | | | | [address] | | | | + + + + + + + + | Specimen | + + | | + + + +---------+ + + | Performing | Address | City/State/Zipcode | Phone Number | | Organization | | | | + +---------+ + + | EXTERNAL LAB | | | | + +---------+ + + POC Glucose (04/24/2015 2:07 PM PDT) + + + + + + | Component | Value | Ref Range | Performed | Pathologist | | | | | At | Signature | + + + + + + | Glucose, | 322 (H)Comment: Testing | 65 - 99 mg/dL | EXTERNAL | | | Fingerstick | performed at [facility];[address] | | LAB | | | | [address];[place] | | | | | | [address] | | | | + + + + + + + + | Specimen | + + | | + + + +---------+ + + | Performing | Address | City/State/Zipcode | Phone Number | | Organization | | | | + +---------+ + + | EXTERNAL LAB | | | | + +---------+ + + POC Glucose (04/24/2015 1:47 PM PDT) + + + + + + | Component | Value | Ref Range | Performed | Pathologist | | | | | At | Signature | + + + + + + | Glucose, | 302 (H)Comment: Testing | 65 - 99 mg/dL | EXTERNAL | | | Fingerstick | performed at [facility];[address] | | LAB | | | | [address];[place], [place] | | | | | | [address] | | | | + + + + + + + + | Specimen | + + | | + + + +---------+ + + | Performing | Address | City/State/Zipcode | Phone Number | | Organization | | | | + +---------+ + + | EXTERNAL LAB | | | | + +---------+ + + XR Chest 1 Vw (04/24/2015 6:24 AM PDT) + + | Specimen | + + | | + + + + + | Impressions | Performed At | + + + | 1. Persistent low lung volumes with persistent left greater than | | | right lung atelectasis. 2. No pneumothorax. 3. Removal [place] | | | catheter, with otherwise unchanged tubes and lines. | | | | | + + + + + + | Narrative | Performed At | + + + | HISTORY: Evaluate tubes and lines. COMPARISON: 04/23/15. | | | TECHNIQUE: AP portable film of the chest at 0535 hours FINDINGS: | | | Removal [place] catheter. Right IJ sheath remains in place. Midline | | | mediastinal drain remains in place. Heart size is normal. Persistent | | | left greater than right perihilar and left basilar atelectasis with | | | slight elevation right hemidiaphragm. Left lateral basilar chest | | | tube remains in place. No pneumothorax. | | + + + + + | Procedure Note | + + | Ravi, Rad Conversion - 03/10/2019 10:17 AM PDT HISTORY:Evaluate tubes and lines. | | COMPARISON:04/23/15. TECHNIQUE:AP portable film of the chest at 0535 hours | | FINDINGS:Removal [place] catheter. Right IJ sheath remains in place. Midline | | mediastinal drain remains in place. Heart size is normal. Persistent left greater than | | right perihilar and left basilar atelectasis with slight elevation right hemidiaphragm. | | Left lateral basilar chest tube remains in place. No pneumothorax. IMPRESSION: 1. | | Persistent low lung volumes with persistent left greater than right lung atelectasis.2. | | No pneumothorax.3. Removal [place] catheter, with otherwise unchanged tubes and | | lines. | |FINDINGS: | |Removal [place] catheter. Right IJ sheath remains in place. Midline mediastinal drain rem ains in place. Heart size is normal. Persistent left greater than right perihilar and left b asilar atelectasis with slight elevation right hemidiaphragm. Left | |lateral basilar chest tube remains in place. No pneumothorax. | | | |IMPRESSION: | |1. Persistent low lung volumes with persistent left greater than right lung atelectasis. | |2. No pneumothorax. | |3. Removal [place] catheter, with otherwise unchanged tubes and lines. | | | | | + + POC Glucose (04/24/2015 6:24 AM PDT) + + + + + + | Component | Value | Ref Range | Performed | Pathologist | | | | | At | Signature | + + + + + + | Glucose, | 180 (H)Comment: Testing | 65 - 99 mg/dL | EXTERNAL | | | Fingerstick | performed at [facility];[address] | | LAB | | | | [address];[place] | | | | | | [address] | | | | + + + + + + + + | Specimen | + + | | + + + +---------+ + + | Performing | Address | City/State/Zipcode | Phone Number | | Organization | | | | + +---------+ + + | EXTERNAL LAB | | | | + +---------+ + + External Lab: CBC (04/24/2015 3:26 AM PDT) + + + + + + | Component | Value | Ref Range | Performed | Pathologist | | | | | At | Signature | + + + + + + | WBC | 6.35Comment: Testing | 3.80 - 11.00 | EXTERNAL | | | | performed at [facility], [address] | [address] | LAB | | | | [address], | | | | | | [place], [place] [address] | | | | + + + + + + | RED CELL | 2.52 (L)Comment: Testing | 4.20 - 5.70 | EXTERNAL | | | COUNT | performed at [facility], [address] | [address] | LAB | | | | [address], | | | | | | [place] [address] | | | | + + + + + + | Hgb | 7.2 (L)Comment: Testing | 13.2 - 17.0 | EXTERNAL | | | | performed at [facility], [address] | g/dL | LAB | | | | [address], | | | | | | [place] [address] | | | | + + + + + + | Hematocrit, | 21.9 (L)Comment: Testing | 39.0 - 50.0 % | EXTERNAL | | | POC | performed at [facility], [address] | | LAB | | | | [address], | | | | | | [place] [address] | | | | + + + + + + | MCV | 86.9Comment: Testing | 80.0 - 100.0 fl | EXTERNAL | | | | performed at [facility], [address] | | LAB | | | | [address], | | | | | | [place] [address] | | | | + + + + + + | MCH | 28.7Comment: Testing | 27.0 - 34.0 pg | EXTERNAL | | | | performed at [facility], [address] | | LAB | | | | [address], | | | | | | [place] [address] | | | | + + + + + + | MCHC | 33.0Comment: Testing | 32.0 - 35.5 | EXTERNAL | | | | performed at [facility], [address] | g/dL | LAB | | | | [address], | | | | | | [place] [address] | | | | + + + + + + | RDW-CV | 41.6Comment: Testing | 37 - 53 fl | EXTERNAL | | | | performed at [facility], [address] | | LAB | | | | [address], | | | | | | [place] [address] | | | | + + + + + + | Platelet | 100 (L)Comment: Testing | 150 - 400 K/uL | EXTERNAL | | | Count | performed at [facility], [address] | | LAB | | | Plasma | [address], | | | | | | [place] [address] | | | | + + + + + + | MPV | 9.4Comment: Testing | fl | EXTERNAL | | | | performed at [facility], [address] | | LAB | | | | [address], | | | | | | [place] [address] | | | | + + + + + + | Differentia | AUTOMATEDComment: | | EXTERNAL | | | l Type | Testing performed at | | LAB | | | | [facility], [address] | | | | | | [place] | | | | | | [address] | | | | + + + + + + | % Segmented | 79.89Comment: Testing | % | EXTERNAL | | | | performed at [facility], [address] | | LAB | | | Neutrophils | [address], | | | | | | [place] [address] | | | | + + + + + + | % | 10.77Comment: Testing | % | EXTERNAL | | | Lymphocytes | performed at [facility], [address] | | LAB | | | | [address], | | | | | | [place] [address] | | | | + + + + + + | % Monocytes | 9.05Comment: Testing | % | EXTERNAL | | | | performed at [facility], [address] | | LAB | | | | [address], | | | | | | [place] [address] | | | | + + + + + + | % | 0.11Comment: Testing | % | EXTERNAL | | | Eosinophils | performed at [facility], [address] | | LAB | | | | [address], | | | | | | [place] [address] | | | | + + + + + + | % Basophils | 0.18Comment: Testing | % | EXTERNAL | | | | performed at [facility], [address] | | LAB | | | | [address], | | | | | | [place] [address] | | | | + + + + + + | Absolute | 5.08Comment: Testing | 1.90 - 7.40 | EXTERNAL | | | Segmented | performed at [facility], [address] | K/uL | LAB | | | Neutrophils | [address], | | | | | | [place] [address] | | | | + + + + + + | Absolute | 0.68 (L)Comment: Testing | 1.00 - 3.90 | EXTERNAL | | | Lymphocytes | performed at [facility], [address] | [address] | LAB | | | | [address], | | | | | | [place] [address] | | | | + + + + + + | Absolute | 0.58Comment: Testing | 0.00 - 0.80 | EXTERNAL | | | Monocytes | performed at [facility], [address] | K/uL | LAB | | | | [address], | | | | | | [place] [address] | | | | + + + + + + | Absolute | 0.01Comment: Testing | 0.00 - 0.50 | EXTERNAL | | | Eosinophils | performed at [facility], [address] | K/uL | LAB | | | | [address], | | | | | | [place] [address] | | | | + + + + + + | Absolute | 0.01Comment: Testing | 0.00 - 0.10 | EXTERNAL | | | Basophils | performed at [facility], [address] | K/uL | LAB | | | | [address], | | | | | | [place] [address] | | | | + + + + + + + + | Specimen | + + | Blood specimen | | (specimen) | + + + +---------+ + + | Performing | Address | City/State/Zipcode | Phone Number | | Organization | | | | + +---------+ + + | EXTERNAL LAB | | | | + +---------+ + + Phosphorus (04/24/2015 3:26 AM PDT) + + + + + + | Component | Value | Ref Range | Performed | Pathologist | | | | | At | Signature | + + + + + + | PHOSPHORUS | 3.2Comment: Testing | 2.3 - 4.8 mg/dL | EXTERNAL | | | | performed at [facility] | | LAB | | | | [address];[place] | | | | | | [address] | | | | + + + + + + + + | Specimen | + + | Blood specimen | | (specimen) | + + + +---------+ + + | Performing | Address | City/State/Zipcode | Phone Number | | Organization | | | | + +---------+ + + | EXTERNAL LAB | | | | + +---------+ + + Magnesium (04/24/2015 3:26 AM PDT) + + + + + + | Component | Value | Ref Range | Performed | Pathologist | | | | | At | Signature | + + + + + + | Magnesium | 2.1Comment: Testing | 1.7 - 2.4 mg/dL | EXTERNAL | | | | performed at [facility];[address] | | LAB | | | | [address] [facility];[place] | | | | | | [address] | | | | + + + [...] + +---------+ + + Basic Metabolic Panel (04/24/2015 3:26 AM PDT) + + + + + + | Component | Value | Ref Range | Performed | Pathologist | | | | | At | Signature | + + + + + + | Na | 143Comment: Testing | 135 - 143 | EXTERNAL | | | | performed at [facility];[address] | mmol/L | LAB | | | | [address];[place] | | | | | | [address] | | | | + + + + + + | K | 5.0 (H)Comment: Testing | 3.5 - 4.9 | EXTERNAL | | | | performed at [facility];[address] | mmol/L | LAB | | | | [address];[place] | | | | | | [address] | | | | + + + + + + | Cl | 112 (H)Comment: Testing | 99 - 109 mmol/L | EXTERNAL | | | | performed at [facility];[address] | | LAB | | | | [address];[place] | | | | | | [address] | | | | + + + + + + | CO2 | 24Comment: Testing | 23 - 32 mmol/L | EXTERNAL | | | | performed at [facility];[address] | | LAB | | | | [address];[place] | | | | | | [address] | | | | + + + + + + | Anion Gap | 12Comment: Testing | 5 - 20 mmol/L | EXTERNAL | | | | performed at [facility];[address] | | LAB | | | | [address];[place] | | | | | | [address] | | | | + + + + + + | Glucose, | 161 (H)Comment: Testing | 65 - 99 mg/dL | EXTERNAL | | | Fasting | performed at [facility];[address] | | LAB | | | | [address];[place] | | | | | | [address] | | | | + + + + + + | BUN | 27 (H)Comment: Testing | 8 - 25 mg/dL | EXTERNAL | | | | performed at [facility];[address] | | LAB | | | | [address];[place] | | | | | | [address] | | | | + + + + + + | Creatinine | 1.4 (H)Comment: Testing | 0.70 - 1.30 | EXTERNAL | | | | performed at [facility];[address] | mg/dL | LAB | | | | [address];[place] | | | | | | [address] | | | | + + + + + + | BUN/Creatin | 19Comment: Testing | | EXTERNAL | | | ine Ratio | performed at [facility];[address] | | LAB | | | | [address];[place] | | | | | | [address] | | | | + + + + + + | Calcium | 7.2 (L)Comment: Testing | 8.5 - 10.5 | EXTERNAL | | | | performed at [facility];[address] | mg/dL | LAB | | | | [address];[place] | | | | | | [address] | | | | + + + + + + | Estimated | 55 (L)Comment: GFR <60: | mL/min/1.73m2 | EXTERNAL | [...] | | | | | | at [facility];[address];[place] [address] | | | | + + + + + + + + | Specimen | + + | Blood specimen | | (specimen) | + + + +---------+ + + | Performing | Address | City/State/Zipcode | Phone Number | | Organization | | | | + +---------+ + + | EXTERNAL LAB | | | | + +---------+ + + POC Glucose (04/23/2015 9:15 PM PDT) + + + + + + | Component | Value | Ref Range | Performed | Pathologist | | | | | At | Signature | + + + + + + | Glucose, | 209 (H)Comment: Testing | 65 - 99 mg/dL | EXTERNAL | | | Fingerstick | performed at [facility];[address] | | LAB | | | | [address];[place] | | | | | | [address] | | | | + + + + + + + + | Specimen | + + | | + + + +---------+ + + | Performing | Address | City/State/Zipcode | Phone Number | | Organization | | | | + +---------+ + + | EXTERNAL LAB | | | | + +---------+ + + POC Glucose (04/23/2015 5:56 PM PDT) + + + + + + | Component | Value | Ref Range | Performed | Pathologist | | | | | At | Signature | + + + + + + | Glucose, | 195 (H)Comment: Testing | 65 - 99 mg/dL | EXTERNAL | | | Fingerstick | performed at [facility];[address] | | LAB | | | | [address];[place], [place] | | | | | | [address] | | | | + + + + + + + + | Specimen | + + | | + + + +---------+ + + | Performing | Address | City/State/Zipcode | Phone Number | | Organization | | | | + +---------+ + + | EXTERNAL LAB | | | | + +---------+ + + POC Glucose (04/23/2015 1:59 PM PDT) + + + + + + | Component | Value | Ref Range | Performed | Pathologist | | | | | At | Signature | + + + + + + | Glucose, | 109 (H)Comment: Testing | 65 - 99 mg/dL | EXTERNAL | | | Fingerstick | performed at [facility];[address] | | LAB | | | | [address];[place], [place] | | | | | | [address] | | | | + + + + + + + + | Specimen | + + | | + + + +---------+ + + | Performing | Address | City/State/Zipcode | Phone Number | | Organization | | | | + +---------+ + + | EXTERNAL LAB | | | | + +---------+ + + POC Glucose (04/23/2015 10:17 AM PDT) + + + + + + | Component | Value | Ref Range | Performed | Pathologist | | | | | At | Signature | + + + + + + | Glucose, | 122 (H)Comment: Testing | 65 - 99 mg/dL | EXTERNAL | | | Fingerstick | performed at [facility];[address] | | LAB | | | | [address];[place], [place] | | | | | | [address] | | | | + + + + + + + + | Specimen | + + | | + + + +---------+ + + | Performing | Address | City/State/Zipcode | Phone Number | | Organization | | | | + +---------+ + + | EXTERNAL LAB | | | | + +---------+ + + Potassium (04/23/2015 8:15 AM PDT) + + + + + + | Component | Value | Ref Range | Performed | Pathologist | | | | | At | Signature | + + + + + + | K | 4.2Comment: Testing | 3.5 - 4.9 | EXTERNAL | | | | performed at [facility];[address] | mmol/L | LAB | | | | [address];[place] | | | | | | [address] | | | | + + + + + + + + | Specimen | + + | Blood specimen | | (specimen) | + + + +---------+ + + | Performing | Address | City/State/Zipcode | Phone Number | | Organization | | | | + +---------+ + + | EXTERNAL LAB | | | | + +---------+ + + POC Glucose (04/23/2015 8:09 AM PDT) + + + + + + | Component | Value | Ref Range | Performed | Pathologist | | | | | At | Signature | + + + + + + | Glucose, | 123 (H)Comment: Testing | 65 - 99 mg/dL | EXTERNAL | | | Fingerstick | performed at [facility];[address] | | LAB | | | | [address];[place], [place] | | | | | | [address] | | | | + + + + + + + + | Specimen | + + | | + + + +---------+ + + | Performing | Address | City/State/Zipcode | Phone Number | | Organization | | | | + +---------+ + + | EXTERNAL LAB | | | | + +---------+ + + POC Glucose (04/23/2015 8:06 AM PDT) + + + + + + | Component | Value | Ref Range | Performed | Pathologist | | | | | At | Signature | + + + + + + | Glucose, | 392 (H)Comment: Testing | 65 - 99 mg/dL | EXTERNAL | | | Fingerstick | performed at [facility];[address] | | LAB | | | | [address];[place] | | | | | | [address] | | | | + + + + + + + + | Specimen | + + | | + + + +---------+ + + | Performing | Address | City/State/Zipcode | Phone Number | | Organization | | | | + +---------+ + + | EXTERNAL LAB | | | | + +---------+ + + POC Glucose (04/23/2015 6:49 AM PDT) + + + + + + | Component | Value | Ref Range | Performed | Pathologist | | | | | At | Signature | + + + + + + | Glucose, | 120 (H)Comment: Testing | 65 - 99 mg/dL | EXTERNAL | | | Fingerstick | performed at [facility];[address] | | LAB | | | | [address];[place], [place] | | | | | | [address] | | | | + + + + + + + + | Specimen | + + | | + + + +---------+ + + | Performing | Address | City/State/Zipcode | Phone Number | | Organization | | | | + +---------+ + + | EXTERNAL LAB | | | | + +---------+ + + XR Chest 1 Vw (04/23/2015 6:08 AM PDT) + + | Specimen | + + | | + + + + + | Impressions | Performed At | + + + | 1. Removal ET tube and NG tube, with otherwise unchanged tubes and | | | lines, without pneumothorax. 2. Low lung volumes with persistent | | | right and mild increasing left lung atelectasis. 3. Distention of | | | the stomach. Electronically signed by Zander Nelson MD on | | | 04/23/2015 7:33 AM | | + + + + + + | Narrative | Performed At | + + + | HISTORY: Evaluate tubes and lines. COMPARISON: 04/22/15. | | | TECHNIQUE: AP portable film of the chest at 0522 hours FINDINGS: | | | Removal of ET tube and NG tube. Right IJ sheath with [place]-Alesia | | | catheter in the proximal right main pulmonary artery, left lower | | | lateral chest tube, midline mediastinal drain remain in place. Low | | | lung volumes. Persistent bilateral perihilar and left basilar | | | atelectasis. No pneumothorax. Distention of the stomach. Heart size is | | | normal. | | + + + + + | Procedure Note | + + | Ravi, Rad Conversion - 03/10/2019 10:17 AM PDT HISTORY:Evaluate tubes and lines. | | COMPARISON:04/22/15. TECHNIQUE:AP portable film of the chest at 0522 hours | | FINDINGS:Removal of ET tube and NG tube. Right IJ sheath with [place]-Alesia catheter in the | | proximal right main pulmonary artery, left lower lateral chest tube, midline mediastinal | | drain remain in place. Low lung volumes. Persistent bilateral perihilar and left | | basilar atelectasis. No pneumothorax. Distention of the stomach. Heart size is normal. | | IMPRESSION: 1. Removal ET tube and NG tube, with otherwise unchanged tubes and lines, | | without pneumothorax.2. Low lung volumes with persistent right and mild increasing left | | lung atelectasis.3. Distention of the stomach. | |Removal of ET tube and NG tube. Right IJ sheath with Philadelphia-Alesia catheter in the proximal rig ht main pulmonary artery, left lower lateral chest tube, midline mediastinal drain remain in place. Low lung volumes. Persistent bilateral perihilar and left | |basilar atelectasis. No pneumothorax. Distention of the stomach. Heart size is normal. | | | |IMPRESSION: | |1. Removal ET tube and NG tube, with otherwise unchanged tubes and lines, without pneumoth orax. | |2. Low lung volumes with persistent right and mild increasing left lung atelectasis. | |3. Distention of the stomach. | | | | | + + POC Glucose (04/23/2015 6:01 AM PDT) + + + + + + | Component | Value | Ref Range | Performed | Pathologist | | | | | At | Signature | + + + + + + | Glucose, | 136 (H)Comment: Testing | 65 - 99 mg/dL | EXTERNAL | | | Fingerstick | performed at [facility];[address] | | LAB | | | | [address];[place] | | | | | | [address] | | | | + + + + + + + + | Specimen | + + | | + + + +---------+ + + | Performing | Address | City/State/Zipcode | Phone Number | | Organization | | | | + +---------+ + + | EXTERNAL LAB | | | | + +---------+ + + POC Glucose (04/23/2015 4:36 AM PDT) + + + + + + | Component | Value | Ref Range | Performed | Pathologist | | | | | At | Signature | + + + + + + | Glucose, | 146 (H)Comment: Testing | 65 - 99 mg/dL | EXTERNAL | | | Fingerstick | performed at [facility];[address] | | LAB | | | | [address];[place] | | | | | | [address] | | | | + + + + + + + + | Specimen | + + | | + + + +---------+ + + | Performing | Address | City/State/Zipcode | Phone Number | | Organization | | | | + +---------+ + + | EXTERNAL LAB | | | | + +---------+ + + External Lab: CBC (04/23/2015 2:50 AM PDT) + + + + + + | Component | Value | Ref Range | Performed | Pathologist | | | | | At | Signature | + + + + + + | WBC | 13.15 (H)Comment: | 3.80 - 11.00 | EXTERNAL | | | | Testing performed at | K/uL | LAB | | | | [facility], [address] [facility] | | | | | | [place] | | | | | | [address] | | | | + + + + + + | RED CELL | 3.10 (L)Comment: Testing | 4.20 - 5.70 | EXTERNAL | | | COUNT | performed at [facility], [address] | [address] | LAB | | | | [address], | | | | | | [place] [address] | | | | + + + + + + | Hgb | 8.9 (L)Comment: Testing | 13.2 - 17.0 | EXTERNAL | | | | performed at [facility], [address] | g/dL | LAB | | | | [address], | | | | | | [place] [address] | | | | + + + + + + | Hematocrit, | 27.2 (L)Comment: Testing | 39.0 - 50.0 % | EXTERNAL | | | POC | performed at [facility], [address] | | LAB | | | | [address], | | | | | | [place] [address] | | | | + + + + + + | MCV | 87.5Comment: Testing | 80.0 - 100.0 fl | EXTERNAL | | | | performed at [facility], [address] | | LAB | | | | [address], | | | | | | [place] [address] | | | | + + + + + + | MCH | 28.7Comment: Testing | 27.0 - 34.0 pg | EXTERNAL | | | | performed at [facility], [address] | | LAB | | | | [address], | | | | | | [place] [address] | | | | + + + + + + | MCHC | 32.8Comment: Testing | 32.0 - 35.5 | EXTERNAL | | | | performed at [facility], [address] | g/dL | LAB | | | | [address], | | | | | | [place] [address] | | | | + + + + + + | RDW-CV | 41.1Comment: Testing | 37 - 53 fl | EXTERNAL | | | | performed at [facility], [address] | | LAB | | | | [address], | | | | | | [place] [address] | | | | + + + + + + | Platelet | 216Comment: Testing | 150 - 400 K/uL | EXTERNAL | | | Count | performed at [facility], [address] | | LAB | | | Plasma | [address], | | | | | | [place] [address] | | | | + + + + + + | MPV | 9.2Comment: Testing | fl | EXTERNAL | | | | performed at [facility], [address] | | LAB | | | | [address], | | | | | | [place] [address] | | | | + + + + + + | Differentia | AUTOMATEDComment: | | EXTERNAL | | | l Type | Testing performed at | | LAB | | | | [facility], [address] | | | | | | [place] | | | | | | [address] | | | | + + + + + + | % Segmented | 83.57Comment: Testing | % | EXTERNAL | | | | performed at [facility], [address] | | LAB | | | Neutrophils | [address], | | | | | | [place], [place] [address] | | | | + + + + + + | % | 6.74Comment: Testing | % | EXTERNAL | | | Lymphocytes | performed at [facility], [address] | | LAB | | | | [address], | | | | | | [place], [place] [address] | | | | + + + + + + | % Monocytes | 9.48Comment: Testing | % | EXTERNAL | | | | performed at [facility], [address] | | LAB | | | | [address], | | | | | | [place] [address] | | | | + + + + + + | % | 0.07Comment: Testing | % | EXTERNAL | | | Eosinophils | performed at [facility], [address] | | LAB | | | | [address], | | | | | | [place] [address] | | | | + + + + + + | % Basophils | 0.14Comment: Testing | % | EXTERNAL | | | | performed at [facility], [address] | | LAB | | | | [address], | | | | | | [place] [address] | | | | + + + + + + | Absolute | 10.99 (H)Comment: | 1.90 - 7.40 | EXTERNAL | | | Segmented | Testing performed at | K/uL | LAB | | | Neutrophils | [facility], [address] | | | | | | [place] | | | | | | [address] | | | | + + + + + + | Absolute | 0.89 (L)Comment: Testing | 1.00 - 3.90 | EXTERNAL | | | Lymphocytes | performed at [facility], [address] | K/uL | LAB | | | | [address], | | | | | | [place] [address] | | | | + + + + + + | Absolute | 1.25 (H)Comment: Testing | 0.00 - 0.80 | EXTERNAL | | | Monocytes | performed at [facility], [address] | K/uL | LAB | | | | [address], | | | | | | [place] [address] | | | | + + + + + + | Absolute | 0.01Comment: Testing | 0.00 - 0.50 | EXTERNAL | | | Eosinophils | performed at [facility], [address] | K/uL | LAB | | | | [address], | | | | | | [place] [address] | | | | + + + + + + | Absolute | 0.02Comment: Testing | 0.00 - 0.10 | EXTERNAL | | | Basophils | performed at [facility], [address] | K/uL | LAB | | | | [address], | | | | | | [place] [address] | | | | + + + + + + + + | Specimen | + + | Blood specimen | | (specimen) | + + + +---------+ + + | Performing | Address | City/State/Zipcode | Phone Number | | Organization | | | | + +---------+ + + | EXTERNAL LAB | | | | + +---------+ + + Magnesium (04/23/2015 2:50 AM PDT) + + + + + + | Component | Value | Ref Range | Performed | Pathologist | | | | | At | Signature | + + + + + + | Magnesium | 1.7Comment: Testing | 1.7 - 2.4 mg/dL | EXTERNAL | | | | performed at [facility], [address] | | LAB | | | | [address], | | | | | | [place] [address] | | | | + + + + + + + + | Specimen | + + | Blood specimen | | (specimen) | + + + +---------+ + + | Performing | Address | City/State/Zipcode | Phone Number | | Organization | | | | + +---------+ + + | EXTERNAL LAB | | | | + +---------+ + + Hemoglobin A1C (04/23/2015 2:50 AM PDT) + + + + + + | Component | Value | Ref Range | Performed | Pathologist | | | | | At | Signature | + + + + + + | Hemoglobin | 7.4 (H)Comment: The | 4.0 - 6.0 % | EXTERNAL | | | A1c | [employer] [employer] | | LAB | | | | Association considers a | | | | | | hemoglobin A1c result of | | | | | | <7.0% to be the goal of | | | | | | diabetic therapy. | | | | | | When results are | | | | | | consistently >8.0%, the | | | | | | ADA suggests | | | | | | reevaluation of the | | | | | | treatment regimen. The | | | | | | testing method used is | | | | | | certified traceable to | | | | | | the Diabetes Control and | | | | | | Complications Trial | | | | | | reference method.Testing | | | | | | performed at [facility], [address] | | | | | | [address], | | | | | | [place] [address] | | | | + + + + + + | Glycohemogl | 166Comment: The ADA | mg/dL | EXTERNAL | | | obin | considers an eAG result | | LAB | | | (GHb),Total | of LT 154 mg/dL to be | | | | | | the goal of diabetic | | | | | | therapy. Estimated | | | | | | Average Glucose | | | | | | calculated from | | | | | | hemoglobin A1c by use of | | | | | | the ADA recommended | | | | | | formula.Testing | | | | | | performed at [facility], [address] | | | | | | [facility], | | | | | | [place] [address] | | | | + + + [...] + +---------+ + + Basic Metabolic Panel (04/23/2015 2:50 AM PDT) + + + + + + | Component | Value | Ref Range | Performed | Pathologist | | | | | At | Signature | + + + + + + | Na | 137Comment: Testing | 135 - 143 | EXTERNAL | | | | performed at [facility], [address] | mmol/L | LAB | | | | [address], | | | | | | [place] [address] | | | | + + + + + + | K | 4.8Comment: Testing | 3.5 - 4.9 | EXTERNAL | | | | performed at [facility], [address] | mmol/L | LAB | | | | [address], | | | | | | [place] [address] | | | | + + + + + + | Cl | 111 (H)Comment: Testing | 99 - 109 mmol/L | EXTERNAL | | | | performed at [facility], [address] | | LAB | | | | [address], | | | | | | [place] [address] | | | | + + + + + + | CO2 | 23Comment: Testing | 23 - 32 mmol/L | EXTERNAL | | | | performed at [facility], [address] | | LAB | | | | [address], | | | | | | [place] [address] | | | | + + + + + + | Anion Gap | 8Comment: Testing | 5 - 20 mmol/L | EXTERNAL | | | | performed at [facility], [address] | | LAB | | | | [address], | | | | | | [place] [address] | | | | + + + + + + | Glucose, | 108 (H)Comment: Testing | 65 - 99 mg/dL | EXTERNAL | | | Fasting | performed at [facility], [address] | | LAB | | | | [address], | | | | | | [place] [address] | | | | + + + + + + | BUN | 18Comment: Testing | 8 - 25 mg/dL | EXTERNAL | | | | performed at [facility], [address] | | LAB | | | [address], | | | | | | [place] [address] | | | | + + + + + + | Creatinine | 1.12Comment: Testing | 0.70 - 1.30 | EXTERNAL | | | | performed at [facility], [address] | mg/dL | LAB | | | | [address], | | | | | | [place] [address] | | | | + + + + + + | BUN/Creatin | 16Comment: Testing | | EXTERNAL | | | ine Ratio | performed at [facility], [address] | | LAB | | | | [address], | | | | | | [place] [address] | | | | + + + + + + | Calcium | 8.2 (L)Comment: Testing | 8.5 - 10.5 | EXTERNAL | | | | performed at [facility], [address] | mg/dL | LAB | | | | [address], | | | | | | [place] [address] | | | | + + + [...] | | | | | | at [facility], [address] | | | | | | [address], | | | | | | [place] [address] | | | | + + + + + + + + | Specimen | + + | Blood specimen | | (specimen) | + + + +---------+ + + | Performing | Address | City/State/Zipcode | Phone Number | | Organization | | | | + +---------+ + + | EXTERNAL LAB | | | | + +---------+ + + POC Glucose (04/23/2015 2:28 AM PDT) + + + + + + | Component | Value | Ref Range | Performed | Pathologist | | | | | At | Signature | + + + + + + | Glucose, | 106 (H)Comment: Testing | 65 - 99 mg/dL | EXTERNAL | | | Fingerstick | performed at [facility];[address] | | LAB | | | | [address];[place], [place] | | | | | | [address] | | | | + + + + + + + + | Specimen | + + | | + + + +---------+ + + | Performing | Address | City/State/Zipcode | Phone Number | | Organization | | | | + +---------+ + + | EXTERNAL LAB | | | | + +---------+ + + Potassium (04/23/2015 1:15 AM PDT) + + + + + + | Component | Value | Ref Range | Performed | Pathologist | | | | | At | Signature | + + + + + + | K | 5.0 (H)Comment: Testing | 3.5 - 4.9 | EXTERNAL | | | | performed at [facility];[address] | mmol/L | LAB | | | | [address];[place], [place] | | | | | | [address] | | | | + + + + + + + + | Specimen | + + | Blood specimen | | (specimen) | + + + +---------+ + + | Performing | Address | City/State/Zipcode | Phone Number | | Organization | | | | + +---------+ + + | EXTERNAL LAB | | | | + +---------+ + + POC Glucose (04/23/2015 12:26 AM PDT) + + + + + + | Component | Value | Ref Range | Performed | Pathologist | | | | | At | Signature | + + + + + + | Glucose, | 103 (H)Comment: Testing | 65 - 99 mg/dL | EXTERNAL | | | Fingerstick | performed at [facility] | | LAB | | | | [address];[place], [place] | | | | | | [address] | | | | + + + + + + + + | Specimen | + + | | + + + +---------+ + + | Performing | Address | City/State/Zipcode | Phone Number | | Organization | | | | + +---------+ + + | EXTERNAL LAB | | | | + +---------+ + + POC Glucose (04/22/2015 10:20 PM PDT) + + + + + + | Component | Value | Ref Range | Performed | Pathologist | | | | | At | Signature | + + + + + + | Glucose, | 133 (H)Comment: Testing | 65 - 99 mg/dL | EXTERNAL | | | Fingerstick | performed at [facility];[address] | | LAB | | | | [address];[place] | | | | | | [address] | | | | + + + + + + + + | Specimen | + + | | + + + +---------+ + + | Performing | Address | City/State/Zipcode | Phone Number | | Organization | | | | + +---------+ + + | EXTERNAL LAB | | | | + +---------+ + + Potassium (04/22/2015 8:29 PM PDT) + + + + + + | Component | Value | Ref Range | Performed | Pathologist | | | | | At | Signature | + + + + + + | K | 4.3Comment: Testing | 3.5 - 4.9 | EXTERNAL | | | | performed at [facility];[address] | mmol/L | LAB | | | | [address];[place], [place] | | | | | | [address] | | | | + + + + + + + + | Specimen | + + | Blood specimen | | (specimen) | + + + +---------+ + + | Performing | Address | City/State/Zipcode | Phone Number | | Organization | | | | + +---------+ + + | EXTERNAL LAB | | | | + +---------+ + + POC Glucose (04/22/2015 8:09 PM PDT) + + + + + + | Component | Value | Ref Range | Performed | Pathologist | | | | | At | Signature | + + + + + + | Glucose, | 126 (H)Comment: Testing | 65 - 99 mg/dL | EXTERNAL | | | Fingerstick | performed at [facility];[address] | | LAB | | | | [address];[place] | | | | | | [address] | | | | + + + + + + + + | Specimen | + + | | + + + +---------+ + + | Performing | Address | City/State/Zipcode | Phone Number | | Organization | | | | + +---------+ + + | EXTERNAL LAB | | | | + +---------+ + + Potassium (04/22/2015 5:43 PM PDT) + + + + + + | Component | Value | Ref Range | Performed | Pathologist | | | | | At | Signature | + + + + + + | K | 3.6Comment: Testing | 3.5 - 4.9 | EXTERNAL | | | | performed at [facility];[address] | mmol/L | LAB | | | | [address];[place], [place] | | | | | | [address] | | | | + + + + + + + + | Specimen | + + | Blood specimen | | (specimen) | + + + +---------+ + + | Performing | Address | City/State/Zipcode | Phone Number | | Organization | | | | + +---------+ + + | EXTERNAL LAB | | | | + +---------+ + + POC Glucose (04/22/2015 5:25 PM PDT) + + + + + + | Component | Value | Ref Range | Performed | Pathologist | | | | | At | Signature | + + + + + + | Glucose, | 119 (H)Comment: Testing | 65 - 99 mg/dL | EXTERNAL | | | Fingerstick | performed at [facility];[address] | | LAB | | | | [address];[place] | | | | | | [address] | | | | + + + + + + + + | Specimen | + + | | + + + +---------+ + + | Performing | Address | City/State/Zipcode | Phone Number | | Organization | | | | + +---------+ + + | EXTERNAL LAB | | | | + +---------+ + + POC Glucose (04/22/2015 3:56 PM PDT) + + + + + + | Component | Value | Ref Range | Performed | Pathologist | | | | | At | Signature | + + + + + + | Glucose, | 120 (H)Comment: Testing | 65 - 99 mg/dL | EXTERNAL | | | Fingerstick | performed at [facility];[address] | | LAB | | | | [address];[place] | | | | | | [address] | | | | + + + + + + + + | Specimen | + + | | + + + +---------+ + + | Performing | Address | City/State/Zipcode | Phone Number | | Organization | | | | + +---------+ + + | EXTERNAL LAB | | | | + +---------+ + + POC Glucose (04/22/2015 2:49 PM PDT) + + + + + + | Component | Value | Ref Range | Performed | Pathologist | | | | | At | Signature | + + + + + + | Glucose, | 123 (H)Comment: Testing | 65 - 99 mg/dL | EXTERNAL | | | Fingerstick | performed at [facility];[address] | | LAB | | | | [address];[place], [place] | | | | | | [address] | | | | + + + + + + + + | Specimen | + + | | + + + +---------+ + + | Performing | Address | City/State/Zipcode | Phone Number | | Organization | | | | + +---------+ + + | EXTERNAL LAB | | | | + +---------+ + + POC Glucose (04/22/2015 1:46 PM PDT) + + + + + + | Component | Value | Ref Range | Performed | Pathologist | | | | | At | Signature | + + + + + + | Glucose, | 148 (H)Comment: Testing | 65 - 99 mg/dL | EXTERNAL | | | Fingerstick | performed at [facility];[address] | | LAB | | | | [address];[place], [place] | | | | | | [address] | | | | + + + + + + + + | Specimen | + + | | + + + +---------+ + + | Performing | Address | City/State/Zipcode | Phone Number | | Organization | | | | + +---------+ + + | EXTERNAL LAB | | | | + +---------+ + + XR Chest 1 Vw (04/22/2015 1:35 PM PDT) + + | Specimen | + + | | + + + + + | Impressions | Performed At | + + + | 1. Mild bibasilar subsegmental atelectasis. Electronically | | | signed by Edgar Davies DO on 04/22/2015 1:39 PM | | + + + + + + | Narrative | Performed At | + + + | DUSTY LORENZO XR CHEST 1 VIEW HISTORY: 59 years. Male. | | | Evaluate tubes and lines. TECHNIQUE: Single portable anterior | | | view of the chest was obtained. COMPARISON: | | | FINDINGS: Low lung volumes. Endotracheal tube tip located | | | approximately 2.5 cm above the eladia. Nasogastric tube seen coursing | | | below the diaphragm. Right IJ [place]-Alesia catheter tip located in the | | | region of pulmonary outflow tract. Midline sternotomy wires are | | | intact. Mild bibasilar subsegmental atelectasis. No pneumothorax. | | | Left-sided chest tube appears in appropriate position. | | + + + + + | Procedure Note | + + | Ravi, Rad Conversion - 03/10/2019 10:17 AM KELLIE STOVALL CHEST 1 VIEW HISTORY:59 | | years. Male. Evaluate tubes and lines. TECHNIQUE:Single portable anterior view of the | | chest was obtained. COMPARISON: FINDINGS:Low lung volumes. Endotracheal tube tip | | located approximately 2.5 cm above the eladia. Nasogastric tube seen coursing below the | | diaphragm. Right IJ [place]-Alesia catheter tip located in the region of pulmonary outflow | | tract. Midline sternotomy wires are intact. Mild bibasilar subsegmental atelectasis. No | | pneumothorax. Left-sided chest tube appears in appropriate position. IMPRESSION: 1. | | Mild bibasilar subsegmental atelectasis. Electronically signed by Edgar Davies DO on | | 04/22/2015 1:39 PM | |COMPARISON: | | | | | |FINDINGS: | |Low lung volumes. Endotracheal tube tip located approximately 2.5 cm above the eladia. Naso gastric tube seen coursing below the diaphragm. Right IJ [place]-Alesia catheter tip located in t he region of pulmonary outflow tract. Midline sternotomy wires are | |intact. Mild bibasilar subsegmental atelectasis. No pneumothorax. Left-sided chest tube clif ears in appropriate position. | | | |IMPRESSION: | |1. Mild bibasilar subsegmental atelectasis. | | | | | + + POC Glucose (04/22/2015 1:15 PM PDT) + + + + + + | Component | Value | Ref Range | Performed | Pathologist | | | | | At | Signature | + + + + + + | Glucose, | 130 (H)Comment: Testing | 65 - 99 mg/dL | EXTERNAL | | | Fingerstick | performed at [facility];[address] | | LAB | | | | [address];[place] | | | | | | [address] | | | | + + + + + + + + | Specimen | + + | | + + + +---------+ + + | Performing | Address | City/State/Zipcode | Phone Number | | Organization | | | | + +---------+ + + | EXTERNAL LAB | | | | + +---------+ + + Calcium, Ionized (04/22/2015 1:15 PM PDT) + + + + + + | Component | Value | Ref Range | Performed | Pathologist | | | | | At | Signature | + + + + + + | Calcium | 1.17Comment: Testing | 1.08 - 1.25 | EXTERNAL | | | (Calc) | performed at [facility];[address] | mmol/L | LAB | | | | [address];[place] | | | | | | [address] | | | | + + + + + + | pH, Bld | 7.402Comment: Testing | 7.300 - 7.450 | EXTERNAL | | | | performed at [facility];[address] | | LAB | | | | [address];[place] | | | | | | [address] | | | | + + + + + + + + | Specimen | + + | Blood specimen | | (specimen) | + + + +---------+ + + | Performing | Address | City/State/Zipcode | Phone Number | | Organization | | | | + +---------+ + + | EXTERNAL LAB | | | | + +---------+ + + ECG 12 lead (04/22/2015 1:14 PM PDT) + + + + + + | Component | Value | Ref Range | Performed | Pathologist | | | | | At | Signature | + + + + + + | DIAGNOSIS: | Normal sinus rhythmLeft | | EXTERNAL | | | | axis deviationRight | | LAB | | | | bundle branch | | | | | | blockNonspecific ST | | | | | | and/or T wave | | | | | | abnormalitiesAbnormal | | | | | | ECGWhen compared with | | | | | | ECG of 09-APR-2015 | | | | | | 15:52,QRS axis Shifted | | | | | | leftT wave inversion no | | | | | | longer evident in | | | | | | Inferior leadsT wave | | | | | | amplitude has increased | | | | | | in Lateral leadsQT has | | | | | | lengthenedConfirmed by | | | | | | LUCY CALABRESE ([id number]) on | | | | | | 04/22/2015 4:40:23 PM | | | | + + + + + + + + | Specimen | + + | | + + + + + | Narrative | Performed At | + + + | [facility] | EXTERNAL LAB | + + + + +---------+ + + | Performing | Address | City/State/Zipcode | Phone Number | | Organization | | | | + +---------+ + + | EXTERNAL LAB | | | | + +---------+ + + PTT (04/22/2015 1:14 PM PDT) + + + + + + | Component | Value | Ref Range | Performed | Pathologist | | | | | At | Signature | + + + + + + | aPTT, | 26Comment: Testing | 23 - 32 seconds | EXTERNAL | | | Patient | performed at [facility];[address] | | LAB | | | | [address];[place], [place] | | | | | | [address] | | | | + + + + + + + + | Specimen | + + | Blood specimen | | (specimen) | + + + +---------+ + + | Performing | Address | City/State/Zipcode | Phone Number | | Organization | | | | + +---------+ + + | EXTERNAL LAB | | | | + +---------+ + + Protime INR (04/22/2015 1:14 PM PDT) + + + + + + | Component | Value | Ref Range | Performed | Pathologist | | | | | At | Signature | + + + + + + | INR | 1.3Comment: REFERENCE | | EXTERNAL | | | [...] | | | | | performed at [facility];[address] | | | | | | [address] [facility];[place], [place] | | | | | | [address] | | | | + + + + + + + + | Specimen | + + | Blood specimen | | (specimen) | + + + +---------+ + + | Performing | Address | City/State/Zipcode | Phone Number | | Organization | | | | + +---------+ + + | EXTERNAL LAB | | | | + +---------+ + + Fibrinogen (04/22/2015 1:14 PM PDT) + + + + + + | Component | Value | Ref Range | Performed | Pathologist | | | | | At | Signature | + + + + + + | Fibrinogen | 202Comment: Testing | 200 - 450 mg/dL | EXTERNAL | | | | performed at [facility];[address] | | LAB | | | | [address];[place], [place] | | | | | | [address] | | | | + + + + + + + + | Specimen | + + | Blood specimen | | (specimen) | + + + +---------+ + + | Performing | Address | City/State/Zipcode | Phone Number | | Organization | | | | + +---------+ + + | EXTERNAL LAB | | | | + +---------+ + + External Lab: CBC (04/22/2015 1:14 PM PDT) + + + + + + | Component | Value | Ref Range | Performed | Pathologist | | | | | At | Signature | + + + + + + | WBC | 9.76Comment: Testing | 3.80 - 11.00 | EXTERNAL | | | | performed at [facility] [place];[address] | K/uL | LAB | | | | [address];[place] | | | | | | [id number] | | | | + + + + + + | RED CELL | 3.49 (L)Comment: Testing | 4.20 - 5.70 | EXTERNAL | | | COUNT | performed at [facility] [place];[address] | M/uL | LAB | | | | [address];[place] | | | | | | [id number] | | | | + + + + + + | Hgb | 10.0 (L)Comment: Testing | 13.2 - 17.0 | EXTERNAL | | | | performed at [facility] [place];888 | g/dL | LAB | | | | [address];[place] | | | | | | [id number] | | | | + + + + + + | Hematocrit, | 29.3 (L)Comment: Testing | 39.0 - 50.0 % | EXTERNAL | | | POC | performed at [facility];[address] | | LAB | | | | [address];[place] | | | | | | [address] | | | | + + + + + + | MCV | 83.9Comment: Testing | 80.0 - 100.0 fl | EXTERNAL | | | | performed at [facility];[address] | | LAB | | | | [address];[place] | | | | | | [address] | | | | + + + + + + | MCH | 28.5Comment: Testing | 27.0 - 34.0 pg | EXTERNAL | | | | performed at [facility];[address] | | LAB | | | | [address];[place] | | | | | | [address] | | | | + + + + + + | MCHC | 33.9Comment: Testing | 32.0 - 35.5 | EXTERNAL | | | | performed at [facility];[address] | g/dL | LAB | | | | [address];[place] | | | | | | [address] | | | | + + + + + + | RDW-CV | 39.8Comment: Testing | 37 - 53 fl | EXTERNAL | | | | performed at [facility];[address] | | LAB | | | | [address];[place] | | | | | | [address] | | | | + + + + + + | Platelet | 163Comment: Testing | 150 - 400 K/uL | EXTERNAL | | | Count | performed at [facility];[address] | | LAB | | | Plasma | [address];[place] | | | | | | [address] | | | | + + + + + + | MPV | 8.2Comment: Testing | fl | EXTERNAL | | | | performed at [facility];[address] | | LAB | | | | [address];[place] | | | | | | [address] | | | | + + + + + + | Differentia | AUTOMATEDComment: | | EXTERNAL | | | l Type | Testing performed at | | LAB | | | | [facility];[address];[place] [address] | | | | + + + + + + | % Segmented | 77.61Comment: Testing | % | EXTERNAL | | | | performed at [facility];[address] | | LAB | | | Neutrophils | [address];[place] | | | | | | [address] | | | | + + + + + + | % | 16.33Comment: Testing | % | EXTERNAL | | | Lymphocytes | performed at [facility];[address] | | LAB | | | | [address];[place] | | | | | | [address] | | | | + + + + + + | % Monocytes | 4.04Comment: Testing | % | EXTERNAL | | | | performed at [facility];[address] | | LAB | | | | [address];[place] | | | | | | [address] | | | | + + + + + + | % | 1.60Comment: Testing | % | EXTERNAL | | | Eosinophils | performed at [facility];[address] | | LAB | | | | [address];[place] | | | | | | [address] | | | | + + + + + + | % Basophils | 0.42Comment: Testing | % | EXTERNAL | | | | performed at [facility];[address] | | LAB | | | | [address];[place] | | | | | | [address] | | | | + + + + + + | Absolute | 7.58 (H)Comment: Testing | 1.90 - 7.40 | EXTERNAL | | | Segmented | performed at [facility];[address] | K/uL | LAB | | | Neutrophils | [address];[place] | | | | | | [address] | | | | + + + + + + | Absolute | 1.59Comment: Testing | 1.00 - 3.90 | EXTERNAL | | | Lymphocytes | performed at [facility];[address] | K/uL | LAB | | | | [address];[place] | | | | | | [address] | | | | + + + + + + | Absolute | 0.39Comment: Testing | 0.00 - 0.80 | EXTERNAL | | | Monocytes | performed at [facility];[address] | K/uL | LAB | | | | [address];[place] | | | | | | [address] | | | | + + + + + + | Absolute | 0.16Comment: Testing | 0.00 - 0.50 | EXTERNAL | | | Eosinophils | performed at [facility];[address] | K/uL | LAB | | | | [address];[place] | | | | | | [address] | | | | + + + + + + | Absolute | 0.04Comment: Testing | 0.00 - 0.10 | EXTERNAL | | | Basophils | performed at [facility];[address] | K/uL | LAB | | | | [address];[place], [place] | | | | | | [address] | | | | + + + + + + + + | Specimen | + + | Blood specimen | | (specimen) | + + + +---------+ + + | Performing | Address | City/State/Zipcode | Phone Number | | Organization | | | | + +---------+ + + | EXTERNAL LAB | | | | + +---------+ + + Magnesium (04/22/2015 1:14 PM PDT) + + + + + + | Component | Value | Ref Range | Performed | Pathologist | | | | | At | Signature | + + + + + + | Magnesium | 2.3Comment: Testing | 1.7 - 2.4 mg/dL | EXTERNAL | | | | performed at [facility] | | LAB | | | | [address];[place], [place] | | | | | | [address] | | | | + + + [...] + +---------+ + + Basic Metabolic Panel (04/22/2015 1:14 PM PDT) + + + + + + | Component | Value | Ref Range | Performed | Pathologist | | | | | At | Signature | + + + + + + | Na | 145 (H)Comment: Testing | 135 - 143 | EXTERNAL | | | | performed at [facility];[address] | mmol/L | LAB | | | | [address];[place], [place] | | | | | | [address] | | | | + + + + + + | K | 4.3Comment: Testing | 3.5 - 4.9 | EXTERNAL | | | | performed at [facility];[address] | mmol/L | LAB | | | | [address];[place] | | | | | | [address] | | | | + + + + + + | Cl | 112 (H)Comment: Testing | 99 - 109 mmol/L | EXTERNAL | | | | performed at [facility];[address] | | LAB | | | | [address];[place] | | | | | | [address] | | | | + + + + + + | CO2 | 23Comment: Testing | 23 - 32 mmol/L | EXTERNAL | | | | performed at [facility];[address] | | LAB | | | | [address];[place] | | | | | | [address] | | | | + + + + + + | Anion Gap | 13Comment: Testing | 5 - 20 mmol/L | EXTERNAL | | | | performed at [facility];[address] | | LAB | | | | [address];[place] | | | | | | [address] | | | | + + + + + + | Glucose, | 140 (H)Comment: Testing | 65 - 99 mg/dL | EXTERNAL | | | Fasting | performed at [facility];[address] | | LAB | | | | [address];[place] | | | | | | [address] | | | | + + + + + + | BUN | 19Comment: Testing | 8 - 25 mg/dL | EXTERNAL | | | | performed at [facility];[address] | | LAB | | | | [address];[place] | | | | | | [address] | | | | + + + + + + | Creatinine | 1.1Comment: Testing | 0.70 - 1.30 | EXTERNAL | | | | performed at [facility];[address] | mg/dL | LAB | | | | [address];[place] | | | | | | [address] | | | | + + + + + + | BUN/Creatin | 17Comment: Testing | | EXTERNAL | | | ine Ratio | performed at [facility];[address] | | LAB | | | | [address];[place] | | | | | | [address] | | | | + + + + + + | Calcium | 8.5Comment: Testing | 8.5 - 10.5 | EXTERNAL | | | | performed at [facility];[address] | mg/dL | LAB | | | | [address];[place] | | | | | | [address] | | | | + + + [...] | | | | | | at [facility];[address] | | | | | [address];[place] [address] | | | | + + + + + + + + | Specimen | + + | Blood specimen | | (specimen) | + + + +---------+ + + | Performing | Address | City/State/Zipcode | Phone Number | | Organization | | | | + +---------+ + + | EXTERNAL LAB | | | | + +---------+ + + ECHO Transesophageal (OTILIA) - [place] (04/22/2015 11:57 AM PDT) + + | Specimen | + + | | + + + + + | Narrative | Performed At | + + + | This is a non-reportable procedure without a mercerizer machine operator report and | | | is used for image storage only. Please review the operative | | | procedure notes for details on the procedure. | | + + + + + | Procedure Note | + + | Isaac Rodrigues - 03/10/2019 10:17 AM PDT This is a non-reportable procedure | | without a mercerizer machine operator report and isused for image storage only. Please review the | | operative procedure notesfor details on the procedure. | + + POC SARAVANAN, CG8, Arterial (04/22/2015 11:52 AM PDT) + + + + + + | Component | Value | Ref Range | Performed | Pathologist | | | | | At | Signature | + + + + + + | PH ART | 7.408Comment: Testing | 7.350 - 7.450 | EXTERNAL | | | | performed at [facility];[address] | | LAB | | | | [address];[place] | | | | | | [address] | | | | + + + + + + | PCO2 ART | 38Comment: Testing | 35 - 45 mmHg | EXTERNAL | | | | performed at [facility];[address] | | LAB | | | | [address];[place] | | | | | | [address] | | | | + + + + + + | PO2 ART | 238 (H)Comment: Testing | 80 - 105 mmHg | EXTERNAL | | | | performed at [facility];[address] | | LAB | | | | [address];[place] | | | | | | [address] | | | | + + + + + + | HCO3 ART | 24Comment: Testing | 22 - 26 mmol/L | EXTERNAL | | | | performed at [facility];[address] | | LAB | | | | [address];[place] | | | | | | [address] | | | | + + + + + + | POC | 25Comment: Testing | 23 - 27 mEq/L | EXTERNAL | | | APPEARANCE | performed at [facility];[address] | | LAB | | | UA | [address];[place] | | | | | | [address] | | | | + + + + + + | Base | 0Comment: Testing | 0 - 3 mEq/L | EXTERNAL | | | Excess, | performed at [facility];[address] | | LAB | | | Arterial | [address];[place] | | | | | | [address] | | | | + + + + + + | O2 SAT ART | 100 (H)Comment: Testing | 95 - 98 % | EXTERNAL | | | | performed at [facility];[address] | | LAB | | | | [address];[place] | | | | | | [address] | | | | + + + + + + | Sodium, POC | 141Comment: Testing | 135 - 145 mEq/L | EXTERNAL | | | | performed at [facility];[address] | | LAB | | | | [address];[place] | | | | | | [address] | | | | + + + + + + | Potassium, | 4.4Comment: Testing | 3.5 - 5.0 mEq/L | EXTERNAL | | | POC | performed at [facility];[address] | | LAB | | | | [address];[place] | | | | | | [address] | | | | + + + + + + | Ionized | 1.40 (H)Comment: Testing | 1.12 - 1.32 | EXTERNAL | | | Calcium, | performed at [facility];[address] | mmol/L | LAB | | | POC | [address];[place] | | | | | | [address] | | | | + + + + + + | Glucose, | 190 (H)Comment: Testing | 65 - 99 mg/dL | EXTERNAL | | | POC | performed at [facility];[address] | | LAB | | | | [address];[place] | | | | | | [address] | | | | + + + + + + | Hematocrit, | 22 (LL)Comment: Testing | 40.0 - 50.0 % | EXTERNAL | | | POC | performed at [facility];[address] | | LAB | | | | [address];[place] | | | | | | [address] | | | | + + + + + + | Hemoglobin, | 7.5 (LL)Comment: Testing | 13.7 - 16.7 | EXTERNAL | | | POC | performed at [facility];[address] | g/dL | LAB | | | | [address];[place], [place] | | | | | | [address] | | | | + + + + + + + + | Specimen | + + | | + + + +---------+ + + | Performing | Address | City/State/Zipcode | Phone Number | | Organization | | | | + +---------+ + + | EXTERNAL LAB | | | | + +---------+ + + POC SARAVANAN CG8, Arterial (04/22/2015 11:28 AM PDT) + + + + + + | Component | Value | Ref Range | Performed | Pathologist | | | | | At | Signature | + + + + + + | PH ART | 7.457 (H)Comment: | 7.350 - 7.450 | EXTERNAL | | | | Testing performed at | | LAB | | | | [facility];[address];[place] [address] | | | | + + + + + + | PCO2 ART | 38Comment: Testing | 35 - 45 mmHg | EXTERNAL | | | | performed at [facility];[address] | | LAB | | | | [address];[place] | | | | | | [address] | | | | + + + + + + | PO2 ART | 237 (H)Comment: Testing | 80 - 105 mmHg | EXTERNAL | | | | performed at [facility];[address] | | LAB | | | | [address];[place] | | | | | | [address] | | | | + + + + + + | HCO3 ART | 27 (H)Comment: Testing | 22 - 26 mmol/L | EXTERNAL | | | | performed at [facility];[address] | | LAB | | | | [address];[place] | | | | | | [address] | | | | + + + + + + | POC | 28 (H)Comment: Testing | 23 - 27 mEq/L | EXTERNAL | | | APPEARANCE | performed at [facility];[address] | | LAB | | | UA | [address];[place] | | | | | | [address] | | | | + + + + + + | Base | 3Comment: Testing | 0 - 3 mEq/L | EXTERNAL | | | Excess, | performed at [facility];[address] | | LAB | | | Arterial | [address];[place] | | | | | | [address] | | | | + + + + + + | O2 SAT ART | 100 (H)Comment: Testing | 95 - 98 % | EXTERNAL | | | | performed at [facility];[address] | | LAB | | | | [address];[place] | | | | | | [address] | | | | + + + + + + | Sodium, POC | 141Comment: Testing | 135 - 145 mEq/L | EXTERNAL | | | | performed at [facility];[address] | | LAB | | | | [address];[place] | | | | | | [address] | | | | + + + + + + | Potassium, | 5.7 (H)Comment: Testing | 3.5 - 5.0 mEq/L | EXTERNAL | | | POC | performed at [facility];[address] | | LAB | | | | [address];[place] | | | | | | [address] | | | | + + + + + + | Ionized | 1.02 (L)Comment: Testing | 1.12 - 1.32 | EXTERNAL | | | Calcium, | performed at [facility];888 | mmol/L | LAB | | | POC | [address];[place] | | | | | | [address] | | | | + + + + + + | Glucose, | 172 (H)Comment: Testing | 65 - 99 mg/dL | EXTERNAL | | | POC | performed at [facility];[address] | | LAB | | | | [address];[place] | | | | | | [address] | | | | + + + + + + | Hematocrit, | 22 (LL)Comment: Testing | 40.0 - 50.0 % | EXTERNAL | | | POC | performed at [facility];[address] | | LAB | | | | [address];[place] | | | | | | [address] | | | | + + + + + + | Hemoglobin, | 7.5 (LL)Comment: Testing | 13.7 - 16.7 | EXTERNAL | | | POC | performed at [facility];888 | g/dL | LAB | | | | [address];[place] | | | | | | [address] | | | | + + + + + + + + | Specimen | + + | | + + + +---------+ + + | Performing | Address | City/State/Zipcode | Phone Number | | Organization | | | | + +---------+ + + | EXTERNAL LAB | | | | + +---------+ + + AISHA TERRAZAS Arterial (04/22/2015 10:58 AM PDT) + + + + + + | Component | Value | Ref Range | Performed | Pathologist | | | | | At | Signature | + + + + + + | PH ART | 7.440Comment: Testing | 7.350 - 7.450 | EXTERNAL | | | | performed at [facility];[address] | | LAB | | | | [address];[place] | | | | | | [address] | | | | + + + + + + | PCO2 ART | 38Comment: Testing | 35 - 45 mmHg | EXTERNAL | | | | performed at [facility];[address] | | LAB | | | | [address];[place] | | | | | | [address] | | | | + + + + + + | PO2 ART | 149 (H)Comment: Testing | 80 - 105 mmHg | EXTERNAL | | | | performed at [facility];[address] | | LAB | | | | [address];[place] | | | | | | [address] | | | | + + + + + + | HCO3 ART | 26Comment: Testing | 22 - 26 mmol/L | EXTERNAL | | | | performed at [facility];[address] | | LAB | | | | [address];[place] | | | | | | [address] | | | | + + + + + + | POC | 27Comment: Testing | 23 - 27 mEq/L | EXTERNAL | | | APPEARANCE | performed at [facility];[address] | | LAB | | | UA | [address];[place] | | | | | | [address] | | | | + + + + + + | Base | 2Comment: Testing | 0 - 3 mEq/L | EXTERNAL | | | Excess, | performed at [facility];[address] | | LAB | | | Arterial | [address];[place] | | | | | | [address] | | | | + + + + + + | O2 SAT ART | 99 (H)Comment: Testing | 95 - 98 % | EXTERNAL | | | | performed at [facility];[address] | | LAB | | | | [address];[place] | | | | | | [address] | | | | + + + + + + | Sodium, POC | 137Comment: Testing | 135 - 145 mEq/L | EXTERNAL | | | | performed at [facility];[address] | | LAB | | | | [address];[place] | | | | | | [address] | | | | + + + + + + | Potassium, | 6.8 (HH)Comment: Testing | 3.5 - 5.0 mEq/L | EXTERNAL | | | POC | performed at [facility];[address] | | LAB | | | | [address];[place] | | | | | | [address] | | | | + + + + + + | Ionized | 1.06 (L)Comment: Testing | 1.12 - 1.32 | EXTERNAL | | | Calcium, | performed at [facility];[address] | mmol/L | LAB | | | POC | [address];[place] | | | | | | [address] | | | | + + + + + + | Glucose, | 195 (H)Comment: Testing | 65 - 99 mg/dL | EXTERNAL | | | POC | performed at [facility];[address] | | LAB | | | | [address];[place] | | | | | | [address] | | | | + + + + + + | Hematocrit, | 25 (L)Comment: Testing | 40.0 - 50.0 % | EXTERNAL | | | POC | performed at [facility];[address] | | LAB | | | | [address];[place] | | | | | | [address] | | | | + + + + + + | Hemoglobin, | 8.5 (L)Comment: Testing | 13.7 - 16.7 | EXTERNAL | | | POC | performed at [facility];[address] | g/dL | LAB | | | | [address];[place] | | | | | | [address] | | | | + + + + + + + + | Specimen | + + | | + + + +---------+ + + | Performing | Address | City/State/Zipcode | Phone Number | | Organization | | | | + +---------+ + + | EXTERNAL LAB | | | | + +---------+ + + DAVID COE CG8 Arterial (04/22/2015 10:26 AM PDT) + + + + + + | Component | Value | Ref Range | Performed | Pathologist | | | | | At | Signature | + + + + + + | PH ART | 7.436Comment: Testing | 7.350 - 7.450 | EXTERNAL | | | | performed at [facility];[address] | | LAB | | | | [address];[place] | | | | | | [address] | | | | + + + + + + | PCO2 ART | 43Comment: Testing | 35 - 45 mmHg | EXTERNAL | | | | performed at [facility];[address] | | LAB | | | | [address];[place] | | | | | | [address] | | | | + + + + + + | PO2 ART | 292 (H)Comment: Testing | 80 - 105 mmHg | EXTERNAL | | | | performed at [facility];[address] | | LAB | | | | [address];[place] | | | | | | [address] | | | | + + + + + + | HCO3 ART | 29 (H)Comment: Testing | 22 - 26 mmol/L | EXTERNAL | | | | performed at [facility];[address] | | LAB | | | | [address];[place] | | | | | | [address] | | | | + + + + + + | POC | 30 (H)Comment: Testing | 23 - 27 mEq/L | EXTERNAL | | | APPEARANCE | performed at [facility];[address] | | LAB | | | UA | [address];[place] | | | | | | [address] | | | | + + + + + + | Base | 5 (H)Comment: Testing | 0 - 3 mEq/L | EXTERNAL | | | Excess, | performed at [facility];[address] | | LAB | | | Arterial | [address];[place] | | | | | | [address] | | | | + + + + + + | O2 SAT ART | 100 (H)Comment: Testing | 95 - 98 % | EXTERNAL | | | | performed at [facility];[address] | | LAB | | | | [address];[place] | | | | | | [address] | | | | + + + + + + | Sodium, POC | 137Comment: Testing | 135 - 145 mEq/L | EXTERNAL | | | | performed at [facility];[address] | | LAB | | | | [address];[place] | | | | | | [address] | | | | + + + + + + | Potassium, | 6.5 (HH)Comment: Testing | 3.5 - 5.0 mEq/L | EXTERNAL | | | POC | performed at [facility];[address] | | LAB | | | | [address];[place] | | | | | | [address] | | | | + + + + + + | Ionized | 1.05 (L)Comment: Testing | 1.12 - 1.32 | EXTERNAL | | | Calcium, | performed at [facility];[address] | mmol/L | LAB | | | POC | [address];[place] | | | | | | [address] | | | | + + + + + + | Glucose, | 176 (H)Comment: Testing | 65 - 99 mg/dL | EXTERNAL | | | POC | performed at [facility];[address] | | LAB | | | | [address];[place] | | | | | | [address] | | | | + + + + + + | Hematocrit, | 25 (L)Comment: Testing | 40.0 - 50.0 % | EXTERNAL | | | POC | performed at [facility];[address] | | LAB | | | | [address];[place] | | | | | | [address] | | | | + + + + + + | Hemoglobin, | 8.5 (L)Comment: Testing | 13.7 - 16.7 | EXTERNAL | | | POC | performed at [facility];888 | g/dL | LAB | | | | [address];[place] | | | | | | [address] | | | | + + + + + + + + | Specimen | + + | | + + + +---------+ + + | Performing | Address | City/State/Zipcode | Phone Number | | Organization | | | | + +---------+ + + | EXTERNAL LAB | | | | + +---------+ + + POC SARAVANAN CG8, Arterial (04/22/2015 9:58 AM PDT) + + + + + + | Component | Value | Ref Range | Performed | Pathologist | | | | | At | Signature | + + + + + + | PH ART | 7.409Comment: Testing | 7.350 - 7.450 | EXTERNAL | | | | performed at [facility];[address] | | LAB | | | | [address];[place], [place] | | | | | | [address] | | | | + + + + + + | PCO2 ART | 51 (H)Comment: Testing | 35 - 45 mmHg | EXTERNAL | | | | performed at [facility];[address] | | LAB | | | | [address];[place] | | | | | | [address] | | | | + + + + + + | PO2 ART | 275 (H)Comment: Testing | 80 - 105 mmHg | EXTERNAL | | | | performed at [facility];[address] | | LAB | | | | [address];[place] | | | | | | [address] | | | | + + + + + + | HCO3 ART | 32 (H)Comment: Testing | 22 - 26 mmol/L | EXTERNAL | | | | performed at [facility];[address] | | LAB | | | | [address];[place] | | | | | | [address] | | | | + + + + + + | POC | 33 (H)Comment: Testing | 23 - 27 mEq/L | EXTERNAL | | | APPEARANCE | performed at [facility];[address] | | LAB | | | UA | [address];[place] | | | | | | [address] | | | | + + + + + + | Base | 7 (H)Comment: Testing | 0 - 3 mEq/L | EXTERNAL | | | Excess, | performed at [facility] [place] | | LAB | | | Arterial | [address];[place] | | | | | | [address] | | | | + + + + + + | O2 SAT ART | 100 (H)Comment: Testing | 95 - 98 % | EXTERNAL | | | | performed at [facility] [place] | | LAB | | | | [address];[place] | | | | | | [address] | | | | + + + + + + | Sodium, POC | 136Comment: Testing | 135 - 145 mEq/L | EXTERNAL | | | | performed at [facility] [place] | | LAB | | | | [address];[place] | | | | | | [address] | | | | + + + + + + | Potassium, | 4.7Comment: Testing | 3.5 - 5.0 mEq/L | EXTERNAL | | | POC | performed at [facility] [place] | | LAB | | | | [address];[place] | | | | | | [address] | | | | + + + + + + | Ionized | 0.95 (L)Comment: Testing | 1.12 - 1.32 | EXTERNAL | | | Calcium, | performed at [facility] [place];888 | mmol/L | LAB | | | POC | [address];[place] | | | | | | [address] | | | | + + + + + + | Glucose, | 166 (H)Comment: Testing | 65 - 99 mg/dL | EXTERNAL | | | POC | performed at [facility] [place];[address] | | LAB | | | | [address];[place] | | | | | | [address] | | | | + + + + + + | Hematocrit, | 26 (L)Comment: Testing | 40.0 - 50.0 % | EXTERNAL | | | POC | performed at [facility] [place];[address] | | LAB | | | | [address];[place] | | | | | | [address] | | | | + + + + + + | Hemoglobin, | 8.8 (L)Comment: Testing | 13.7 - 16.7 | EXTERNAL | | | POC | performed at [facility] [place];888 | g/dL | LAB | | | | [address];[place] | | | | | | [address] | | | | + + + + + + + + | Specimen | + + | | + + + +---------+ + + | Performing | Address | City/State/Zipcode | Phone Number | | Organization | | | | + +---------+ + + | EXTERNAL LAB | | | | + +---------+ + + POC SARAVANAN, [id number], Arterial (04/22/2015 8:59 AM PDT) + + + + + + | Component | Value | Ref Range | Performed | Pathologist | | | | | At | Signature | + + + + + + | PH ART | 7.256 (L)Comment: | 7.350 - 7.450 | EXTERNAL | | | | Testing performed at | | LAB | | | | [facility] [place];[address] [facility] | | | | | | [address];[place] [address] | | | | + + + + + + | PCO2 ART | 64 (HH)Comment: Testing | 35 - 45 mmHg | EXTERNAL | | | | performed at [facility] [place];[address] | | LAB | | | | [address];[place] | | | | | | [address] | | | | + + + + + + | PO2 ART | 362 (H)Comment: Testing | 80 - 105 mmHg | EXTERNAL | | | | performed at [facility] [place];[address] | | LAB | | | | [address];[place] | | | | | | [address] | | | | + + + + + + | HCO3 ART | 28 (H)Comment: Testing | 22 - 26 mmol/L | EXTERNAL | | | | performed at [facility] [place];[address] | | LAB | | | | [address];[place] | | | | | | [address] | | | | + + + + + + | POC | 30 (H)Comment: Testing | 23 - 27 mEq/L | EXTERNAL | | | APPEARANCE | performed at [facility] [place];[address] | | LAB | | | UA | [address];[place] | | | | | | [address] | | | | + + + + + + | Base | 1Comment: Testing | 0 - 3 mEq/L | EXTERNAL | | | Excess, | performed at [facility] [place];[address] | | LAB | | | Arterial | [address];[place] | | | | | | [address] | | | | + + + + + + | O2 SAT ART | 100 (H)Comment: Testing | 95 - 98 % | EXTERNAL | | | | performed at [facility] | | LAB | | | | [address];[place] | | | | | | [address] | | | | + + + + + + | Sodium, POC | 137Comment: Testing | 135 - 145 mEq/L | EXTERNAL | | | | performed at [facility] | | LAB | | | | [address];[place] | | | | | | [address] | | | | + + + + + + | Potassium, | 4.7Comment: Testing | 3.5 - 5.0 mEq/L | EXTERNAL | | | POC | performed at [facility];[address] | | LAB | | | | [address];[place] | | | | | | [address] | | | | + + + + + + | Ionized | 1.15Comment: Testing | 1.12 - 1.32 | EXTERNAL | | | Calcium, | performed at [facility];888 | mmol/L | LAB | | | POC | [address];[place] | | | | | | [address] | | | | + + + + + + | Glucose, | 185 (H)Comment: Testing | 65 - 99 mg/dL | EXTERNAL | | | POC | performed at [facility];[address] | | LAB | | | | [address];[place] | | | | | | [address] | | | | + + + + + + | Hematocrit, | 32 (L)Comment: Testing | 40.0 - 50.0 % | EXTERNAL | | | POC | performed at [facility];[address] | | LAB | | | | [address];[place] | | | | | | [address] | | | | + + + + + + | Hemoglobin, | 10.9 (L)Comment: Testing | 13.7 - 16.7 | EXTERNAL | | | POC | performed at [facility];888 | g/dL | LAB | | | | [address];[place] | | | | | | [address] | | | | + + + + + + + + | Specimen | + + | | + + + +---------+ + + | Performing | Address | City/State/Zipcode | Phone Number | | Organization | | | | + +---------+ + + | EXTERNAL LAB | | | | + +---------+ + + POC [place]IR[place]IANAYJacklyn, CG8, Arterial (04/22/2015 7:52 AM PDT) + + + + + + | Component | Value | Ref Range | Performed | Pathologist | | | | | At | Signature | + + + + + + | PH ART | 7.415Comment: Testing | 7.350 - 7.450 | EXTERNAL | | | | performed at [facility];[address] | | LAB | | | | [address];[place] | | | | | | [address] | | | | + + + + + + | PCO2 ART | 44Comment: Testing | 35 - 45 mmHg | EXTERNAL | | | | performed at [facility];[address] | | LAB | | | | [address];[place] | | | | | | [address] | | | | + + + + + + | PO2 ART | 411 (H)Comment: Testing | 80 - 105 mmHg | EXTERNAL | | | | performed at [facility];[address] | | LAB | | | | [address];[place] | | | | | | [address] | | | | + + + + + + | HCO3 ART | 28 (H)Comment: Testing | 22 - 26 mmol/L | EXTERNAL | | | | performed at [facility];[address] | | LAB | | | | [address];[place] | | | | | | [address] | | | | + + + + + + | POC | 29 (H)Comment: Testing | 23 - 27 mEq/L | EXTERNAL | | | APPEARANCE | performed at [facility];[address] | | LAB | | | UA | [address];[place] | | | | | | [address] | | | | + + + + + + | Base | 3Comment: Testing | 0 - 3 mEq/L | EXTERNAL | | | Excess, | performed at [facility];[address] | | LAB | | | Arterial | [address];[place] | | | | | | [address] | | | | + + + + + + | O2 SAT ART | 100 (H)Comment: Testing | 95 - 98 % | EXTERNAL | | | | performed at [facility];[address] | | LAB | | | | [address];[place] | | | | | | [address] | | | | + + + + + + | Sodium, POC | 138Comment: Testing | 135 - 145 mEq/L | EXTERNAL | | | | performed at [facility];[address] | | LAB | | | | [address];[place] | | | | | | [address] | | | | + + + + + + | Potassium, | 4.4Comment: Testing | 3.5 - 5.0 mEq/L | EXTERNAL | | | POC | performed at [facility];[address] | | LAB | | | | [address];[place] | | | | | | [address] | | | | + + + + + + | Ionized | 1.20Comment: Testing | 1.12 - 1.32 | EXTERNAL | | | Calcium, | performed at [facility];888 | mmol/L | LAB | | | POC | [address];[place] | | | | | | [address] | | | | + + + + + + | Glucose, | 196 (H)Comment: Testing | 65 - 99 mg/dL | EXTERNAL | | | POC | performed at [facility];[address] | | LAB | | | | [address];[place] | | | | | | [address] | | | | + + + + + + | Hematocrit, | 36 (L)Comment: Testing | 40.0 - 50.0 % | EXTERNAL | | | POC | performed at [facility];[address] | | LAB | | | | [address];[place] | | | | | | [address] | | | | + + + + + + | Hemoglobin, | 12.2 (L)Comment: Testing | 13.7 - 16.7 | EXTERNAL | | | POC | performed at [facility];888 | g/dL | LAB | | | | [address];[place], [place] | | | | | | [address] | | | | + + + + + + + + | Specimen | + + | | + + + +---------+ + + | Performing | Address | City/State/Zipcode | Phone Number | | Organization | | | | + +---------+ + + | EXTERNAL LAB | | | | + +---------+ + + POC Glucose (04/22/2015 6:32 AM PDT) + + + + + + | Component | Value | Ref Range | Performed | Pathologist | | | | | At | Signature | + + + + + + | Glucose, | 156 (H)Comment: Testing | 65 - 99 mg/dL | EXTERNAL | | | Fingerstick | performed at [facility] | | LAB | | | | [address];[place], [place] | | | | | | [address] | | | | + + + [...] + | Diagnosis | + + | 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
--- OUTSIDE RECORDS SUMMARY | ~2019-07-15 | XMS | Encounter Summary ---
Demographics + + + | Address | [address] | | | [place] [address] | + + + | Home Phone | | + + + | Preferred Language | Unknown | + + + | Marital Status | Unknown | + + + | Congregational Affiliation | 1013 | + + + | Race | Unknown | + + + | Ethnic Group | Unknown | + + + Author + + + | Author | [facility] | | | and [place] | + + + | Organization | [facility] | | | and [...] Team Providers + +------+ + | Care Corn Cutter Name | Role | Phone | + +------+ + | Blue Lopez MD | PCP | | + +------+ + Encounter Details +--------+ + + + + | Date | Type | Department | Care Team | Description | +--------+ + + + + | 08/13/ | Orders Only | [facility] | Neisha Tomas | | | 2018 | | CARDIOLOGY [place] | [address] | | | | | [address] | [address] | | | | | [place] | [facility] [place] [address] | | | | | [address] | [phone] | | | | | [phone] | | | +--------+ + + + [...] + | LIPID PANEL | Routin | 08/13/2017 | | Results for this | | | e | 7:15 AM | | procedure are in the | | | | PST | | results section. | + +--------+ + + + documented in this encounter Results Lipid Panel (08/13/2017 7:15 AM PST) + + + + + + | Component | Value | Ref Range | Performed | Pathologist | | | | | At | Signature | + + + + + + | Cholesterol | 167 | 167 mg/dL | EXTERNAL | | | | | | LAB | | + + + + + + | Triglycerid | 176 (A) | 30 - 150 mg/dL | EXTERNAL | | | es | | | LAB | | + + + + + + | HDL | 38.1 (A) | 40 mg/dl | EXTERNAL | | | | | | LAB | | + + + + + + | LDL | 94 | 100 mg/dL | EXTERNAL | | [...] + + + + | Chol/HDL | 4.4 | 4.97 | EXTERNAL | | | Ratio | | | LAB | | + + + + + + | VLDL | 35 | 4 - 40 mg/dL | EXTERNAL | | | | | | LAB | | + + + + + + | Non HDL | 129 | 130 | EXTERNAL | | | [...]
--- OUTSIDE RECORDS SUMMARY | ~2019-07-15 | XMS | Encounter Summary ---
Demographics + + + | Address | [address] | | | [place] [address] | + + + | Home Phone | | + + + | Preferred Language | Unknown | + + + | Marital Status | Unknown | + + + | Orthodoxy Affiliation | 1013 | + + + | Race | Unknown | + + + | Ethnic Group | Unknown | + + + Author + + + | Author | [facility] | | | and [place] | + + + | Organization | [facility] | | | and [...] Team Providers + +------+ + | Care Accounting Intern Name | Role | Phone | + +------+ + | Blue Lopez MD | PCP | | + +------+ + Encounter Details +--------+ + + + + | Date | Type | Department | Care Team | Description | +--------+ + + + + | 09/25/ | Orders Only | [facility] | Neisha Tomas | | | 2016 | | CARDIOLOGY [place] | [address] | | | | | [address] | [address] | | | | | [place] | [facility] [address] | | | | | [address] | [phone] | | | | | [phone] | | | +--------+ + + + [...] 09/30/16 1222 Encounter Date: 09/30/2016 Status: Signed White Mixing Operator: STELLA Guadarrama (Advanced Registered Nurse Practitioner) Quick [...]
--- OUTSIDE RECORDS SUMMARY | ~2019-07-15 | XMS | Encounter Summary ---
Demographics + + + | Address | [address] | | | [place] [address] | + + + | Home Phone | | + + + | Preferred Language | Unknown | + + + | Marital Status | Unknown | + + + | Uatsdin Affiliation | 1013 | + + + | Race | Unknown | + + + | Ethnic Group | Unknown | + + + Author + + + | Author | [facility] | | | and [place] | + + + | Organization | [facility] | | | and [place] [...] Team Providers + +------+ + | Care Technology Applications Consultant Name | Role | Phone | + +------+ + | Blue Lopez MD | PCP | | + +------+ + Encounter Details +--------+ + + + + | Date | Type | Department | Care Team | Description | +--------+ + + + + | 09/02/ | Orders Only | [facility] | Conversion | | | 2018 | | CONVERSION DEP [address] | Transaction, | | | | | [address] | Provider Unknown | | | | | [place] | [phone] | | | | | [address] | (Fax) | | | | | [phone] | | | +--------+ + + + [...]
--- OUTSIDE RECORDS SUMMARY | ~2019-07-15 | XMS | Encounter Summary ---
Demographics + + + | Address | [address] | | | [place] [address] | + + + | Home Phone | | + + + | Preferred Language | Unknown | + + + | Marital Status | Unknown | + + + | Druze Affiliation | 1013 | + + + | Race | Unknown | + + + | Ethnic Group | Unknown | + + + Author + + + | Author | [facility] | | | and [place] | + + + | Organization | [facility] | | | and [...] Team Providers + +------+ + | Care Biology Specialist Name | Role | Phone | + [...] [address] | | | | | [place], [place] | [place] [address] | | | | | [address] | [phone] | | | | | [phone] | | | +--------+ + + + [...] MV A Tyrone: 1.11 m/s MV Dec Robertson: | | | 5.08 m/s2 MV DecT: [...] TR maxP.90 mmHg TR Vmax: 2.64 m/s Theatrical Rigger: DBS | | | Authenticated by: ELIO ULLOA MD Report Date/Time: -- | | | [id number] | | + + + + + [...] cmLVPWd: | | 1.05 cmLVOT Area: 3.96 of0HWII Diam: 2.24 cm%FS: 30.38 %EF(Teich): 57.32 | [...] | | (A-L): 26.80 ml/m2LAAs A2C: 20.16 ts6GNLGV A-L A2C: 68.48 mlLALs A2C: 5.04 | | cmLAAs A4C: 16.34 tm2GEZSE A-L A4C: 49.11 mlLALs A4C: 4.61 cmRAAs: 12.48 | | zj5CUSYW A-L: 34.76 mlRAESV MOD: 31.56 mlRALs: 3.80 cmTAPSE: 1.71 cmAV maxPG: | | 13.02 mmHgAV meanP.29 mmHgAV Vmax: 1.80 m/Cyn Vmean: 1.17 m/Cyn VTI: 31.93 | | cmAVA Vmax: 2.30 cm2AVA (VTI): 3.09 qs5JUJL (Vmax): 0.00 cm2/m2AVAI (VTI): 0.00 | | cm2/m2LVOT maxP.40 mmHgLVOT meanP.11 mmHgLVSI Dopp: 43.79 ml/m2LVSV Dopp: | | 98.97 mlLVOT Vmax: 1.04 m/sLVOT Vmean: 0.67 m/sLVOT VTI: 24.95 cmMV A Tyrone: | | 1.11 m/sMV Dec Robertson: 5.08 m/s2MV DecT: 180.08 msMV E Tyrone: 0.91 m/sMV E/A Ratio: | | 0.82MV PHT: 52.22 msMVA By PHT: 4.21 lu4Hgnunk e': 0.05 m/sSeptal E/e': | | 16.91Lateral e': 0.05 m/sLateral E/e': 17.25PV maxP.82 mmHgPV Vmax: 1.20 | | m/sTR maxP.90 mmHgTR Vmax: 2.64 m/s Theatrical Rigger: Brittneyted by: ELIO | | Shay ULLOA Date/Time: [id number] IMPRESSION: 1. Overall left | | ventricular [...] A Tyrone: 1.11 m/s | |MV Dec Robertson: 5.08 m/s2 | |MV DecT: 180.08 ms [...] |TR Vmax: 2.64 m/s | | | |Theatrical Rigger: DBS | |Authenticated by: ELIO ULLOA MD | |Report Date/Time: -- [id number] | | | |IMPRESSION: | |1. Overall [...]
--- OUTSIDE RECORDS SUMMARY | ~2019-07-15 | XMS | Encounter Summary ---
Demographics + + + | Address | [address] | | | [place] [address] | + + + | Home Phone | | + + + | Preferred Language | Unknown | + + + | Marital Status | Unknown | + + + | Amish Affiliation | 1013 | + + + | Race | Unknown | + + + | Ethnic Group | Unknown | + + + Author + + + | Author | [facility] | | | and [place] | + + + | Organization | [facility] | | [...] Team Providers + +------+ + | Care Underwater Photographer Name | Role | Phone | + +------+ + | Blue Lopez MD | PCP | | + +------+ + Encounter Details +--------+ + + + + | Date | Type | Department | Care Team | Description | +--------+ + + + + | 04/09/ | Orders Only | [facility] | Conversion | | | 2015 | | CONVERSION DEP [address] | Transaction, | | | | | [address] | Provider Unknown | | | | | [place] | [phone] | | | | | [phone] | (Fax) | | | | | [phone] | | | +--------+ + + + [...]
--- OUTSIDE RECORDS SUMMARY | ~2019-07-15 | XMS | Encounter Summary ---
Demographics + + + | Address | [address] | | | [place] [address] | + + + | Home Phone | | + + + | Preferred Language | Unknown | + + + | Marital Status | Unknown | + + + | Gnosticism Affiliation | 1013 | + + + | Race | Unknown | + + + | Ethnic Group | Unknown | + + + Author + + + | Author | [facility] | | | and [place] | + + + | Organization | [facility] | | | and [place] [...] Team Providers + +------+ + | Care Car Escort Name | Role | Phone | + [...] | | | | [place] | [phone] | | | | | [phone] | (Fax) | | | | | [phone] | | | +--------+ + + + [...]
--- OUTSIDE RECORDS SUMMARY | ~2019-07-15 | XMS | Encounter Summary ---
Demographics + + + | Address | [address] | | | [place] [address] | + + + | Home Phone | | + + + | Preferred Language | Unknown | + + + | Marital Status | Unknown | + + + | Sabianism Affiliation | 1013 | + + + | Race | Unknown | + + + | Ethnic Group | Unknown | + + + Author + + + | Author | [facility] | | | and [place] | + + + | Organization | [facility] | | | and [...] Team Providers + +------+ + | Care Pinion Sorter Name | Role | Phone | + +------+ + | Blue Lopez MD | PCP | | + +------+ + Encounter Details +--------+ + + + + | Date | Type | Department | Care Team | Description | +--------+ + + + + | 08/13/ | Orders Only | [facility] | Blue Lopez | | | 2016 | | CARDIOLOGY [place] | [address] | | | | | [address] | [place] [place] | | | | | [place] | [place] [address] | | | | | [address] | [phone] | | | | | [phone] | | | +--------+ + + + [...] + | LIPID PANEL | Routin | 08/13/2015 | | Results for this | | | e | 6:57 AM | | procedure are in the | | | | PST | | results section. | + +--------+ + + + | HEMOGLOBIN A1C | Routin | 08/13/2015 | | Results for this | | | e | 6:57 AM | | procedure are in the | | | | PST | | results section. | + +--------+ + + + | COMPREHENSIVE | Routin | 08/13/2015 | | Results for this | | METABOLIC PANEL | e | 6:57 AM | | procedure are in the | | | | PST | | results section. | + +--------+ + + + documented in this encounter Results Hemoglobin A1C (08/13/2015 6:57 AM PST) + + + + + + | Component | Value | Ref Range | Performed | Pathologist | | | | | At | Signature | + + + + + + | Hemoglobin | 7.0 (A)Comment: Est Avg | 4.0 - 6.0 % | EXTERNAL | | | A1c | Glucose 154 | | LAB | | + + [...] | + +---------+ + + Lipid Panel (08/13/2015 6:57 AM PST) + + + + + + | Component | Value | Ref Range | Performed | Pathologist | | | | | At | Signature | + + + + + + | Cholesterol | 166 | 200 mg/dL | EXTERNAL | | | | | | LAB | | + + + + + + | Triglycerid | 148 | 30 - 150 mg/dL | EXTERNAL | | | es | | | LAB | | + + + + + + | HDL | 36.7 (A) | 40 mg/dl | EXTERNAL | | | | | | LAB | | + + + + + + | LDL | 100 | 100 mg/dL | EXTERNAL | | [...] + + + + | Chol/HDL | 4.5 | 4.97 | EXTERNAL | | | Ratio | | | LAB | | + + + + + + | VLDL | 30 | 4 - 40 mg/dL | EXTERNAL [...] + +---------+ + + Comprehensive Metabolic Panel (08/13/2015 6:57 AM PST) + +--------+ + + + | Component | Value | Ref Range | Performed | Pathologist | | | | | At | Signature | + +--------+ + + + | Glucose, | 138 | 132 - 143 mg/dL | EXTERNAL | | | Fasting | | | LAB | | + +--------+ + + + | BUN | 19 | 6 - 23 mg/dL | EXTERNAL | | | | | | LAB | | + +--------+ + + + | Creatinine | 0.94 | 0.70 - 1.25 | EXTERNAL | | | | | mg/dL | LAB | | + +--------+ + + + | BUN/Creatin | 20.2 | 6.0 - 28.6 | EXTERNAL | | | ine Ratio | | | LAB | | + +--------+ + + + | Calcium | 9.2 | 8.4 - 10.2 | EXTERNAL | | | | | mg/dL | LAB | | + +--------+ + + + | Protein, | 6.7 | 6.0 - 8.0 g/dL | EXTERNAL | | | Total | | | LAB | | + +--------+ + + + | Albumin | 4.1 | 3.5 - 5.0 | EXTERNAL | | | | | | LAB | | + +--------+ + + + | Globulin | 2.6 | 1.8 - 3.5 | EXTERNAL | | | | | | LAB | | + +--------+ + + + | A/G Ratio | 1.6 | 1.1 - 2.4 | EXTERNAL | | | | | | LAB | | + +--------+ + + + | Bilirubin | 0.6 | 0.0 - 1.2 mg/dL | EXTERNAL | | | Total | | | LAB | | + +--------+ + + + | ALP, | 48 | 30 - 128 | EXTERNAL | | | External | | | LAB | | + +--------+ + + + | ALT | 15 | 7 - 52 U/L | EXTERNAL | | | | | | LAB | | + +--------+ + + + | AST | 11 (A) | 13 - 39 U/L | EXTERNAL | | | | | | LAB | | + +--------+ + + + | Na | 138 | 132 - 143 | EXTERNAL | | | | | mmol/L | LAB | | + +--------+ + + + | K | 4.4 | 3.6 - 5.1 | EXTERNAL | | | | | mmol/L | LAB | | + +--------+ + + + | Cl | 101 | 95 - 112 mmol/L | EXTERNAL | | | | | | LAB | | + +--------+ + + + | CO2 | 23 | 19 - 31 mmol/L | EXTERNAL | | | | | | LAB | | + +--------+ + + + | Anion Gap | 18.4 | 7 - 21 mmol/L | EXTERNAL | | | | | | LAB | | + +--------+ + + + | Estimated | 81 | 60 mg/dL | EXTERNAL | | | GFR | | | LAB | | + +--------+ + + + + + | Specimen [...]
--- OUTSIDE RECORDS SUMMARY | ~2019-07-15 | XMS | Encounter Summary ---
Demographics + + + | Address | [address] | | | [place] [address] | + + + | Home Phone | | + + + | Preferred Language | Unknown | + + + | Marital Status | Unknown | + + + | Worship Affiliation | 1013 | + + + | Race | Unknown | + + + | Ethnic Group | Unknown | + + + Author + + + | Author | [facility] | | | and [place] | + + + | Organization | [facility] | [...] Team Providers + +------+ + | Care Rivet Tapping Machine Operator Name | Role | Phone | + +------+ + | Blue Lopez MD | PCP | | + +------+ + Encounter Details +--------+ + + + + | Date | Type | Department | Care Team | Description | +--------+ + + + + | 04/09/ | Orders Only | [facility] | Prince Palmer | | | 2014 | | CARDIOLOGY [place] | MD [address] | | | | | [address] | [place] | | | | | [place] | [facility] [place] [address] | | | | | [address] | [phone] | | | | | [phone] | | | +--------+ + + + [...] | | Radial artery was instrumented using 6-Turkish [place] sheath. Under | | | fluoroscopic guidance, a 5-Turkish JL3.5 catheter was advanced to the | [...] artery approach. Radial artery was instrumented using 6-Turkish [place] | | sheath. Under fluoroscopic guidance, a 5-Turkish JL3.5 catheter was | | advanced to [...]
--- OUTSIDE RECORDS SUMMARY | ~2019-07-15 | XMS | Encounter Summary ---
Demographics + + + | Address | [address] | | | [place] [address] | + + + | Home Phone | | + + + | Preferred Language | Unknown | + + + | Marital Status | Unknown | + + + | Hinduism Affiliation | 1013 | + + + | Race | Unknown | + + + | Ethnic Group | Unknown | + + + Author + + + | Author | [facility] | | | and [place] | + + + | Organization | [facility] | | | and [...] Team Providers + +------+ + | Care Ammonium Sulfate Operator Name | Role | Phone | [...] | | | | [place] | [phone] | | | | | [address] | (Fax) | | | | | [phone] | | | +--------+ + + + [...]
--- OUTSIDE RECORDS SUMMARY | ~2019-07-15 | XMS | Clinical Summary ---
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
--- OUTSIDE RECORDS SUMMARY | ~2019-07-15 | XMS | Encounter Summary ---
Demographics + + + | Address | [address] | | | [place] [address] | + + + | Home Phone | | + + + | Preferred Language | Unknown | + + + | Marital Status | Unknown | + + + | Hinduism Affiliation | 1013 | + + + | Race | Unknown | + + + | Ethnic Group | Unknown | + + + Author + + + | Author | [facility] | | | and [place] | + + + | Organization | [facility] | | | and [...] Team Providers + +------+ + | Care Manager Ecommerce Name | Role | Phone | + [...] | | | | [place] | [phone] | | | | | [phone] | (Fax) | | | | | [phone] | | | +--------+ + + + [...]
--- OUTSIDE RECORDS SUMMARY | ~2019-07-15 | XMS | Encounter Summary ---
Demographics + + + | Address | [address] | | | [place] [address] | + + + | Home Phone | | + + + | Preferred Language | Unknown | + + + | Marital Status | Unknown | + + + | Worship Affiliation | 1013 | + + + | Race | Unknown | + + + | Ethnic Group | Unknown | + + + Author + + + | Author | [facility] | | | and [place] | + + + | Organization | [facility] | | | and [...] Team Providers + +------+ + | Care Test Lab Technician Name | Role | Phone | + +------+ + | Blue Lopez MD | PCP | | + +------+ + Encounter Details +--------+ + + + + | Date | Type | Department | Care Team | Description | +--------+ + + + + | 01/05/ | Orders Only | [facility] | Neisha Tomas | | | 2017 | | CARDIOLOGY [place] | [address] | | | | | [address] | [address] | | | | | [address] | [place] [address] | | | | | [place] | [phone] | | | | | [address] | | | | | | [phone] | | | +--------+ + + + [...]
--- OUTSIDE RECORDS SUMMARY | ~2019-07-15 | XMS | Encounter Summary ---
Demographics + + + | Address | [address] | | | [place] [address] | + + + | Home Phone | | + + + | Preferred Language | Unknown | + + + | Marital Status | Unknown | + + + | Spiritism Affiliation | 1013 | + + + | Race | Unknown | + + + | Ethnic Group | Unknown | + + + Author + + + | Author | [facility] | | | and [place] | + + + | Organization | [facility] | | | and [place] | [...] Team Providers + +------+ + | Care Design Consultant Name | Role | Phone | [...] [address] | | | | | [place], [place] | [place] [address] | | | | | [address] | [phone] | | | | | [phone] | | | +--------+ + + + [...] | | mmHg TR Vmax: 2.28 m/s Telephoto Engineer: JENNIFER Authenticated by: | | | [...] mlLAESV Index (A-L): 23.48 ml/m2LAAs A2C: 18.71 [id number] A-L A2C: 57.61 | | mlLALs A2C: 5.15 cmLAAs A4C: 17.53 [id number] A-L A4C: 48.44 mlLALs A4C: 5.38 | | cmRAAs: 15.18 [id number] A-L: 44.77 mlRAESV MOD: 41.69 mlRALs: 4.37 cmAo Diam: | | 3.76 cmAo/LA: 0.73LA Diam: 5.12 cmLA/Ao: 1.36TAPSE: 1.56 cmAV maxP.29 | | mmHgAV meanP.66 mmHgAV Vmax: 1.43 m/Cyn Vmean: 1.04 m/Cyn VTI: 26.68 cmAVA | | Vmax: 2.96 cm2AVA (VTI): 3.16 sf2XVNI Vmax: 0.00 cm2/m2AVAI (VTI): 0.00 | | [...] 25.90 mmHgTR maxP.90 mmHgTR Vmax: 2.28 m/radha Telephoto Engineer: DHAuthenticated by: | | UYEN DELACRUZepjocelyne [...] |TR Vmax: 2.28 m/s | | | |Telephoto Engineer: | |Authenticated by: ELIO ULLOA MD [...]
--- OUTSIDE RECORDS SUMMARY | ~2019-07-15 | XMS | Encounter Summary ---
Demographics + + + | Address | [address] | | | [place] [address] | + + + | Home Phone | | + + + | Preferred Language | Unknown | + + + | Marital Status | Unknown | + + + | Shinto Affiliation | 1013 | + + + | Race | Unknown | + + + | Ethnic Group | Unknown | + + + Author + + + | Author | [facility] | | | and [place] | + + + | Organization | [facility] | | | and [place] | [...] Team Providers + +------+ + | Care Social Studies Teacher Name | Role | Phone | + +------+ + | Blue Lopez MD | PCP | | + +------+ + Encounter Details +--------+ + + + + | Date | Type | Department | Care Team | Description | +--------+ + + + + | 08/13/ | Orders Only | [facility] | Blue Lopez | | | 2016 | | CARDIOLOGY [place] | [address] | | | | | [address] | [place] | | | | | [place] | [place] [address] | | | | | [address] | [phone] | | | | | [phone] | | | +--------+ + + + [...]
--- OUTSIDE RECORDS SUMMARY | ~2019-07-15 | XMS | Encounter Summary ---
Demographics + + + | Address | [address] | | | [place] [address] | + + + | Home Phone | | + + + | Preferred Language | Unknown | + + + | Marital Status | Unknown | + + + | Moravian Affiliation | 1013 | + + + | Race | Unknown | + + + | Ethnic Group | Unknown | + + + Author + + + | Author | [facility] | | | and [place] | + + + | Organization | [facility] | | | and [...] Providers + +------+ + | Care Manager Float Name | Role | Phone | + +------+ + | Blue Lopez MD | PCP | | + +------+ + Encounter Details +--------+ + + + + | Date | Type | Department | Care Team | Description | +--------+ + + + + | 08/13/ | Orders Only | [facility] | Neisha Tomas | | | 2018 | | CARDIOLOGY [place] | [address] | | | | | [address] | [address] | | | | | [place] | [facility] [place] [address] | | | | | [address] | [phone] | | | | | [phone] | | | +--------+ + + + [...]
--- OUTSIDE RECORDS SUMMARY | ~2019-07-15 | XMS | Encounter Summary ---
Demographics + + + | Address | [address] | | | [place] [address] | + + + | Home Phone | | + + + | Preferred Language | Unknown | + + + | Marital Status | Unknown | + + + | Denominational Affiliation | 1013 | + + + | Race | Unknown | + + + | Ethnic Group | Unknown | + + + Author + + + | Author | [facility] | | | and [place] | + + + | Organization | [facility] | | [...] Team Providers + +------+ + | Care Waiter And Cashier Name | Role | Phone | + [...] | | | | [place] | [phone] | | | | | [phone] | (Fax) | | | | | [phone] | | | +--------+ + + + [...]
--- OUTSIDE RECORDS SUMMARY | ~2019-07-15 | XMS | Encounter Summary ---
Demographics + + + | Address | [address] | | | [place] [address] | + + + | Home Phone | | + + + | Preferred Language | Unknown | + + + | Marital Status | Unknown | + + + | Christianity Affiliation | 1013 | + + + | Race | Unknown | + + + | Ethnic Group | Unknown | + + + Author + + + | Author | [facility] | | | and [place] | + + + | Organization | [facility] | | | and [place] | [...] Team Providers + +------+ + | Care Plasma Processor Name | Role | Phone | + +------+ + PCP | Unavailable | + +------+ + Encounter Details +--------+ + + + + | Date | Type | Department | Care Team | Description | +--------+ + + + + | 04/22/ | Hospital | [facility] | Lele Martinez MD | Coronary artery | | 2015 - | Encounter | [facility] | [address] | disease involving | | | | CARE [address]LO[address] | [place], [place] | gamb[place] coronary | | 04/28/ | | [address] | [address] | artery of [place] | | 2015 | | [place], [place] | | heart with unstable | | | | [address] | | angina pectoris | | | | [phone] | | (HCC) | +--------+ + + [...] Thoracic, and Vascular Surgery Author Type: Physician Software Applications Engineer - Certified Filed: 05/17/15 0853 Date of Service: 04/28/15850 Status: Signed Senior Maintenance Technician: Heron Whipple PA-C (Physician Software Applications Engineer - Certified) Cosigner: Lele hall MD at 05/19/15 1824 [facility] Service: Cardiothoracic Surgery Discharge Summary Date of [...] exertional an michele. He was evaluated by protein scientist Dr. Palmer amd underwent cardiac angiography on [...] - OTILIA; Surgeon: Lele Martinez MD; Location: [facility]; Service: Car diac; Laterality: N/A; [...] file. Follow up: Lele Martinez MD [address] [facility] [address] In 2 weeks Prince Palmer DO [address] [facility] [address] Schedule an appointment as soon as possible for a visit in 2 weeks Shonda Mcnamara MD [address] [facility] [place] [address] Medication List START taking these medications amiodarone [...] are the prescriptions that you need to meat pickler. You may get the following medications from [...] Date of Service: 04/28/15 1010 Status: Signed Senior Maintenance Technician: Shawanda Carrera PT (Physical Therapist) 04/28/15 1010 [...] Thoracic, and Vascular Surgery Author Type: Physician Software Applications Engineer - Certified Filed: 04/28/15 0844 Date of Service: 04/28/15728 Status: Attested Senior Maintenance Technician: Heron Whipple PA-C (Physician Software Applications Engineer - Certified) Cosigner: Lele hall MD at 04/28/15 1001 Attestation signed by Lele Martinez MD at 04/28/15 1001 Patient was seen, examined, labs, x-rays and treatment plan were reviewed. [facility] Service: Cardiothoracic Surgery Progress Note ROOM: [address] [place] [address] Hospital Day: LOS: 6 days Post-Op Day: [...] 04/27/15951 Date of Service: 04/27/15935 Status: Signed Senior Maintenance Technician: DAILY Bain (Inspector Bullet Slugs) 04/27/15935 OT Last Visit OT Received On 04/27/15 Reason for Treatment Cardiac Requires OT Follow Up Yes Assistance Required 1 person Hardware Installer Needed No Family/Caregiver Present Yes Precautions Cardiac Precautions Sternal Other Precautions fall risk Other Comments Comments pt seated in recliner chair upon DRILLING FOREMAN arrival. per pt report went into A-Fib yester day afternoon and is back on amiodirone drip. Per pt report has no questions or concerns per taining to ADL tasks and spouse aware of tech as she will be present to assist with task prn . Per spouse report has long handled shoe horn and terrazzo mechanic that family friend provided with for pt [...] Thoracic, and Vascular Surgery Author Type: Physician Software Applications Engineer - Certified Filed: 04/27/15800 Date of Service: 04/27/15799 Status: Attested Senior Maintenance Technician: Heron Whipple PA-C (Physician Software Applications Engineer - Certified) Cosigner: Lele hall MD at 04/27/15832 Attestation signed by Lele Martinez MD at 04/27/15832 Patient was seen, examined, labs, x-rays and treatment plan were reviewed. [facility] Service: Cardiothoracic Surgery Progress Note ROOM: [address] Hospital Day: LOS: 5 days Post-Op Day: [...] Lui Strong PTA Service: (none) Author Type: Copy Machine Operator Filed: 04/27/15756 Date of Service: 04/27/15754 Status: Signed Senior Maintenance Technician: Lui Strong PTA (Copy Machine Operator) 04/27/15754 PT Last Visit PT Received On 04/27/15 Reason for Treatment Cardiac Requires PT Follow Up Other (comment) Other Comments Comments pt sitting in chair stated he has ambulated two laps around the floor twice this A M and had just returned from his second trip onver fiordaliza Transaction, Provider Unknown - 04/26/2015 3:17 PM PDT Case Management by BE Costa at 04/26/15 2565 Author: BE Costa Service: (none) Author Type: Fuse Cutter Filed: 04/26/15 153 Date of Service: 04/26/151516 Status: Signed Senior Maintenance Technician: BE Costa (Fuse Cutter) 04/26/15 1500 Discharge Planning Evaluation Admitting Diagnosis POD 1 CABG x4 Anticipated Disposition Facility Type Home APICULTURE TEACHER met with Pt and Pt spouse for discharge planning, will return home when medically ready for discharge. Pt has no discharge needs or concerns at this time. DCP: Home JAY MCINTYRE Case Specialist [phone] cell onver fiordaliza Transaction, Provider Unknown - 04/26/2015 11:16 AM PDT Therapy Progress Note by Marlin Hale MS CCC-DISPATCH OFFICER at 04/26/15 1116 Author: Marlin Hale MS CCC-DISPATCH OFFICER Service: (none) Author Type: Speech and Language Patho logist Filed: 04/26/15 1116 Date of Service: 04/26/15 1116 Status: Signed Senior Maintenance Technician: Marlin Hale MS CCC-DISPATCH OFFICER (Speech and Language Pathologist) 04/26/15 1100 Swallowing [...] no restrictions Liquids Thin liquids: regular consistency DISPATCH OFFICER Ready for Discharge Yes Dysphagia Goals Senior Living Goals Safe/efficient oral intake Pt will have safe/efficient oral intake Goal met Short Term Goals Follow swallow precautions Pt will follow swallow precautions Goal met onver fiordaliza Transaction, Provider Unknown - 04/26/2015 10:44 AM PDT Therapy Progress Note by Nany Peace PTA at 04/26/15 1044 Author: Nany Peace PTA Service: (none) Author Type: Copy Machine Operator Filed: 04/26/15 8280 Date of Service: 04/26/15 1044 Status: Signed Senior Maintenance Technician: Nany Peace PTA (Copy Machine Operator) 04/26/15 1044 PT Last Visit PT Received [...] (none) Author Type: Occupational Therapist Filed: 04/26/15 4854 Date of Service: 04/26/15909 Status: Signed Senior Maintenance Technician: DAILY Bain (Inspector Bullet Slugs) 04/26/15909 OT Last Visit OT Received On 04/26/15 Reason for Treatment Cardiac Requires OT Follow Up Yes Assistance Required 1 person Hardware Installer Needed No Family/Caregiver Present Yes Precautions Cardiac [...] LE Dressing Yes LE Dressing Adaptive Equipment Window Shade Installer;Sock aide Pants Level of Assistance Close supervision [...] me assist Equipment Recommended Shower chair with back;Window Shade Installer;Sock aid;Sponge long handled OT Ready for Discharge [...] Thoracic, and Vascular Surgery Author Type: Physician Software Applications Engineer - Certified Filed: 04/26/15703 Date of Service: 04/26/15701 Status: Attested Senior Maintenance Technician: Heron Whipple PA-C (Physician Software Applications Engineer - Certified) Cosigner: Lele hall MD at 04/26/15 1412 Attestation signed by Lele Martinez MD at 04/26/15 1412 Patient was seen, examined, labs, x-rays and treatment plan were reviewed. [facility] Service: Cardiothoracic Surgery Progress Note ROOM: [address] [place] [address] Hospital Day: LOS: 4 days Post-Op Day: [...] (none) Author Type: Registered Dietitian Filed: 04/25/15 476 Date of Service: 04/25/151450 Status: Signed Senior Maintenance Technician: Kavitha Raymundo RD (Registered Dietitian) 04/25/15 1426 [...] eats 3 meals per day. Breakfast: egg, bahraini alas, sausage, palestinian muffin sandwich. Lunch eats from cafeteria at [...] Estimated Energy Needs Total Energy Estimated Needs 6334-0006 kcal Method for Estimating Needs 25-30 kcal/kg [...] Note by Nany Peace PTA at 04/25/15 6990 Author: Nany Peace PTA Service: (none) Author Type: Copy Machine Operator Filed: 04/25/15 7800 Date of Service: 04/25/151424 Status: Signed Senior Maintenance Technician: Nany Peace PTA (Copy Machine Operator) 04/25/15 7106 PT Last Visit PT Received On 04/25/15 [...] Therapy Progress Note by Pam Fletcher MA CCC-DISPATCH OFFICER at 04/25/15 0351 Author: Pam Fletcher MA CCC-DISPATCH OFFICER Service: (none) Author Type: Speech and Language Patholo gist Filed: 04/25/15 5101 Date of Service: 04/25/15 5568 Status: Signed Senior Maintenance Technician: Pam Fletcher MA CCC-DISPATCH OFFICER (Speech and Language Pathologist) 04/25/15 1210 Swallowing [...] no restrictions Liquids Thin liquids: regular consistency DISPATCH OFFICER Ready for Discharge Yes Dysphagia Goals Senior Living Goals Safe/efficient oral intake Pt will have safe/efficient oral intake Thin liquids;Regular diet;Goal met Short Term Goals Follow swallow precautions Pt will follow swallow precautions With min supervision;Goal met Kanika Monaco MA, CCC-DISPATCH OFFICER - 04/25/2015 10:34 AM PDTFormatting of this note might be differ ent from the original. Therapy Progress Note by Kanika Christopher MA CCC-DISPATCH OFFICER at 04/25/15 1034 Author: Kanika Christopher MA CCC-DISPATCH OFFICER Service: (none) Author Type: Speech and Language Pathologist Filed: 04/25/15 1034 Date of Service: 04/25/15 103 Status: Signed Senior Maintenance Technician: Kanika Christopher MA CCC-DISPATCH OFFICER (Speech and Language Pathologist) 04/25/15 1033 DISPATCH OFFICER Last Visit DISPATCH OFFICER Received On 04/25/15 Requires DISPATCH OFFICER Follow Up Unavailable (RN from cardiac service in room. ST to f/u PM if census allows.) onver fiordaliza Transaction, Provider Unknown - 04/25/2015 9:39 AM PDT Therapy Progress Note by Fuad Sanchez, PT at 04/25/15 0939 Author: Fuad Sanchez, PT Service: (none) Author Type: Physical Therapist Filed: 04/25/15 1432 Date of Service: 04/25/1539 Status: Signed Senior Maintenance Technician: Fuad Sanchez PT (Physical Therapist) 04/25/1539 PT [...] in previous days regarding unsteadiness and poor entry level project coordinator rdination appear to be greatly improved. [...] Thoracic, and Vascular Surgery Author Type: Physician Software Applications Engineer - Certified Filed: 04/25/15 0752 Date of Service: 04/25/15748 Status: Attested Senior Maintenance Technician: Heron Whipple PA-C (Physician Software Applications Engineer - Certified) Cosigner: Lele hall MD at 04/25/1554 Attestation signed by Lele Martinez MD at 04/25/1554 Patient was seen, examined, labs, x-rays and treatment plan were reviewed. [facility] Service: Cardiothoracic Surgery Progress Note ROOM: [address] Hospital Day: LOS: 3 days Post-Op Day: [...] 04/24/151836 Date of Service: 04/24/151835 Status: Signed Senior Maintenance Technician: Surjit Lai RN (Registered Nurse) Patient's HR went from 85-90 to 120-123, patient has no c/o pain, BP 136/81, Temp 99.3F. Dr Cris Martinez notified, ordered to give tonight's dose of metoprolol as soon as patient is awake . Will continue to monitor. Susana Chamberlain MS CCC-DISPATCH OFFICER - 04/24/2015 5:56 PM PDT Therapy Progress Note by Alisha Corcoran MS CCC-DISPATCH OFFICER at 04/24/151755 Author: Alisha Corcoran MS CCC-DISPATCH OFFICER Service: (none) Author Type: Speech and Language Pathol ogist Filed: 04/24/151755 Date of Service: 04/24/151755 Status: Signed Senior Maintenance Technician: Alisha Corcoran MS CCC-DISPATCH OFFICER (Speech and Language Pathologist) 04/24/15 1705 Swallowing [...] did most of the talking for pt. DISPATCH OFFICER to f/u1x to ensure d iet tolerance and then to complete cognitive/language eval as pt had new R frontal lobe infa rct. Staff Notified RN Plan of Care Treatment Plan ST to follow;Dysphagia treatment;Speech language evaluation/treatment;Cognit ravi evaluation/treatment;Daily 4 to 6 times a week;Follow up x1 to ensure tolerance (dysphagia: f/ux1, language/co-6x/wk if needed after eval) Dysphagia Goals Senior Living Goals Safe/efficient oral intake Pt will have safe/efficient oral intake Thin liquids;Regular diet;With min cues;Goal met Short Term Goals Follow swallow precautions Pt will follow swallow precautions With min supervision;Goal met ALISHA CORCORAN MS CCC-DISPATCH OFFICER 04/24/2015 onversion Bird saction, Provider Unknown - 04/24/2015 3:31 PM PDTFormatting of this note might be differen t from the original. Therapy Progress Note by Catalina Martins PT at 04/24/15 1531 Author: Catalina Martins PT Service: (none) Author Type: Physical Therapist Filed: 04/24/15 5305 Date of Service: 04/24/15 1531 Status: Signed Senior Maintenance Technician: Catalina Martins PT (Physical Therapist) 04/24/15 1531 [...] Barriers to Discharge Physical Deficits Impacting Functional Hood;Self-care Deficit s Impacting Functional Hood Recommendation Comments Will see how pt progresses [...] (none) Author Type: Occupational Therapist Filed: 04/24/15 2439 Date of Service: 04/24/15 1318 Status: Signed Senior Maintenance Technician: JEAN Diamond (Occupational Therapist) 04/24/15 1318 OT Last Visit OT Received On 04/24/15 Reason for Treatment Cardiac Requires OT Follow Up Yes Assistance Required 1 person Hardware Installer Needed No Family/Caregiver Present Yes Precautions Cardiac [...] nighttime assist Equipment Recommended Shower chair with back;Window Shade Installer;Sponge long handled Education Completed: Education Topic: reinforce [...] time include: lethargic Equipment needs shower chair, terrazzo mechanic, shower brush Physical deficits impacting functional independence Self-care deficits impacting functional independence onver fiordaliza Transaction, Provider Unknown - 04/24/2015 11:30 AM PDT Nurse Progress Note by Surjit Lai RN at 04/24/15 7908 Author: Surjit Lai RN Service: (none) Author Type: Registered Nurse Filed: 04/24/15 1132 Date of Service: 04/24/151129 Status: Signed Senior Maintenance Technician: Peter J Ming, RN (Registered Nurse) Called Andressa to get report, she was busy in another room, Andressa will call me back. onver fiordaliza Transaction, Provider Unknown - 04/24/2015 9:39 AM PDT Case Management by BE Jama at 04/24/15938 Author: BE Jama Service: (none) Author Type: Fuse Cutter Filed: 04/24/1540 Date of Service: 04/24/15938 Status: Signed Senior Maintenance Technician: BE Jama (Fuse Cutter) Reviewed PT notes. Pt lethargic. PT is deferring recommendation at this time. is plann ing on pt going home. CM to follow. onver fiordaliza Transaction, Provider Unknown - 04/24/2015 9:17 AM PDT Therapy Progress Note by Catalina Martins PT at 04/24/15916 Author: Catalina Martins PT Service: (none) Author Type: Physical Therapist Filed: 04/24/15 1003 Date of Service: 04/24/15916 Status: Signed Senior Maintenance Technician: Catalina Martins PT (Physical Therapist) 04/24/15916 PT [...] (min-moderate trunk sway) Assistive Device Other (Comment) (REGULATORY AFFAIRS DIRECTOR on w/c) Modalities Modalities Other therapy Other [...] Barriers to Discharge Physical Deficits Impacting Functional Hood;Self-care Deficit s Impacting Functional Hood Recommendation Comments Pt exhibiting good progress from [...] Thoracic, and Vascular Surgery Author Type: Physician Software Applications Engineer - Certified Filed: 04/24/15 0713 Date of Service: 04/24/15710 Status: Attested Senior Maintenance Technician: Heron Whipple PA-C (Physician Software Applications Engineer - Certified) Cosigner: Lele hall MD at 04/24/15 1248 Attestation signed by Lele Martinez MD at 04/24/15 1242 Patient was seen, examined, labs, x-rays and treatment plan were reviewed. [facility] Service: Cardiothoracic Surgery Progress Note ROOM: - [...] Date of Service: 04/23/15 143 Status: Signed Senior Maintenance Technician: Greg Her PT (Physical Therapist) 04/23/15 1432 [...] doesn't pass stance foot;Forward flexed Assistive Device (REGULATORY AFFAIRS DIRECTOR on w/c) Modalities Modalities (Educated on sternal precautions, transfer technique) Activity Tolerance Activity Tolerance Patient limited by fatigue Nurse Made Aware yes Plan Treatment/Interventions Continue per Primary PT POC Progress Slow progress, decreased activity tolerance Recommendation Recommendations Defer Naye Wong OTR/L - 04/23/2015 1:45 PM PDT Therapy Progress Note by JEAN Bryant at 04/23/15 2481 Author: JEAN Bryant Service: (none) Author Type: Occupational Therapist Filed: 04/23/15 6805 Date of Service: 04/23/151344 Status: Signed Senior Maintenance Technician: JEAN Bryant (Occupational Therapist) 04/23/15 1343 Precautions Cardiac Precautions Sternal (pt unable to recall, educated to precautions) Home Environment Home Exterior Layout Rail none Home Interior Layout W/C accessible Bathroom Shower/Tub Tub/shower unit Bathroom Toilet Standard Home Equipment None Additional Comments Pt reported to be okay with returning to home Prior Function Level of Hood Independent with functional mobility;Independent with ADLs;Independe nt [...] by BE Jama at 04/23/15 1249 Author: BE Jama Service: (none) Author Type: Fuse Cutter Filed: 04/23/15 1531 Date of Service: 04/23/15 1249 Status: Addendum Senior Maintenance Technician: BE Jama (Fuse Cutter) Related Notes: Original Note by BE Jama (Fuse Cutter) filed at 04/23/15 1251 04/23/15 1248 Discharge [...] Facility Type Home Spoke with pt's Selene ([phone]) by phone and discussed discharge planning, Pt [...] pt 15/02 at home. 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 Pt's pharmacy is [facility] in [place]. He does not use home O2, no blood thinners and no D ME. onver fiordaliza Transaction, Provider Unknown - 04/23/2015 11:00 AM PDT Therapy Progress Note by Greg Her PT at 04/23/15 1100 Author: Greg Her PT Service: Physical Medicine and Rehab Author Type: Physical Therapist Filed: 04/23/15 1903 Date of Service: 04/23/15 1100 Status: Signed Senior Maintenance Technician: Greg Her PT (Physical Therapist) 04/23/15 1100 [...] 20 Distance limited by? Patient's ability Pattern (REGULATORY AFFAIRS DIRECTOR on w/c) Balance Balance (forward trunk lean [...] Barriers to Discharge Physical Deficits Impacting Functional Hood;Self-care Deficit s Impacting Functional Hood Recommendation Comments Anticipate return to previous setting [...] Notes by Heron Whipple PA-C at 04/23/15 7288 Author: Heron Whipple PA-C Service: Cardiac, Thoracic, and Vascular Surgery Author Type: Physician Software Applications Engineer - Certified Filed: 04/23/15 5445 Date of Service: 04/23/15741 Status: Attested Senior Maintenance Technician: Heron Whipple PA-C (Physician Software Applications Engineer - Certified) Cosigner: Lele hall MD at 04/23/15 0850 Attestation signed by Lele Martinez MD at 04/23/15 0850 Patient was seen, examined, labs, x-rays and treatment plan were reviewed. [facility] Service: Cardiothoracic Surgery Progress Note ROOM: Hospital [...] discussed with the attending provider, Dr. Juan hWipple PA-C 04/23/2015 onversio n Transaction, Provider Unknown - 04/23/2015 6:43 AM PDTFormatting of this note might be di fferent from the original. Nurse Progress Note by Rima Eugene RN at 04/23/15642 Author: Rima Eugene RN Service: (none) Author Type: Registered Nurse Filed: 04/23/1545 Date of Service: 04/23/15642 Status: Signed Senior Maintenance Technician: Rima Jabier, RN (Registered Nurse) Moaning, even when asleep. Required increased narcotics during the evening and night. How ever, now lethargic after 1mg dilaudid. observed, and requests dec. Dilaudid to be given to 0.5mg prn. RIMA EUGENE RN onver fiordaliza Transaction, Provider Unknown - 04/22/2015 1:42 PM PDT Progress Notes by Sean Gould at 04/22/15 1342 Author: Sean Gould Service: (none) Author Type: Business Information Manager Filed: 04/22/15 1344 Date of Service: 04/22/151341 Status: Signed Senior Maintenance Technician: Sean Gould (Business Information Manager) Per [facility] support protocols, I delivered off-pump report to pt's Ivet and other famil y, when received from [facility], then oriented family to visitation guidelines. Family is now bailey ented to [employer] support. Chaplains will henceforth respond per needs/requests. Sean gómez onver fiordaliza Transaction, Provider Unknown - 04/22/2015 1:16 PM PDT Progress Notes by Stephanie Hilton RPH at 04/22/15 1316 Author: Stephanie Hilton RPH Service: Pharmacy Author Type: Pharmacist Filed: 04/22/15 1316 Date of Service: 04/22/15 1316 Status: Signed Senior Maintenance Technician: Stephanie Hilton RPH (Pharmacist) Renal Dosing Monitoring: Dusty Lorenzo 59 y.o. male Pharmacy dosing for renal function per [place] Sarabjit PA-C Scr 1.1 on 04/09/15, awaiting more currrent scr Pharmacy will continue monitoring patient for appropriate dosing per renal function. 04/22/2015 1:14 PM Pharmacist: STEPHANIE HILTON onver fiordaliza Transaction, Provider Unknown - 04/22/2015 7:17 AM PDT Progress Notes by Raymundo Lerma at 04/22/15716 Author: Raymundo Lerma Service: (none) Author Type: Filed: 04/22/15718 Date of Service: 04/22/15716 Status: Signed Senior Maintenance Technician: Raymundo Lerma () Per [facility] support program, intro self & services to pt & family ( Selene, sons George, Kali & ____). Flow sheet given. Questions answered. Per [place] of pt, pre-op prayer offered for rela xation & peace. [place] fam to ICU WR. oLele brown Jr., MD - 04/22/2015 6:48 AM PDTFormatting of this note might be different from t he original. Progress Notes by Lele Martinez MD at 04/22/15647 Author: Lele Martinez MD Service: (none) Author Type: Physician Filed: 04/22/1549 Date of Service: 04/22/15647 Status: Signed Senior Maintenance Technician: Lele Martinez MD (Physician) Please see office [...] | | | Fingerstick | performed at [facility] [place];[address] | | LAB | | | | [address];[place], [place] | | | | | | [address] | | | | + + + [...] EXTERNAL | | | | performed at [facility], [address] | K/uL | LAB | | | | [address], | | | | | | [place] [address] | | | | + + + + + + | RED CELL | 2.62 (L)Comment: Testing | 4.20 - 5.70 | EXTERNAL | | | COUNT | performed at [facility], [address] | [address] | LAB | | | | [address], | | | | | | [place] [address] | | | | + + + + + + | Hgb | 7.7 (L)Comment: Testing | 13.2 - 17.0 | EXTERNAL | | | | performed at [facility], [address] | g/dL | LAB | | | | [address], | | | | | | [place] [address] | | | | + + + + + + | Hematocrit, | 22.3 (L)Comment: Testing | 39.0 - 50.0 % | EXTERNAL | | | POC | performed at [facility], [address] | | LAB | | | | [address], | | | | | | [place] [address] | | | | + + + + + + | MCV | 85.4Comment: Testing | 80.0 - 100.0 fl | EXTERNAL | | | | performed at [facility], [address] | | LAB | | | | [address], | | | | | | [place] [address] | | | | + + + + + + | MCH | 29.5Comment: Testing | 27.0 - 34.0 pg | EXTERNAL | | | | performed at [facility], [address] | | LAB | | | | [address], | | | | | | [place] [address] | | | | + + + + + + | MCHC | 34.5Comment: Testing | 32.0 - 35.5 | EXTERNAL | | | | performed at [facility], [address] | g/dL | LAB | | | | [address], | | | | | | [place] [address] | | | | + + + + + + | RDW-CV | 38.1Comment: Testing | 37 - 53 fl | EXTERNAL | | | | performed at [facility], [address] | | LAB | | | | [address], | | | | | | [place] [address] | | | | + + + + + + | Platelet | 195Comment: Testing | 150 - 400 K/uL | EXTERNAL | | | Count | performed at [facility], [address] | | LAB | | | Plasma | [address], | | | | | | [place] [address] | | | | + + + + + + | MPV | 7.9Comment: Testing | fl | EXTERNAL | | | | performed at [facility], [address] | | LAB | | | | [address], | | | | | | [place] [address] | | | | + + + + + + | Differentia | AUTOMATEDComment: | | EXTERNAL | | | l Type | Testing performed at | | LAB | | | | [facility], [address] | | | | | | [place] | | | | | | [address] | | | | + + + + + + | % Segmented | 64.97Comment: Testing | % | EXTERNAL | | | | performed at [facility], [address] | | LAB | | | Neutrophils | [address], | | | | | | [place] [address] | | | | + + + + + + | % | 17.92Comment: Testing | % | EXTERNAL | | | Lymphocytes | performed at [facility], [address] | | LAB | | | | [address], | | | | | | [place] [address] | | | | + + + + + + | % Monocytes | 12.14Comment: Testing | % | EXTERNAL | | | | performed at [facility], [address] | | LAB | | | | [address], | | | | | | [place] [address] | | | | + + + + + + | % | 3.68Comment: Testing | % | EXTERNAL | | | Eosinophils | performed at [facility], [address] | | LAB | | | | [address], | | | | | | [place] [address] | | | | + + + + + + | % Basophils | 1.29Comment: Testing | % | EXTERNAL | | | | performed at [facility], [address] | | LAB | | | | [address], | | | | | | [place] [address] | | | | + + + + + + | Absolute | 3.15Comment: Testing | 1.90 - 7.40 | EXTERNAL | | | Segmented | performed at [facility], [address] | K/uL | LAB | | | Neutrophils | [address], | | | | | | [place] [address] | | | | + + + + + + | Absolute | 0.87 (L)Comment: Testing | 1.00 - 3.90 | EXTERNAL | | | Lymphocytes | performed at [facility], [address] | [address] | LAB | | | | [address], | | | | | | [place] [address] | | | | + + + + + + | Absolute | 0.59Comment: Testing | 0.00 - 0.80 | EXTERNAL | | | Monocytes | performed at [facility], [address] | K/uL | LAB | | | | [address], | | | | | | [place] [address] | | | | + + + + + + | Absolute | 0.18Comment: Testing | 0.00 - 0.50 | EXTERNAL | | | Eosinophils | performed at [facility], [address] | K/uL | LAB | | | | [address], | | | | | | [place] [address] | | | | + + + + + + | Absolute | 0.06Comment: Testing | 0.00 - 0.10 | EXTERNAL | | | Basophils | performed at [facility], [address] | K/uL | LAB | | | | [address], | | | | | | [place] [address] | | | | + + + [...] | | | | | [place] [address] | | | | + + + + + + | K | 4.4Comment: Testing | 3.5 - 4.9 | EXTERNAL | | | | performed at [facility], [address] | mmol/L | LAB | | | | [address], | | | | | | [place] [address] | | | | + + + + + + | Cl | 103Comment: Testing | 99 - 109 mmol/L | EXTERNAL | | | | performed at [facility], [address] | | LAB | | | | [address], | | | | | | [place] [address] | | | | + + + + + + | CO2 | 27Comment: Testing | 23 - 32 mmol/L | EXTERNAL | | | | performed at [facility], [address] | | LAB | | | | [address], | | | | | | [place] [address] | | | | + + + + + + | Anion Gap | 10Comment: Testing | 5 - 20 mmol/L | EXTERNAL | | | | performed at [facility], [address] | | LAB | | | | [address], | | | | | | [place] [address] | | | | + + + + + + | Glucose, | 113 (H)Comment: Testing | 65 - 99 mg/dL | EXTERNAL | | | Fasting | performed at [facility], [address] | | LAB | | | | [address], | | | | | | [place] [address] | | | | + + + + + + | BUN | 16Comment: Testing | 8 - 25 mg/dL | EXTERNAL | | | | performed at [facility], [address] | | LAB | | | | [address], | | | | | | [place] [address] | | | | + + + + + + | Creatinine | 0.98Comment: Testing | 0.70 - 1.30 | EXTERNAL | | | | performed at [facility], [address] | mg/dL | LAB | | | | [address], | | | | | | [place] [address] | | | | + + + + + + | BUN/Creatin | 16Comment: Testing | | EXTERNAL | | | ine Ratio | performed at [facility], [address] | | LAB | | | | [address], | | | | | | [place] [address] | | | | + + + + + + | Calcium | 8.7Comment: Testing | 8.5 - 10.5 | EXTERNAL | | | | performed at [facility], [address] | mg/dL | LAB | | | | Cori [facility], | | | | | | [place] [address] | | | | + + + [...] | | | | | | Cori [facility], | | | | | | [place] [address] | | | | + + + [...] | | | Fingerstick | performed at [facility];[address] | | LAB | | | | [address];[place], [place] | | | | | | [address] | | | | + + + [...] | | | Fingerstick | performed at [facility];[address] | | LAB | | | | [address];[place], [place] | | | | | | [address] | | | | + + + [...] | | | Fingerstick | performed at [facility];[address] | | LAB | | | | [address];[place] | | | | | | [address] | | | | + + + [...] | | | Fingerstick | performed at [facility];[address] | | LAB | | | | [address];[place], [place] | | | | | | [address] | | | | + + + [...] EXTERNAL | | | | performed at [facility], [address] | K/uL | LAB | | | | [address], | | | | | | [place] [address] | | | | + + + + + + | RED CELL | 2.71 (L)Comment: Testing | 4.20 - 5.70 | EXTERNAL | | | COUNT | performed at [facility], [address] | M/uL | LAB | | | | [address], | | | | | | [place] [address] | | | | + + + + + + | Hgb | 7.9 (L)Comment: Testing | 13.2 - 17.0 | EXTERNAL | | | | performed at [facility], [address] | g/dL | LAB | | | | [address], | | | | | | [place] [address] | | | | + + + + + + | Hematocrit, | 23.3 (L)Comment: Testing | 39.0 - 50.0 % | EXTERNAL | | | POC | performed at [facility], [address] | | LAB | | | | [address], | | | | | | [place] [address] | | | | + + + + + + | MCV | 86.1Comment: Testing | 80.0 - 100.0 fl | EXTERNAL | | | | performed at [facility], [address] | | LAB | | | | [address], | | | | | | [place] [address] | | | | + + + + + + | MCH | 29.2Comment: Testing | 27.0 - 34.0 pg | EXTERNAL | | | | performed at [facility], [address] | | LAB | | | | [address], | | | | | | [place] [address] | | | | + + + + + + | MCHC | 33.9Comment: Testing | 32.0 - 35.5 | EXTERNAL | | | | performed at [facility], [address] | g/dL | LAB | | | | [address], | | | | | | [place] [address] | | | | + + + + + + | RDW-CV | 40.7Comment: Testing | 37 - 53 fl | EXTERNAL | | | | performed at [facility], [address] | | LAB | | | | [address], | | | | | | [place] [address] | | | | + + + + + + | Platelet | 190Comment: Testing | 150 - 400 K/uL | EXTERNAL | | | Count | performed at [facility], [address] | | LAB | | | Plasma | [address], | | | | | | [place] [address] | | | | + + + + + + | MPV | 8.0Comment: Testing | fl | EXTERNAL | | | | performed at [facility], [address] | | LAB | | | | [address], | | | | | | [place] [address] | | | | + + + + + + | Differentia | AUTOMATEDComment: | | EXTERNAL | | | l Type | Testing performed at | | LAB | | | | [facility], [address] | | | | | | [place] | | | | | | [address] | | | | + + + + + + | % Segmented | 63.87Comment: Testing | % | EXTERNAL | | | | performed at [facility], [address] | | LAB | | | Neutrophils | [address], | | | | | | [place] [address] | | | | + + + + + + | % | 20.26Comment: Testing | % | EXTERNAL | | | Lymphocytes | performed at [facility], [address] | | LAB | | | [address], | | | | | | [place] [address] | | | | + + + + + + | % Monocytes | 9.97Comment: Testing | % | EXTERNAL | | | | performed at [facility], [address] | | LAB | | | | [address], | | | | | | [place] [address] | | | | + + + + + + | % | 4.15Comment: Testing | % | EXTERNAL | | | Eosinophils | performed at [facility], [address] | | LAB | | | | [address], | | | | | | [place] [address] | | | | + + + + + + | % Basophils | 1.75Comment: Testing | % | EXTERNAL | | | | performed at [facility], [address] | | LAB | | | | [address], | | | | | | [place] [address] | | | | + + + + + + | Absolute | 2.91Comment: Testing | 1.90 - 7.40 | EXTERNAL | | | Segmented | performed at [facility], [address] | K/uL | LAB | | | Neutrophils | [address], | | | | | | [place] [address] | | | | + + + + + + | Absolute | 0.92 (L)Comment: Testing | 1.00 - 3.90 | EXTERNAL | | | Lymphocytes | performed at [facility], [address] | [address]L | LAB | | | | [address], | | | | | | [place] [address] | | | | + + + + + + | Absolute | 0.46Comment: Testing | 0.00 - 0.80 | EXTERNAL | | | Monocytes | performed at [facility], [address] | K[address]L | LAB | | | | [address], | | | | | | [place] [address] | | | | + + + + + + | Absolute | 0.19Comment: Testing | 0.00 - 0.50 | EXTERNAL | | | Eosinophils | performed at [facility], [address] | K/[address]L | LAB | | | | [address], | | | | | | [place] [address] | | | | + + + + + + | Absolute | 0.08Comment: Testing | 0.00 - 0.10 | EXTERNAL | | | Basophils | performed at [facility], [address] | K/uL | LAB | | | | [address], | | | | | | [place] [address] | | | | + + + [...] | | | | | [place] [address] | | | | + + + + + + | K | 4.2Comment: Testing | 3.5 - 4.9 | EXTERNAL | | | | performed at [facility], [address] | mmol/L | LAB | | | | [address], | | | | | | [place] [address] | | | | + + + + + + | Cl | 104Comment: Testing | 99 - 109 mmol/L | EXTERNAL | | | | performed at [facility], [address] | | LAB | | | | [address], | | | | | | [place] [address] | | | | + + + + + + | CO2 | 26Comment: Testing | 23 - 32 mmol/L | EXTERNAL | | | | performed at [facility], [address] | | LAB | | | | [address], | | | | | | [place] [address] | | | | + + + + + + | Anion Gap | 10Comment: Testing | 5 - 20 mmol/L | EXTERNAL | | | | performed at [facility], [address] | | LAB | | | | [address], | | | | | | [place] [address] | | | | + + + + + + | Glucose, | 96Comment: Testing | 65 - 99 mg/dL | EXTERNAL | | | Fasting | performed at [facility], [address] | | LAB | | | | [address], | | | | | | [place] [address] | | | | + + + + + + | BUN | 19Comment: Testing | 8 - 25 mg/dL | EXTERNAL | | | | performed at [facility], [address] | | LAB | | | | [address], | | | | | | [place] [address] | | | | + + + + + + | Creatinine | 0.94Comment: Testing | 0.70 - 1.30 | EXTERNAL | | | | performed at [facility], [address] | mg/dL | LAB | | | | [address], | | | | | | [place] [address] | | | | + + + + + + | BUN/Creatin | 20Comment: Testing | | EXTERNAL | | | ine Ratio | performed at [facility], [address] | | LAB | | | | [address], | | | | | | [place] [address] | | | | + + + + + + | Calcium | 8.7Comment: Testing | 8.5 - 10.5 | EXTERNAL | | | | performed at [facility], [address] | mg/dL | LAB | | | | [address], | | | | | | [place] [address] | | | | + + + [...] [address], | | | | | | [place] [address] | | | | + + + [...] | | | Fingerstick | performed at [facility];[address] | | LAB | | | | [address];[place] | | | | | | [address] | | | | + + + [...] | | | Fingerstick | performed at [facility];[address] | | LAB | | | | [address];[place] | | | | | | [address] | | | | + + + [...] | | | Fingerstick | performed at [facility];[address] | | LAB | | | | [address];[place] | | | | | | [address] | | | | + + + [...] | | | Fingerstick | performed at [facility];[address] | | LAB | | | | [address];[place], [place] | | | | | | [address] | | | | + + + [...] EXTERNAL | | | | performed at [facility], [address] | K/uL | LAB | | | | [address], | | | | | | [place] [address] | | | | + + + + + + | RED CELL | 2.52 (L)Comment: Testing | 4.20 - 5.70 | EXTERNAL | | | COUNT | performed at [facility], [address] | M/uL | LAB | | | | [address], | | | | | | [place] [address] | | | | + + + + + + | Hgb | 7.4 (L)Comment: Testing | 13.2 - 17.0 | EXTERNAL | | | | performed at [facility], [address] | g/dL | LAB | | | | [address], | | | | | | [place] [address] | | | | + + + + + + | Hematocrit, | 21.6 (L)Comment: Testing | 39.0 - 50.0 % | EXTERNAL | | | POC | performed at [facility], [address] | | LAB | | | | [address], | | | | | | [place] [address] | | | | + + + + + + | MCV | 85.7Comment: Testing | 80.0 - 100.0 fl | EXTERNAL | | | | performed at [facility], [address] | | LAB | | | [address], | | | | | | [place] [address] | | | | + + + + + + | MCH | 29.6Comment: Testing | 27.0 - 34.0 pg | EXTERNAL | | | | performed at [facility], [address] | | LAB | | | | [address], | | | | | | [place] [address] | | | | + + + + + + | MCHC | 34.5Comment: Testing | 32.0 - 35.5 | EXTERNAL | | | | performed at [facility], [address] | g/dL | LAB | | | | [address], | | | | | | [place] [address] | | | | + + + + + + | RDW-CV | 40.7Comment: Testing | 37 - 53 fl | EXTERNAL | | | | performed at [facility], [address] | | LAB | | | | [address], | | | | | | [place] [address] | | | | + + + + + + | Platelet | 161Comment: Testing | 150 - 400 K/uL | EXTERNAL | | | Count | performed at [facility], [address] | | LAB | | | Plasma | [address], | | | | | | [place] [address] | | | | + + + + + + | MPV | 8.4Comment: Testing | fl | EXTERNAL | | | | performed at [facility], [address] | | LAB | | | | [address], | | | | | | [place] [address] | | | | + + + + + + | Differentia | AUTOMATEDComment: | | EXTERNAL | | | l Type | Testing performed at | | LAB | | | | [facility], [address] | | | | | | [place] | | | | | | [address] | | | | + + + + + + | % Segmented | 67.61Comment: Testing | % | EXTERNAL | | | | performed at [facility], [address] | | LAB | | | Neutrophils | [address], | | | | | | [place] [address] | | | | + + + + + + | % | 18.27Comment: Testing | % | EXTERNAL | | | Lymphocytes | performed at [facility], [address] | | LAB | | | | [address], | | | | | | [place] [address] | | | | + + + + + + | % Monocytes | 9.50Comment: Testing | % | EXTERNAL | | | | performed at [facility], [address] | | LAB | | | | [address], | | | | | | [place] [address] | | | | + + + + + + | % | 3.49Comment: Testing | % | EXTERNAL | | | Eosinophils | performed at [facility], [address] | | LAB | | | | [address], | | | | | | [place] [address] | | | | + + + + + + | % Basophils | 1.13Comment: Testing | % | EXTERNAL | | | | performed at [facility], [address] | | LAB | | | | [address], | | | | | | [place] [address] | | | | + + + + + + | Absolute | 4.02Comment: Testing | 1.90 - 7.40 | EXTERNAL | | | Segmented | performed at [facility], [address] | K/uL | LAB | | | Neutrophils | [address], | | | | | | [place] [address] | | | | + + + + + + | Absolute | 1.09Comment: Testing | 1.00 - 3.90 | EXTERNAL | | | Lymphocytes | performed at [facility], [address] | K/uL | LAB | | | | [address], | | | | | | [place] [address] | | | | + + + + + + | Absolute | 0.57Comment: Testing | 0.00 - 0.80 | EXTERNAL | | | Monocytes | performed at [facility], [address] | K/uL | LAB | | | | [address], | | | | | | [place] [address] | | | | + + + + + + | Absolute | 0.21Comment: Testing | 0.00 - 0.50 | EXTERNAL | | | Eosinophils | performed at [facility], [address] | K/uL | LAB | | | | [address], | | | | | | [place] [address] | | | | + + + + + + | Absolute | 0.07Comment: Testing | 0.00 - 0.10 | EXTERNAL | | | Basophils | performed at [facility], [address] | K/uL | LAB | | | | [address], | | | | | | [place] [address] | | | | + + + [...] | | | | | [place] [address] | | | | + + + + + + | K | 4.2Comment: Testing | 3.5 - 4.9 | EXTERNAL | | | | performed at [facility], [address] | mmol/L | LAB | | | | [address], | | | | | | [place] [address] | | | | + + + + + + | Cl | 104Comment: Testing | 99 - 109 mmol/L | EXTERNAL | | | | performed at [facility], [address] | | LAB | | | | [address], | | | | | | [place] [address] | | | | + + + + + + | CO2 | 28Comment: Testing | 23 - 32 mmol/L | EXTERNAL | | | | performed at [facility], [address] | | LAB | | | | [address], | | | | | | [place] [address] | | | | + + + + + + | Anion Gap | 6Comment: Testing | 5 - 20 mmol/L | EXTERNAL | | | | performed at [facility], [address] | | LAB | | | | [address], | | | | | | [place] [address] | | | | + + + + + + | Glucose, | 88Comment: Testing | 65 - 99 mg/dL | EXTERNAL | | | Fasting | performed at [facility], [address] | | LAB | | | | [address], | | | | | | [place] [address] | | | | + + + + + + | BUN | 24Comment: Testing | 8 - 25 mg/dL | EXTERNAL | | | | performed at [facility], [address] | | LAB | | | | [address], | | | | | | [place] [address] | | | | + + + + + + | Creatinine | 0.95Comment: Testing | 0.70 - 1.30 | EXTERNAL | | | | performed at [facility], [address] | mg/dL | LAB | | | | [address], | | | | | | [place] [address] | | | | + + + + + + | BUN/Creatin | 25Comment: Testing | | EXTERNAL | | | ine Ratio | performed at [facility], [address] | | LAB | | | | [address], | | | | | | [place] [address] | | | | + + + + + + | Calcium | 8.4 (L)Comment: Testing | 8.5 - 10.5 | EXTERNAL | | | | performed at [facility], [address] | mg/dL | LAB | | | | [address], | | | | | | [place] [address] | | | | + + + [...] | | | | | | at [facility], [address] | | | | | | [facility], | | | | | | [place] [address] | | | | + + + [...] | | | Fingerstick | performed at [facility];[address] | | LAB | | | | [address];[place] | | | | | | [address] | | | | + + + [...] | | | | | [place] [address]692 | | | | | | JJSTesting performed at | | | | | | [facility];[address] [facility] | | | | | | [facility];[place], [place] | | | | | | [id number] ON 04/28 | | | | | [...] | | | | | [place] [id number] | | | | | | JJSTesting performed at | | | | | | [facility];[address];[place] | | | | | | [id number] ON 04/28 | | | | | [...] | | | | | [place] [address] | | | | | | JJSTesting performed at | | | | | | [place];[address];[place] | | | | | | [id number] ON 04/28 | | | | | [...] | | | | | [place] 035730 | | | | | | JJSTesting performed at | | | | | | [facility];[address];[place] | | | | | | [id number] ON 04/28 | | | | | [...] | | | | | [place] [id number] | | | | | | JJSTesting performed at | | | | | | [place];[address];[place] | | | | | | [id number] ON 04/28 | | | | | [...] | | | | | [place] [id number] | | | | | | JJSTesting performed at | | | | | | [facility];[address];[place] | | | | | | [id number] ON 04/28 | | | | | [...] | | | | | [place] [id number] | | | | | | JJSTesting performed at | | | | | | [facility];[address];[place] | | | | | | [id number] ON 04/28 | | | | | [...] | | | | | [place] 924639 | | | | | | JJSTesting performed at | | | | | | [facility];[address];[place] | | | | | | [id number] ON 04/28 | | | | | [...] | | | | | [place] [id number] | | | | | | JJSTesting performed at | | | | | | [facility];[address] | | | | | | [facility];[place] | | | | | | [id number] ON 04/28 | | | | | [...] | | | | | S [place] 907417 | | | | | | JJSTesting performed at | | | | | | [facility];[address];[place], [place] | | | | | | [id number] ON 04/28 | | | | | [...] | | | | | S [place] 212211 | | | | | | JJSTesting performed at | | | | | | [facility];[address] | [address] | | [address];[place], [place] | | | | | | [id number] ON 04/28 | | | | | [...] | | | | | S [place] 907360 | | | | | | JJSTesting performed at | | | | | | [place];[address];[place] | | | | | | [id number] ON 04/28 | | | | | [...] | | | | | [place] [id number] | | | | | | JJSTesting performed at | | | | | | [facility];[address];[place] | | | | | | [id number] ON 04/28 | | | | | [...] | | | | | S C[place] [id number] Testing | | | | | | performed at [facility] | | | | | | [facility];[place], [place] | | | | | | [id number] ON 04/25 | | | | | [...] | | | | | S C[place] [id number] Testing | | | | | | performed at [facility];[address] | | | | | | [address];[place] | | | | | | [id number] ON 04/25 | | | | | [...] | | | | | S [place]J [id number] Testing | | | | | | performed at [facility];[address] | | | | | | [address];[place] | | | | | | [id number] ON 04/25 | | | | | [...] | | | | | S [place] 172726 Testing | | | | | | performed at [facility];[address] | | | | | | [address];[place] | | | | | | [id number] ON 04/25 | | | | | [...] | | | | | S CJ [id number] Testing | | | | | | performed at [facility] [place];888 | | | | | | Marito Carcamo;KONG Thakkar | | | | | | [id number] ON 04/25 | | | | | [...] | | | | | | S NOVELTY [id number] Testing | | | | | | performed at [facility] [place];888 | | | | | | [facility];[place], [place] | | | | | | [id number] ON 04/25 | | | | | [...] | | | | | | S NOVELTY [id number] Testing | | | | | | performed at [facility] [place];888 | | | | | | [facility];[place], [place] | | | | | | [id number] ON 04/25 | | | | | [...] | | | | | S CJ [id number] Testing | | | | | | performed at [facility] [place];888 | | | | | | Marito Carcamo;KONG Thakkar | | | | | | [id number] ON 04/25 | | | | | [...] | | | | | S CJ [id number] Testing | | | | | | performed at [facility] [place];888 | | | | | | Marito Carcamo;KONG Thakkar | | | | | | [id number] ON 04/25 | | | | | [...] | | | | | S CJ [id number] Testing | | | | | | performed at [facility] [place];[address] | | | | | | [address];[place] | | | | | | [id number] ON 04/25 | | | | | [...] | | | | | S CJ [id number] Testing | | | | | | performed at [facility];888 | | | | | | Marito Carcamo;[place] Thakkar | | | | | | [id number] ON 04/25 | | | | | [...] | | | | | S CJ [id number] Testing | | | | | | performed at [facility];888 | | | | | | Marito Carcamo;[place] Thakkar | | | | | | [id number] ON 04/25 | | | | | [...] | | | | | S CJ [id number] Testing | | | | | | performed at [facility] | | | | | | [facility];[place], [place] | | | | | | [id number] ON 04/25 | | | | | [...] | | | Fingerstick | performed at [facility] [place];888 | | LAB | | | | Marito Carcamo;[place], [place] | | | | | | [phone] | | | | + + + [...] | | | | | S CJ [id number] | | | | | | JJSTesting performed at | | | | | | [facility];[address] [place] [address] | | | | | | Carlos Alberto;KONG Thakkar | | | | | | [id number] ON 04/28 | | | | | [...] | | | | | S CJ [id number] | | | | | | JJSTesting performed at | | | | | | [facility] [place];[address];[place] | | | | | | [id number] ON 04/28 | | | | | [...] | | | | | S CJ [id number] | | | | | | JJSTesting performed at | | | | | | [facility];[address] | | | | | | Carlos Alberto;[place] Thakkar | | | | | | [id number] ON 04/28 | | | | | [...] | | | | | S CJ [id number] | | | | | | JJSTesting performed at | | | | | | [facility];[address] | | | | | | [address];[place] | | | | | | [id number] ON 04/28 | | | | | [...] | | | | | S CJ [id number] | | | | | | JJSTesting performed at | | | | | | [place];[address];[place] | | | | | | [id number] ON 04/28 | | | | | [...] | | | | | S CJ [id number] | | | | | | JJSTesting performed at | | | | | | [facility];[address];[place] | | | | | | [id number] ON 04/28 | | | | | [...] | | | | | S CJ [id number] | | | | | | JJSTesting performed at | | | | | | [place];[address];[place] | | | | | | [id number] ON 04/28 | | | | | [...] | | | | | S CJ 928067 | | | | | | JJSTesting performed at | | | | | | [facility];[place] | | | | | | [id number] ON 04/28 | | | | | [...] | | | | | S CJ 211304 | | | | | | JJSTesting performed at | | | | | | [facility];[address];[place] | | | | | | [id number] ON 04/28 | | | | | [...] | | | | | S CJ 889917 | | | | | | JJSTesting performed at | | | | | | [facility];[address];[place] | | | | | | [id number] ON 04/28 | | | | | [...] | | | | | S CJ 797651 | | | | | | JJSTesting performed at | | | | | | [facility];[address];[place] | | | | | | [id number] ON 04/28 | | | | | [...] | | | | | S CJ 775578 | | | | | | JJSTesting performed at | | | | | | [facility];[address];[place], [place] | | | | | | [id number] ON 04/28 | | | | | [...] | | | | | S CJ 606319 | | | | | | JJSTesting performed at | | | | | | [facility];[address];[place], [place] | | | | | | [id number] ON 04/28 | | | | | [...] | | | | | S CJ 703759 | | | | | | JJSTesting performed at | | | | | | [facility];[address];[place] | | | | | | [id number] ON 04/28 | | | | | [...] | | | | | S CJ 134114 | | | | | | JJSTesting performed at | | | | | | [facility];[address];[place] | | | | | | [id number] ON 04/28 | | | | | [...] | | | | | S CJ 732079 | | | | | | JJSTesting performed at | | | | | | [facility];[address];[place] | | | | | | [id number] ON 04/28 | | | | | [...] | | | | | S CJ 231850 | | | | | | JJSTesting performed at | | | | | | [facility];[address] | | | | | | [address] Alberto;[place] | | | | | | [id number] ON 04/28 | | | | | [...] | | | | | S CJ 555158 | | | | | | JJSTesting performed at | | | | | | [facility];[address] | | | | | | [address] Alberto;[place] | | | | | | [id number] ON 04/28 | | | | | [...] | | | | | S CJ 840426 | | | | | | JJSTesting performed at | | | | | | [facility];[address] | | | | | | [address];[place] | | | | | | [id number] ON 04/28 | | | | | [...] | | | | | S CJ 444854 | | | | | | JJSTesting performed at | | | | | | [facility];[address];[place] | | | | | | [id number] ON 04/28 | | | | | [...] | | | | | S CJ 473924 | | | | | | JJSTesting performed at | | | | | | [facility];[address] | | | | | | [address];[place] | | | | | | [id number] ON 04/28 | | | | | [...] | | | | | S CJ 322745 | | | | | | JJSTesting performed at | | | | | | [facility];[address];[place] | | | | | | [id number] ON 04/28 | | | | | [...] | | | | | S CJ 294954 | | | | | | JJSTesting performed at | | | | | | [facility];[address];[place], [place] | | | | | | [id number] ON 04/28 | | | | | [...] | | | | | S CJ 804357 | | | | | | JJSTesting performed at | | | | | | [facility];[address];[place], [place] | | | | | | [id number] ON 04/28 | | | | | [...] | | | | | S CJ 933854 | | | | | | JJSTesting performed at | | | | | | [facility];[address] | | | | | | [address];[place] | | | | | | [id number] ON 04/28 | | | | | [...] | | | | | S CJ 688763 | | | | | | JJSTesting performed at | | | | | | [facility];[address] | | | | | | [address] Alberto;[place] | | | | | | [id number] ON 04/28 | | | | | [...] EXTERNAL | | | | performed at [facility];[address] | mmol/L | LAB | | | | Marito Carcamo;[place] | | | | | | [address] | | | | + + + [...] | | | | | S CJ 059449 | | | | | | JJSTesting performed at | | | | | | [facility];[address] | | | | | | [address];[place] | | | | | | [id number] ON 04/28 | | | | | [...] | | | | | S CJ 186438 | | | | | | JJSTesting performed at | | | | | | [facility];[address];[place] | | | | | | [id number] ON 04/28 | | | | | [...] | | | | | S CJ 595144 | | | | | | JJSTesting performed at | | | | | | [facility];[address];[place] | | | | | | [id number] ON 04/28 | | | | | [...] | | | | | S CJ 640189 | | | | | | JJSTesting performed at | | | | | | [facility];[address];[place] | | | | | | [id number] ON 04/28 | | | | | [...] | | | | | S CJ 531672 | | | | | | JJSTesting performed at | | | | | | [facility];[address];[place] | | | | | | [id number] ON 04/28 | | | | | [...] | | | | | S CJ 122998 | | | | | | JJSTesting performed at | | | | | | [facility];[address];[place] | | | | | | [id number] ON 04/28 | | | | | [...] | | | | | S CJ 164481 | | | | | | JJSTesting performed at | | | | | | [facility];[address] | | | | | [address];[place], [place] | | | | | | [id number] ON 04/28 | | | | | [...] | | | | | S CJ 495088 | | | | | | JJSTesting performed at | | | | | | [facility];[address] | | | | | | [facility];[place] | | | | | | [id number] ON 04/28 | | | | | [...] | | | | | S CJ 856416 | | | | | | JJSTesting performed at | | | | | | [facility];[address];[place] | | | | | | [id number] ON 04/28 | | | | | [...] | | | | | S CJ 199612 | | | | | | JJSTesting performed at | | | | | | [facility];[address] | | | | | | [address] Alberto;[place] | | | | | | [id number] ON 04/28 | | | | | [...] | | | | | S CJ 508766 | | | | | | JJSTesting performed at | | | | | | [facility];[address];[place] | | | | | | [id number] ON 04/28 | | | | | [...] | | | | | S CJ 189520 | | | | | | JJSTesting performed at | | | | | | [facility];[address];[place] | | | | | | [id number] ON 04/28 | | | | | [...] | | | | | S CJ 692699 | | | | | | JJSTesting performed at | | | | | | [facility];[address];[place] | | | | | | [id number] ON 04/28 | | | | | [...] | | | | | S CJ 730108 | | | | | | JJSTesting performed at | | | | | | [facility];[address] | | | | | | [address];[place] | | | | | | [id number] ON 04/28 | | | | | [...] | | | | | S CJ 249824 | | | | | | JJSTesting performed at | | | | | | [facility];[address];[place] | | | | | | [id number] ON 04/28 | | | | | [...] | | | | | S CJ 292893 | | | | | | JJSTesting performed at | | | | | | [facility];[address];[place] | | | | | | [id number] ON 04/28 | | | | | [...] | | | | | S CJ 529189 | | | | | | JJSTesting performed at | | | | | | [facility];[address];[place] | | | | | | [id number] ON 04/28 | | | | | [...] | | | | | S CJ 480572 | | | | | | JJSTesting performed at | | | | | | [facility];[address];[place] | | | | | | 83[address]ZYMDOZYVR ON 04/28 | | | | | [...] | | | | | S CJ 555327 | | | | | | JJSTesting performed at | | | | | | [facility];[address];[place] | | | | | | [id number] ON 04/28 | | | | | [...] | | | | | S CJ 616620 | | | | | | JJSTesting performed at | | | | | | [facility];[address] | | | | | | christal;[place] | | | | | | [id number] ON 04/28 | | | | | [...] | | | | | S CJ 698109 | | | | | | JJSTesting performed at | | | | | | [facility];[address] | | | | | | [address] Alberto;[place] | | | | | | [id number] ON 04/28 | | | | | [...] | | | | | S CJ 988375 | | | | | | JJSTesting performed at | | | | | | [facility];[address] | | | | | | [facility];[place], [place] | | | | | | [id number] ON 04/28 | | | | | [...] | | | | | S CJ 614524 | | | | | | JJSTesting performed at | | | | | | [facility];[address] | | | | | | [facility];[place], [place] | | | | | | [id number] ON 04/28 | | | | | [...] | | | | | S CJ 938961 | | | | | | JJSTesting performed at | | | | | | [facility];[address];[place] | | | | | | [id number] ON 04/28 | | | | | [...] | | | | | S CJ 205064 | | | | | | JJSTesting performed at | | | | | | [facility];[address];[place] | | | | | | [id number] ON 04/28 | | | | | [...] | | | | | S CJ 255614 | | | | | | JJSTesting performed at | | | | | | [facility];[address];[place], [place] | | | | | | [id number] ON 04/28 | | | | | [...] | | | | | S CJ 357370 Testing | | | | | | performed at [facility];[address] | | | | | | Marito [address]cam[address];[place] | | | | | | [id number] ON 04/25 | | | | | [...] | | | | | S CJ 286955 Testing | | | | | | performed at [facility];[address] | | | | | | [address];[place] | | | | | | [id number] ON 04/25 | | | | | [...] | | | | | S CJ 424747 Testing | | | | | | performed at [facility];[address] | | | | | | [address];[place] | | | | | | [id number] ON 04/25 | | | | | [...] | | | | | S CJ 428930 Testing | | | | | | performed at [facility];[address] | | | | | | [address];[place] | | | | | | 40689ADVGTBNLL ON 04/25 | | | | | [...] | | | | | S CJ 059083 Testing | | | | | | performed at [facility];[address] | | | | | | [facility];[place] | | | | | | [id number] ON 04/25 | | | | | [...] | | | | | S CJ 473987 Testing | | | | | | performed at [facility];[address] | | | | | | [address];[place] | | | | | | [id number] ON 04/25 | | | | | [...] | | | | | S CJ 795995 Testing | | | | | | performed at [facility];[address] | | | | | | [address]cam[address];[place] | | | | | | [id number] ON 04/25 | | | | | [...] | | | | | S JC 947908 Testing | | | | | | performed at [facility];[address] | | | | | | Mar[address] Car[address];[place] | | | | | | [id number] ON 04/25 | | | | | [...] | | | | | S CJ 245232 Testing | | | | | | performed at [facility];[address] | | | | | | Marito Carcam[address];[place] | | | | | | [id number] ON 04/25 | | | | | [...] | | | | | S CJ 720123 Testing | | | | | | performed at [facility];[address] | | | | | | Marito Carcam[address];[place] | | | | | | [id number] ON 04/25 | | | | | [...] | | | | | S CJ 519163 Testing | | | | | | performed at [facility];[address] | | | | | | Marito Carcam[address];[place] | | | | | | [id number] ON 04/25 | | | | | [...] | | | | | S CJ 010020 Testing | | | | | | performed at [facility];[address] | | | | | | Marito Carcam[address];[place] | | | | | | [id number] ON 04/25 | | | | | [...] | | | | | S CJ 070739 Testing | | | | | | performed at [facility];[address] | | | | | | Mar[address];[place] | | | | | | [id number] ON 04/25 | | | | | [...] | | | | | S CJ 232968 | | | | | | JJSTesting performed at | | | | | | [facility];[address];[place] | | | | | | [id number] ON 04/28 | | | | | [...] | | | | | S CJ 065181 | | | | | | JJSTesting performed at | | | | | | [facility];[address];[place] | | | | | | [id number] ON 04/28 | | | | | [...] | | | | | S CJ 875767 | | | | | | JJSTesting performed at | | | | | | [facility];[address];[place], [place] | | | | | | [id number] ON 04/28 | | | | | [...] | | | | | S CJ 498236 | | | | | | JJSTesting performed at | | | | | | [facility];[address] | | | | | | [facility];[place], [place] | | | | | | [id number] ON 04/28 | | | | | [...] | | | | | S CJ 309449 | | | | | | JJSTesting performed at | | | | | | [facility];[address];[place] | | | | | | [id number] ON 04/28 | | | | | [...] | | | | | S CJ 590379 | | | | | | JJSTesting performed at | | | | | | [facility];[address];[place] | | | | | | [id number] ON 04/28 | | | | | [...] | | | | | S CJ 266070 | | | | | | JJSTesting performed at | | | | | | [facility];[address] | | | | | | [place] Alberto;[place] | | | | | | [id number] ON 04/28 | | | | | [...] | | | | | S CJ 162779 | | | | | | JJSTesting performed at | | | | | | [facility];[address] | | | | | | Carlos Alberto;[place] | | | | | | [id number] ON 04/28 | | | | | [...] | | | | | S CJ 949484 | | | | | | JJSTesting performed at | | | | | | [facility];[address];[place] | | | | | | [id number] ON 04/28 | | | | | [...] | | | | | S CJ 012204 | | | | | | JJSTesting performed at | | | | | | [facility];[address] | | | | | | [address] Alberto;[place] | | | | | | [id number] ON 04/28 | | | | | [...] | | | | | S CJ 566858 | | | | | | JJSTesting performed at | | | | | | [facility];[address] | | | | | | [address] Alberto;[place] | | | | | | [id number] ON 04/28 | | | | | [...] | | | | | S CJ 660536 | | | | | | JJSTesting performed at | | | | | | [facility];[address];[place] | | | | | | [id number] ON 04/28 | | | | | [...] | | | | | S CJ 806287 | | | | | | JJSTesting performed at | | | | | | [facility];[address];[place] | | | | | | [id number] ON 04/28 | | | | | [...] | | | | | S CJ 590136 | | | | | | JJSTesting performed at | | | | | | [facility];[address];[place] | | | | | | [id number] ON 04/28 | | | | | [...] | | | | | S CJ 215228 | | | | | | JJSTesting performed at | | | | | | [facility];[address];[place] | | | | | | [id number] ON 04/28 | | | | | [...] | | | | | S CJ 276584 | | | | | | JJSTesting performed at | | | | | | [facility];[address];[place] | | | | | | [id number] ON 04/28 | | | | | [...] | | | | | S CJ 680454 | | | | | | JJSTesting performed at | | | | | | [facility];[address];[place] | | | | | | 05268MAVJYGSNA ON 04/28 | | | | | [...] | | | | | S CJ 517949 | | | | | | JJSTesting performed at | | | | | | [facility];[address];[place], [place] | | | | | | [id number] ON 04/28 | | | | | [...] | | | | | S CJ 220198 | | | | | | JJSTesting performed at | | | | | | [facility];[address] | | | | | | [address];[place], [place] | | | | | | [address]FKTHPWEJJ ON 04/28 | | | | | [...] | | | | | S CJ 579712 | | | | | | JJSTesting performed at | | | | | | [facility];[address];[place] | | | | | | [id number] ON 04/28 | | | | | [...] | | | | | S CJ 887393 | | | | | | JJSTesting performed at | | | | | | [facility];[address] | | | | | | [address] Alberto;[place] | | | | | | [id number] ON 04/28 | | | | | [...] | | | | | S CJ 610078 | | | | | | JJSTesting performed at | | | | | | [facility];[address];[place] | | | | | | 58730GQVJZUFTS ON 04/28 | | | | | [...] | | | | | S CJ 860608 | | | | | | JJSTesting performed at | | | | | | [facility];[address];[place] | | | | | | 71687GZIWUQBUQ ON 04/28 | | | | | [...] | | | | | S CJ 021931 | | | | | | JJSTesting performed at | | | | | | [facility];[address] | [address];[place] | | | | | | [id number] ON 04/28 | | | | | [...] | | | | | S CJ 097490 | | | | | | JJSTesting performed at | | | | | | [facility];[address] | | | | | | [address] Alberto;[place] | | | | | | [id number] ON 04/28 | | | | | [...] | | | | | S CJ 974660 | | | | | | JJSTesting performed at | | | | | | [facility];[address] | | | | | | [address] Alberto;[place] | | | | | | [id number] ON 04/28 | | | | | [...] | | | | | S CJ 270267 | | | | | | JJSTesting performed at | | | | | | [facility];[address];[place] | | | | | | [id number] ON 04/28 | | | | | [...] | | | | | S CJ 320577 | | | | | | JJSTesting performed at | | | | | | [facility];[address];[place] | | | | | | [id number] ON 04/28 | | | | | [...] | | | | | S CJ 855666 | | | | | | JJSTesting performed at | | | | | | [facility];[address];[place] | | | | | | 42276ZLJFJZRIE ON 04/28 | | | | | [...] | | | | | S CJ 721587 | | | | | | JJSTesting performed at | | | | | | [facility];[address];[place] | | | | | | 74755KTVFBUFUN ON 04/28 | | | | | [...] | | | | | S CJ 226661 | | | | | | JJSTesting performed at | | | | | | [facility];[address];[place] | | | | | | 99722CTZVPXRRD ON 04/28 | | | | | [...] | | | | | S CJ 859977 | | | | | | JJSTesting performed at | | | | | | [facility];[address];[place] | | | | | | [id number] ON 04/28 | | | | | [...] | | | | | S CJ 986670 | | | | | | JJSTesting performed at | | | | | | [facility];[address] | | [address] | [address];[place] | | | | | | [id number] ON 04/28 | | | | | [...] | | | | | S CJ 558288 | | | | | | JJSTesting performed at | | | | | | [facility];[address];[place] | | | | | | [id number] ON 04/28 | | | | | [...] | | | | | S CJ 742150 | | | | | | JJSTesting performed at | | | | | | [facility];[address];[place] | | | | | | [id number] ON 04/28 | | | | | [...] | | | | | S CJ 095382 | | | | | | JJSTesting performed at | | | | | | [facility];[address];[place] | | | | | | [id number] ON 04/28 | | | | | [...] | | | | | S CJ 673623 | | | | | | JJSTesting performed at | | | | | | [facility];[address];[place] | | | | | | 51367NNCZFGYPV ON 04/28 | | | | | [...] | | | | | S CJ 268996 | | | | | | JJSTesting performed at | | | | | | [facility];[address];[place] | | | | | | 92068RKMSTPPIY ON 04/28 | | | | | [...] | | | | | S CJ 995634 | | | | | | JJSTesting performed at | | | | | | [facility];[address] | | | | | | [address] Alberto;[place] | | | | | | [id number] ON 04/28 | | | | | [...] | | | Fingerstick | performed at [facility];[address] | | LAB | | | | [address];[place], [place] | | | | | | [address] | | | | + + + [...] | | | | | S CJ 082514 Testing | | | | | | performed at [facility];[address] | | | | | | [facility];[place], [place] | | | | | | [id number] ON 04/25 | | | | | [...] | | | | | S CJ 362073 Testing | | | | | | performed at [facility];[address] | | | | | | Marito Carcamo;[place] | | | | | | [id number] ON 04/25 | | | | | [...] | | | | | S CJ [id number] Testing | | | | | | performed at [facility] [place];888 | | | | | | Estrada Blchristal;[place] | | | | | | [id number] ON 04/25 | | | | | [...] | | | | | S CJ [id number] Testing | | | | | | performed at [facility] [place];888 | | | | | | Estrada Blchristal;[place] | | | | | | [id number] ON 04/25 | | | | | [...] | | | | | S CJ [id number] Testing | | | | | | performed at [facility] [place];888 | | | | | | Marito Carcamo;[place] | | | | | | [id number] ON 04/25 | | | | | [...] | | | | | S CJ [id number] Testing | | | | | | performed at [facility] [place];888 | | | | | | Marito Carcamo;[place] | | | | | | [id number] ON 04/25 | | | | | [...] | | | | | S CJ [id number] Testing | | | | | | performed at [facility] [place];888 | | | | | | Marito Carcamo;[place] | | | | | | [id number] ON 04/25 | | | | | [...] | | | | | S CJ [id number] Testing | | | | | | performed at [facility] [place];888 | | | | | | Marito Carcamo;[place]kar | | | | | | [id number] ON 04/25 | | | | | [...] | | | | | S CJ [id number] Testing | | | | | | performed at [facility] [place];[address] | | | | | | [facility];[place], [place] | | | | | | [id number] ON 04/25 | | | | | [...] | | | | | S CJ [id number] Testing | | | | | | performed at [facility] [place];[address] | | | | | | [facility];[place], [place] | | | | | | [id number] ON 04/25 | | | | | [...] | | | | | S CJ [id number] Testing | | | | | | performed at [facility] [place];888 | | | | | | Marito Carcamo;[place] | | | | | | [id number] ON 04/25 | | | | | [...] | | | | | S CJ [id number] Testing | | | | | | performed at [facility] [place];888 | | | | | | Marito Carcamo;[place] | | | | | | [id number] ON 04/25 | | | | | [...] | | | | | S CJ [id number] Testing | | | | | | performed at [facility] [place];[address] | | | | | | Marito [address];[place], [place] | | | | | | [id number] ON 04/25 | | | | | [...] | | | Fingerstick | performed at [facility];[address] | | LAB | | | | [address];[place], [place] | | | | | | [id number] | | | | + + + [...] EXTERNAL | | | | performed at [facility], [address] | K/uL | LAB | | | | [address], | | | | | | [place] [address] | | | | + + + + + + | RED CELL | 2.62 (L)Comment: Testing | 4.20 - 5.70 | EXTERNAL | | | COUNT | performed at [facility], [address] | M/uL | LAB | | | | [address], | | | | | | [place] [address] | | | | + + + + + + | Hgb | 7.6 (L)Comment: Testing | 13.2 - 17.0 | EXTERNAL | | | | performed at [facility], [address] | g/dL | LAB | | | | [address], | | | | | | [place] [id number] | | | | + + + + + + | Hematocrit, | 22.6 (L)Comment: Testing | 39.0 - 50.0 % | EXTERNAL | | | POC | performed at [facility], [address] | | LAB | | | | [address], | | | | | | [place] [id number] | | | | + + + + + + | MCV | 86.4Comment: Testing | 80.0 - 100.0 fl | EXTERNAL | | | | performed at [facility], [address] | | LAB | | | | [address], | | | | | | [place] [address] | | | | + + + + + + | MCH | 28.9Comment: Testing | 27.0 - 34.0 pg | EXTERNAL | | | | performed at [facility], [address] | | LAB | | | | [address], | | | | | | [place] [id number] | | | | + + + + + + | MCHC | 33.4Comment: Testing | 32.0 - 35.5 | EXTERNAL | | | | performed at [facility], [address] | g/dL | LAB | | | | [address], | | | | | | [place] [address] | | | | + + + + + + | RDW-CV | 40.7Comment: Testing | 37 - 53 fl | EXTERNAL | | | | performed at [facility], [address] | | LAB | | | | [address], | | | | | | [place] [address] | | | | + + + + + + | Platelet | 126 (L)Comment: Testing | 150 - 400 K/uL | EXTERNAL | | | Count | performed at [facility], [address] | | LAB | | | Plasma | [address], | | | | | | [place] [address] | | | | + + + + + + | MPV | 9.2Comment: Testing | fl | EXTERNAL | | | | performed at [facility], [address] | | LAB | | | | [address], | | | | | | [place] [address] | | | | + + + + + + | Differentia | AUTOMATEDComment: | | EXTERNAL | | | l Type | Testing performed at | | LAB | | | | [facility], [address] | | | | | | [place] | | | | | | [address] | | | | + + + + + + | % Segmented | 75.99Comment: Testing | % | EXTERNAL | | | | performed at [facility], [address] | | LAB | | | Neutrophils | [address], | | | | | | [place] [address] | | | | + + + + + + | % | 14.65Comment: Testing | % | EXTERNAL | | | Lymphocytes | performed at [facility], [address] | | LAB | | | | [address], | | | | | | [place] [address] | | | | + + + + + + | % Monocytes | 7.51Comment: Testing | % | EXTERNAL | | | | performed at [facility], [address] | | LAB | | | | [address], | | | | | | [place] [address] | | | | + + + + + + | % | 1.14Comment: Testing | % | EXTERNAL | | | Eosinophils | performed at [facility], [address] | | LAB | | | | [address], | | | | | | [place] [address] | | | | + + + + + + | % Basophils | 0.71Comment: Testing | % | EXTERNAL | | | | performed at [facility], [address] | | LAB | | | | [address], | | | | | | [place] [address] | | | | + + + + + + | Absolute | 4.72Comment: Testing | 1.90 - 7.40 | EXTERNAL | | | Segmented | performed at [facility], [address] | K/uL | LAB | | | Neutrophils | [address], | | | | | | [place] [address] | | | | + + + + + + | Absolute | 0.91 (L)Comment: Testing | 1.00 - 3.90 | EXTERNAL | | | Lymphocytes | performed at [facility], [address] | [address]/u[address] | LAB | | | | [address], | | | | | | [place] [address] | | | | + + + + + + | Absolute | 0.47Comment: Testing | 0.00 - 0.80 | EXTERNAL | | | Monocytes | performed at [facility], [address] | K/uL | LAB | | | | [address], | | | | | | [place] [address] | | | | + + + + + + | Absolute | 0.07Comment: Testing | 0.00 - 0.50 | EXTERNAL | | | Eosinophils | performed at [facility], [address] | K/uL | LAB | | | | [address], | | | | | | [place] [address] | | | | + + + + + + | Absolute | 0.04Comment: Testing | 0.00 - 0.10 | EXTERNAL | | | Basophils | performed at [facility], [address] | K/uL | LAB | | | | [address], | | | | | | [place] [address] | | | | + + + [...] | | | | | [place] [address] | | | | + + + [...] | | | | | [place] [address] | | | | + + + + + + | K | 4.3Comment: Testing | 3.5 - 4.9 | EXTERNAL | | | | performed at [facility], [address] | mmol/L | LAB | | | [address], | | | | | | [place] [address] | | | | + + + + + + | Cl | 106Comment: Testing | 99 - 109 mmol/L | EXTERNAL | | | | performed at [facility], [address] | | LAB | | | | [address], | | | | | | [place] [address] | | | | + + + + + + | CO2 | 26Comment: Testing | 23 - 32 mmol/L | EXTERNAL | | | | performed at [facility], [address] | | LAB | | | | [address], | | | | | | [place] [address] | | | | + + + + + + | Anion Gap | 8Comment: Testing | 5 - 20 mmol/L | EXTERNAL | | | | performed at [facility], [address] | | LAB | | | | [address], | | | | | | [place] [address] | | | | + + + + + + | Glucose, | 78Comment: Testing | 65 - 99 mg/dL | EXTERNAL | | | Fasting | performed at [facility], [address] | | LAB | | | | [address], | | | | | | [place] [address] | | | | + + + + + + | BUN | 31 (H)Comment: Testing | 8 - 25 mg/dL | EXTERNAL | | | | performed at [facility], [address] | | LAB | | | | [address], | | | | | | [place] [address] | | | | + + + + + + | Creatinine | 0.99Comment: Testing | 0.70 - 1.30 | EXTERNAL | | | | performed at [facility], [address] | mg/dL | LAB | | | | [address], | | | | | | [place] [address] | | | | + + + + + + | BUN/Creatin | 31Comment: Testing | | EXTERNAL | | | ine Ratio | performed at [facility], [address] | | LAB | | | | [address], | | | | | | [place] [address] | | | | + + + + + + | Calcium | 8.7Comment: Testing | 8.5 - 10.5 | EXTERNAL | | | | performed at [facility], [address] | mg/dL | LAB | | | | [address], | | | | | | [place] [address] | | | | + + + [...] | | | | | | at [facility], [address] | | | | | | [place] [address], | | | | | | [place] [address] | | | | + + [...] | | | Fingerstick | performed at [facility];[address] | | LAB | | | | [address];[place] | | | | | | [address] | | | | + + + [...] + + | Historically converted procedure from [facility] environment | EXTERNAL LAB | + + [...] EXTERNAL | | | | performed at [facility];[address] | mmol/L | LAB | | | | [address];[place], [place] | | | | | | [address] | | | | + + + [...] | | | Fingerstick | performed at [facility];[address] | | LAB | | | | [address];[place] | | | | | | [address] | | | | + + + [...] | | | Fingerstick | performed at [facility];[address] | | LAB | | | | [address];[place] | | | | | | [address] | | | | + + + [...] | | | Fingerstick | performed at [facility];[address] | | LAB | | | | [address];[place], [place] | | | | | | [address] | | | | + + + [...] lung atelectasis. 2. No pneumothorax. 3. Removal [place] | | | catheter, with otherwise unchanged tubes and lines. | | | | | + + + + + + | Narrative | Performed At | + + + | HISTORY: Evaluate tubes and lines. COMPARISON: 04/23/15. | | | TECHNIQUE: AP portable film of the chest at 0535 hours FINDINGS: | | | Removal [place] catheter. Right IJ sheath remains in place. [...] chest at 0535 hours | | FINDINGS:Removal [place] catheter. Right IJ sheath remains in place. [...] lung atelectasis.2. | | No pneumothorax.3. Removal [place] catheter, with otherwise unchanged tubes and | | lines. | |FINDINGS: | |Removal [place] catheter. Right IJ sheath remains in place. [...] | |2. No pneumothorax. | |3. Removal [place] catheter, with otherwise unchanged tubes and lines. [...] | | | Fingerstick | performed at [facility];[address] | | LAB | | | | [address];[place] | | | | | | [address] | | | | + + + [...] EXTERNAL | | | | performed at [facility], [address] | K/uL | LAB | | | | [address], | | | | | | [place], [place] [address] | | | | + + + + + + | RED CELL | 2.52 (L)Comment: Testing | 4.20 - 5.70 | EXTERNAL | | | COUNT | performed at [facility], [address] | M/uL | LAB | | | | [address], | | | | | | [place] [address] | | | | + + + + + + | Hgb | 7.2 (L)Comment: Testing | 13.2 - 17.0 | EXTERNAL | | | | performed at [facility], [address] | g/dL | LAB | | | | [address], | | | | | | [place] [address] | | | | + + + + + + | Hematocrit, | 21.9 (L)Comment: Testing | 39.0 - 50.0 % | EXTERNAL | | | POC | performed at [facility], [address] | | LAB | | | | [address], | | | | | | [place] [address] | | | | + + + + + + | MCV | 86.9Comment: Testing | 80.0 - 100.0 fl | EXTERNAL | | | | performed at [facility], [address] | | LAB | | | | [address], | | | | | | [place] [address] | | | | + + + + + + | MCH | 28.7Comment: Testing | 27.0 - 34.0 pg | EXTERNAL | | | | performed at [facility], [address] | | LAB | | | | [address], | | | | | | [place] [address] | | | | + + + + + + | MCHC | 33.0Comment: Testing | 32.0 - 35.5 | EXTERNAL | | | | performed at [facility], [address] | g/dL | LAB | | | | [address], | | | | | | [place] [address] | | | | + + + + + + | RDW-CV | 41.6Comment: Testing | 37 - 53 fl | EXTERNAL | | | | performed at [facility], [address] | | LAB | | | | [address], | | | | | | [place] [address] | | | | + + + + + + | Platelet | 100 (L)Comment: Testing | 150 - 400 K/uL | EXTERNAL | | | Count | performed at [facility], [address] | | LAB | | | Plasma | [address], | | | | | | [place] [address] | | | | + + + + + + | MPV | 9.4Comment: Testing | fl | EXTERNAL | | | | performed at [facility], [address] | | LAB | | | | [address], | | | | | | [place] [address] | | | | + + + + + + | Differentia | AUTOMATEDComment: | | EXTERNAL | | | l Type | Testing performed at | | LAB | | | | [facility], [address] | | | | | | [place] | | | | | | [address] | | | | + + + + + + | % Segmented | 79.89Comment: Testing | % | EXTERNAL | | | | performed at [facility], [address] | | LAB | | | Neutrophils | [address], | | | | | | [place] [address] | | | | + + + + + + | % | 10.77Comment: Testing | % | EXTERNAL | | | Lymphocytes | performed at [facility], [address] | | LAB | | | | [address], | | | | | | [place] [address] | | | | + + + + + + | % Monocytes | 9.05Comment: Testing | % | EXTERNAL | | | | performed at [facility], [address] | | LAB | | | | [address], | | | | | | [place] [address] | | | | + + + + + + | % | 0.11Comment: Testing | % | EXTERNAL | | | Eosinophils | performed at [facility], [address] | | LAB | | | | [address], | | | | | | [place] [address] | | | | + + + + + + | % Basophils | 0.18Comment: Testing | % | EXTERNAL | | | | performed at [facility], [address] | | LAB | | | | [address], | | | | | | [place] [address] | | | | + + + + + + | Absolute | 5.08Comment: Testing | 1.90 - 7.40 | EXTERNAL | | | Segmented | performed at [facility], [address] | K/uL | LAB | | | Neutrophils | [address], | | | | | | [place] [address] | | | | + + + + + + | Absolute | 0.68 (L)Comment: Testing | 1.00 - 3.90 | EXTERNAL | | | Lymphocytes | performed at [facility], [address] | K/uL | LAB | | | | [address], | | | | | | [place] [address] | | | | + + + + + + | Absolute | 0.58Comment: Testing | 0.00 - 0.80 | EXTERNAL | | | Monocytes | performed at [facility], [address] | K/uL | LAB | | | | [address], | | | | | | [place] [address] | | | | + + + + + + | Absolute | 0.01Comment: Testing | 0.00 - 0.50 | EXTERNAL | | | Eosinophils | performed at [facility], [address] | K/uL | LAB | | | | [place], | | | | | | [place] [address] | | | | + + + + + + | Absolute | 0.01Comment: Testing | 0.00 - 0.10 | EXTERNAL | | | Basophils | performed at [facility], [address] | K/uL | LAB | | | | [address], | | | | | | [place] [address] | | | | + + + [...] EXTERNAL | | | | performed at [facility] | | LAB | | | | [address];[place] | | | | | | [address] | | | | + + + [...] EXTERNAL | | | | performed at [facility];[address] | | LAB | | | | [address] [facility];[place] | | | | | | [address] | | | | + + + [...] EXTERNAL | | | | performed at [facility];[address] | mmol/L | LAB | | | | [address];[place] | | | | | | [address] | | | | + + + + + + | K | 5.0 (H)Comment: Testing | 3.5 - 4.9 | EXTERNAL | | | | performed at [facility];[address] | mmol/L | LAB | | | | [address];[place] | | | | | | [address] | | | | + + + + + + | Cl | 112 (H)Comment: Testing | 99 - 109 mmol/L | EXTERNAL | | | | performed at [facility];[address] | | LAB | | | | [address];[place] | | | | | | [address] | | | | + + + + + + | CO2 | 24Comment: Testing | 23 - 32 mmol/L | EXTERNAL | | | | performed at [facility];[address] | | LAB | | | | [address];[place] | | | | | | [address] | | | | + + + + + + | Anion Gap | 12Comment: Testing | 5 - 20 mmol/L | EXTERNAL | | | | performed at [facility];[address] | | LAB | | | | [address];[place] | | | | | | [address] | | | | + + + + + + | Glucose, | 161 (H)Comment: Testing | 65 - 99 mg/dL | EXTERNAL | | | Fasting | performed at [facility];[address] | | LAB | | | | [address];[place] | | | | | | [address] | | | | + + + + + + | BUN | 27 (H)Comment: Testing | 8 - 25 mg/dL | EXTERNAL | | | | performed at [facility];[address] | | LAB | | | | [address];[place] | | | | | | [address] | | | | + + + + + + | Creatinine | 1.4 (H)Comment: Testing | 0.70 - 1.30 | EXTERNAL | | | | performed at [facility];[address] | mg/dL | LAB | | | | [address];[place] | | | | | | [address] | | | | + + + + + + | BUN/Creatin | 19Comment: Testing | | EXTERNAL | | | ine Ratio | performed at [facility];[address] | | LAB | | | | [address];[place] | | | | | | [address] | | | | + + + + + + | Calcium | 7.2 (L)Comment: Testing | 8.5 - 10.5 | EXTERNAL | | | | performed at [facility];888 | mg/dL | LAB | | | | [address];[place] | | | | | | [address] | | | | + + + [...] | | | | | | at [facility];[address];[place] [address] | | | | + + + [...] | | | Fingerstick | performed at [facility];[address] | | LAB | | | | [address];[place] | | | | | | [address] | | | | + + + [...] | | | Fingerstick | performed at [facility];[address] | | LAB | | | | [address];[place], [place] | | | | | | [address] | | | | + + + [...] | | | Fingerstick | performed at [facility];8 | | LAB | | | | [address];[place], [place] | | | | | | [address] | | | | + + + [...] | | | Fingerstick | performed at [facility];[address] | | LAB | | | | [address];[place], [place] | | | | | | [address] | | | | + + + [...] EXTERNAL | | | | performed at [facility];888 | mmol/L | LAB | | | | [address];[place] | | | | | | [address] | | | | + + + [...] | | | Fingerstick | performed at [facility];[address] | | LAB | | | | [address];[place], [place] | | | | | | [address] | | | | + + + [...] | | | Fingerstick | performed at [facility];[address] | | LAB | | | | [address];[place] | | | | | | [address] | | | | + + + [...] | | | Fingerstick | performed at [facility];[address] | | LAB | | | | [address];[place], [place] | | | | | | [address] | | | | + + + [...] and NG tube. Right IJ sheath with [place] | | | catheter in the proximal [...] and NG tube. Right IJ sheath with [place] catheter in the | | proximal right [...] and NG tube. Right IJ sheath with [place] catheter in the proximal rig ht main [...] | | | Fingerstick | performed at [facility];[address] | | LAB | | | | [address];[place] | | | | | | [address] | | | | + + + [...] | | | Fingerstick | performed at [facility];[address] | | LAB | | | | [address];[place] | | | | | | [address] | | | | + + + [...] | | | | [facility], [address] [facility] | | | | | | [place] | | | | | | [address] | | | | + + + + + + | RED CELL | 3.10 (L)Comment: Testing | 4.20 - 5.70 | EXTERNAL | | | COUNT | performed at [facility], [address] | M/uL | LAB | | | | [address], | | | | | | [place] [address] | | | | + + + + + + | Hgb | 8.9 (L)Comment: Testing | 13.2 - 17.0 | EXTERNAL | | | | performed at [facility], [address] | g/dL | LAB | | | | [address], | | | | | | [place] [address] | | | | + + + + + + | Hematocrit, | 27.2 (L)Comment: Testing | 39.0 - 50.0 % | EXTERNAL | | | POC | performed at [facility], [address] | | LAB | | | | [address], | | | | | | [place] [address] | | | | + + + + + + | MCV | 87.5Comment: Testing | 80.0 - 100.0 fl | EXTERNAL | | | | performed at [facility], [address] | | LAB | | | [address], | | | | | | [place] [address] | | | | + + + + + + | MCH | 28.7Comment: Testing | 27.0 - 34.0 pg | EXTERNAL | | | | performed at [facility], [address] | | LAB | | | | [address], | | | | | | [place] [address] | | | | + + + + + + | MCHC | 32.8Comment: Testing | 32.0 - 35.5 | EXTERNAL | | | | performed at [facility], [address] | g/dL | LAB | | | | [address], | | | | | | [place] [address] | | | | + + + + + + | RDW-CV | 41.1Comment: Testing | 37 - 53 fl | EXTERNAL | | | | performed at [facility], [address] | | LAB | | | | [address], | | | | | | [place] [address] | | | | + + + + + + | Platelet | 216Comment: Testing | 150 - 400 K/uL | EXTERNAL | | | Count | performed at [facility], [address] | | LAB | | | Plasma | [address], | | | | | | [place] [address] | | | | + + + + + + | MPV | 9.2Comment: Testing | fl | EXTERNAL | | | | performed at [facility], [address] | | LAB | | | | [address], | | | | | | [place] [address] | | | | + + + + + + | Differentia | AUTOMATEDComment: | | EXTERNAL | | | l Type | Testing performed at | | LAB | | | | [facility], [address] | | | | | | [place] | | | | | | [address] | | | | + + + + + + | % Segmented | 83.57Comment: Testing | % | EXTERNAL | | | | performed at [facility], [address] | | LAB | | | Neutrophils | [address], | | | | | | [place], [place] [address] | | | | + + + + + + | % | 6.74Comment: Testing | % | EXTERNAL | | | Lymphocytes | performed at [facility], [address] | | LAB | | | | [address], | | | | | | [place], [place] [address] | | | | + + + + + + | % Monocytes | 9.48Comment: Testing | % | EXTERNAL | | | | performed at [facility], [address] | | LAB | | | | [address], | | | | | | [place] [address] | | | | + + + + + + | % | 0.07Comment: Testing | % | EXTERNAL | | | Eosinophils | performed at [facility], [address] | | LAB | | | | [address], | | | | | | [place] [address] | | | | + + + + + + | % Basophils | 0.14Comment: Testing | % | EXTERNAL | | | | performed at [facility], [address] | | LAB | | | | [address], | | | | | | [place] [address] | | | | + + + + + + | Absolute | 10.99 (H)Comment: | 1.90 - 7.40 | EXTERNAL | | | Segmented | Testing performed at | K/uL | LAB | | | Neutrophils | [facility], [address] | | | | | | [place] | | | | | | [address] | | | | + + + + + + | Absolute | 0.89 (L)Comment: Testing | 1.00 - 3.90 | EXTERNAL | | | Lymphocytes | performed at [facility], [address] | K/uL | LAB | | | | [address], | | | | | | [place] [address] | | | | + + + + + + | Absolute | 1.25 (H)Comment: Testing | 0.00 - 0.80 | EXTERNAL | | | Monocytes | performed at [facility], [address] | K/uL | LAB | | | | [address], | | | | | | [place] [address] | | | | + + + + + + | Absolute | 0.01Comment: Testing | 0.00 - 0.50 | EXTERNAL | | | Eosinophils | performed at [facility], [address] | K/uL | LAB | | | | [address], | | | | | | [place] [address] | | | | + + + + + + | Absolute | 0.02Comment: Testing | 0.00 - 0.10 | EXTERNAL | | | Basophils | performed at [facility], [address] | K/uL | LAB | | | | [address], | | | | | | [place] [address] | | | | + + + [...] EXTERNAL | | | | performed at [facility], [address] | | LAB | | | | [address], | | | | | | [place] [address] | | | | + + + [...] | EXTERNAL | | | A1c | [place] [facility] | | LAB | | | [...] | | | | | performed at [facility], [address] | | | | | | [address], | | | | | | [place] [address] | | | | + + + [...] | | | | | performed at [facility], [address] | | | | | | [facility], | | | | | | [place] [address] | | | | + + + [...] | | | | | [place] [address] | | | | + + + + + + | K | 4.8Comment: Testing | 3.5 - 4.9 | EXTERNAL | | | | performed at [facility], [address] | mmol/L | LAB | | | | [address], | | | | | | [place] [address] | | | | + + + + + + | Cl | 111 (H)Comment: Testing | 99 - 109 mmol/L | EXTERNAL | | | | performed at [facility], [address] | | LAB | | | | [address], | | | | | | [place] [address] | | | | + + + + + + | CO2 | 23Comment: Testing | 23 - 32 mmol/L | EXTERNAL | | | | performed at [facility], [address] | | LAB | | | | [address], | | | | | | [place] [address] | | | | + + + + + + | Anion Gap | 8Comment: Testing | 5 - 20 mmol/L | EXTERNAL | | | | performed at [facility], [address] | | LAB | | | | [address], | | | | | | [place] [address] | | | | + + + + + + | Glucose, | 108 (H)Comment: Testing | 65 - 99 mg/dL | EXTERNAL | | | Fasting | performed at [facility], [address] | | LAB | | | | [address], | | | | | | [place] [address] | | | | + + + + + + | BUN | 18Comment: Testing | 8 - 25 mg/dL | EXTERNAL | | | | performed at [facility], [address] | | LAB | | | [address], | | | | | | [place] [address] | | | | + + + + + + | Creatinine | 1.12Comment: Testing | 0.70 - 1.30 | EXTERNAL | | | | performed at [facility], [address] | mg/dL | LAB | | | | [address], | | | | | | [place] [address] | | | | + + + + + + | BUN/Creatin | 16Comment: Testing | | EXTERNAL | | | ine Ratio | performed at [facility], [address] | | LAB | | | | [address], | | | | | | [place] [address] | | | | + + + + + + | Calcium | 8.2 (L)Comment: Testing | 8.5 - 10.5 | EXTERNAL | | | | performed at [facility], [address] | mg/dL | LAB | | | | [address], | | | | | | [place] [address] | | | | + + + [...] | | | | | [place] [address] | | | | + + + [...] | | | Fingerstick | performed at [facility];[address] | | LAB | | | | [address];[place], [place] | | | | | | [address] | | | | + + + [...] EXTERNAL | | | | performed at [facility];[address] | mmol/L | LAB | | | | [address];[place], [place] | | | | | | [address] | | | | + + + [...] | | | Fingerstick | performed at [facility] | | LAB | | | | [address];[place], [place] | | | | | | [address] | | | | + + + [...] | | | Fingerstick | performed at [facility];[address] | | LAB | | | | [address];[place] | | | | | | [address] | | | | + + + [...] EXTERNAL | | | | performed at [facility];888 | mmol/L | LAB | | | | [address];[place], [place] | | | | | | [address] | | | | + + [...] | | | Fingerstick | performed at [facility];[address] | | LAB | | | | [address];[place] | | | | | | [address] | | | | + + + [...] EXTERNAL | | | | performed at [facility];888 | mmol/L | LAB | | | | [address];[place], [place] | | | | | | [address] | | | | + + + [...] | | | Fingerstick | performed at [facility];[address] | | LAB | | | | [address];[place] | | | | | | [address] | | | | + + + [...] | | | Fingerstick | performed at [facility];[address] | | LAB | | | | [address];[place] | | | | | | [address] | | | | + + + [...] | | | Fingerstick | performed at [facility];[address] | | LAB | | | | [address];[place], [place] | | | | | | [address] | | | | + + + [...] | | | Fingerstick | performed at [facility];[address] | | LAB | | | | [address];[place], [place] | | | | | | [address] | | | | + + + [...] | | below the diaphragm. Right IJ [place] catheter tip located in the | | [...] below the | | diaphragm. Right IJ [place] catheter tip located in the region of [...] seen coursing below the diaphragm. Right IJ [place] catheter tip located in t he region [...] | | | Fingerstick | performed at [facility];[address] | | LAB | | | | [address];[place] | | | | | | [address] | | | | + + + [...] | | | (Calc) | performed at [facility];888 | mmol/L | LAB | | | | [address];[place] | | | | | | [address] | | | | + + + + + + | pH, Bld | 7.402Comment: Testing | 7.300 - 7.450 | EXTERNAL | | | | performed at [facility];[address] | | LAB | | | | [address];[place] | | | | | | [address] | | | | + + + [...] + + | [facility] | EXTERNAL LAB | + [...] | | | Patient | performed at [facility];[address] | | LAB | | | | [address];[place], [place] | | | | | | [address] | | | | + + + [...] | | | | | performed at [facility];88 | | | | | | [facility] [facility];[place], [place] | | | | | | [address] | | | | + + + [...] EXTERNAL | | | | performed at [facility];[address] | | LAB | | | | [address];[place], [place] | | | | | | [address] | | | | + + + [...] EXTERNAL | | | | performed at [facility];[address] | K/uL | LAB | | | | [address];[place] | | | | | | [address] | | | | + + + + + + | RED CELL | 3.49 (L)Comment: Testing | 4.20 - 5.70 | EXTERNAL | | | COUNT | performed at [facility] [place] | M/uL | LAB | | | | [address];[place] | | | | | | [address] | | | | + + + + + + | Hgb | 10.0 (L)Comment: Testing | 13.2 - 17.0 | EXTERNAL | | | | performed at [facility];888 | g/dL | LAB | | | | [address];[place] | | | | | | [address] | | | | + + + + + + | Hematocrit, | 29.3 (L)Comment: Testing | 39.0 - 50.0 % | EXTERNAL | | | POC | performed at [facility];888 | | LAB | | | | [address];[place] | | | | | | [address] | | | | + + + + + + | MCV | 83.9Comment: Testing | 80.0 - 100.0 fl | EXTERNAL | | | | performed at [facility];888 | | LAB | | | | [address];[place] | | | | | | [address] | | | | + + + + + + | MCH | 28.5Comment: Testing | 27.0 - 34.0 pg | EXTERNAL | | | | performed at [facility] [place];[place] | | LAB | | | | [address];[place] | | | | | | [address] | | | | + + + + + + | MCHC | 33.9Comment: Testing | 32.0 - 35.5 | EXTERNAL | | | | performed at [facility] [place];888 | g/dL | LAB | | | | [address];[place] | | | | | | [address] | | | | + + + + + + | RDW-CV | 39.8Comment: Testing | 37 - 53 fl | EXTERNAL | | | | performed at [facility] [place];[address] | | LAB | | | | [address];[place] | | | | | | [address] | | | | + + + + + + | Platelet | 163Comment: Testing | 150 - 400 K/uL | EXTERNAL | | | Count | performed at [facility];888 | | LAB | | | Plasma | [address];[place] | | | | | | [address] | | | | + + + + + + | MPV | 8.2Comment: Testing | fl | EXTERNAL | | | | performed at [facility];888 | | LAB | | | | [address];[place] | | | | | | [address] | | | | + + + + + + | Differentia | AUTOMATEDComment: | | EXTERNAL | | | l Type | Testing performed at | | LAB | | | | [facility];[address];[place] [address] | | | | + + + + + + | % Segmented | 77.61Comment: Testing | % | EXTERNAL | | | | performed at [facility];888 | | LAB | | | Neutrophils | [address];[place] | | | | | | [address] | | | | + + + + + + | % | 16.33Comment: Testing | % | EXTERNAL | | | Lymphocytes | performed at [facility];888 | | LAB | | | | [address];[place] | | | | | | [address] | | | | + + + + + + | % Monocytes | 4.04Comment: Testing | % | EXTERNAL | | | | performed at [facility];888 | | LAB | | | | [address];[place] | | | | | | [address] | | | | + + + + + + | % | 1.60Comment: Testing | % | EXTERNAL | | | Eosinophils | performed at [facility];888 | | LAB | | | | [address];[place] | | | | | | [address] | | | | + + + + + + | % Basophils | 0.42Comment: Testing | % | EXTERNAL | | | | performed at [facility];888 | | LAB | | | | [address];[place] | | | | | | [address] | | | | + + + + + + | Absolute | 7.58 (H)Comment: Testing | 1.90 - 7.40 | EXTERNAL | | | Segmented | performed at [facility];888 | K/uL | LAB | | | Neutrophils | [address];[place] | | | | | | [address] | | | | + + + + + + | Absolute | 1.59Comment: Testing | 1.00 - 3.90 | EXTERNAL | | | Lymphocytes | performed at [facility];888 | K/uL | LAB | | | | [address];[place] | | | | | | [address] | | | | + + + + + + | Absolute | 0.39Comment: Testing | 0.00 - 0.80 | EXTERNAL | | | Monocytes | performed at [facility];888 | K/uL | LAB | | | | [address];[place] | | | | | | [address] | | | | + + + + + + | Absolute | 0.16Comment: Testing | 0.00 - 0.50 | EXTERNAL | | | Eosinophils | performed at [facility];888 | K/uL | LAB | | | | [address];[place] | | | | | | [address] | | | | + + + + + + | Absolute | 0.04Comment: Testing | 0.00 - 0.10 | EXTERNAL | | | Basophils | performed at [facility];888 | K/uL | LAB | | | | [address];[place], [place] | | | | | | [address] | | | | + + + [...] EXTERNAL | | | | performed at [facility] | | LAB | | | | [address];[place], [place] | | | | | | [address] | | | | + + + [...] EXTERNAL | | | | performed at [facility];888 | mmol/L | LAB | | | | [address];[place], [place] | | | | | | [address] | | | | + + + + + + | K | 4.3Comment: Testing | 3.5 - 4.9 | EXTERNAL | | | | performed at [facility];888 | mmol/L | LAB | | | | [address];[place] | | | | | | [address] | | | | + + + + + + | Cl | 112 (H)Comment: Testing | 99 - 109 mmol/L | EXTERNAL | | | | performed at [facility];888 | | LAB | | | | [address];[place] | | | | | | [address] | | | | + + + + + + | CO2 | 23Comment: Testing | 23 - 32 mmol/L | EXTERNAL | | | | performed at [facility];888 | | LAB | | | | [address];[place] | | | | | | [address] | | | | + + + + + + | Anion Gap | 13Comment: Testing | 5 - 20 mmol/L | EXTERNAL | | | | performed at [facility];888 | | LAB | | | | [address];[place] | | | | | | [address] | | | | + + + + + + | Glucose, | 140 (H)Comment: Testing | 65 - 99 mg/dL | EXTERNAL | | | Fasting | performed at [facility];888 | | LAB | | | | [address];[place] | | | | | | [address] | | | | + + + + + + | BUN | 19Comment: Testing | 8 - 25 mg/dL | EXTERNAL | | | | performed at [facility];888 | | LAB | | | | [address];[place] | | | | | | [address] | | | | + + + + + + | Creatinine | 1.1Comment: Testing | 0.70 - 1.30 | EXTERNAL | | | | performed at [facility];888 | mg/dL | LAB | | | | [address];[place] | | | | | | [address] | | | | + + + + + + | BUN/Creatin | 17Comment: Testing | | EXTERNAL | | | ine Ratio | performed at [facility];888 | | LAB | | | | [address];[place] | | | | | | [address] | | | | + + + + + + | Calcium | 8.5Comment: Testing | 8.5 - 10.5 | EXTERNAL | | | | performed at [facility];888 | mg/dL | LAB | | | | [address];[place] | | | | | | [address] | | | | + + + [...] | | | | | | at [facility];[address] | | | | | [address];[place] [address] | | | | + + + [...] This is a non-reportable procedure without a protein scientist report and | | | is used for image storage only. Please review the operative | | | procedure notes for details on the procedure. | | + + + + + | Procedure Note | + + | Isaac Rodrigues - 03/10/2019 10:17 AM PDT This is a non-reportable procedure | | without a protein scientist report and isused for image storage only. [...] EXTERNAL | | | | performed at [facility];888 | | LAB | | | | [address];[place] | | | | | | [address] | | | | + + + + + + | PCO2 ART | 38Comment: Testing | 35 - 45 mmHg | EXTERNAL | | | | performed at [facility];888 | | LAB | | | | [address];[place] | | | | | | [address] | | | | + + + + + + | PO2 ART | 238 (H)Comment: Testing | 80 - 105 mmHg | EXTERNAL | | | | performed at [facility];888 | | LAB | | | | [address];[place] | | | | | | [address] | | | | + + + + + + | HCO3 ART | 24Comment: Testing | 22 - 26 mmol/L | EXTERNAL | | | | performed at [facility];888 | | LAB | | | | [address];[place] | | | | | | [address] | | | | + + + + + + | POC | 25Comment: Testing | 23 - 27 mEq/L | EXTERNAL | | | APPEARANCE | performed at [facility];888 | | LAB | | | UA | [address];[place] | | | | | | [address] | | | | + + + + + + | Base | 0Comment: Testing | 0 - 3 mEq/L | EXTERNAL | | | Excess, | performed at [facility];888 | | LAB | | | Arterial | [address];[place] | | | | | | [address] | | | | + + + + + + | O2 SAT ART | 100 (H)Comment: Testing | 95 - 98 % | EXTERNAL | | | | performed at [facility];888 | | LAB | | | | [address];[place] | | | | | | [address] | | | | + + + + + + | Sodium, POC | 141Comment: Testing | 135 - 145 mEq/L | EXTERNAL | | | | performed at [facility];888 | | LAB | | | | [address];[place] | | | | | | [address] | | | | + + + + + + | Potassium, | 4.4Comment: Testing | 3.5 - 5.0 mEq/L | EXTERNAL | | | POC | performed at [facility];888 | | LAB | | | | [address];[place] | | | | | | [address] | | | | + + + + + + | Ionized | 1.40 (H)Comment: Testing | 1.12 - 1.32 | EXTERNAL | | | Calcium, | performed at [facility];888 | mmol/L | LAB | | | POC | [address];[place] | | | | | | [address] | | | | + + + + + + | Glucose, | 190 (H)Comment: Testing | 65 - 99 mg/dL | EXTERNAL | | | POC | performed at [facility];888 | | LAB | | | | [address];[place] | | | | | | [address] | | | | + + + + + + | Hematocrit, | 22 (LL)Comment: Testing | 40.0 - 50.0 % | EXTERNAL | | | POC | performed at [facility];888 | | LAB | | | | [address];[place] | | | | | | [address] | | | | + + + + + + | Hemoglobin, | 7.5 (LL)Comment: Testing | 13.7 - 16.7 | EXTERNAL | | | POC | performed at [facility];888 | g/dL | LAB | | | | [address];[place], [place] | | | | | | [address] | | | | + + + [...] | | LAB | | | | [facility];[address];[place] [address] | | | | + + + + + + | PCO2 ART | 38Comment: Testing | 35 - 45 mmHg | EXTERNAL | | | | performed at [facility];888 | | LAB | | | | [address];[place] | | | | | | [address] | | | | + + + + + + | PO2 ART | 237 (H)Comment: Testing | 80 - 105 mmHg | EXTERNAL | | | | performed at [facility];888 | | LAB | | | | [address];[place] | | | | | | [address] | | | | + + + + + + | HCO3 ART | 27 (H)Comment: Testing | 22 - 26 mmol/L | EXTERNAL | | | | performed at [facility];888 | | LAB | | | | [address];[place] | | | | | | [address] | | | | + + + + + + | POC | 28 (H)Comment: Testing | 23 - 27 mEq/L | EXTERNAL | | | APPEARANCE | performed at [facility];888 | | LAB | | | UA | [address];[place] | | | | | | [address] | | | | + + + + + + | Base | 3Comment: Testing | 0 - 3 mEq/L | EXTERNAL | | | Excess, | performed at [facility];888 | | LAB | | | Arterial | [address];[place] | | | | | | [address] | | | | + + + + + + | O2 SAT ART | 100 (H)Comment: Testing | 95 - 98 % | EXTERNAL | | | | performed at [facility];888 | | LAB | | | | [address];[place] | | | | | | [address] | | | | + + + + + + | Sodium, POC | 141Comment: Testing | 135 - 145 mEq/L | EXTERNAL | | | | performed at [facility];888 | | LAB | | | | [address];[place] | | | | | | [address] | | | | + + + + + + | Potassium, | 5.7 (H)Comment: Testing | 3.5 - 5.0 mEq/L | EXTERNAL | | | POC | performed at [facility];888 | | LAB | | | | [address];[place] | | | | | | [address] | | | | + + + + + + | Ionized | 1.02 (L)Comment: Testing | 1.12 - 1.32 | EXTERNAL | | | Calcium, | performed at [facility];888 | mmol/L | LAB | | | POC | [address];[place] | | | | | | [address] | | | | + + + + + + | Glucose, | 172 (H)Comment: Testing | 65 - 99 mg/dL | EXTERNAL | | | POC | performed at [facility];888 | | LAB | | | | [address];[place] | | | | | | [address] | | | | + + + + + + | Hematocrit, | 22 (LL)Comment: Testing | 40.0 - 50.0 % | EXTERNAL | | | POC | performed at [facility];888 | | LAB | | | | [address];[place] | | | | | | [address] | | | | + + + + + + | Hemoglobin, | 7.5 (LL)Comment: Testing | 13.7 - 16.7 | EXTERNAL | | | POC | performed at [facility];888 | g/dL | LAB | | | | [address];[place] | | | | | | [address] | | | | + + + [...] EXTERNAL | | | | performed at [facility];888 | | LAB | | | | [address];[place] | | | | | | [address] | | | | + + + + + + | PCO2 ART | 38Comment: Testing | 35 - 45 mmHg | EXTERNAL | | | | performed at [facility];888 | | LAB | | | | [address];[place] | | | | | | [address] | | | | + + + + + + | PO2 ART | 149 (H)Comment: Testing | 80 - 105 mmHg | EXTERNAL | | | | performed at [facility];888 | | LAB | | | | [address];[place] | | | | | | [address] | | | | + + + + + + | HCO3 ART | 26Comment: Testing | 22 - 26 mmol/L | EXTERNAL | | | | performed at [facility];888 | | LAB | | | | [address];[place] | | | | | | [address] | | | | + + + + + + | POC | 27Comment: Testing | 23 - 27 mEq/L | EXTERNAL | | | APPEARANCE | performed at [facility];888 | | LAB | | | UA | [address];[place] | | | | | | [address] | | | | + + + + + + | Base | 2Comment: Testing | 0 - 3 mEq/L | EXTERNAL | | | Excess, | performed at [facility];888 | | LAB | | | Arterial | [address];[place] | | | | | | [address] | | | | + + + + + + | O2 SAT ART | 99 (H)Comment: Testing | 95 - 98 % | EXTERNAL | | | | performed at [facility];888 | | LAB | | | | [address];[place] | | | | | | [address] | | | | + + + + + + | Sodium, POC | 137Comment: Testing | 135 - 145 mEq/L | EXTERNAL | | | | performed at [facility];888 | | LAB | | | | [address];[place] | | | | | | [address] | | | | + + + + + + | Potassium, | 6.8 (HH)Comment: Testing | 3.5 - 5.0 mEq/L | EXTERNAL | | | POC | performed at [facility];888 | | LAB | | | | [address];[place] | | | | | | [address] | | | | + + + + + + | Ionized | 1.06 (L)Comment: Testing | 1.12 - 1.32 | EXTERNAL | | | Calcium, | performed at [facility];888 | mmol/L | LAB | | | POC | [address];[place] | | | | | | [address] | | | | + + + + + + | Glucose, | 195 (H)Comment: Testing | 65 - 99 mg/dL | EXTERNAL | | | POC | performed at [facility];888 | | LAB | | | | [address];[place] | | | | | | [address] | | | | + + + + + + | Hematocrit, | 25 (L)Comment: Testing | 40.0 - 50.0 % | EXTERNAL | | | POC | performed at [facility];888 | | LAB | | | | [address];[place] | | | | | | [address] | | | | + + + + + + | Hemoglobin, | 8.5 (L)Comment: Testing | 13.7 - 16.7 | EXTERNAL | | | POC | performed at [facility];888 | g/dL | LAB | | | | [address];[place] | | | | | | [address] | | | | + + + [...] EXTERNAL | | | | performed at [facility];888 | | LAB | | | | [address];[place] | | | | | | [address] | | | | + + + + + + | PCO2 ART | 43Comment: Testing | 35 - 45 mmHg | EXTERNAL | | | | performed at [facility];888 | | LAB | | | | [address];[place] | | | | | | [address] | | | | + + + + + + | PO2 ART | 292 (H)Comment: Testing | 80 - 105 mmHg | EXTERNAL | | | | performed at [facility];888 | | LAB | | | | [address];[place] | | | | | | [address] | | | | + + + + + + | HCO3 ART | 29 (H)Comment: Testing | 22 - 26 mmol/L | EXTERNAL | | | | performed at [facility];888 | | LAB | | | | [address];[place] | | | | | | [address] | | | | + + + + + + | POC | 30 (H)Comment: Testing | 23 - 27 mEq/L | EXTERNAL | | | APPEARANCE | performed at [facility];888 | | LAB | | | UA | [address];[place] | | | | | | [address] | | | | + + + + + + | Base | 5 (H)Comment: Testing | 0 - 3 mEq/L | EXTERNAL | | | Excess, | performed at [facility];888 | | LAB | | | Arterial | [address];[place] | | | | | | [address] | | | | + + + + + + | O2 SAT ART | 100 (H)Comment: Testing | 95 - 98 % | EXTERNAL | | | | performed at [facility];888 | | LAB | | | | [address];[place] | | | | | | [address] | | | | + + + + + + | Sodium, POC | 137Comment: Testing | 135 - 145 mEq/L | EXTERNAL | | | | performed at [facility];888 | | LAB | | | | [address];[place] | | | | | | [address] | | | | + + + + + + | Potassium, | 6.5 (HH)Comment: Testing | 3.5 - 5.0 mEq/L | EXTERNAL | | | POC | performed at [facility];888 | | LAB | | | | [address];[place] | | | | | | [address] | | | | + + + + + + | Ionized | 1.05 (L)Comment: Testing | 1.12 - 1.32 | EXTERNAL | | | Calcium, | performed at [facility];888 | mmol/L | LAB | | | POC | [address];[place] | | | | | | [address] | | | | + + + + + + | Glucose, | 176 (H)Comment: Testing | 65 - 99 mg/dL | EXTERNAL | | | POC | performed at [facility];888 | | LAB | | | | [address];[place] | | | | | | [address] | | | | + + + + + + | Hematocrit, | 25 (L)Comment: Testing | 40.0 - 50.0 % | EXTERNAL | | | POC | performed at [facility];888 | | LAB | | | | [address];[place] | | | | | | [address] | | | | + + + + + + | Hemoglobin, | 8.5 (L)Comment: Testing | 13.7 - 16.7 | EXTERNAL | | | POC | performed at [facility];888 | g/dL | LAB | | | | [address];[place] | | | | | | [address] | | | | + + + [...] EXTERNAL | | | | performed at [facility];888 | | LAB | | | | [address];[place], [place] | | | | | | [address] | | | | + + + + + + | PCO2 ART | 51 (H)Comment: Testing | 35 - 45 mmHg | EXTERNAL | | | | performed at [facility];888 | | LAB | | | | [address];[place] | | | | | | [address] | | | | + + + + + + | PO2 ART | 275 (H)Comment: Testing | 80 - 105 mmHg | EXTERNAL | | | | performed at [facility];888 | | LAB | | | | [address];[place] | | | | | | [address] | | | | + + + + + + | HCO3 ART | 32 (H)Comment: Testing | 22 - 26 mmol/L | EXTERNAL | | | | performed at [facility];888 | | LAB | | | | [address];[place] | | | | | | [address] | | | | + + + + + + | POC | 33 (H)Comment: Testing | 23 - 27 mEq/L | EXTERNAL | | | APPEARANCE | performed at [facility];888 | | LAB | | | UA | [address];[place] | | | | | | [address] | | | | + + + + + + | Base | 7 (H)Comment: Testing | 0 - 3 mEq/L | EXTERNAL | | | Excess, | performed at [facility];888 | | LAB | | | Arterial | [address];[place] | | | | | | [address] | | | | + + + + + + | O2 SAT ART | 100 (H)Comment: Testing | 95 - 98 % | EXTERNAL | | | | performed at [facility];888 | | LAB | | | | [address];[place] | | | | | | [address] | | | | + + + + + + | Sodium, POC | 136Comment: Testing | 135 - 145 mEq/L | EXTERNAL | | | | performed at [facility];888 | | LAB | | | | [address];[place] | | | | | | [address] | | | | + + + + + + | Potassium, | 4.7Comment: Testing | 3.5 - 5.0 mEq/L | EXTERNAL | | | POC | performed at [facility];888 | | LAB | | | | [address];[place] | | | | | | [address] | | | | + + + + + + | Ionized | 0.95 (L)Comment: Testing | 1.12 - 1.32 | EXTERNAL | | | Calcium, | performed at [facility];888 | mmol/L | LAB | | | POC | [address];[place] | | | | | | [address] | | | | + + + + + + | Glucose, | 166 (H)Comment: Testing | 65 - 99 mg/dL | EXTERNAL | | | POC | performed at [facility];888 | | LAB | | | | [address];[place] | | | | | | [address] | | | | + + + + + + | Hematocrit, | 26 (L)Comment: Testing | 40.0 - 50.0 % | EXTERNAL | | | POC | performed at [facility];888 | | LAB | | | | [address];[place] | | | | | | [address] | | | | + + + + + + | Hemoglobin, | 8.8 (L)Comment: Testing | 13.7 - 16.7 | EXTERNAL | | | POC | performed at [facility];888 | g/dL | LAB | | | | [address];[place] | | | | | | [address] | | | | + + + [...] | | LAB | | | | [facility];[address] | | | | | | [address];[place] [address] | | | | + + + + + + | PCO2 ART | 64 (HH)Comment: Testing | 35 - 45 mmHg | EXTERNAL | | | | performed at [facility];[address] | | LAB | | | | [address];[place] | | | | | | [address] | | | | + + + + + + | PO2 ART | 362 (H)Comment: Testing | 80 - 105 mmHg | EXTERNAL | | | | performed at [facility] [place];[address] | | LAB | | | | [address];[place] | | | | | | [address] | | | | + + + + + + | HCO3 ART | 28 (H)Comment: Testing | 22 - 26 mmol/L | EXTERNAL | | | | performed at [facility] [place];[address] | | LAB | | | | [address];[place] | | | | | | [address] | | | | + + + + + + | POC | 30 (H)Comment: Testing | 23 - 27 mEq/L | EXTERNAL | | | APPEARANCE | performed at [facility] [place];[address] | | LAB | | | UA | [address];[place] | | | | | | [address] | | | | + + + + + + | Base | 1Comment: Testing | 0 - 3 mEq/L | EXTERNAL | | | Excess, | performed at [facility] [place];[address] | | LAB | | | Arterial | [address];[place] | | | | | | [address] | | | | + + + + + + | O2 SAT ART | 100 (H)Comment: Testing | 95 - 98 % | EXTERNAL | | | | performed at [facility] [place];[address] | | LAB | | | | [address];[place] | | | | | | [address] | | | | + + + + + + | Sodium, POC | 137Comment: Testing | 135 - 145 mEq/L | EXTERNAL | | | | performed at [facility] [place];[address] | | LAB | | | | [address];[place] | | | | | | [address] | | | | + + + + + + | Potassium, | 4.7Comment: Testing | 3.5 - 5.0 mEq/L | EXTERNAL | | | POC | performed at [facility] [place];[address] | | LAB | | | | [address];[place] | | | | | | [address] | | | | + + + + + + | Ionized | 1.15Comment: Testing | 1.12 - 1.32 | EXTERNAL | | | Calcium, | performed at [facility] [place];888 | mmol/L | LAB | | | POC | [address];[place] | | | | | | [address] | | | | + + + + + + | Glucose, | 185 (H)Comment: Testing | 65 - 99 mg/dL | EXTERNAL | | | POC | performed at [facility] [place];[address] | | LAB | | | | [address];[place] | | | | | | [address] | | | | + + + + + + | Hematocrit, | 32 (L)Comment: Testing | 40.0 - 50.0 % | EXTERNAL | | | POC | performed at [facility] [place];[address] | | LAB | | | | [address];[place] | | | | | | [address] | | | | + + + + + + | Hemoglobin, | 10.9 (L)Comment: Testing | 13.7 - 16.7 | EXTERNAL | | | POC | performed at [facility] [place];888 | g/dL | LAB | | | | [address];[place] | | | | | | [address] | | | | + + + [...] EXTERNAL | | | | performed at [facility] [place];[address] | | LAB | | | | [address];[place] | | | | | | [address] | | | | + + + + + + | PCO2 ART | 44Comment: Testing | 35 - 45 mmHg | EXTERNAL | | | | performed at [facility] [place];[address] | | LAB | | | | [address];[place] | | | | | | [address] | | | | + + + + + + | PO2 ART | 411 (H)Comment: Testing | 80 - 105 mmHg | EXTERNAL | | | | performed at [facility] [place] | | LAB | | | | [address];[place] | | | | | | [address] | | | | + + + + + + | HCO3 ART | 28 (H)Comment: Testing | 22 - 26 mmol/L | EXTERNAL | | | | performed at [facility] [place] | | LAB | | | | [address];[place] | | | | | | [address] | | | | + + + + + + | POC | 29 (H)Comment: Testing | 23 - 27 mEq/L | EXTERNAL | | | APPEARANCE | performed at [facility] [place] | | LAB | | | UA | [address];[place] | | | | | | [address] | | | | + + + + + + | Base | 3Comment: Testing | 0 - 3 mEq/L | EXTERNAL | | | Excess, | performed at [facility] [place];[address] | | LAB | | | Arterial | [address];[place] | | | | | | [address] | | | | + + + + + + | O2 SAT ART | 100 (H)Comment: Testing | 95 - 98 % | EXTERNAL | | | | performed at [facility] [place];[address] | | LAB | | | | [address];[place] | | | | | | [address] | | | | + + + + + + | Sodium, POC | 138Comment: Testing | 135 - 145 mEq/L | EXTERNAL | | | | performed at [facility] [place];[address] | | LAB | | | | [address];[place] | | | | | | [address] | | | | + + + + + + | Potassium, | 4.4Comment: Testing | 3.5 - 5.0 mEq/L | EXTERNAL | | | POC | performed at [facility] [place];[address] | | LAB | | | | [address];[place] | | | | | | [address] | | | | + + + + + + | Ionized | 1.20Comment: Testing | 1.12 - 1.32 | EXTERNAL | | | Calcium, | performed at [facility] [place] | mmol/L | LAB | | | POC | [address];[place] | | | | | | [address] | | | | + + + + + + | Glucose, | 196 (H)Comment: Testing | 65 - 99 mg/dL | EXTERNAL | | | POC | performed at [facility] [place];[address] | | LAB | | | | [address];[place] | | | | | | [address] | | | | + + + + + + | Hematocrit, | 36 (L)Comment: Testing | 40.0 - 50.0 % | EXTERNAL | | | POC | performed at [facility] [place];[address] | | LAB | | | | [address];[place] | | | | | | [address] | | | | + + + + + + | Hemoglobin, | 12.2 (L)Comment: Testing | 13.7 - 16.7 | EXTERNAL | | | POC | performed at [facility] [place] | g/dL | LAB | | | | [address];[place], [place] | | | | | | [address] | | | | + + + [...] | | | Fingerstick | performed at [facility] [place];[facility] | | LAB | | | | [address];[place], [place] | | | | | | [address] | | | | + + + [...] + + | 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
--- OUTSIDE RECORDS SUMMARY | ~2019-07-15 | XMS | Encounter Summary ---
Demographics + + + | Address | [address] | | | [place] [address] | + + + | Home Phone | | + + + | Preferred Language | Unknown | + + + | Marital Status | Unknown | + + + | Holiness Affiliation | 1013 | + + + | Race | Unknown | + + + | Ethnic Group | Unknown | + + + Author + + + | Author | [facility] | | | and [place] | + + + | Organization | [facility] | | | and [place] [...] Team Providers + +------+ + | Care Agricultural Production Engineer Name | Role | Phone | + +------+ + | Blue Lopez MD | PCP | | + +------+ + Encounter Details +--------+ + + + + | Date | Type | Department | Care Team | Description | +--------+ + + + + | 07/30/ | Orders Only | [facility] | [place] | | | 2016 | | CARDIOLOGY IRENE | MD [address] | | | | | [address] | [place] | | | | | [place] | [facility] [place] [address] | | | | | [address] | [phone] | | | | | [phone] | | | +--------+ + + + [...]
[~2019-07-15 08:14] MED LIST: ASPIRIN EC81 MG PO; CINNAMON500 MG PO; GABAPENTIN300 MG PO; GLIPIZIDE10 MG PO; LISINOPRIL10 MG PO; MAGOX 400400 MG PO; METFORMIN HCL1000 MG PO; METOPROLOL SUC100 MG PO; METRONIDAZOLE500 MG PO; PRAVASTATIN SOD40 MG PO; ZOFRAN ODT4 MG PO
[2019-07-15] MEDS ORDERED: ROSUVASTATIN CA10 MG PO (08:27)
[2019-07-15] MEDS ORDERED: JANUVIA100 MG PO (08:27)
== END 2019-07-15 10:16 | disposition home or self-care (01) ==
LOC: ED 08:14
DX: R04.0 Epistaxis (principal); I10 Essential (primary) hypertension; E11.9 Type 2 diabetes mellitus without complications; Z87.891 Personal history of nicotine dependence; Z88.2 Allergy status to sulfonamides; Z79.899 Other long term (current) drug therapy; Z79.82 Long term (current) use of aspirin
CPT/HCPCS: 30901; 99283-25